=== PATIENT | female | born 1945 | race American Indian/Alaskan Native ===

== ENCOUNTER 2017-01-14 16:28 | Emergency (ER) | payer MEDICARE ==
[2017-01-14 16:29] VITALS: BMI 24.1
[2017-01-14 17:04] VITALS: O2SAT 100
[2017-01-14] MEDS ORDERED: HYDROmorphone 1 mg/ml ISec IVP STA (17:17)
--- NOTE | 2017-01-14 17:18 | ED PDOC ---
Arrival/HPI - General Chief Complaint: Abdominal Pain Time Seen by Provider: 01/14/17 16:50 Historian: Patient - History of Present Illness Narrative History of Present Illness (Text): 01/14/17 17:15 71 year old female with a past medical history that includes pancreatic cancer on chemo ([place], last chemo yesterday) presents to the emergency department with generalized body aches after chemotherapy. Patient states she has had a similar exacerbation of this pain in the past due to the cancer/chemo. Patient denies fever, cough, chest pain, shortness of breath, urinary symptoms, or vomiting. Time/Duration: 24 hours Symptom Onset: Gradual Symptom Course: Unchanged Modifying Factors (Text): None Associated Symptoms (Text): None Past Medical History - Provider Review Nursing Documentation Reviewed: Yes - Infectious Disease Hx of Infectious Diseases: None - Cardiac Hx Hypertension: Yes Hx Pacemaker: No - Pulmonary Hx Respiratory Disorders: No - Neurological Hx Paralysis: No Hx Parkinson's Disease: Yes - HEENT Hx HEENT Disorder: Yes Hx Macular Degeneration: Yes - Renal Hx Renal Disorder: No - Endocrine/Metabolic Hx Endocrine Disorders: Yes Hx Diabetes Mellitus Type 2: No (PREDIABETIC) Hx Hyperthyroidism: Yes Other/Comment: pancreatic cancer- dx aug 2016 chemo on tuesdays - Hematological/Oncological Hx Blood Transfusions: Yes (2008) Hx Blood Transfusion Reaction: No Hx Cancer: Yes (pancreatic) - Integumentary Hx Dermatological Disorder: No - Musculoskeletal/Rheumatological Hx Falls: No - Gastrointestinal Hx Gastrointestinal Disorders: Yes Hx Diverticulitis: Yes Hx Gall Bladder Disease: Yes (Lap choley) - Genitourinary/Gynecological Hx Genitourinary Disorders: Yes Other/Comment: Bladder surgery - Psychiatric Hx Emotional Abuse: No Hx Physical Abuse: No Hx Substance Use: No - Surgical History Hx Cholecystectomy: Yes - Anesthesia Hx Anesthesia: Yes Hx Anesthesia Reactions: No Hx Malignant Hyperthermia: No - Suicidal Assessment Feels Threatened In Home Enviroment: No Family/Social History - Physician Review Nursing Documentation Reviewed: Yes Family/Social History: Unknown Family HX Smoking Status: Never Smoked Hx Alcohol Use: No Hx Substance Use: No Allergies/Home Meds Allergies/Adverse Reactions: Allergies No Known Allergies Allergy (Verified 01/14/17 16:59) Home Medications: Home Meds Medication Instructions Recorded Confirmed Carbidopa/Levodopa 01/14/17 [Carbidopa-Levodopa 25-100 Tab] Metoprolol Tartrate [Lopressor] 01/14/17 Review of Systems - Review of Systems Constitutional: absent: Fevers Respiratory: absent: SOB, Cough Cardiovascular: absent: Chest Pain Gastrointestinal: absent: Vomiting Genitourinary Female: absent: Dysuria, Frequency, Hematuria Physical Exam - Physical Exam Narrative Physical Exam (Text): Constitutional: No acute distress. Head: Normocephalic. Atraumatic. Eyes: PERRL. ENT: Moist mucous membranes. Neck: Supple. Cardiovascular: Regular rate. Chest: No tenderness. Respiratory: Clear to auscultation bilaterally. GI: Soft. Nontender. Nondistended. Back: No CVA tenderness. Musculoskeletal: No tenderness or swelling of extremities. Skin: No rash. Neurologic: Alert, no focal deficit. Vital Signs Reviewed: Yes Vital Signs Temp Pulse Resp BP Pulse Ox 01/14/17 18:45 72 16 156/86 H 100 01/14/17 17:46 99.2 F 81 24 170/110 H 100 01/14/17 17:01 98.6 F 77 17 158/106 H 100 Temperature: Afebrile Blood Pressure: Normal Pulse: Regular Respiratory Rate: Normal Appearance: Positive for: Non-Toxic, Comfortable, Other (Thin elderly female) Pain Distress: None Mental Status: Positive for: Alert and Oriented X 3 Medical Decision Making ED Course and Treatment: Impression: 71 year old female with history of pancreatic cancer, on chemo, last chemo yesterday, presents with generalized body aches after chemo yesterday. Differential Diagnosis included but are not limited to: Plan: -- Dilaudid -- Reassess and disposition Prior Visits: Notes and results from previous visits were reviewed. CT on 10/12/16 showed pancreatic head mass. Progress Notes: Patient refusing workup or further evaluation and wishes to be discharged after receiving pain medication. The patient states much better after treatment and would like to go home. I instructed her to follow up with her oncologist for chronic pain management. I instructed her and her family to return to the ER for any worsening fever, dyspnea, vomiting, or other new symptoms. - Medication Orders Current Medication Orders: Discontinued Medications Hydromorphone HCl (Dilaudid) 1 mg IVP STAT STA Stop: 01/14/17 17:18 Last Admin: 01/14/17 17:52 Dose: 1 MG IVP Administration Document 01/14/17 17:52 MMA (Rec: 01/14/17 17:52 [id number]) Charges for Administration # of IVP Administrations 1 - Scribe Statement The provider has reviewed the documentation as recorded by the Marimar Chairez Provider Scribe Attestation: All medical record entries made by the Scribe were at my direction and personally dictated by me. I have reviewed the chart and agree that the record accurately reflects my personal performance of the history, physical exam, medical decision making, and the department course for this patient. I have also personally directed, reviewed, and agree with the discharge instructions and disposition. Disposition/Present on Arrival - Present on Arrival Any Indicators Present on Arrival: No History of DVT/PE: No History of Uncontrolled Diabetes: No Urinary Catheter: No History of Decub. Ulcer: No History Surgical Site Infection Following: None - Disposition Have Diagnosis and Disposition been Completed?: Yes Diagnosis: Chronic pain Disposition: HOME/ ROUTINE Disposition Time: 18:49 Patient Plan: Discharge Condition: STABLE Discharge Instructions (ExitCare): Pharmacological Management of Cancer Pain ( ED) Prescriptions: oxyCODONE/Acetaminophen [Percocet 5/325 mg Tab] 1 tab PO Q6 #10 tab
[2017-01-14 17:49] VITALS: TEMP 99.2
[2017-01-14 19:41] VITALS: BP 150/96; PULSE 66; RESP 14
== END 2017-01-14 19:38 | disposition home or self-care (01) ==
LOC: ED 16:28
DX: G89.29 Other chronic pain (principal); C25.9 Malignant neoplasm of pancreas, unspecified
CPT/HCPCS: 96374; 99283; J1170

== ENCOUNTER 2017-01-23 02:56 | Emergency (ER) | payer MEDICARE, OTHER ==
[2017-01-23 03:06] VITALS: TEMP 99
[2017-01-23 03:08] VITALS: BMI 23.6
[2017-01-23] MEDS ORDERED: HYDROmorphone 1 mg/ml ISec IVP STA (03:22)
--- NOTE | 2017-01-23 03:31 | ED PDOC ---
Arrival/HPI - General Chief Complaint: Medical Clearance Time Seen by Provider: 01/23/17 03:07 Historian: Patient - History of Present Illness Narrative History of Present Illness (Text): 01/23/17 03:22 Wanda Obrien is a 71 year old female, with a history of stage III pancreatic cancer on chemo, presents to the emergency department complaining of generalized weakness and body aches since yesterday. States that she experiences similar symptoms following chemotherapy and mentions that she usually gets a shot of Dilaudid which improved her symptoms markedly. Patient did not have chemotherapy this week because this is her off week. Patient is requesting a shot of dilaudid to help with pain. Denies fever, chills, headache , dizziness, nausea, vomiting, diarrhea, urinary symptoms, or any other complaints at this time. Time/Duration: < week (since yesterday ) Symptom Onset: Gradual Symptom Course: Worsening Severity Level: Mild Activities at Onset: Light Context: Home Past Medical History - Provider Review Nursing Documentation Reviewed: Yes - Infectious Disease Hx of Infectious Diseases: None - Cardiac Hx Hypertension: Yes Hx Pacemaker: No - Pulmonary Hx Respiratory Disorders: No - Neurological Hx Paralysis: No Hx Parkinson's Disease: Yes - HEENT Hx HEENT Disorder: Yes Hx Macular Degeneration: Yes - Renal Hx Renal Disorder: No - Endocrine/Metabolic Hx Endocrine Disorders: Yes Hx Diabetes Mellitus Type 2: No (PREDIABETIC) Hx Hyperthyroidism: Yes Other/Comment: pancreatic cancer- dx aug 2016 chemo on tuesdays - Hematological/Oncological Hx Blood Transfusions: Yes (2008) Hx Blood Transfusion Reaction: No Hx Cancer: Yes (pancreatic/stomach) - Integumentary Hx Dermatological Disorder: No - Musculoskeletal/Rheumatological Hx Falls: No - Gastrointestinal Hx Gastrointestinal Disorders: Yes Hx Colitis: Yes Hx Diverticulitis: Yes Hx Gall Bladder Disease: Yes (Lap choley) Hx Gastroesophageal Reflux: Yes Other/Comment: ca pancreas - Genitourinary/Gynecological Hx Genitourinary Disorders: Yes Other/Comment: Bladder surgery - Psychiatric Hx Anxiety: Yes Hx Emotional Abuse: No Hx Physical Abuse: No Hx Substance Use: No - Surgical History Hx Cholecystectomy: Yes Hx Hysterectomy: Yes - Anesthesia Hx Anesthesia: Yes Hx Anesthesia Reactions: No Hx Malignant Hyperthermia: No - Suicidal Assessment Feels Threatened In Home Enviroment: No Family/Social History - Physician Review Nursing Documentation Reviewed: Yes Family/Social History: No Known Family HX Smoking Status: Never Smoked Hx Alcohol Use: No Hx Substance Use: No Allergies/Home Meds Allergies/Adverse Reactions: Allergies No Known Allergies Allergy (Verified 01/23/17 03:06) Home Medications: Home Meds Medication Instructions Recorded Confirmed Carbidopa/Levodopa 01/14/17 [Carbidopa-Levodopa 25-100 Tab] Metoprolol Tartrate [Lopressor] 01/14/17 Review of Systems - Physician Review All systems were reviewed & negative as marked: Yes - Review of Systems Constitutional: Fatigue (generalized weakness ). absent: Fevers Respiratory: Normal. absent: SOB, Cough Cardiovascular: Normal. absent: Chest Pain Gastrointestinal: Normal. absent: Abdominal Pain, Diarrhea, Nausea, Vomiting Musculoskeletal: Myalgias (diffuse body aches ) Neurological: Normal. absent: Headache, Dizziness Psychiatric: Normal Physical Exam Vital Signs Reviewed: Yes Vital Signs Temp Pulse Resp BP Pulse Ox 01/23/17 05:10 78 18 138/86 100 01/23/17 03:32 83 18 145/91 H 100 01/23/17 03:05 99.0 F Temperature: Afebrile Blood Pressure: Normal Pulse: Regular Respiratory Rate: Normal Appearance: Positive for: Well-Appearing, Non-Toxic, Comfortable Pain Distress: None Mental Status: Positive for: Alert and Oriented X 3 - Systems Exam Head: Present: Atraumatic, Normocephalic Pupils: Present: PERRL Conjunctiva: Present: Normal Respiratory/Chest: Present: Clear to Auscultation, Good Air Exchange. No: Respiratory Distress, Accessory Muscle Use Cardiovascular: Present: Regular Rate and Rhythm, Normal S1, S2. No: Murmurs Abdomen: Present: Normal Bowel Sounds. No: Tenderness, Distention, Peritoneal Signs Upper Extremity: Present: Normal Inspection. No: Cyanosis, Edema Lower Extremity: Present: Normal Inspection. No: Edema Neurological: Present: GCS=15, CN II-XII Intact, Speech Normal Skin: Present: Warm, Dry, Normal Color. No: Rashes Psychiatric: Present: Alert, Oriented x 3, Normal Insight, Normal Concentration Medical Decision Making ED Course and Treatment: 01/23/17 03:33 Impression: A 71 year old female who presents to the emergency department complaining of generalized weakness and body aches since yesterday. Plan: -- Dilaudid -- Reassess and disposition Progress Notes: 01/23/17 05:03 pt feels better, requesting discharge. - Medication Orders Current Medication Orders: Discontinued Medications Hydromorphone HCl (Dilaudid) 1 mg IM STAT STA Stop: 01/23/17 04:35 Last Admin: 01/23/17 04:46 Dose: 1 MG IM Administration Charges Document 01/23/17 04:46 MR (Rec: 01/23/17 04:46 MR [id number]) Injection Site MAR Injection Site Left Deltoid Charges for Administration # of IM Administrations 1 - Scribe Statement The provider has reviewed the documentation as recorded by the Ildefonsoibe Armani Crocker Provider Attestation: All medical record entries made by the Ildefonsoibe were at my direction and personally dictated by me. I have reviewed the chart and agree that the record accurately reflects my personal performance of the history, physical exam, medical decision making, and the department course for this patient. I have also personally directed, reviewed, and agree with the discharge instructions and disposition. Disposition/Present on Arrival - Present on Arrival Any Indicators Present on Arrival: No History of DVT/PE: No History of Uncontrolled Diabetes: No Urinary Catheter: No History of Decub. Ulcer: No History Surgical Site Infection Following: None - Disposition Have Diagnosis and Disposition been Completed?: Yes Diagnosis: Whole body pain Disposition: HOME/ ROUTINE Disposition Time: 05:04 Patient Problems: Current Active Problems Problem Status Diagnosed Whole body pain Acute Condition: IMPROVED Additional Instructions: Please follow up with your doctor. Return to the ER for any worsening symptoms or for any other concerns.
[2017-01-23 03:39] VITALS: RESP 18; O2SAT 100
[2017-01-23] MEDS ORDERED: HYDROmorphone 1 mg/ml ISec IM STA (04:34)
[2017-01-23 05:12] VITALS: BP 138/86; PULSE 78
== END 2017-01-23 05:20 | disposition home or self-care (01) ==
LOC: ED 02:56
DX: M79.1 Myalgia (principal); C25.9 Malignant neoplasm of pancreas, unspecified; I10 Essential (primary) hypertension; G20 Parkinson's disease
CPT/HCPCS: 96372; 99282; J1170

== ENCOUNTER 2017-02-08 20:26 | Emergency (ER) | payer MEDICARE, OTHER ==
--- NOTE | 2017-02-08 21:41 | ED PDOC ---
Arrival/HPI - General Time Seen by Provider: 02/08/17 20:52 Historian: Patient - History of Present Illness Narrative History of Present Illness (Text): 02/08/17 21:39 Wanda Obrien is a 71 year old female, whose past medical history includes hypertension, macular degeneration, pancreatic adenocarcinoma currently undergoing chemotherapy, cecal adenocarcinoma anemia, diverticulitis, cholecystectomy, and bladder surgery, who presents to the Emergency department complaining of generalized body aches for the past couple of days Patient notes she recently had chemotherapy on 02/03/2017 and states she experiences similar symptoms after receiving chemotherapy. Patient denies any fever, chills, chest pain, shortness of breath, nausea, vomiting, diarrhea, urinary symptoms, back pain, neck pain, headache, dizziness, or any other complaints. PMD: Dr. Don Prabhakar Time/Duration: Other (2 days) Symptom Onset: Gradual Symptom Course: Unchanged Activities at Onset: Rest, Light Context: Home Past Medical History - Provider Review Nursing Documentation Reviewed: Yes - Infectious Disease Hx of Infectious Diseases: None - Cardiac Hx Hypertension: Yes Hx Pacemaker: No - Pulmonary Hx Respiratory Disorders: No - Neurological Hx Paralysis: No Hx Parkinson's Disease: Yes - HEENT Hx HEENT Disorder: Yes Hx Macular Degeneration: Yes - Renal Hx Renal Disorder: No - Endocrine/Metabolic Hx Endocrine Disorders: Yes Hx Diabetes Mellitus Type 2: No (PREDIABETIC) Hx Hyperthyroidism: Yes Other/Comment: pancreatic cancer- dx aug 2016 chemo on tuesdays - Hematological/Oncological Hx Blood Transfusions: Yes (2008) Hx Blood Transfusion Reaction: No Hx Cancer: Yes (pancreatic/stomach) - Integumentary Hx Dermatological Disorder: No - Musculoskeletal/Rheumatological Hx Falls: No - Gastrointestinal Hx Gastrointestinal Disorders: Yes Hx Colitis: Yes Hx Diverticulitis: Yes Hx Gall Bladder Disease: Yes (Lap choley) Hx Gastroesophageal Reflux: Yes Other/Comment: ca pancreas - Genitourinary/Gynecological Hx Genitourinary Disorders: Yes Other/Comment: Bladder surgery - Psychiatric Hx Anxiety: Yes Hx Emotional Abuse: No Hx Physical Abuse: No Hx Substance Use: No - Surgical History Hx Cholecystectomy: Yes Hx Hysterectomy: Yes - Anesthesia Hx Anesthesia: Yes Hx Anesthesia Reactions: No Hx Malignant Hyperthermia: No - Suicidal Assessment Feels Threatened In Home Enviroment: No Family/Social History - Physician Review Nursing Documentation Reviewed: Yes Family/Social History: No Known Family HX Smoking Status: Never Smoked Hx Alcohol Use: No Hx Substance Use: No Allergies/Home Meds Allergies/Adverse Reactions: Allergies No Known Allergies Allergy (Verified 01/23/17 03:06) Home Medications: Home Meds Medication Instructions Recorded Confirmed Carbidopa/Levodopa 01/14/17 [Carbidopa-Levodopa 25-100 Tab] Metoprolol Tartrate [Lopressor] 01/14/17 Review of Systems - Physician Review All systems were reviewed & negative as marked: Yes - Review of Systems Constitutional: Other (+generalized body aches). absent: Fevers Eyes: Normal ENT: Normal Respiratory: Normal. absent: SOB, Cough Cardiovascular: Normal. absent: Chest Pain Gastrointestinal: Normal. absent: Abdominal Pain, Diarrhea, Nausea, Vomiting Genitourinary Female: Normal. absent: Dysuria, Frequency, Hematuria, Urine Output Changes Musculoskeletal: Normal. absent: Back Pain, Neck Pain Skin: Normal. absent: Rash Neurological: Normal. absent: Headache, Dizziness Endocrine: Normal Hemo/Lymphatic: Normal Psychiatric: Normal Physical Exam Vital Signs Reviewed: Yes Vital Signs Temp Pulse Resp BP Pulse Ox 02/08/17 23:36 85 16 100 02/08/17 21:53 99.2 F 92 H 16 158/92 H 100 Temperature: Afebrile Blood Pressure: Normal Pulse: Regular Respiratory Rate: Normal Appearance: Positive for: Well-Appearing, Non-Toxic, Comfortable Pain Distress: None Mental Status: Positive for: Alert and Oriented X 3 - Systems Exam Head: Present: Atraumatic, Normocephalic Pupils: Present: PERRL Extroacular Muscles: Present: EOMI Conjunctiva: Present: Normal Mouth: Present: Moist Mucous Membranes Neck: Present: Normal Range of Motion Respiratory/Chest: Present: Clear to Auscultation, Good Air Exchange. No: Respiratory Distress, Accessory Muscle Use Cardiovascular: Present: Regular Rate and Rhythm, Normal S1, S2. No: Murmurs Abdomen: Present: Normal Bowel Sounds. No: Tenderness, Distention, Peritoneal Signs Back: Present: Normal Inspection Upper Extremity: Present: Normal Inspection. No: Cyanosis, Edema Lower Extremity: Present: Normal Inspection. No: Edema Neurological: Present: GCS=15, CN II-XII Intact, Speech Normal Skin: Present: Warm, Dry, Normal Color. No: Rashes Psychiatric: Present: Alert, Oriented x 3, Normal Insight, Normal Concentration Medical Decision Making ED Course and Treatment: 02/08/17 21:39 Impression: 72 year old female complaining of generalized body aches x2 days. Plan: -- Labs -- Zofran -- Dilaudid -- Reassess and disposition Prior Visits: Notes and results from previous visits were reviewed. On 01/23/2017, pt was seen in the Emergency department for generalized weakness and body aches. Pt was d/c home. Progress Notes: 02/09/17 00:[address] Prabhakar, who is aware and agrees with plan. Accepts pt in to her service. 02/09/17 00:29 Discussed results and hospital admission plan with pt and family. Pt refusing further evaluation. Pt states she does not wish to stay and states she will f/u with her PMD. Pt was advised on possibility of underlying infection. Patient continues to wish to leave. Pt will sign out AMA. Explained to the patient that choosing to do so may result in permanent bodily harm or . Discussed at great length that without further evaluation and monitoring there may be unforeseen circumstances and/or deterioration causing permanent bodily harm or as a result of their choice. The patient is alert , oriented, and shows the mental capacity to make clear decisions regarding the patients health care at this time. The patient continues to wish to leave against medical advice. The patient has been advised that they should return to the emergency room immediately if they change their mind at any time, or if their condition begins to change or worsen in any way. - Lab Interpretations Lab Results: 02/08/17 22:04 02/08/17 22:04 Lab Results 02/08/17 22:04: WBC 26.3 H*, RBC 2.83 L, Hgb 9.1 L, Hct 27.6 L, MCV 97.5, MCH 32.2, MCHC 33.0, RDW 15.4 H, Plt Count 151, MPV 9.3, Neutrophils % (Manual) 82 H , Band Neutrophils % 8 H, Lymphocytes % (Manual) 6 L, Monocytes % (Manual) 4, Dohle Bodies 1+, Platelet Evaluation Normal, Anisocytosis (manual) Slight, Sodium 141, Potassium 4.0, Chloride 107, Carbon Dioxide 25, Anion Gap 13, BUN 13 , Creatinine 1.0, Est GFR ( Amer) > 60, Est GFR (Non-Af Amer) 55, Random Glucose 93, Calcium 9.5, Total Bilirubin 0.4, AST 27, ALT 25, Alkaline Phosphatase 147 H, Total Protein 6.9, Albumin 3.9, Globulin 3.1, Albumin/ Globulin Ratio 1.3 I have reviewed the lab results: Yes - Medication Orders Current Medication Orders: Discontinued Medications Hydromorphone HCl (Dilaudid) 1 mg IVP STAT STA Stop: 02/08/17 21:48 Last Admin: 02/08/17 22:21 Dose: 1 MG IVP Administration Document 02/08/17 22:21 EKEOO (Rec: 02/08/17 22:21 EKEOO [id number]) Charges for Administration # of IVP Administrations 1 Sodium Chloride (Sodium Chloride 0.9%) 1,000 mls @ 999 mls/hr IV .Q1H1M STA Stop: 02/08/17 22:52 Last Admin: 02/08/17 22:20 Dose: 999 MLS/HR eMAR Start Stop Document 02/08/17 22:20 EKEOO (Rec: 02/08/17 22:21 EKEOO [id number]) Intravenous Solution Start Date 02/08/17 Start Time 22:20 Ondansetron HCl (Zofran Inj) 4 mg IVP ONCE ONE Stop: 02/08/17 21:48 Last Admin: 02/08/17 22:21 Dose: 4 MG IVP Administration Document 02/08/17 22:21 EKEOO (Rec: 02/08/17 22:21 EKEOO [id number]) Charges for Administration # of IVP Administrations 1 - Scribe Statement The provider has reviewed the documentation as recorded by the Marimar Mitchell Provider Attestation: All medical record entries made by the Ildefonsoibpk were at my direction and personally dictated by me. I have reviewed the chart and agree that the record accurately reflects my personal performance of the history, physical exam, medical decision making, and the department course for this patient. I have also personally directed, reviewed, and agree with the discharge instructions and disposition. Disposition/Present on Arrival - Present on Arrival Any Indicators Present on Arrival: No History of DVT/PE: No History of Uncontrolled Diabetes: No Urinary Catheter: No History Surgical Site Infection Following: None - Disposition Have Diagnosis and Disposition been Completed?: Yes Diagnosis: Pancreatic cancer, Chronic pain due to neoplasm, Leukocytosis Disposition: AGAINST MEDICAL ADVICE Disposition Time: 00:45 Patient Problems: Current Active Problems Problem Status Diagnosed Chronic pain due to neoplasm Acute Leukocytosis Acute Pancreatic cancer Acute Condition: STABLE Referrals: Kristen Prabhakar MD [Primary Care Provider] - Follow up with primary
[2017-02-08 21:44] VITALS: BMI 23.3
[2017-02-08] MEDS ORDERED: HYDROmorphone 1 mg/ml ISec IVP STA (21:47)
[2017-02-08] MEDS ORDERED: Sodium Chloride 0.9% 1,000 ML IV STA (21:52)
[2017-02-08 21:54] VITALS: BP 158/92; RESP 16; TEMP 99.2; O2SAT 100
[2017-02-08 22:24] LABS: HEMATOCRIT 27.6 % (36.0-48.0); MEAN CELL VOLUME 97.5 fL (80.0-105.0); MEAN CORPUSCULAR HEMOGLOBIN 32.2 pg (25.0-35.0); MEAN PLATELET VOLUME 9.3 fl (7.0-11.0); PLATELET COUNT 151 10^3/uL (120.0-450.0); RED CELL DISTRIBUTION WIDTH 15.4 % (11.5-14.5)
[2017-02-08 22:32] LABS: ALB/GLOB RATIO 1.3 (1.1-1.8); ALKALINE PHOSPHATASE 147 U/L (38-133); ALT/SGPT 25 U/L (7-56); AST/SGOT 27 U/L (15-39); BILIRUBIN,TOTAL 0.4 mg/dL (0.2-1.3); BLOOD UREA NITROGEN 13 mg/dL (7-21); CALCIUM 9.5 mg/dL (8.4-10.5); CARBON DIOXIDE 25 mmol/L (21-33); CHLORIDE 107 mmol/L (98-107); GFR AFRICAN-AMERICAN > 60; GLUCOSE,RANDOM 93 mg/dL (70-110); SODIUM 141 mmol/L (132-148); TOTAL PROTEIN 6.9 g/dL (5.8-8.3); WHITE BLOOD COUNT 26.3 10^3/ul (4.5-11.0)
[2017-02-08 22:58] LABS: BAND 8 % (0-2); NEUTROPHIL 82 % (50.0-70.0)
[2017-02-08 22:59] LABS: ANISOCYTOSIS SLIGHT; DOHLE BODIES 1+; PLATELET ESTIMATE NORMAL (NORMAL)
[2017-02-08] MEDS ORDERED: Cefepime IV 2 gm in NS 100 ML IVPB STA (23:23)
[2017-02-08] MEDS ORDERED: Vancomycin 1gm in NS 250ml 250 ML IVPB STA (23:24)
[2017-02-08 23:36] VITALS: PULSE 85
== END 2017-02-09 02:35 | disposition left against medical advice (07) ==
LOC: ED 20:26
DX: C25.9 Malignant neoplasm of pancreas, unspecified (principal); G89.3 Neoplasm related pain (acute) (chronic); D72.829 Elevated white blood cell count, unspecified
CPT/HCPCS: 80053; 85007; 85027; 96374; 96375; 99284; J1170; J2405; J7040

== ENCOUNTER 2017-03-31 11:51 | Inpatient (IN) | payer MEDICARE, OTHER ==
--- NOTE | 2017-03-31 12:28 | ED PDOC ---
Arrival/HPI - General Chief Complaint: Flu-like Symptoms Time Seen by Provider: 03/31/17 11:56 Historian: Patient, Family (Son) - History of Present Illness Narrative History of Present Illness (Text): 03/31/17 12:25 72 year old female whose past medical history includes hypertension, macular degeneration, anemia, diverticulitis, and stage III pancreatic cancer diagnosed in 2015 (on chemo weekly) presents to the emergency department s/p chemo today, complaining of chronic body aches and general fatigue for the past week. Patient states she takes Percocet at home for the pain. Denies fever, vomiting, diarrhea, or other complaints. PMD: Dr. Prabhakar Time/Duration: 1 week Symptom Onset: Gradual Symptom Course: Unchanged Associated Symptoms (Text): None Past Medical History - Provider Review Nursing Documentation Reviewed: Yes - Infectious Disease Hx of Infectious Diseases: None - Cardiac Hx Hypertension: Yes Hx Pacemaker: No - Pulmonary Hx Respiratory Disorders: No - Neurological Hx Paralysis: No Hx Parkinson's Disease: Yes - HEENT Hx HEENT Disorder: Yes Hx Macular Degeneration: Yes - Renal Hx Renal Disorder: No - Endocrine/Metabolic Hx Endocrine Disorders: Yes Hx Diabetes Mellitus Type 2: No (PREDIABETIC) Hx Hyperthyroidism: Yes Other/Comment: pancreatic cancer- dx aug 2016 chemo on tuesdays - Hematological/Oncological Hx Blood Transfusions: Yes (2008) Hx Blood Transfusion Reaction: No Hx Cancer: Yes (pancreatic/stomach) - Integumentary Hx Dermatological Disorder: No - Musculoskeletal/Rheumatological Hx Falls: No - Gastrointestinal Hx Gastrointestinal Disorders: Yes Hx Colitis: Yes Hx Diverticulitis: Yes Hx Gall Bladder Disease: Yes (Lap choley) Hx Gastroesophageal Reflux: Yes Other/Comment: ca pancreas - Genitourinary/Gynecological Hx Genitourinary Disorders: Yes Other/Comment: Bladder surgery - Psychiatric Hx Anxiety: Yes Hx Emotional Abuse: No Hx Physical Abuse: No Hx Substance Use: No - Surgical History Hx Cholecystectomy: Yes Hx Hysterectomy: Yes - Anesthesia Hx Anesthesia: Yes Hx Anesthesia Reactions: No Hx Malignant Hyperthermia: No - Suicidal Assessment Feels Threatened In Home Enviroment: No Family/Social History - Physician Review Nursing Documentation Reviewed: Yes Family/Social History: Unknown Family HX Smoking Status: Never Smoked Hx Alcohol Use: No Hx Substance Use: No Allergies/Home Meds Allergies/Adverse Reactions: Allergies No Known Allergies Allergy (Verified 03/31/17 11:53) Home Medications: Home Meds Medication Instructions Recorded Confirmed Carbidopa/Levodopa 1 each PO DAILY 01/14/17 03/31/17 [Carbidopa-Levodopa 25-100 Tab] Metoprolol Tartrate [Lopressor] 25 mg PO DAILY 01/14/17 03/31/17 Review of Systems - Physician Review All systems were reviewed & negative as marked: Yes - Review of Systems Constitutional: Fatigue. absent: Fevers Gastrointestinal: absent: Diarrhea, Vomiting Musculoskeletal: Arthralgias Physical Exam Vital Signs Reviewed: Yes Vital Signs Temp Pulse Resp BP Pulse Ox 03/31/17 15:59 72 16 138/100 H 100 03/31/17 11:56 98.9 F 87 19 121/73 99 Temperature: Afebrile Blood Pressure: Normal Pulse: Regular Respiratory Rate: Normal Appearance: Positive for: Non-Toxic, Comfortable, Other (Generally fatigued) Pain Distress: None Mental Status: Positive for: Alert and Oriented X 3 - Systems Exam Head: Present: Atraumatic, Normocephalic Pupils: Present: PERRL Conjunctiva: Present: Normal Neck: Present: Normal Range of Motion Respiratory/Chest: Present: Clear to Auscultation, Good Air Exchange, Other ( Right chest wall port-a-cath). No: Respiratory Distress, Accessory Muscle Use Cardiovascular: Present: Regular Rate and Rhythm Abdomen: Present: Normal Bowel Sounds. No: Tenderness, Distention, Peritoneal Signs Upper Extremity: Present: Normal Inspection. No: Cyanosis, Edema Lower Extremity: Present: Normal Inspection. No: Edema Neurological: Present: GCS=15, CN II-XII Intact, Speech Normal Skin: Present: Warm, Dry, Normal Color. No: Rashes Psychiatric: Present: Alert, Oriented x 3, Normal Insight, Normal Concentration Medical Decision Making ED Course and Treatment: Impression: 72 year old female whose past medical history includes hypertension , macular degeneration, anemia, diverticulitis, and stage III pancreatic cancer diagnosed in 2016 (on chemo weekly) presents to the emergency department s/p chemo today, complaining of chronic body aches and general fatigue for the past week. Plan: -- EKG, Chest X-ray -- Labs -- Blood and urine cultures -- IV fluids -- Reassess and disposition Prior Visits: Notes and results from previous visits were reviewed. Patient last seen in ED on 02/08/17 for body aches and signed out AMA. Progress Notes: Chest X-ray Gearcase Assembler: Martinez Gusman MD IMPRESSION: No active disease 03/31/17 14:24 On reevaluation, patient states she feels better. Patient's WBC elevated. Chest x-ray is negative. pt noted to have elevated wbc. Paged PMD Dr. Prabhakar who is patients primary doc. 03/31/17 15:[address] Prabhakar, agrees with [facility] for observation. 03/31/17 19:01 - Lab Interpretations Lab Results: 03/31/17 12:30 03/31/17 12:30 Lab Results 03/31/17 12:30: Sodium 141, Potassium 4.0, Chloride 109 H, Carbon Dioxide 21, Anion Gap 15, BUN 15, Creatinine 1.0, Est GFR ( Amer) > 60, Est GFR (Non- Af Amer) 55, Random Glucose 148 H, Calcium 9.2, Total Bilirubin 0.3, AST 22, ALT 17, Alkaline Phosphatase 129, Total Protein 6.4, Albumin 3.8, Globulin 2.6, Albumin/Globulin Ratio 1.5 03/31/17 12:30: WBC 20.4 H D, RBC 2.96 L, Hgb 9.5 L, Hct 29.6 L, MCV 100.0, MCH 32.1, MCHC 32.1, RDW 14.0, Plt Count 143, MPV 9.5, Gran % 87.8 H, Lymph % (Auto ) 5.3 L, [place] % (Auto) 6.8 H, Eos % (Auto) 0.1 L, Baso % (Auto) 0.0, Gran # 17.87 H, Lymph # 1.1 L, [place] # 1.4 H, Eos # 0.0, Baso # 0.01 - RAD Interpretation Radiology Orders: 03/31/17 12:24 CHEST PORTABLE [RAD] Stat - EKG Interpretation EKG Interpretation (Text): EKG shows sinus rhythm at 77 BPM with occasional PVC, no ST elevations. Interpreted by me. Interpreted by ED Physician: Yes Type: 12 lead EKG - Medication Orders Current Medication Orders: Carbidopa/Levodopa (Sinemet) 1 tab PO DAILY IRVIN Hydromorphone HCl (Dilaudid) 0.5 mg IVP Q4H PRN PRN Reason: Pain, Mild (1-3) Sodium Chloride (Sodium Chloride 0.9%) 1,000 mls @ 100 mls/hr IV .Q10H IRVIN Last Admin: 03/31/17 12:50 Dose: 100 mls/hr Metoprolol Tartrate (Lopressor) 25 mg PO DAILY IRVIN Zolpidem Tartrate (Ambien) 5 mg PO HS IRVIN PRN Reason: Protocol Discontinued Medications Hydromorphone HCl (Dilaudid) 1 mg IVP STAT STA Stop: 03/31/17 12:59 Last Admin: 03/31/17 13:06 Dose: 1 mg Hydromorphone HCl (Dilaudid) 1 mg IVP STAT STA Stop: 03/31/17 16:22 Last Admin: 03/31/17 16:28 Dose: 1 mg - Scribe Statement The provider has reviewed the documentation as recorded by the Marimar Chairez Provider Scribe Attestation: All medical record entries made by the Marimar were at my direction and personally dictated by me. I have reviewed the chart and agree that the record accurately reflects my personal performance of the history, physical exam, medical decision making, and the department course for this patient. I have also personally directed, reviewed, and agree with the discharge instructions and disposition. Disposition/Present on Arrival - Present on Arrival Any Indicators Present on Arrival: No History of DVT/PE: No History of Uncontrolled Diabetes: No Urinary Catheter: No History of Decub. Ulcer: No History Surgical Site Infection Following: None - Disposition Have Diagnosis and Disposition been Completed?: Yes Diagnosis: Leukocytosis Disposition: HOSPITALIZED Disposition Time: 15:54 Patient Plan: Observation Condition: FAIR
[2017-03-31 12:46] LABS: ADD MANUAL DIFF? NO
[2017-03-31 12:50] LABS: BASO # 0.01 K/mm3 (0.0-2.0); EOS % 0.1 % (1.5-5.0); GRAN # 17.87 (1.4-6.5); GRAN % 87.8 % (50.0-68.0); HEMATOCRIT 29.6 % (36.0-48.0); LYMPH # 1.1 (1.2-3.4); LYMPH % 5.3 % (22.0-35.0); MEAN CORPUSCULAR HEMOGLOBIN 32.1 pg (25.0-35.0); MEAN CORPUSCULAR HGB CONC 32.1 g/dl (31.0-37.0); MEAN PLATELET VOLUME 9.5 fl (7.0-11.0); MONO # 1.4 (0.1-0.6); MONO % 6.8 % (1.0-6.0); PLATELET COUNT 143 10^3/uL (120.0-450.0); WHITE BLOOD COUNT 20.4 10^3/ul (4.5-11.0)
[2017-03-31] MEDS: Sodium Chloride 0.9% 1,000 ML IV SCH ×2 (12:50→23:02)
[2017-03-31] MEDS ORDERED: HYDROmorphone 1 mg/ml ISec IVP STA ×2 (12:58→16:21)
[2017-03-31 13:01] LABS: ALB/GLOB RATIO 1.5 (1.1-1.8); ALKALINE PHOSPHATASE 129 U/L (38-133); ALT/SGPT 17 U/L (7-56); AST/SGOT 22 U/L (15-39); BILIRUBIN,TOTAL 0.3 mg/dL (0.2-1.3); BLOOD UREA NITROGEN 15 mg/dL (7-21); CALCIUM 9.2 mg/dL (8.4-10.5); CARBON DIOXIDE 21 mmol/L (21-33); CHLORIDE 109 mmol/L (98-107); GFR AFRICAN-AMERICAN > 60; GLUCOSE,RANDOM 148 mg/dL (70-110); SODIUM 141 mmol/L (132-148); TOTAL PROTEIN 6.4 g/dL (5.8-8.3)
--- NOTE | 2017-03-31 13:35 | RAD ---
HISTORY: Sepsis Patient COMPARISON: 10/12/2016 FINDINGS: LUNGS: No active pulmonary disease. PLEURA: No significant pleural effusion identified, no pneumothorax apparent. CARDIOVASCULAR: Mild cardiomegaly. OSSEOUS STRUCTURES: No significant abnormalities. VISUALIZED UPPER ABDOMEN: Normal. OTHER FINDINGS: There is a right-sided Port-A-Cath IMPRESSION: No active disease.
[2017-03-31 16:11] LABS: URINE APPEARANCE CLEAR (CLEAR); URINE BILIRUBIN NEGATIVE (NEGATIVE); URINE BLOOD NEGATIVE (NEGATIVE); URINE COLOR YELLOW (YELLOW); URINE GLUCOSE (UA) NEGATIVE (NEGATIVE); URINE KETONE NEGATIVE (NEGATIVE); URINE LEUKOCYTE ESTERASE NEGATIVE Leu/uL (NEGATIVE); URINE PROTEIN TRACE mg/dL (<30 mg/dL); URINE UROBILINOGEN 0.2 E.U./dL (<1 E.U./dL)
[2017-03-31 16:17] LABS: URINE AMORPHOUS SEDIMENT TRACE; URINE BACTERIA MOD (NEG); URINE RBC 0 - 2 /hpf (0-2); URINE WBC 0 - 2 /hpf (0-6)
[2017-03-31] MEDS ORDERED: HYDROmorphone 0.5 mg/0.5 ml ISec IVP PRN (18:10)
[2017-03-31 19:21] LABS: CHOLESTEROL 99 mg/dL (130-200)
[2017-03-31 19:32] LABS: IRON 15 ug/dL (45-180)
--- NOTE | 2017-03-31 21:49 | HP ---
CHIEF COMPLAINT: Fatigue, tired, flu-like symptoms. HISTORY OF PRESENT ILLNESS: The patient is a 72-year-old, my private patient, history of hypertension, macular degeneration ,diverticulitis, stage III pancreatic cancer diagnosed in 2016, on chemotherapy, getting from [place], came to the Emergency Room, status post chemotherapy, complaining of chronic body aches, general fatigue for the past week. The patient stated that she takes Percocet at home for the pain. Denies fever, chills, nausea, vomiting, diarrhea. According to her, she cannot sleep at night and feeling very tired. PAST MEDICAL HISTORY: Hypertension, Parkinson disease, macular degeneration, endocrine disorder, history of pancreatic cancer diagnosed in 2015, gets chemotherapy on Tuesdays, diabetes mellitus type 2, anemia, status post blood transfusion, history of colitis, diverticulitis, history of laparoscopic cholecystectomy, history of bladder surgery, cholecystectomy, hysterectomy. FAMILY HISTORY: Father and mother noncontributory. HABITS: Never smoked. No h/o ethanol abuse . ALLERGIES: The patient is not allergic to any medications. HOME MEDICATIONS: Carbidopa/levodopa, metoprolol. REVIEW OF SYSTEMS: The patient seen and examined on the bedside in the Emergency Room. Daughter is sitting on the bedside also. Still feeling fatigued and tired, getting morphine 2 doses stat, getting IV fluid, feeling a little bit better. No fever, no chills, no nausea, vomiting, diarrhea. PHYSICAL EXAMINATION: VITAL SIGNS: Temperature 98.8, pulse 72, blood pressure 138/100, respiratory rate 16. HEENT: Head normocephalic, atraumatic. Eyes: PERRLA. Extraocular movements intact. Conjunctivae are clear. Nose patent. Mucous membranes moist. NECK: Supple. No carotid bruit, JVD or thyromegaly. CHEST: Symmetrical. HEART: S1, S2 positive. LUNGS: Clear to auscultation. ABDOMEN: Soft. Bowel sounds positive. No organomegaly. EXTREMITIES: No edema, no cyanosis. NEUROLOGIC: The patient is awake, alert, moving all 4 extremities. No focal deficits. LABORATORY DATA: White blood cells 20.4, hemoglobin 9.5, hematocrit 29.6, platelets 143. Sodium 141, potassium 4.0, BUN 50, creatinine 1.2, and glucose 148. ASSESSMENT AND PLAN: The patient is a 72-year-old lady with leukocytosis, anemia, hyperchloremia, hyperglycemia, proteinuria. Chest x-ray, no active disease. History of pancreatic cancer, getting chemotherapy on Tuesdays, came with flu-like symptoms, fatigue, tired, history of hypertension, macular degeneration, diverticulitis, stage III pancreatic cancer. Got normal saline and hydromorphone in the Emergency Room. In the ER, on evaluation, patient states that she feels better. The patient's white blood cell is heigh . Chest x-ray is negative. Discussion done with ER physician. Will keep patient overnight. Body aches are improving. I put her on Dilaudid. History of Parkinson's disease, history of colitis, laparoscopic cholecystectomy, diverticulitis, gastroesophageal reflux disease, bladder surgery, anxiety. Gastrointestinal and deep venous thrombosis prophylaxis. Repeat labs. We will follow up. Kristen Prabhakar MD cc: [id number] TT: 03/31/2017 21:48:11 debbie PARKER
--- NOTE | 2017-03-31 22:18 | CARD ---
APPROVED REPORT EKG Measurement Heart [id number] <Conclusion> Sinus rhythm with occasional premature ventricular complexes Minimal voltage criteria for LVH, may be normal variant Possible Anterior infarct, age undetermined Abnormal ECG
[2017-03-31 22:22] VITALS: BMI 22.4
[2017-03-31] MEDS ORDERED: Pneumococcal 23-Valent Vaccine IM ONE (22:22)
[2017-04-01] MEDS ORDERED: HYDROmorphone 0.5 mg/0.5 ml ISec IVP STA (03:33)
--- NOTE | 2017-04-01 03:35 | CP.PCM.PN ---
Subjective - Date & Time of Evaluation Date of Evaluation: 04/01/17 Time of Evaluation: 03:34 - Subjective Subjective: S:Patient was seen at bedside. She complained of back pain. Also has thoracolumbar back pain. It is chronic pain. Feels like spasm. She seems to be in severe pain, crying. She did receive dilaudid 0.5 mg IV @ 01:03. Next dose is not due until 05:03. Has no other complaints now. No nausea, no paraesthesia. ROS:Neg except a above. Medical record was reviewed. O: Last Vital Signs 3 Temp 98.1 F 03/31/17 22:12 Pulse 72 03/31/17 22:12 Resp 16 03/31/17 22:12 BP 138/100 H 03/31/17 22:12 Pulse Ox 100 03/31/17 20:09 Awake , alert , in pain. LUNGS:Normal breathing pattern. NECK: NAD on inspection. BACK:NAD on inspection. A:Neck pain. Ishmael pain. Pancreatic cancer. P:Dilaudid 1 mg IV stat.03:35 Objective - Vital Signs/Intake and Output Vital Signs (last 24 hours): Temp Pulse Resp BP Pulse Ox 98.1 F 72 16 138/100 H 100 03/31/17 22:12 03/31/17 22:12 03/31/17 22:12 03/31/17 22:12 03/31/17 20:09 - Medications Medications: Current Medications Carbidopa/Levodopa (Sinemet) 1 tab PO DAILY IRVIN Hydromorphone HCl (Dilaudid) 0.5 mg IVP Q4H PRN PRN Reason: Pain, Mild (1-3) Last Admin: 04/01/17 01:03 Dose: 0.5 mg Hydromorphone HCl (Dilaudid) 0.5 mg IVP STAT STA Stop: 04/01/17 03:34 Sodium Chloride (Sodium Chloride 0.9%) 1,000 mls @ 100 mls/hr IV .Q10H IRVIN Last Admin: 03/31/17 23:02 Dose: 100 mls/hr Metoprolol Tartrate (Lopressor) 25 mg PO DAILY IRVIN Zolpidem Tartrate (Ambien) 5 mg PO HS IRVIN PRN Reason: Protocol Last Admin: 03/31/17 23:02 Dose: 5 mg
[2017-04-01] MEDS ORDERED: HYDROmorphone 1 mg/ml ISec IVP STA (03:41)
[2017-04-01 07:03] LABS: HEMATOCRIT 27.9 % (36.0-48.0); MEAN CELL VOLUME 99.3 fL (80.0-105.0); MEAN CORPUSCULAR HGB CONC 32.3 g/dl (31.0-37.0); MEAN PLATELET VOLUME 9.7 fl (7.0-11.0); RED CELL DISTRIBUTION WIDTH 13.9 % (11.5-14.5); WHITE BLOOD COUNT 20.3 10^3/ul (4.5-11.0)
[2017-04-01 07:09] LABS: BLOOD UREA NITROGEN 12 mg/dL (7-21); CALCIUM 8.5 mg/dL (8.4-10.5); CARBON DIOXIDE 23 mmol/L (21-33); CHLORIDE 110 mmol/L (95-110); GFR AFRICAN-AMERICAN > 60; GLUCOSE,RANDOM 88 mg/dL (70-110); POTASSIUM 4.2 mmol/L (3.6-5.0); SODIUM 141 mmol/L (132-148)
[2017-04-01] MEDS: HYDROmorphone 1 mg/ml ISec IVP PRN ×2 (11:13→18:35)
[2017-04-01] MEDS ORDERED: cefTRIAXone 1 gm 1 GM/100 ML BAG IVPB SCH (11:15)
[2017-04-01] MEDS: Vancomycin 1gm in NS 250ml 1 GM/250 ML BAG IVPB SCH ×2 (11:44→22:41)
[2017-04-01] MEDS: Piperacillin/Tazobact 3.375 gm 100 ML IVPB SCH ×2 (12:52→17:56)
--- NOTE | 2017-04-01 20:22 | CP.PCM.CON ---
History of Present Illness - History of Present Illness History of Present Illness: 72 year old female with PMH of HTN, pancreatic cancer diagnosed in 2016 on has been on chemotherapy weekly, history of diverticulitis, S/P laparoscopic cholecystectomy, S/P hysterectomy, S/P bladder surgery came in to [facility] complaining of generalized weakness, body aches and subjective chills since yesterday when the patietn had a chemotherapy session. She has not measured her temperature at home. She denies headache or dizziness, no rhinorrhea, no sore throat, no dysphagia or odynophagia, no abdominal pain, no chest pain, no SOB, no diarrhea, no dysuria. In the ED, the patient is noted to have leukocytosis and Infectious Diseases consult is requested to further evaluate and manage. Review of Systems - Review of Systems All systems: reviewed and no additional remarkable complaints except (as per HPI ) Past Patient History - Infectious Disease Hx of Infectious Diseases: None - Past Medical History & Family History Past Medical History?: Yes - Past Social History Smoking Status: Never Smoked - CARDIAC Hx Hypertension: Yes Hx Pacemaker: No - PULMONARY Hx Respiratory Disorders: No - NEUROLOGICAL Hx Parkinson's Disease: Yes - HEENT Hx HEENT Problems: Yes (eyeglasses) Hx Macular Degeneration: Yes - RENAL Hx Chronic Kidney Disease: No - ENDOCRINE/METABOLIC Hx Endocrine Disorders: Yes Hx Diabetes Mellitus Type 2: No (PREDIABETIC) Hx Hyperthyroidism: Yes - HEMATOLOGICAL/ONCOLOGICAL Hx Anemia: Yes Hx Cancer: Yes (pancreatic/stomach/stage III/dx 08/2016) Hx Chemotherapy: Yes (last chemo 03/24/17) Other/Comment: chemo every other week on a thursday, cycle in progress - INTEGUMENTARY Hx Dermatological Problems: No - MUSCULOSKELETAL/RHEUMATOLOGICAL Hx Falls: No - GASTROINTESTINAL Hx Gastrointestinal Disorders: Yes (colitis) Hx Diverticulitis: Yes Hx Gall Bladder Disease: Yes (Lap cherelle) Hx Gastroesophageal Reflux: Yes Other/Comment: ca pancreas - GENITOURINARY/GYNECOLOGICAL Hx Genitourinary Disorders: Yes Other/Comment: pt denies bladder sx - PSYCHIATRIC Hx Substance Use: No - SURGICAL HISTORY Hx Surgeries: Yes (r cw pac) Hx Cholecystectomy: Yes Hx Hysterectomy: Yes - ANESTHESIA Hx Anesthesia: Yes Hx Anesthesia Reactions: No Hx Malignant Hyperthermia: No Meds Allergies/Adverse Reactions: Allergies Allergy/AdvReac Type Severity Reaction Status Date / Time No Known Allergies Allergy Verified 03/31/17 11:53 - Medications Medications: Current Medications Carbidopa/Levodopa (Sinemet) 1 tab PO DAILY [facility] Last Admin: 04/01/17 10:25 Dose: 1 tab Hydromorphone HCl (Dilaudid) 1 mg IVP Q4H PRN PRN Reason: Pain, severe (8-10) Last Admin: 04/01/17 11:13 Dose: 1 mg Sodium Chloride (Sodium Chloride 0.9%) 1,000 mls @ 100 mls/hr IV .Q10H IRVIN Last Admin: 03/31/17 23:02 Dose: 100 mls/hr Ceftriaxone Sodium (Rocephin 1 Gram Ivpb) 1 gm in 100 mls @ 100 mls/hr IVPB DAILY IRVIN PRN Reason: Protocol Metoprolol Tartrate (Lopressor) 25 mg PO DAILY [facility] Last Admin: 04/01/17 10:25 Dose: 25 mg Zolpidem Tartrate (Ambien) 5 mg PO HS IRVIN PRN Reason: Protocol Last Admin: 03/31/17 23:02 Dose: 5 mg Physical Exam - Constitutional Appears: Non-toxic, No Acute Distress - Head Exam Head Exam: NORMAL INSPECTION - ENT Exam ENT Exam: Mucous Membranes Moist - Neck Exam Neck exam: Negative for: Lymphadenopathy, Meningismus - Respiratory Exam Respiratory Exam: Decreased Breath Sounds Additional comments: right anterior chest wall port site clean and non-tender - Cardiovascular Exam Cardiovascular Exam: +S1, +S2 - GI/Abdominal Exam GI & Abdominal Exam: Soft. absent: Tenderness Results - Vital Signs Recent Vital Signs: Last Vital Signs Temp 99 F 04/01/17 08:10 Pulse 92 H 04/01/17 10:25 Resp 20 04/01/17 08:10 BP 154/93 H 04/01/17 10:25 Pulse Ox 98 04/01/17 08:10 - Labs Result Diagrams: 04/01/17 06:40 04/01/17 06:40 Labs: Laboratory Results - last 24 hr 03/31/17 03/31/17 03/31/17 16:00 19:00 19:00 WBC RBC Hgb Hct MCV MCH MCHC RDW Plt Count MPV Sodium Potassium Chloride Carbon Dioxide Anion Gap BUN Creatinine Est GFR ( Amer) Est GFR (Non-Af Amer) Random Glucose Calcium Iron 15 L TIBC 258 L % Saturation 6 L Triglycerides 49 Cholesterol 99 L LDL Cholesterol Direct 42 HDL Cholesterol 46 TSH 3rd Generation Urine Color Yellow Urine Appearance Clear Urine pH 6.0 Ur Specific [place] 1.020 Urine Protein Trace H Urine Glucose (UA) Negative Urine Ketones Negative Urine Blood Negative Urine Nitrate Negative Urine Bilirubin Negative Urine Urobilinogen 0.2 Ur Leukocyte Esterase Negative Urine RBC 0 - 2 Urine WBC 0 - 2 Ur Epithelial Cells 3 - 4 Amorphous Sediment Trace Urine Bacteria Mod 04/01/17 04/01/17 04/01/17 06:40 06:40 06:40 WBC 20.3 H RBC 2.81 L Hgb 9.0 L Hct 27.9 L MCV 99.3 MCH 32.0 MCHC 32.3 RDW 13.9 Plt Count 129 MPV 9.7 Sodium 141 Potassium 4.2 Chloride 110 Carbon Dioxide 23 Anion Gap 12 BUN 12 Creatinine 0.9 Est GFR ( Amer) > 60 Est GFR (Non-Af Amer) > 60 Random Glucose 88 Calcium 8.5 Iron TIBC % Saturation Triglycerides Cholesterol LDL Cholesterol Direct HDL Cholesterol TSH 3rd Generation 1.65 Urine Color Urine Appearance Urine pH Ur Specific [place] Urine Protein Urine Glucose (UA) Urine Ketones Urine Blood Urine Nitrate Urine Bilirubin Urine Urobilinogen Ur Leukocyte Esterase Urine RBC Urine WBC Ur Epithelial Cells Amorphous Sediment Urine Bacteria Assessment & Plan - Assessment and Plan (Free Text) Plan: Assessment Systemic Inflammatory Response Syndrome in a patient who just underwent chemotherapy, R/O sepsis HTN pancreatic cancer diagnosed in 2015 on has been on chemotherapy weekly history of diverticulitis S/P laparoscopic cholecystectomy S/P hysterectomy S/P bladder surgery Plan Started patient on Vancomycin and Zosyn pending blood cx, urine cx, PCT; CXR does not show infiltrates; if leukocytosis, patient may need to undergo CT scan of the abdomen and pelvis even if patient does not have abdominal symptoms will monitor clinically
[2017-04-02] MEDS: Piperacillin/Tazobact 3.375 gm 100 ML IVPB SCH ×4 (00:51→17:08)
[2017-04-02] MEDS: HYDROmorphone 1 mg/ml ISec IVP PRN ×3 (01:03→15:18)
[2017-04-02] MEDS: Sodium Chloride 0.9% 1,000 ML IV SCH (05:15)
[2017-04-02 07:08] LABS: ADD MANUAL DIFF? NO
[2017-04-02 07:15] LABS: BASO # 0.01 K/mm3 (0.0-2.0); BASO % 0.1 % (0.0-3.0); EOS # 0.1 (0.0-0.7); EOS % 0.6 % (1.5-5.0); GRAN # 14.92 (1.4-6.5); GRAN % 84.1 % (50.0-68.0); HEMATOCRIT 27.8 % (36.0-48.0); LYMPH # 1.8 (1.2-3.4); LYMPH % 10.1 % (22.0-35.0); MEAN CELL VOLUME 98.6 fL (80.0-105.0); MEAN CORPUSCULAR HEMOGLOBIN 32.3 pg (25.0-35.0); MEAN CORPUSCULAR HGB CONC 32.7 g/dl (31.0-37.0); MEAN PLATELET VOLUME 9.1 fl (7.0-11.0); MONO # 0.9 (0.1-0.6); MONO % 5.1 % (1.0-6.0); PLATELET COUNT 116 10^3/uL (120.0-450.0); RED CELL DISTRIBUTION WIDTH 13.9 % (11.5-14.5); WHITE BLOOD COUNT 17.8 10^3/ul (4.5-11.0)
[2017-04-02 07:23] LABS: CALCIUM 8.7 mg/dL (8.4-10.5); POTASSIUM 3.8 mmol/L (3.6-5.0)
--- NOTE | 2017-04-02 07:49 | PN ---
DATE: 04/01/2017 SUBJECTIVE: The patient is seen and examined on the bedside. Looks comfortable. Still complaining about abdominal pain, even it is getting a little bit better but, according to her, Dilaudid 0.5 mg is not working. I increased to 1 mg. No headache, no dizziness, no fever, no chills, but having body pains and fatigue everywhere. No nausea, vomiting or fever. No hematuria or hematochezia. PHYSICAL EXAMINATION: VITAL SIGNS: Temperature 99, pulse 86, blood pressure 157/97, respiratory rate 20. HEENT: Head is normocephalic, atraumatic. Eyes: PERRLA. Extraocular muscles intact. Conjunctivae are clear. Nose patent. Mucous membranes moist. NECK: Supple. No carotid bruit. No JVD or thyromegaly. CHEST: Bilaterally symmetrical. HEART: S1, S2 positive. LUNGS: Clear to auscultation. ABDOMEN: Soft. Bowel sounds positive. No organomegaly. EXTREMITIES: No edema, no cyanosis. NEUROLOGIC: Awake, alert, moving all 4 extremities. No focal deficits. MEDICATIONS: Ambien, Dilaudid, Lopressor, Sinemet, NS, vancomycin and Zosyn. LABORATORY DATA: White blood cells 20.3, hemoglobin 9.2, hematocrit 27.9, platelets 129. Sodium 141, potassium 4.2, BUN 12, creatinine 0.9, calcium 8.5. ASSESSMENT AND PLAN: The patient is a 72-year-old lady with leukocytosis, anemia, iron deficiency anemia, proteinuria; has history of pancreatic cancer, getting chemotherapy; history of hypertension; history of diverticulitis, status post laparoscopic cholecystectomy, status post hysterectomy, history of bladder for surgery, who came to [facility] complaining of generalized weakness, body aches and subjective chills since yesterday. Symmetric inflammatory response syndrome and the patient just underwent chemotherapy, rule out sepsis, hypertension, history of diverticulitis, laparoscopic cholecystectomy, hysterectomy, bladder surgery. I just started the patient on vancomycin and Zosyn, and waiting for the cultures of the urine and blood with culture and sensitivity. Will do x-rays. Will repeat . GI and DVT prophylaxis. Repeat labs. Will follow up. Kristen Aki MD cc: [id number] TT: 04/02/2017 07:48:37 Confirmation # [id number] Dictation # [id number] petty PARKER
[2017-04-02] MEDS: Vancomycin 1gm in NS 250ml 1 GM/250 ML BAG IVPB SCH ×2 (13:02→22:32)
--- NOTE | 2017-04-02 17:15 | PN ---
DATE: 04/02/2017 SUBJECTIVE: The patient is in bed in no acute distress, nontoxic. PHYSICAL EXAMINATION: VITAL SIGNS: Temperature is 98, blood pressure is 140/80, respiratory rate of 20. HEENT: Unremarkable. NECK: Supple. LUNGS: Have decreased breath sounds. HEART: Normal S1, S2. ABDOMEN: Soft, nontender. LABORATORY DATA: Reveals a white count of 17,800. BUN of 12 and creatinine of 1.1. Procalcitonin 0 .21. Microbiology reveals the multiple organisms in the urine. The blood cultures are no growth. ASSESSMENT AND PLAN: This is a 72-year-old with systemic inflammatory response syndrome, who underwe nt chemotherapy, with hypertension and rule out sepsis, pancreatic cancer diagnosed in 2016, history of diverticulitis, started on vancomycin and Zosyn. Thus far, blood culture is negative. Urine cult ure is mixed organisms. Procalcitonin is normal. Chest x-ray is noted. Currently, continues to hav e leukocytosis. We will follow the WBCs and the final cheema culture results and make further recommend ations. Allan Villafana MD cc: [id number] TT: 04/02/2017 17:15:21 Confirmation # [id number] Dictation # [id number]
[2017-04-03] MEDS: HYDROmorphone 1 mg/ml ISec IVP PRN ×2 (00:13→12:00)
[2017-04-03] MEDS: Piperacillin/Tazobact 3.375 gm 100 ML IVPB SCH ×4 (00:13→17:44)
[2017-04-03] MEDS: Sodium Chloride 0.9% 1,000 ML IV SCH ×2 (08:16→09:17)
--- NOTE | 2017-04-03 09:09 | PN ---
DATE: 04/02/2017 SUBJECTIVE: The patient was seen and examined on 04/02/17. Pain is getting a little bit better, does not look like in acute distress. Does not look like toxic, but still getting pain medications and IV antibiotics. PHYSICAL EXAMINATION: VITAL SIGNS: Temperature 98, blood pressure 140/80, respiratory rate 20. HEENT: Head normocephalic, atraumatic. Eyes: PERRLA. Extraocular muscles intact. Conjunctivae clear. Nose patent. Mucous membranes moist. NECK: Supple. No carotid bruit, JVD or thyromegaly. CHEST: Bilaterally symmetrical. HEART: S1, S2 positive. LUNGS: Clear to auscultation. ABDOMEN: Soft. Bowel sounds present. No organomegaly. EXTREMITIES: No edema, no cyanosis. NEUROLOGIC: The patient is awake, alert and moving all 4 extremities. No focal deficit. MEDICATIONS: Ambien, Dilaudid, Lopressor, Sinemet, NS, vancomycin and Zosyn. LABORATORY DATA: White blood cells 17.8, on admission it was 20.7, hemoglobin 9.1, hematocrit 27.8, platelets 116. Sodium 141, potassium 3.8, BUN 12, creatinine 1.1. ASSESSMENT AND PLAN: The patient is a 72-year-old lady with leukocytosis, improving, anemia, hyperchloremia, iron deficiency, proteinuria, seen by Dr. Villafana, infectious disease. The patient has systemic inflammatory response syndrome, status post chemotherapy, hypertension, rule out sepsis, pancreatic cancer, history of diverticulitis, started on vancomycin and Zosyn. So far, blood cultures are negative. Urine culture has mixed organism. Prolactin level is normal. Chest x-ray is improving. We will follow with white blood cells and cheema cultures and we will decide about antibiotics. Appreciated Dr. Villafana's input, seen by Dr. Stiles. We will follow up. Kristen Prabhakar MD cc: [id number] TT: 04/03/2017 09:08:58 Confirmation # [id number] Dictation # [id number] [facility]
[2017-04-03 09:20] VITALS: TEMP 98.5; O2SAT 100
[2017-04-03] MEDS: Vancomycin 1gm in NS 250ml 1 GM/250 ML BAG IVPB SCH (13:59)
[2017-04-03 16:43] VITALS: RESP 16
--- NOTE | 2017-04-03 18:46 | CP.PCM.PN ---
Subjective - Date & Time of Evaluation Date of Evaluation: 04/03/17 Time of Evaluation: 10:35 - Subjective Subjective: Comfortable, afebrile, not in distress. Objective - Vital Signs/Intake and Output Vital Signs (last 24 hours): Temp Pulse Resp BP Pulse Ox 98.5 F 72 16 136/74 100 04/03/17 16:00 04/03/17 16:00 04/03/17 16:00 04/03/17 16:00 04/03/17 16:00 Intake and Output: 04/03/17 04/03/17 06:59 18:59 Intake Total 540 760 Balance 540 760 - Medications Medications: Current Medications Carbidopa/Levodopa (Sinemet) 1 tab PO DAILY [facility] Last Admin: 04/03/17 10:36 Dose: 1 tab Hydromorphone HCl (Dilaudid) 1 mg IVP Q4H PRN PRN Reason: Pain, severe (8-10) Last Admin: 04/03/17 12:00 Dose: 1 mg Sodium Chloride (Sodium Chloride 0.9%) 1,000 mls @ 100 mls/hr IV .Q10H [facility] Last Admin: 04/03/17 09:17 Dose: 100 mls/hr Piperacillin Sod/Tazobactam Sod (Zosyn 3.375 In Ns 100ml) 100 mls @ 200 mls/hr IVPB Q6 IRVIN PRN Reason: Protocol Stop: 04/08/17 12:01 Last Admin: 04/03/17 17:44 Dose: 200 mls/hr Metoprolol Tartrate (Lopressor) 25 mg PO DAILY [facility] Last Admin: 04/03/17 10:36 Dose: 25 mg Zolpidem Tartrate (Ambien) 5 mg PO [facility] PRN Reason: Protocol Last Admin: 04/02/17 22:32 Dose: 5 mg - Constitutional Appears: Non-toxic, No Acute Distress - Head Exam Head Exam: NORMAL INSPECTION - ENT Exam ENT Exam: Mucous Membranes Moist - Neck Exam Neck Exam: absent: Lymphadenopathy, Meningismus - Respiratory Exam Respiratory Exam: Decreased Breath Sounds - Cardiovascular Exam Cardiovascular Exam: +S1, +S2 - GI/Abdominal Exam GI & Abdominal Exam: Soft. absent: Tenderness Assessment and Plan - Assessment and Plan (Free Text) Plan: Assessment Systemic Inflammatory Response Syndrome in a patient who just underwent chemotherapy, with no source of sepsis identified HTN pancreatic cancer diagnosed in 2016 on has been on chemotherapy weekly history of diverticulitis S/P laparoscopic cholecystectomy S/P hysterectomy S/P bladder surgery Plan will discontinue Vancomycin and Zosyn blood cx, urine cx are negative, PCT is only 0.21; CXR does not show infiltrates will continue to monitor clinically
[2017-04-03] MEDS ORDERED: Sodium Chloride 0.9% 1,000 ML IV SCH (20:03)
[2017-04-03] MEDS ORDERED: HYDROmorphone 0.5 mg/0.5 ml ISec IVP PRN (20:04)
--- NOTE | 2017-04-03 20:29 | PN ---
DATE: 04/03/2017 SUBJECTIVE: The patient was seen and examined on the bedside, sitting on the chair. Comfortable, afebrile, not in distress. No shortness of breath. No nausea, vomiting, or diarrhea. No hematuria or hematochezia. Bodyaches are getting better. PHYSICAL EXAMINATION: VITAL SIGNS: Temperature 98.5, pulse 72, respiratory rate 16, blood pressure 133/74, pulse oximetry 100. HEAD: Normocephalic, atraumatic. EYES: PERRLA. Extraocular muscles intact. Conjunctivae clear. Nose patent. Mucous membranes moist. NECK: Supple. No carotid bruit. No JVD or thyromegaly. CHEST: Bilaterally symmetrical. HEART: S1, S2 positive. LUNGS: Clear to auscultation. ABDOMEN: Soft. Bowel sounds present. No organomegaly. EXTREMITIES: No edema, no cyanosis. NEUROLOGIC: The patient is awake, alert, moving all 4 extremities. No focal deficits. MEDICATIONS: Carbidopa/levodopa, Dilaudid, Zosyn, Lopressor, Ambien. LABORATORY DATA: White blood cells 17.8, hemoglobin 9.1, hematocrit 27.8, platelets 116. Sodium 141, potassium 3.8, BUN 12, creatinine 1.1. ASSESSMENT AND PLAN: The patient is a 72-year-old lady with leukocytosis, improving very slowly; anemia, looks like iron deficiency; hyperchloremia, history of pancreatic cancer, getting chemotherapy, history of diverticulitis, systemic inflammatory response syndrome with no source of sepsis identified, hypertension, laparoscopic cholecystectomy, hysterectomy, bladder surgery. ID discontinued the vancomycin and Zosyn. Urine cultures are negative. Chest x- ray does not show any infiltrates. Continue monitoring the patient. Will decrease pain medications. Out of bed, physical therapy. Will followup. Kristen Prabhakar MD cc: [id number] TT: 04/03/2017 20:28:52 Confirmation # [id number] Dictation # [id number] dn MTDD
[2017-04-04 09:38] VITALS: PULSE 81
[2017-04-04 12:48] VITALS: BP 150/88
== END 2017-04-04 15:19 | disposition home or self-care (01) | DRG 815 ==
LOC: ED 11:51 → ERH 15:54 → 5RSO 20:33 → OBSVTOIN 04-02 13:53
PROVIDERS: ADMIT Internal Medicine; ATTEND Internal Medicine
DX: D72.829 Elevated white blood cell count, unspecified (principal); C25.9 Malignant neoplasm of pancreas, unspecified; R65.10 Systemic inflammatory response syndrome (SIRS) of non-infectious origin without acute organ dysfunction; E11.65 Type 2 diabetes mellitus with hyperglycemia; E87.8 Other disorders of electrolyte and fluid balance, not elsewhere classified; G20 Parkinson's disease; D50.9 Iron deficiency anemia, unspecified; G89.29 Other chronic pain; M54.9 Dorsalgia, unspecified; H35.30 Unspecified macular degeneration; I10 Essential (primary) hypertension; K21.9 Gastro-esophageal reflux disease without esophagitis; Z79.899 Other long term (current) drug therapy; Z90.49 Acquired absence of other specified parts of digestive tract; Z90.710 Acquired absence of both cervix and uterus; R40.2412 Glasgow coma scale score 13-15, at arrival to emergency department; K52.9 Noninfective gastroenteritis and colitis, unspecified; M54.2 Cervicalgia; R80.9 Proteinuria, unspecified; Z87.19 Personal history of other diseases of the digestive system

== ENCOUNTER 2017-05-26 12:13 | Emergency (ER) | payer MEDICARE, OTHER ==
[2017-05-26 12:13] VITALS: BMI 22.4
[2017-05-26 12:37] VITALS: TEMP 98.7
[2017-05-26] MEDS ORDERED: HYDROmorphone 1 mg/ml ISec IVP STA ×2 (13:02→15:47)
--- NOTE | 2017-05-26 13:06 | ED PDOC ---
Arrival/HPI - General Chief Complaint: Back Pain Time Seen by Provider: 05/26/17 13:01 - History of Present Illness Narrative History of Present Illness (Text): 05/26/17 13:03 Patient is a 72 y/o F with stage 3 pancreatic cancer, completed chemotherapy, now scheduled for radiation in May, presenting with pain. Patient reports that she is on home oxycodone and dilaudid, but that she needs additional pain medication. She reports that she often has breakthrough pain and comes to the ED for IV dose. Patient reports that she has generalized body aches consistent with known cancer. Follows up at [facility]. She reports that she does not have any new symptoms and does not want imaging or lab work. PMD: Dr. Prabhakar 05/26/17 17:19 Past Medical History - Provider Review Nursing Documentation Reviewed: Yes - Infectious Disease Hx of Infectious Diseases: None - Reproductive Menopause: Yes - Cardiac Hx Cardiac Disorders: Yes Hx Hypertension: Yes Hx Pacemaker: No - Pulmonary Hx Respiratory Disorders: No - Neurological Hx Neurological Disorder: Yes Hx Parkinson's Disease: Yes - HEENT Hx HEENT Disorder: Yes (eyeglasses) Hx Macular Degeneration: Yes - Renal Hx Renal Disorder: No - Endocrine/Metabolic Hx Endocrine Disorders: Yes Hx Diabetes Mellitus Type 2: No (PREDIABETIC) Hx Hyperthyroidism: Yes - Hematological/Oncological Hx Anemia: Yes Hx Cancer: Yes (pancreatic/stomach/stage III/dx 08/2016) Hx Chemotherapy: Yes (last chemo 05/05/2017) Other/Comment: LAST CHEMO ON may 05 2017 - Integumentary Hx Dermatological Disorder: No - Musculoskeletal/Rheumatological Hx Musculoskeletal Disorders: Yes Hx Back Pain: Yes - Gastrointestinal Hx Gastrointestinal Disorders: Yes (colitis) Hx Diverticulitis: Yes Hx Gall Bladder Disease: Yes (Lap cheerlle) Hx Gastroesophageal Reflux: Yes Other/Comment: ca pancreas - Genitourinary/Gynecological Hx Genitourinary Disorders: Yes Other/Comment: pt denies bladder sx - Psychiatric Hx Psychophysiologic Disorder: Yes Hx Anxiety: Yes Hx Emotional Abuse: No Hx Physical Abuse: No Hx Substance Use: No - Surgical History Hx Cholecystectomy: Yes Hx Hysterectomy: Yes - Anesthesia Hx Anesthesia: Yes Hx Anesthesia Reactions: No Hx Malignant Hyperthermia: No - Suicidal Assessment Feels Threatened In Home Enviroment: No Family/Social History - Physician Review Nursing Documentation Reviewed: Yes Family/Social History: No Known Family HX Smoking Status: Never Smoked Hx Alcohol Use: No Hx Substance Use: No Allergies/Home Meds Allergies/Adverse Reactions: Allergies No Known Allergies Allergy (Verified 05/26/17 12:31) Home Medications: Home Meds Medication Instructions Recorded Confirmed Carbidopa/Levodopa 1 each PO DAILY 01/14/17 05/26/17 [Carbidopa-Levodopa 25-100 Tab] Metoprolol Tartrate [Lopressor] 25 mg PO DAILY 01/14/17 05/26/17 Review of Systems - Physician Review All systems were reviewed & negative as marked: Yes - Review of Systems Constitutional: absent: Weight Change, Fevers Respiratory: absent: SOB, Cough, Sputum, Wheezing Cardiovascular: absent: Chest Pain, Palpitations, Edema, Calf Pain, FERNANDEZ, Orthopnea, Syncope Gastrointestinal: absent: Abdominal Pain, Constipation, Diarrhea, Nausea, Vomiting Genitourinary Female: absent: Dysuria Musculoskeletal: Arthralgias Neurological: absent: Headache, Dizziness, Focal Weakness, Gait Changes, Speech Changes, Facial Droop, Disequilibrium Physical Exam Vital Signs Reviewed: Yes Vital Signs Temp Pulse Resp BP Pulse Ox 05/26/17 16:34 72 18 167/87 H 97 05/26/17 15:05 71 16 152/102 H 97 05/26/17 12:35 98.7 F 86 19 165/100 H 96 Temperature: Afebrile Blood Pressure: Normal Pulse: Regular Respiratory Rate: Normal Appearance: Positive for: Well-Appearing, Non-Toxic, Comfortable Pain Distress: None Mental Status: Positive for: Alert and Oriented X 3 - Systems Exam Head: Present: Atraumatic, Normocephalic Pupils: Present: PERRL Extroacular Muscles: Present: EOMI Conjunctiva: Present: Normal Mouth: Present: Moist Mucous Membranes Neck: Present: Normal Range of Motion Respiratory/Chest: Present: Clear to Auscultation, Good Air Exchange. No: Respiratory Distress, Accessory Muscle Use Cardiovascular: Present: Regular Rate and Rhythm, Normal S1, S2. No: Murmurs Abdomen: No: Tenderness, Distention, Rebound, Guarding Back: Present: Normal Inspection Upper Extremity: Present: Normal Inspection Lower Extremity: Present: Normal Inspection Neurological: Present: GCS=15, CN II-XII Intact, Speech Normal, Gait Normal Psychiatric: Present: Alert, Oriented x 3 Medical Decision Making ED Course and Treatment: 05/26/17 13:[address] Prabhakar, agrees with current plan 05/26/17 16:21 After pain medication was given patient reports that pain is improved. She does not want to stay in the hospital and does not want further evaluation. She reports that she will follow-up with her PMD and oncologist. She has no neuro deficits and ambulated out of ED without issue. - Medication Orders Current Medication Orders: Discontinued Medications Hydromorphone HCl (Dilaudid) 1 mg IVP STAT STA Stop: 05/26/17 13:03 Last Admin: 05/26/17 13:51 Dose: 1 mg Re-Assess: [facility] Pain Assessment Document 05/26/17 14:51 HI (Rec: 05/26/17 16:01 HI [id number]) Pain Reassessment Is this a pain reassessment? Yes Sleep Is patient sleeping during reassessment? No Presence of Pain Presence of Pain Yes Pain Scale Used Pain Scale Used Numeric Description Intensity of Pain at present 5 Hydromorphone HCl (Dilaudid) 1 mg IVP STAT STA Stop: 05/26/17 15:48 Last Admin: 05/26/17 15:58 Dose: 1 mg Disposition/Present on Arrival - Present on Arrival Any Indicators Present on Arrival: No History of DVT/PE: No History of Uncontrolled Diabetes: No Urinary Catheter: No History of Decub. Ulcer: No History Surgical Site Infection Following: None - Disposition Have Diagnosis and Disposition been Completed?: Yes Diagnosis: Pancreatic cancer Disposition: HOME/ ROUTINE Disposition Time: 13:38 Patient Plan: Discharge Condition: GOOD Additional Instructions: Follow up with your oncologist. Follow-up with your PMD within 2 days. Return to ED if condition worsens. Referrals: Kristen Prabhakar MD [Primary Care Provider] - Follow up with primary Forms: [employer] (Citizen [place])
[2017-05-26 15:12] VITALS: O2SAT 97
[2017-05-26 16:44] VITALS: BP 167/87; PULSE 72; RESP 18
== END 2017-05-26 16:34 | disposition home or self-care (01) ==
LOC: ED 12:13
DX: C25.9 Malignant neoplasm of pancreas, unspecified (principal)
CPT/HCPCS: 96374; 96376; 99283; J1170

== ENCOUNTER 2017-10-23 11:20 | Emergency (ER) | payer MEDICARE ==
[2017-10-23] MEDS ORDERED: Lactated Ringer's 500 ML in Lactated Ringer's 1,000 ML IV STA (11:42)
[2017-10-23 11:47] VITALS: BMI 23.9
[2017-10-23 11:54] VITALS: TEMP 98.2
[2017-10-23] MEDS ORDERED: HYDROmorphone 1 mg/ml ISec IVP STA (12:29)
--- NOTE | 2017-10-23 12:29 | ED PDOC ---
Arrival/HPI - General Chief Complaint: Abdominal Pain Time Seen by Provider: 10/23/17 11:41 Historian: Patient - History of Present Illness Narrative History of Present Illness (Text): 10/23/17 12:20 A 72 year old female, whose past medical history includes diverticulitis, Parkinson's disease, colon CA s/p colon dissection 2008, pancreatic CA diagnosed 2 years ago with chemo- and radiation therapy (last treatment 2 months ago, s/p subcervical CA, presents to the emergency department complaining of LLQ pain for 2 days. Patient reports pain is relieved with passing flatulence. patient also notes experiencing constipation, although she states this is normal for her; and appetite changes. Patient denies of any fever , chills, or any other complaints. Also, patient has seen Dr. Reese at [facility]. PMD: Dr. Prabhakar Past Medical History - Provider Review Nursing Documentation Reviewed: Yes - Infectious Disease Hx of Infectious Diseases: None - Cardiac Hx Cardiac Disorders: Yes Hx Hypertension: Yes Hx Pacemaker: No - Pulmonary Hx Respiratory Disorders: No - Neurological Hx Neurological Disorder: Yes Hx Parkinson's Disease: Yes - HEENT Hx HEENT Disorder: Yes (eyeglasses) Hx Macular Degeneration: Yes - Renal Hx Renal Disorder: No - Endocrine/Metabolic Hx Endocrine Disorders: Yes Hx Diabetes Mellitus Type 2: No (PREDIABETIC) Hx Hyperthyroidism: Yes - Hematological/Oncological Hx Anemia: Yes Hx Cancer: Yes (pancreatic/stomach/stage III/dx 08/2016) Hx Chemotherapy: Yes (last chemo 05/05/2017) Other/Comment: LAST CHEMO ON may 05 2017 - Integumentary Hx Dermatological Disorder: No - Musculoskeletal/Rheumatological Hx Musculoskeletal Disorders: Yes Hx Back Pain: Yes - Gastrointestinal Hx Gastrointestinal Disorders: Yes (colitis) Hx Diverticulitis: Yes Hx Gall Bladder Disease: Yes (Lap cherelle) Hx Gastroesophageal Reflux: Yes Other/Comment: ca pancreas - Genitourinary/Gynecological Hx Genitourinary Disorders: Yes Other/Comment: pt denies bladder sx - Psychiatric Hx Psychophysiologic Disorder: Yes Hx Anxiety: Yes Hx Emotional Abuse: No Hx Physical Abuse: No Hx Substance Use: No - Surgical History Hx Cholecystectomy: Yes Hx Hysterectomy: Yes - Anesthesia Hx Anesthesia: Yes Hx Anesthesia Reactions: No Hx Malignant Hyperthermia: No - Suicidal Assessment Feels Threatened In Home Enviroment: No Family/Social History - Physician Review Nursing Documentation Reviewed: Yes Family/Social History: No Known Family HX Smoking Status: Never Smoked Hx Alcohol Use: No Hx Substance Use: No Allergies/Home Meds Allergies/Adverse Reactions: Allergies No Known Allergies Allergy (Verified 05/26/17 12:31) Home Medications: Home Meds Medication Instructions Recorded Confirmed Carbidopa/Levodopa 1 each PO TID 10/23/17 10/23/17 [Carbidopa-Levodopa 10-100 Tab] Metoprolol Tartrate [Lopressor] 25 mg PO BID 10/23/17 10/23/17 Ondansetron [Zofran] 8 mg PO DAILY 10/23/17 10/23/17 Rivaroxaban [Xarelto] 20 mg PO DAILY 10/23/17 10/23/17 traMADol [Ultram] 50 mg PO DAILY PRN 10/23/17 10/23/17 Review of Systems - Physician Review All systems were reviewed & negative as marked: Yes - Review of Systems Constitutional: absent: Fevers, Night Sweats Gastrointestinal: Abdominal Pain (LLQ relieved with fluctuance), Appetite Changes Physical Exam Vital Signs Reviewed: Yes Vital Signs Temp Pulse Resp BP Pulse Ox 10/23/17 16:00 89 18 148/74 98 10/23/17 14:24 154/79 H 10/23/17 14:09 152/102 H 10/23/17 13:37 96 H 17 168/98 H 98 10/23/17 11:47 98.2 F 95 H 19 186/91 H 100 Temperature: Afebrile Blood Pressure: Hypertensive Pulse: Regular Respiratory Rate: Normal Appearance: Positive for: Well-Appearing Pain Distress: None - Systems Exam Head: Present: Atraumatic, Normocephalic Pupils: Present: PERRL Extroacular Muscles: Present: EOMI Neck: Present: Normal Range of Motion Respiratory/Chest: Present: Clear to Auscultation, Other (chemo chest port placement, no surrounding changes) Cardiovascular: No: Murmurs, Gallop Abdomen: Present: Tenderness (LLQ tenderness) Skin: Present: Warm, Dry, Normal Color. No: Rashes Psychiatric: Present: Alert Medical Decision Making ED Course and Treatment: 10/23/17 12:25 Impression: 72 year old female LLQ pain. Physical exam shows LLQ tenderness. Differential Diagnosis included but are not limited to: Diverticulitis vs. Constipation and Gas Pain. Plan: -- EKG -- Abd/Pelvis CT -- Abdominal X-Ray -- Labs -- Pepcid -- Dilaudid -- Lactated Ringer's 500 ml -- Urinalysis -- Blood Culture -- Reassess and disposition Prior Visits: Notes and results from previous visits were reviewed. Patient was last seen in the emergency department on 05/26/2017 for pain. Patient was d/c home. Progress Notes: EKG: Ordered, reviewed, and independently interpreted the EKG. Rate : 86 BPM Rhythm : NSR Interpretation : baseline artifactual several leads, no arythemic genic intervals, no ischemic ST- and T- segments. Comparison : No previous EKG for comparison. 10/23/2017 15:56 Abd/Pelvis CT IMPRESSION: No acute intra-abdominal findings. Dictator: Martinez Bowers MD 10/23/17 17:50 serial abdominal exams benign , pt counseld as to the improtance of increased h2o consumption/ increased fibre in her diet, as well as return directions for worsiening pain/hematochezia or fever. - Lab Interpretations Lab Results: 10/23/17 12:25 10/23/17 13:20 Lab Results 10/23/17 14:06: Lactic Acid 0.7 10/23/17 13:20: Sodium 142, Potassium 4.1, Chloride 109 H, Carbon Dioxide 22, Anion Gap 15, BUN 19, Creatinine 1.2, Est GFR ( Amer) 53, Est GFR (Non- Af Amer) 44, Random Glucose 113 H, Calcium 9.9, Total Bilirubin 0.5, AST 28, ALT 15, Alkaline Phosphatase 92, Lactate Dehydrogenase 551, Total Creatine Kinase 53, Troponin I < 0.01, Total Protein 7.3, Albumin 4.0, Globulin 3.3, Albumin/Globulin Ratio 1.2, Amylase 51, Lipase < 10 L 10/23/17 13:20: Urine Color Yellow, Urine Appearance Clear, Urine pH 6.0, Ur Specific [place] >= 1.030, Urine Protein Trace H, Urine Glucose (UA) Negative, Urine Ketones Negative, Urine Blood Small H, Urine Nitrate Negative, Urine Bilirubin Negative, Urine Urobilinogen 0.2, Ur Leukocyte Esterase Negative, Urine RBC 5 - 10, Urine WBC Negative, Urine Bacteria Trace, Urine Other Mucus 10/23/17 12:25: PT 26.5 H, INR 2.27 H, APTT 46.4 H 10/23/17 12:25: WBC 4.2 L, RBC 2.91 L, Hgb 9.2 L, Hct 28.2 L, MCV 96.9 D, MCH 31.6, MCHC 32.6, RDW 12.6, Plt Count 183, MPV 9.1, Gran % 79.3 H, Lymph % (Auto ) 9.5 L, [place] % (Auto) 10.7 H, Eos % (Auto) 0.5 L, Baso % (Auto) 0.0, Gran # 3.33, Lymph # 0.4 L, [place] # 0.5, Eos # 0.0, Baso # 0.00 I have reviewed the lab results: Yes - RAD Interpretation Radiology Orders: 10/23/17 11:42 ABD 2 VIEWS (FLAT/UP OR DECUB) [RAD] Stat 10/23/17 12:30 ABD & PELVIS IV CONTRAST ONLY [CT] Stat - Medication Orders Current Medication Orders: Discontinued Medications Famotidine (Pepcid) 20 mg IVP STAT STA Stop: 10/23/17 11:43 Last Admin: 10/23/17 12:29 Dose: 20 mg IVP Administration Document 10/23/17 12:29 SF (Rec: 10/23/17 12:29 SF [email or web address] Charges for Administration # of IVP Administrations 1 Hydromorphone HCl (Dilaudid) 1 mg IVP STAT STA Stop: 10/23/17 12:33 Last Admin: 10/23/17 13:39 Dose: 1 mg MAR Pain Assessment Document 10/23/17 13:39 SF (Rec: 10/23/17 13:39 SF [email or web address] Pain Reassessment Is this a pain reassessment? Yes Sleep Is patient sleeping during reassessment? No Presence of Pain Presence of Pain Yes IVP Administration Document 10/23/17 13:39 SF (Rec: 10/23/17 13:39 SF [email or web address] Charges for Administration # of IVP Administrations 2 Lactated Ringer's 500 ml/ (Lactated Ringer's) 1,500 mls @ 1,000 mls/hr IV BOLUS STA Stop: 10/23/17 13:11 Last Admin: 10/23/17 12:28 Dose: 1,000 mls/hr eMAR Start Stop Document 10/23/17 12:28 SF (Rec: 10/23/17 12:29 SF [email or web address] Intravenous Solution Start Date 10/23/17 Start Time 12:29 End Date 10/23/17 End time 14:00 Total Infusion Time 91 - Scribe Statement The provider has reviewed the documentation as recorded by the Marimar Zaman Provider Scribe Attestation: All medical record entries made by the Scribe were at my direction and personally dictated by me. I have reviewed the chart and agree that the record accurately reflects my personal performance of the history, physical exam, medical decision making, and the department course for this patient. I have also personally directed, reviewed, and agree with the discharge instructions and disposition. Disposition/Present on Arrival - Present on Arrival Any Indicators Present on Arrival: No History of DVT/PE: No History of Uncontrolled Diabetes: No Urinary Catheter: No History of Decub. Ulcer: No History Surgical Site Infection Following: None - Disposition Have Diagnosis and Disposition been Completed?: Yes Diagnosis: Constipation, Gas bloat syndrome, Dehydration Disposition: HOME/ ROUTINE Disposition Time: 17:36 Patient Plan: Discharge Patient Problems: Current Active Problems Problem Status Onset Constipation Acute Dehydration Acute Gas bloat syndrome Acute Condition: IMPROVED Discharge Instructions (ExitCare): Constipation (DC), Diverticulosis (ED), High Fiber Diet (ED) Print Language: ITALIAN Additional Instructions: Please increase your water intake, especially in between meals to soften stool and combat constipation and dehydration . Please increase your fibre intake especially with brown rice and daily dark green salads. Return for worsening pain/ bright red blood per rectum / fever. Prescriptions: Dicyclomine [Dicyclomine HCl] 10 mg PO Q8 PRN #12 cap PRN Reason: Pain, Mild (1-3) Psyllium Husk [Konsyl] 300 gm PO BID PRN 14 Days powder PRN Reason: Constipation Sennosides [Senna Laxative] 8.6 mg PO HS PRN #15 tablet PRN Reason: Constipation Referrals: Kristen Prabhakar MD [Primary Care Provider] - Follow up with primary Forms: [employer] ([place])
[2017-10-23] MEDS ORDERED: HYDROmorphone 0.5 mg/0.5 ml ISec IVP STA (12:32)
[2017-10-23 12:38] LABS: EOS % 0.5 % (1.5-5.0); GRAN # 3.33 (1.4-6.5); GRAN % 79.3 % (50.0-68.0); HEMOGLOBIN 9.2 g/dL (12.0-16.0); LYMPH # 0.4 (1.2-3.4); LYMPH % 9.5 % (22.0-35.0); MEAN CORPUSCULAR HEMOGLOBIN 31.6 pg (25.0-35.0); MEAN CORPUSCULAR HGB CONC 32.6 g/dl (31.0-37.0); MEAN PLATELET VOLUME 9.1 fl (7.0-11.0); MONO # 0.5 (0.1-0.6); MONO % 10.7 % (1.0-6.0); RBC 2.91 10^6/uL (3.5-6.1); RED CELL DISTRIBUTION WIDTH 12.6 % (11.5-14.5); WHITE BLOOD COUNT 4.2 10^3/ul (4.5-11.0)
[2017-10-23 12:42] LABS: MEAN CELL VOLUME 96.9 fl (80.0-105.0)
[2017-10-23 13:03] LABS: INR 2.27 (0.93-1.08); PARTIAL THROMBOPLASTIN TIME 46.4 Seconds (25.1-36.5); PROTHROMBIN TIME 26.5 SECONDS (9.4-12.5)
[2017-10-23 13:38] VITALS: O2SAT 98
[2017-10-23] MEDS ORDERED: Iohexol 350 MG/100 ML VIAL ONE (13:38)
[2017-10-23 13:39] LABS: URINE BILIRUBIN NEGATIVE (NEGATIVE); URINE BLOOD SMALL (NEGATIVE); URINE GLUCOSE (UA) NEGATIVE (NEGATIVE); URINE LEUKOCYTE ESTERASE NEGATIVE Leu/uL (NEGATIVE); URINE NITRATE NEGATIVE (NEGATIVE); URINE PROTEIN TRACE mg/dL (<30 mg/dL); URINE UROBILINOGEN 0.2 E.U./dL (<1 E.U./dL)
[2017-10-23 13:40] LABS: URINE APPEARANCE CLEAR (CLEAR); URINE COLOR YELLOW (YELLOW)
[2017-10-23 13:42] LABS: ALB/GLOB RATIO 1.2 (1.1-1.8); ALT/SGPT 15 U/L (7-56); AMYLASE 51 U/L (35-125); AST/SGOT 28 U/L (14-36); BLOOD UREA NITROGEN 19 mg/dL (7-21); CALCIUM 9.9 mg/dL (8.4-10.5); GFR AFRICAN-AMERICAN 53; GFR NON-AFRICAN AMERICAN 44
[2017-10-23 13:47] LABS: LIPASE < 10 U/L (23-300)
[2017-10-23 13:48] LABS: URINE BACTERIA TRACE (NEG); URINE WBC NEGATIVE /hpf (0-6)
[2017-10-23 13:52] LABS: TROPONIN I < 0.01 ng/mL
--- NOTE | 2017-10-23 15:34 | CARD ---
APPROVED REPORT EKG Measurement Heart [id number] <Conclusion> Normal sinus rhythm Left ventricular hypertrophy with repolarization abnormality Abnormal ECG
--- NOTE | 2017-10-23 15:58 | CT ---
PROCEDURE: CT Abdomen and Pelvis with contrast HISTORY: r/o diverticulitis COMPARISON: 11/29/2016 TECHNIQUE: Contrast dose: 100 cc of Omni 350 Radiation dose: Total exam DLP = 273 mGy-cm. This CT exam was performed using one or more of the following dose reduction techniques: Automated exposure control, adjustment of the mA and/or kV according to patient size, and/or use of iterative reconstruction technique. FINDINGS: LOWER THORAX: Unremarkable. LIVER: Unremarkable. No gross lesion or ductal dilatation. GALLBLADDER AND BILE DUCTS: Removed PANCREAS: There is a severely dilated pancreatic duct with nearly complete atrophy of the parenchyma. SPLEEN: Unremarkable. ADRENALS: Unremarkable. No mass. KIDNEYS AND URETERS: There is an 8 x 10 cm simple cyst in the right kidney. There is a 4 cm simple cyst in the left kidney. VASCULATURE: Unremarkable. No aortic aneurysm. BOWEL: Unremarkable. No obstruction. No gross mural thickening. There is diverticulosis of the sigmoid and descending colon APPENDIX: Normal appendix. PERITONEUM: Unremarkable. No free fluid. No free air. LYMPH NODES: Unremarkable. No enlarged lymph nodes. BLADDER: Unremarkable. REPRODUCTIVE: Unremarkable. BONES: No acute fracture. OTHER FINDINGS: None. IMPRESSION: No acute intra-abdominal findings.
[2017-10-23 16:05] VITALS: RESP 18
--- NOTE | 2017-10-23 17:35 | RAD ---
HISTORY: 10/23/2014 CT abdomen COMPARISON: No prior. FINDINGS: BOWEL: Constipation without fecal impaction or obstruction. And pelvis BONES: Normal. OTHER FINDINGS: Contrast in urinary bladder related to recent CT scan performed with intravenous contrast. IMPRESSION: No evidence of mechanical obstruction or free air.
[2017-10-23 18:28] VITALS: BP 122/78; PULSE 70
== END 2017-10-23 18:20 | disposition home or self-care (01) ==
LOC: ED 11:20
DX: E86.0 Dehydration (principal); K59.00 Constipation, unspecified; R14.0 Abdominal distension (gaseous); Z85.038 Personal history of other malignant neoplasm of large intestine; Z85.07 Personal history of malignant neoplasm of pancreas
CPT/HCPCS: 74019; 74177; 80053; 81001; 82150; 82550; 83605; 83615; 83690; 84484; 85025; 85610; 85730; 87040; 87149; 87205; 93005; 96361; 96374; 96375; 99284; J1170; J7120; Q9967

== ENCOUNTER 2017-10-25 16:37 | Inpatient (IN) | payer MEDICARE ==
[2017-10-25] MEDS ORDERED: Morphine 2 mg/ml ISec IVP STA (17:52)
[2017-10-25 18:47] LABS: PH,URINE 6.5 (4.7-8.0); URINE BILIRUBIN NEGATIVE (NEGATIVE); URINE BLOOD TRACE-INTACT (NEGATIVE); URINE GLUCOSE (UA) NEGATIVE (NEGATIVE); URINE LEUKOCYTE ESTERASE NEGATIVE Leu/uL (NEGATIVE); URINE NITRATE NEGATIVE (NEGATIVE); URINE PROTEIN NEGATIVE mg/dL (<30 mg/dL); URINE UROBILINOGEN 0.2 E.U./dL (<1 E.U./dL)
[2017-10-25 18:51] LABS: URINE APPEARANCE CLEAR (CLEAR); URINE COLOR LIGHT YELLOW (YELLOW)
[2017-10-25 18:58] LABS: VENOUS BLOOD GAS BASE EXCESS -1.9 mmol/L (0.0-2.0); VENOUS BLOOD GAS PO2 119 mm/Hg (30-55); VENOUS BLOOD PH 7.41 (7.32-7.43)
[2017-10-25 19:11] LABS: ALB/GLOB RATIO 1.2 (1.1-1.8); CALCIUM 9.6 mg/dL (8.4-10.5)
[2017-10-25 19:32] LABS: BASO # 0.01 K/mm3 (0.0-2.0); BASO % 0.2 % (0.0-3.0); EOS % 0.9 % (1.5-5.0); GRAN # 3.24 (1.4-6.5); GRAN % 69.8 % (50.0-68.0); HEMOGLOBIN 9.9 g/dL (12.0-16.0); LYMPH # 0.7 (1.2-3.4); LYMPH % 15.3 % (22.0-35.0); MEAN CELL VOLUME 94.3 fl (80.0-105.0); MEAN CORPUSCULAR HEMOGLOBIN 31.5 pg (25.0-35.0); MEAN CORPUSCULAR HGB CONC 33.4 g/dl (31.0-37.0); MEAN PLATELET VOLUME 9.2 fl (7.0-11.0); MONO # 0.6 (0.1-0.6); MONO % 13.8 % (1.0-6.0); RBC 3.14 10^6/uL (3.5-6.1); RED CELL DISTRIBUTION WIDTH 12.6 % (11.5-14.5); WHITE BLOOD COUNT 4.6 10^3/ul (4.5-11.0)
[2017-10-25 19:44] LABS: URINE BACTERIA MANY (NEG); URINE EPITHELIAL CELLS 0 - 2 /hpf (0-5); URINE RBC 0 - 2 /hpf (0-2); URINE WBC 0 - 2 /hpf (0-6)
[2017-10-25] MEDS ORDERED: metroNIDAZOLE IV 500 mg/100 ml 500 MG/100 ML BAG IVPB STA (20:20)
[2017-10-25] MEDS ORDERED: Ciprofloxacin 400mg/200ml D5W 400 MG/200 ML BAG IVPB STA (20:20)
[2017-10-25] MEDS ORDERED: Morphine 4 mg/ml ISec IVP STA (20:26)
--- NOTE | 2017-10-25 21:21 | ED PDOC ---
Arrival/HPI - General Chief Complaint: Abnormal Labs Time Seen by Provider: 10/25/17 17:23 Historian: Patient - History of Present Illness Narrative History of Present Illness (Text): 10/25/17 21:04 72-year-old female with a history of pancreatic cancer presents today for additional blood work. Patient states that she received a phone call today to return to the hospital after positive blood cultures. Patient states she was seen in the emergency room 2 days ago with abdominal pain. Patient states she is still having some abdominal pain greatest on the left side of the abdomen. Patient denies nausea or vomiting but states she has had decreased appetite. She denies dizziness or weakness. Patient complaining of subjective fevers at home. Patient denies urinary symptoms. Denies cough. No other complaints Past Medical History - Provider Review Nursing Documentation Reviewed: Yes - Travel History Have you recently traveled outside [place] w/in the past 3 mons?: No - Infectious Disease Hx of Infectious Diseases: None - Reproductive Menopause: Yes - Cardiac Hx Cardiac Disorders: Yes Hx Hypertension: Yes Hx Pacemaker: No - Pulmonary Hx Respiratory Disorders: No - Neurological Hx Neurological Disorder: Yes Hx Parkinson's Disease: Yes - HEENT Hx HEENT Disorder: Yes (eyeglasses) Hx Macular Degeneration: Yes - Renal Hx Renal Disorder: No - Endocrine/Metabolic Hx Endocrine Disorders: Yes Hx Diabetes Mellitus Type 2: No (PREDIABETIC) Hx Hyperthyroidism: Yes - Hematological/Oncological Hx Anemia: Yes Hx Cancer: Yes (pancreatic/stomach/stage III/dx 08/2016) Hx Chemotherapy: Yes (last chemo 05/05/2017) Other/Comment: LAST CHEMO ON may 05 2017 - Integumentary Hx Dermatological Disorder: No - Musculoskeletal/Rheumatological Hx Musculoskeletal Disorders: Yes Hx Back Pain: Yes - Gastrointestinal Hx Gastrointestinal Disorders: Yes (colitis) Hx Diverticulitis: Yes Hx Gall Bladder Disease: Yes (Lap cherelle) Hx Gastroesophageal Reflux: Yes Other/Comment: ca pancreas - Genitourinary/Gynecological Hx Genitourinary Disorders: Yes Other/Comment: pt denies bladder sx - Psychiatric Hx Psychophysiologic Disorder: Yes Hx Anxiety: Yes Hx Emotional Abuse: No Hx Physical Abuse: No Hx Substance Use: No - Surgical History Hx Cholecystectomy: Yes Hx Hysterectomy: Yes - Anesthesia Hx Anesthesia: Yes Hx Anesthesia Reactions: No Hx Malignant Hyperthermia: No - Suicidal Assessment Feels Threatened In Home Enviroment: No Family/Social History - Physician Review Nursing Documentation Reviewed: Yes Family/Social History: Unknown Family HX Smoking Status: Never Smoked Hx Alcohol Use: No Hx Substance Use: No Allergies/Home Meds Allergies/Adverse Reactions: Allergies No Known Allergies Allergy (Verified 10/25/17 17:13) Home Medications: Home Meds Medication Instructions Recorded Confirmed Carbidopa/Levodopa 1 each PO TID 10/23/17 10/25/17 [Carbidopa-Levodopa 10-100 Tab] Metoprolol Tartrate [Lopressor] 25 mg PO BID 10/23/17 10/25/17 Ondansetron [Zofran] 8 mg PO DAILY 10/23/17 10/25/17 Rivaroxaban [Xarelto] 20 mg PO DAILY 10/23/17 10/25/17 traMADol [Ultram] 50 mg PO DAILY PRN 10/23/17 10/25/17 Review of Systems - Review of Systems Constitutional: Fatigue, Fevers Respiratory: absent: SOB, Cough Cardiovascular: absent: Chest Pain, Palpitations Gastrointestinal: Abdominal Pain, Constipation. absent: Diarrhea, Nausea, Vomiting Genitourinary Female: absent: Dysuria, Frequency, Hematuria Musculoskeletal: absent: Arthralgias, Back Pain, Neck Pain Skin: absent: Rash, Pruritis Neurological: absent: Headache, Dizziness Psychiatric: absent: Anxiety, Depression, Suicidal Ideation Physical Exam Vital Signs Reviewed: Yes Vital Signs Temp Pulse Resp BP Pulse Ox 10/26/17 01:43 79 17 140/86 95 10/26/17 00:18 99.1 F 10/25/17 23:06 87 17 135/89 98 10/25/17 20:52 75 18 178/119 H 98 10/25/17 20:00 18 178/105 H 98 10/25/17 18:46 77 18 180/108 H 98 10/25/17 18:28 100.3 F H 10/25/17 17:08 99.2 F 81 20 175/112 H 100 Temperature: Afebrile Blood Pressure: Hypertensive Pulse: Regular Respiratory Rate: Normal Appearance: Positive for: Well-Appearing, Non-Toxic, Comfortable Pain Distress: None Mental Status: Positive for: Alert and Oriented X 3 - Systems Exam Head: Present: Atraumatic Mouth: Present: Moist Mucous Membranes Neck: Present: Normal Range of Motion Respiratory/Chest: Present: Clear to Auscultation, Good Air Exchange. No: Respiratory Distress, Accessory Muscle Use Cardiovascular: Present: Regular Rate and Rhythm, Normal S1, S2. No: Murmurs Abdomen: Present: Tenderness (+ left sided upper and lower abdominal tenderness) , Normal Bowel Sounds. No: Distention, Peritoneal Signs, Rebound, Guarding Back: Present: Normal Inspection. No: CVA Tenderness, Midline Tenderness, Paraspinal Tenderness Upper Extremity: Present: Normal ROM Lower Extremity: Present: Normal ROM Neurological: Present: GCS=15, Speech Normal Skin: Present: Warm, Dry, Normal Color. No: Rashes Psychiatric: Present: Alert, Oriented x 3 Medical Decision Making ED Course and Treatment: 10/25/17 21:32 Patient is nontoxic well appearing with stable vital signs presenting with continued abdominal pain. advised to return for + blood cultures. CBC wbc; 4.6 CMP wnl Urinalysis wnl CAT scan:FINDINGS: Limitations: Lack of intravenous contrast. Motion artifact - mild. Lower thorax: Mild cardiomegaly. Trace pericardial effusion. Mild patchy groundglass/air space opacities within lung bases. ABDOMEN: Liver: Unremarkable. Gallbladder and bile ducts: Cholecystectomy. No significant ductal dilation. Pancreas: Atrophy body and tail of pancreas. Dilatation of mid to distal pancreatic duct, grossly stable. Spleen: No splenomegaly. Adrenals: No mass. Kidneys and ureters: Few probable renal cysts, up to 11 cm on right. No renal calculi. No hydronephrosis. Stomach and bowel: Postsurgical changes of cecum. Cecum located within mid lower abdomen. Multiple scattered diverticula within colon. No associated inflammatory stranding. No definite mural thickening. No obstruction. Appendix: Appendectomy. PELVIS: Bladder: Apparent minimal stranding along anterior wall of bladder. No stones. Reproductive: Hysterectomy. ABDOMEN and PELVIS: Intraperitoneal space: No significant fluid collection. No free air. Bones/joints: Facet osteoarthrosis within lower lumbar spine. No acute fracture. Soft tissues: Laparotomy scar. Vasculature: Mild atherosclerotic disease. No aneurysm. Lymph nodes: No pathologically enlarged lymph nodes. IMPRESSION: 1. Diverticulosis without definite CT evidence of diverticulitis. 2. Bibasilar opacities. Pneumonia not excluded. Clinical correlation is needed. 3. Apparent minimal stranding anterior to bladder. Correlate with urinalysis to exclude infection. 4. Incidental/non-acute findings are described above. Patient reassessment: pt with continued pain; additional morphine added. blood and urine cultures pending. case discussed with dr. steel; will start patient on cipro and flagyl as pt with hx of diverticulitis. Discussed all results with patient in depth case discussed with dr. hutchinson; accepts admission for abdominal pain with + blood cultures. pt reassessment; pt feeling slightly better; patient states she was finally able to eat some medication. Impression: Abdominal pain, + blood cultures admit to med/surg - Lab Interpretations Lab Results: 10/25/17 18:36 10/25/17 18:36 Lab Results 10/25/17 20:05: PT 24.8 H, INR 2.14 H, APTT 32.1 10/25/17 18:36: pO2 119 H, VBG pH 7.41, VBG pCO2 35.0 L, VBG HCO3 22.2, VBG Total CO2 23.3, VBG O2 Sat (Calc) 99.0 H, VBG Base Excess -1.9 L, VBG Potassium 4.0, Sodium 140.0, Chloride 108.0 H, Glucose 95, Lactate 0.9, FiO2 21.0, Venous Blood Potassium 4.0 10/25/17 18:36: WBC 4.6, RBC 3.14 L, Hgb 9.9 L, Hct 29.6 L, MCV 94.3, MCH 31.5, MCHC 33.4, RDW 12.6, Plt Count 223, MPV 9.2, Gran % 69.8 H, Lymph % (Auto) 15.3 L, [place] % (Auto) 13.8 H, Eos % (Auto) 0.9 L, Baso % (Auto) 0.2, Gran # 3.24, Lymph # 0.7 L, [place] # 0.6, Eos # 0.0, Baso # 0.01 10/25/17 18:36: Sodium 138, Chloride 107, Potassium 3.9, Carbon Dioxide 22, Anion Gap 13, BUN 16, Creatinine 1.3 H, Est GFR ( Amer) 49, Est GFR (Non- Af Amer) 40, Random Glucose 99, Calcium 9.6, Phosphorus 3.8, Magnesium 2.0, Total Bilirubin 0.7, AST 32, ALT 27, Alkaline Phosphatase 114, Total Protein 7.3 , Albumin 4.0, Globulin 3.3, Albumin/Globulin Ratio 1.2 10/25/17 18:30: Urine Color Light yellow, Urine Appearance Clear, Urine pH 6.5, Ur Specific [place] <= 1.005, Urine Protein Negative, Urine Glucose (UA) Negative, Urine Ketones Negative, Urine Blood Trace-intact H, Urine Nitrate Negative, Urine Bilirubin Negative, Urine Urobilinogen 0.2, Ur Leukocyte Esterase Negative, Urine RBC 0 - 2, Urine WBC 0 - 2, Ur Epithelial Cells 0 - 2, Urine Bacteria Many - RAD Interpretation Radiology Orders: 10/25/17 17:50 CHEST PORTABLE [RAD] Stat 10/25/17 20:24 ABD & PELVIS W/O PO OR IV CONT [CT] Stat - Medication Orders Current Medication Orders: Discontinued Medications Acetaminophen (Tylenol 325mg Tab) 975 mg PO STAT STA Stop: 10/25/17 21:05 Last Admin: 10/25/17 22:25 Dose: 975 mg MAR Pain/Vitals Document 10/25/17 22:25 SF (Rec: 10/25/17 22:25 SF [id number]) Pain Reassessment Is This A Pain ReAssessment? Yes Sleep Is patient sleeping during reassessment? No Presence of Pain Presence of Pain Yes Ciprofloxacin (Cipro 400mg/200ml Dsw) 400 mg in 200 mls @ 133.3 mls/hr IVPB STAT STA PRN Reason: Protocol Stop: 10/25/17 21:50 Last Admin: 10/25/17 22:21 Dose: 133.3 mls/hr eMAR Start Stop Document 10/25/17 22:21 SF (Rec: 10/25/17 22:22 SF [id number]) Intravenous Solution Start Date 10/25/17 Start Time 22:21 End Date 10/25/17 Metronidazole (Flagyl) 500 mg in 100 mls @ 100 mls/hr IVPB STAT STA PRN Reason: Protocol Stop: 10/25/17 21:19 Last Admin: 10/25/17 20:54 Dose: 100 mls/hr eMAR Start Stop Document 10/25/17 20:54 SF (Rec: 10/25/17 20:55 SF [id number]) Intravenous Solution Start Date 10/25/17 Start Time 20:54 End Date 10/25/17 End time 21:54 Total Infusion Time 60 Morphine Sulfate (Morphine) 2 mg IVP STAT STA Stop: 10/25/17 17:53 Last Admin: 10/25/17 18:52 Dose: 2 mg MAR Pain Assessment Document 10/25/17 18:52 SF (Rec: 10/25/17 18:52 SF [id number]) Pain Reassessment Is this a pain reassessment? Yes Sleep Is patient sleeping during reassessment? No Presence of Pain Presence of Pain Yes Pain Scale Used Pain Scale Used Numeric IVP Administration Document 10/25/17 18:52 SF (Rec: 10/25/17 18:52 SF [id number]) Charges for Administration # of IVP Administrations 1 Morphine Sulfate (Morphine) 4 mg IVP STAT STA Stop: 10/25/17 20:27 Last Admin: 10/25/17 20:54 Dose: 4 mg MAR Pain Assessment Document 10/25/17 20:54 SF (Rec: 10/25/17 20:54 SF [id number]) Pain Reassessment Is this a pain reassessment? Yes Sleep Is patient sleeping during reassessment? No Presence of Pain Presence of Pain Yes Pain Scale Used Pain Scale Used Numeric Description Description Constant IVP Administration Document 10/25/17 20:54 SF (Rec: 10/25/17 20:54 SF [id number]) Charges for Administration # of IVP Administrations 1 Disposition/Present on Arrival - Present on Arrival Any Indicators Present on Arrival: No History of DVT/PE: No History of Uncontrolled Diabetes: No Urinary Catheter: No History of Decub. Ulcer: No History Surgical Site Infection Following: None - Disposition Have Diagnosis and Disposition been Completed?: Yes Diagnosis: Abdominal pain, Fever, Positive blood cultures Disposition: HOSPITALIZED Disposition Time: 21:06 Patient Plan: Admission Patient Problems: Current Active Problems Problem Status Onset Abdominal pain Acute Fever Acute Positive blood cultures Acute Condition: FAIR
[2017-10-25 21:48] LABS: INR 2.14 (0.93-1.08); PARTIAL THROMBOPLASTIN TIME 32.1 Seconds (25.1-36.5); PROTHROMBIN TIME 24.8 SECONDS (9.4-12.5)
--- NOTE | 2017-10-25 23:50 | CT ---
EXAM: CT Abdomen and Pelvis Without Intravenous Contrast CLINICAL HISTORY: 72 years old, female; Pain; Abdominal pain TECHNIQUE: Axial computed tomography images of the abdomen and pelvis without intravenous contrast. All CT scans at this facility use one or more dose reduction techniques, viz.: automated exposure control; ma/kV adjustment per patient size (including targeted exams where dose is matched to indication; i.e. head); or iterative reconstruction technique. Coronal and sagittal reformatted images were created and reviewed. COMPARISON: CT - ABD PELVIS IV CONTRAST ONLY 2017-10-23 15:00 FINDINGS: Limitations: Lack of intravenous contrast. Motion artifact - mild. Lower thorax: Mild cardiomegaly. Trace pericardial effusion. Mild patchy groundglass/air space opacities within lung bases. ABDOMEN: Liver: Unremarkable. Gallbladder and bile ducts: Cholecystectomy. No significant ductal dilation. Pancreas: Atrophy body and tail of pancreas. Dilatation of mid to distal pancreatic duct, grossly stable. Spleen: No splenomegaly. Adrenals: No mass. Kidneys and ureters: Few probable renal cysts, up to 11 cm on right. No renal calculi. No hydronephrosis. Stomach and bowel: Postsurgical changes of cecum. Cecum located within mid lower abdomen. Multiple scattered diverticula within colon. No associated inflammatory stranding. No definite mural thickening. No obstruction. Appendix: Appendectomy. PELVIS: Bladder: Apparent minimal stranding along anterior wall of bladder. No stones. Reproductive: Hysterectomy. ABDOMEN and PELVIS: Intraperitoneal space: No significant fluid collection. No free air. Bones/joints: Facet osteoarthrosis within lower lumbar spine. No acute fracture. Soft tissues: Laparotomy scar. Vasculature: Mild atherosclerotic disease. No aneurysm. Lymph nodes: No pathologically enlarged lymph nodes. IMPRESSION: 1. Diverticulosis without definite CT evidence of diverticulitis. 2. Bibasilar opacities. Pneumonia not excluded. Clinical correlation is needed. 3. Apparent minimal stranding anterior to bladder. Correlate with urinalysis to exclude infection. 4. Incidental/non-acute findings are described above.
[2017-10-26] MEDS: HYDROmorphone 0.5 mg/0.5 ml ISec IVP PRN ×2 (05:20→12:24)
[2017-10-26] MEDS ORDERED: PSYLLIUM HUSK PO PRN (05:54)
[2017-10-26 06:09] VITALS: BMI 25.1
[2017-10-26] MEDS ORDERED: Pneumococcal 23-Valent Vaccine IM ONE (06:09)
[2017-10-26] MEDS ORDERED: Influenza Vaccine 60 mcg/0.5 mL SYR (4YR UP) IM ONE (06:09)
[2017-10-26 07:43] LABS: IRON 46 ug/dL (45-180)
[2017-10-26 07:58] LABS: % IRON SATURATION 20 % (20-55); TOTAL IRON BINDING CAPACITY 225 ug/dL (265-497)
--- NOTE | 2017-10-26 09:10 | RAD ---
HISTORY: Sepsis Patient COMPARISON: 10/05/2017 FINDINGS: LUNGS: No active pulmonary disease. PLEURA: No significant pleural effusion identified, no pneumothorax apparent. CARDIOVASCULAR: No radiographic findings to suggest acute or significant cardiovascular disease. Venous access catheter in stable, satisfactory position. OSSEOUS STRUCTURES: No significant abnormalities. VISUALIZED UPPER ABDOMEN: Normal. OTHER FINDINGS: None. IMPRESSION: No active disease. No significant interval change compared to the prior examination(s).
--- NOTE | 2017-10-26 12:41 | CP.PCM.HP ---
<Joya Posey - Last Filed: 10/27/17 01:01> History of Present Illness - History of Present Illness History of Present Illness: 72 yr female w/ history pancreatic cancer (pancreatic/stomach/ stage III/dx 08/2016), s/p chemotherapy 05/05/2017, HTN, prediabetes, and cholecystecomy. She received a phone call today to return to the hospital after positive blood cultures. She was seen in the ED for abdominal pain relieved by IVF. Today she reports 8 out of 10 pain in the head, back, and LLQ of abdomen. She reports feeling constipated. She denies any shortness of breath, chest pain , nausea, vomiting, diarrhea, or urinary changes. Patient's daughters are at the bedside. Present on Admission - Present on Admission Any Indicators Present on Admission: No History of DVT/PE: No History of Uncontrolled Diabetes: No Urinary Catheter: No Decubitus Ulcer Present: No Review of Systems - Constitutional Constitutional: Fever, Headache - EENT Eyes: As Per HPI Ears: As Per HPI Nose/Mouth/Throat: As Per HPI - Cardiovascular Cardiovascular: As Per HPI - Respiratory Respiratory: As Per HPI - Gastrointestinal Gastrointestinal: As Per HPI - Genitourinary Genitourinary: As Per HPI - Menstruation Menstruation: Post Menopausal - Musculoskeletal Musculoskeletal: As Per HPI - Integumentary Integumentary: As Per HPI - Neurological Neurological: As Per HPI - Psychiatric Psychiatric: As Per HPI - Endocrine Endocrine: As Per HPI - Hematologic/Lymphatic Hematologic: As Per HPI Past Patient History - Infectious Disease Hx of Infectious Diseases: None - Past Medical History & Family History Past Medical History?: Yes - Past Social History Smoking Status: Never Smoked - CARDIAC Hx Cardiac Disorders: Yes Hx Hypertension: Yes - PULMONARY Hx Respiratory Disorders: No - NEUROLOGICAL Hx Neurological Disorder: Yes Hx Parkinson's Disease: Yes - HEENT Hx HEENT Problems: No - RENAL Hx Chronic Kidney Disease: No - ENDOCRINE/METABOLIC Hx Endocrine Disorders: Yes - HEMATOLOGICAL/ONCOLOGICAL Hx Blood Disorders: Yes Hx Cancer: Yes (pancreas treated vwith chemo & xrt 2015) Other/Comment: treated at [facility] - INTEGUMENTARY Hx Dermatological Problems: No - MUSCULOSKELETAL/RHEUMATOLOGICAL Hx Musculoskeletal Disorders: Yes Hx Arthritis: Yes Hx Falls: No - GASTROINTESTINAL Hx Gastrointestinal Disorders: Yes Hx Diverticulitis: Yes - GENITOURINARY/GYNECOLOGICAL Hx Genitourinary Disorders: No - PSYCHIATRIC Hx Psychophysiologic Disorder: No Hx Substance Use: No - SURGICAL HISTORY Hx Surgeries: Yes Hx Hysterectomy: Yes - ANESTHESIA Hx Anesthesia: Yes Hx Anesthesia Reactions: No Hx Malignant Hyperthermia: No Meds Allergies/Adverse Reactions: Allergies Allergy/AdvReac Type Severity Reaction Status Date / Time No Known Allergies Allergy Verified 10/25/17 17:13 Physical Exam - Constitutional Appears: No Acute Distress - Head Exam Head Exam: ATRAUMATIC, NORMAL INSPECTION, NORMOCEPHALIC - Eye Exam Eye Exam: EOMI, Normal appearance, PERRL - ENT Exam ENT Exam: Mucous Membranes Moist, Normal Exam - Neck Exam Neck exam: Positive for: Normal Inspection - Respiratory Exam Respiratory Exam: Clear to Auscultation Bilateral, NORMAL BREATHING PATTERN - Cardiovascular Exam Cardiovascular Exam: REGULAR RHYTHM, +S1, +S2 - GI/Abdominal Exam GI & Abdominal Exam: Normal Bowel Sounds, Soft. absent: Tenderness - Extremities Exam Extremities exam: Positive for: normal inspection - Back Exam Back exam: NORMAL INSPECTION - Neurological Exam Neurological exam: Alert, CN II-XII Intact, Normal Gait, Oriented x3, Reflexes Normal - Psychiatric Exam Psychiatric exam: Normal Affect, Normal Mood - Skin Skin Exam: Dry, Intact, Normal Color, Warm Results - Vital Signs Recent Vital Signs: Last Vital Signs Temp 98.7 F 10/26/17 09:25 Pulse 70 10/26/17 09:41 Resp 18 10/26/17 09:25 BP 150/97 H 10/26/17 09:41 Pulse Ox 100 10/26/17 09:25 - Labs Result Diagrams: 10/25/17 18:36 10/25/17 18:36 Labs: Laboratory Results - last 24 hr 10/26/17 10/26/17 10/26/17 07:00 07:00 07:38 POC Glucose (mg/dL) 105 Iron 46 TIBC 225 L % Saturation 20 Triglycerides 57 Cholesterol 115 L LDL Cholesterol Direct 58 HDL Cholesterol 37 10/26/17 11:57 POC Glucose (mg/dL) 143 H Iron TIBC % Saturation Triglycerides Cholesterol LDL Cholesterol Direct HDL Cholesterol Assessment & Plan (1) Abdominal pain Status: Acute (2) Back pain Status: Acute (3) Headache Status: Acute (4) Fever Status: Acute (5) Positive blood cultures Status: Acute (6) Anemia Status: Acute - Assessment and Plan (Free Text) Plan: Dilaudid IV and Tramadol for pain relief. Labs BMP, TSH, CBC Blood cultures: pending IV flagyl, cefepime GI/VTE prophylaxis Consults ID = Dr. Jaramillo / Dr. Villafana Pulmonary = Dr. Molina Reviewed: CT abd/pelvis = diverticulosis w/o diverticulitis, bibasilar opacities, apparent minimal stranding anterior to bladder CXR = WNL ECG = ABNORMAL - SR w/ PAC, moderate voltage criteria for LVH, may be variant, ST & wave abn, consider inferior ischemia - Date & Time Date: 10/26/17 Time: 11:00 Decision To Admit - Pt Status Changed To: Hospital Disposition Of: Inpatient Admission - Admit Certification Admit to Inpatient:: After my assessment, the patient will require hospitalization for at least two midnights. This is because of the severity of symptoms shown, intensity of services needed, and/or the medical risk in this patient being treated as an outpatient. - . Bed Request Type: Med/Surg <Kristen Prabhakar - Last Filed: 10/27/17 15:34> Results - Vital Signs Recent Vital Signs: Last Vital Signs Temp 99.2 F 10/27/17 08:08 Pulse 80 10/27/17 10:06 Resp 20 10/27/17 08:08 BP 145/86 10/27/17 10:06 Pulse Ox 100 10/27/17 08:08 - Labs Result Diagrams: 10/27/17 06:00 10/27/17 06:00 Labs: Laboratory Results - last 24 hr 10/26/17 10/26/17 10/26/17 10:36 17:21 21:36 WBC RBC Hgb Hct MCV MCH MCHC RDW Plt Count MPV Sodium Potassium Chloride Carbon Dioxide Anion Gap BUN Creatinine Est GFR ( Amer) Est GFR (Non-Af Amer) POC Glucose (mg/dL) 103 91 Random Glucose Calcium Procalcitonin < 0.05 L TSH 3rd Generation 10/27/17 10/27/17 10/27/17 06:00 06:00 06:00 WBC 3.6 L D RBC 2.51 L Hgb 8.0 L Hct 23.7 L MCV 94.4 MCH 31.9 MCHC 33.8 RDW 12.6 Plt Count 178 MPV 8.7 Sodium 140 Potassium 3.8 Chloride 110 H Carbon Dioxide 21 Anion Gap 12 BUN 19 Creatinine 1.4 H Est GFR ( Amer) 45 Est GFR (Non-Af Amer) 37 POC Glucose (mg/dL) Random Glucose 88 Calcium 9.0 Procalcitonin TSH 3rd Generation 0.26 L Assessment & Plan - Assessment and Plan (Free Text) Plan: 72 yr female w/ history pancreatic cancer (pancreatic/stomach/ stage III/dx 08/2016), s/p chemotherapy 05/05/2017, HTN, prediabetes, and cholecystecomy. She received a phone call today to return to the hospital after positive blood cultures. She was seen in the ED for abdominal pain relieved by IVF. Today she reports 8 out of 10 pain in the head, back, and LLQ of abdomen. She reports feeling constipated. She denies any shortness of breath, chest pain , nausea, vomiting, diarrhea, or urinary changes. Patient's daughters are at the bedside.. she is our private pt , had h/o pancreatic ca . getting treatment from [facility] , agreed all above , no big change of status . will f/u
--- NOTE | 2017-10-26 14:28 | CP.PCM.CON ---
History of Present Illness - History of Present Illness History of Present Illness: 72 year old female with PMH of HTN, pancreatic cancer diagnosed in 2016 on has been on chemotherapy weekly, history of diverticulitis, S/P laparoscopic cholecystectomy, S/P hysterectomy, S/P bladder surgery was initially seen in the ED 10/23/2017 for left lower quadrant pain. Work up then did not specifically reveal the etiology but was found to have gram positive cocci in the blood and was asked to come back. This time, she is still complaining of left lower quadrant pain and left flank pain. She has some nausea as well but no vomiting. She denies fever or chills, no diarrhea, no headache or dizziness, no rhinorrhea , no sore throat, no dysphagia or odynophagia, no abdominal pain, no chest pain , no SOB, no dysuria. CT A/P showed some urinary bladder stranding. Infectious Diseases consult is requested to further evaluate and manage. Review of Systems - Review of Systems All systems: reviewed and no additional remarkable complaints except (as per HPI ) Past Patient History - Infectious Disease Hx of Infectious Diseases: None - Past Medical History & Family History Past Medical History?: Yes - Past Social History Smoking Status: Never Smoked - CARDIAC Hx Cardiac Disorders: Yes Hx Hypertension: Yes - PULMONARY Hx Respiratory Disorders: No - NEUROLOGICAL Hx Neurological Disorder: Yes Hx Parkinson's Disease: Yes - HEENT Hx HEENT Problems: No - RENAL Hx Chronic Kidney Disease: No - ENDOCRINE/METABOLIC Hx Endocrine Disorders: Yes - HEMATOLOGICAL/ONCOLOGICAL Hx Blood Disorders: Yes Hx Cancer: Yes (pancreas treated vwith chemo & xrt 2016) Other/Comment: treated at [facility], [place] - INTEGUMENTARY Hx Dermatological Problems: No - MUSCULOSKELETAL/RHEUMATOLOGICAL Hx Musculoskeletal Disorders: Yes Hx Arthritis: Yes Hx Falls: No - GASTROINTESTINAL Hx Gastrointestinal Disorders: Yes Hx Diverticulitis: Yes - GENITOURINARY/GYNECOLOGICAL Hx Genitourinary Disorders: No - PSYCHIATRIC Hx Psychophysiologic Disorder: No Hx Substance Use: No - SURGICAL HISTORY Hx Surgeries: Yes Hx Hysterectomy: Yes - ANESTHESIA Hx Anesthesia: Yes Hx Anesthesia Reactions: No Hx Malignant Hyperthermia: No Meds Allergies/Adverse Reactions: Allergies Allergy/AdvReac Type Severity Reaction Status Date / Time No Known Allergies Allergy Verified 10/25/17 17:13 - Medications Medications: Current Medications Acetaminophen (Tylenol 325mg Tab) 650 mg PO Q8 PRN PRN Reason: Pain, Mild (1-3) Carbidopa/Levodopa (Sinemet 10/100) 1 tab PO TID [facility] Last Admin: 10/26/17 09:41 Dose: 1 tab Dicyclomine HCl (Bentyl) 10 mg PO Q8 PRN PRN Reason: Abdominal Discomfort/Spasms Hydromorphone HCl (Dilaudid) 0.5 mg IVP Q6H PRN PRN Reason: Pain, severe (8-10) Last Admin: 10/26/17 05:20 Dose: 0.5 mg Metoprolol Tartrate (Lopressor) 25 mg PO BID [facility] Last Admin: 10/26/17 09:41 Dose: 25 mg Ondansetron HCl (Zofran Inj) 4 mg IVP Q6 PRN PRN Reason: Nausea/Vomiting Rivaroxaban (Xarelto) 20 mg PO DAILY [facility] PRN Reason: Protocol Last Admin: 10/26/17 09:41 Dose: 20 mg Sennosides (Senokot Tab) 8.6 mg PO HS PRN PRN Reason: Constipation Tramadol HCl (Ultram) 50 mg PO DAILY PRN PRN Reason: Pain, moderate (4-7) Physical Exam - Constitutional Appears: Chronically Ill - Head Exam Head Exam: NORMAL INSPECTION - ENT Exam ENT Exam: Mucous Membranes Moist - Neck Exam Neck exam: Negative for: Lymphadenopathy, Meningismus - Respiratory Exam Respiratory Exam: Decreased Breath Sounds Additional comments: right sided chest catheter in place - Cardiovascular Exam Cardiovascular Exam: +S1, +S2 - GI/Abdominal Exam GI & Abdominal Exam: Soft. absent: Tenderness Results - Vital Signs Recent Vital Signs: Last Vital Signs Temp 98.7 F 10/26/17 09:25 Pulse 70 10/26/17 09:41 Resp 18 10/26/17 09:25 BP 150/97 H 10/26/17 09:41 Pulse Ox 100 10/26/17 09:25 - Labs Result Diagrams: 10/25/17 18:36 10/25/17 18:36 Labs: Laboratory Results - last 24 hr 10/26/17 10/26/17 10/26/17 07:00 07:00 07:38 POC Glucose (mg/dL) 105 Iron 46 TIBC 225 L % Saturation 20 Triglycerides 57 Cholesterol 115 L LDL Cholesterol Direct 58 HDL Cholesterol 37 Assessment & Plan - Assessment and Plan (Free Text) Plan: Assessment R/O sepsis due to UTI R/O left sided colitis HTN pancreatic cancer diagnosed in 2016 on has been on chemotherapy weekly history of diverticulitis S/P laparoscopic cholecystectomy S/P hysterectomy S/P bladder surgery Plan started patient on Cefepime and Flagyl pending urine cx, blood cx; reviewed CT A /P will monitor clinically follow up rapid flu test
[2017-10-26] MEDS: Cefepime 1gm in NS 100ml 1 GM/100 ML BAG IVPB SCH ×2 (15:17→21:10)
--- NOTE | 2017-10-26 16:54 | CARD ---
APPROVED REPORT EKG Measurement Heart [id number] CA [id number] <Conclusion> Sinus rhythm with premature atrial complexes Moderate voltage criteria for LVH, may be normal variant ST & T wave abnormality, consider inferior ischemia Abnormal ECG
[2017-10-26] MEDS: metroNIDAZOLE IV 500 mg/100 ml 500 MG/100 ML BAG IVPB SCH (21:11)
[2017-10-27] MEDS: Cefepime 1gm in NS 100ml 1 GM/100 ML BAG IVPB SCH ×3 (05:40→21:28)
[2017-10-27] MEDS: metroNIDAZOLE IV 500 mg/100 ml 500 MG/100 ML BAG IVPB SCH ×3 (05:41→21:27)
[2017-10-27 06:24] LABS: MEAN CELL VOLUME 94.4 fl (80.0-105.0); MEAN CORPUSCULAR HEMOGLOBIN 31.9 pg (25.0-35.0); MEAN CORPUSCULAR HGB CONC 33.8 g/dl (31.0-37.0); MEAN PLATELET VOLUME 8.7 fl (7.0-11.0); RBC 2.51 10^6/uL (3.5-6.1); RED CELL DISTRIBUTION WIDTH 12.6 % (11.5-14.5); WHITE BLOOD COUNT 3.6 10^3/ul (4.5-11.0)
[2017-10-27] MEDS: HYDROmorphone 0.5 mg/0.5 ml ISec IVP PRN ×2 (12:20→18:42)
--- NOTE | 2017-10-27 13:16 | CP.PCM.PN ---
Subjective - Date & Time of Evaluation Date of Evaluation: 10/27/17 Time of Evaluation: 09:35 - Subjective Subjective: A little less pain in the left lower quadrant area, no fevers overnight. Objective - Vital Signs/Intake and Output Vital Signs (last 24 hours): Temp Pulse Resp BP Pulse Ox 99.2 F 80 20 145/86 100 10/27/17 08:08 10/27/17 08:08 10/27/17 08:08 10/27/17 08:08 10/27/17 08:08 Intake and Output: 10/27/17 10/27/17 06:59 18:59 Intake Total 1370 Balance 1370 - Medications Medications: Current Medications Acetaminophen (Tylenol 325mg Tab) 650 mg PO Q8 PRN PRN Reason: Pain, Mild (1-3) Carbidopa/Levodopa (Sinemet 10/100) 1 tab PO TID [facility] Last Admin: 10/26/17 18:12 Dose: 1 tab Clonazepam (Klonopin) 0.25 mg PO BID PRN; Protocol PRN Reason: Anxiety Dicyclomine HCl (Bentyl) 10 mg PO Q8 PRN PRN Reason: Abdominal Discomfort/Spasms Hydromorphone HCl (Dilaudid) 0.5 mg IVP Q6H PRN PRN Reason: Pain, severe (8-10) Last Admin: 10/26/17 12:24 Dose: 0.5 mg Cefepime HCl (Maxipime 1gm) 1 gm in 100 mls @ 100 mls/hr IVPB Q8 [facility] PRN Reason: Protocol Last Admin: 10/27/17 05:40 Dose: 100 mls/hr Metronidazole (Flagyl) 500 mg in 100 mls @ 100 mls/hr IVPB Q8 [facility] PRN Reason: Protocol Last Admin: 10/27/17 05:41 Dose: 100 mls/hr Iron Sucrose 100 mg/ Sodium (Chloride) 105 mls @ 210 mls/hr IVPB DAILY [facility] Stop: 10/29/17 12:00 Metoprolol Tartrate (Lopressor) 25 mg PO BID [facility] Last Admin: 10/26/17 18:12 Dose: 25 mg Ondansetron HCl (Zofran Inj) 4 mg IVP Q6 PRN PRN Reason: Nausea/Vomiting Rivaroxaban (Xarelto) 20 mg PO DAILY [facility] PRN Reason: Protocol Last Admin: 10/26/17 09:41 Dose: 20 mg Sennosides (Senokot Tab) 8.6 mg PO HS PRN PRN Reason: Constipation Tramadol HCl (Ultram) 50 mg PO DAILY PRN PRN Reason: Pain, moderate (4-7) Zolpidem Tartrate (Ambien) 5 mg PO HS PRN; Protocol PRN Reason: Insomnia Last Admin: 10/26/17 21:10 Dose: 5 mg - Labs Labs: 10/27/17 06:00 10/27/17 06:00 PT 24.8 SECONDS (9.4-12.5) H 10/25/17 20:05 INR 2.14 (0.93-1.08) H 10/25/17 20:05 APTT 32.1 Seconds (25.1-36.5) 10/25/17 20:05 - Constitutional Appears: Non-toxic, Chronically Ill - Head Exam Head Exam: NORMAL INSPECTION - Neck Exam Neck Exam: absent: Meningismus - Respiratory Exam Respiratory Exam: Decreased Breath Sounds Additional comments: right anterior chest wall port in place - Cardiovascular Exam Cardiovascular Exam: +S1, +S2 - GI/Abdominal Exam GI & Abdominal Exam: Soft. absent: Tenderness Assessment and Plan - Assessment and Plan (Free Text) Plan: Assessment R/O sepsis due to UTI R/O left sided colitis HTN pancreatic cancer diagnosed in 2016 on has been on chemotherapy weekly history of diverticulitis S/P laparoscopic cholecystectomy S/P hysterectomy S/P bladder surgery Plan continue Cefepime and Flagyl day 2 pending urine cx; blood cx are negative; reviewed CT A/P will continue to monitor clinically rapid flu test is negative
--- NOTE | 2017-10-28 00:05 | CON ---
DATE: 10/27/2017 PULMONARY CONSULT REFERRING PHYSICIAN: Dr. Prabhakar REASON FOR CONSULT: Pleural effusion, insomnia. HISTORY OF PRESENT ILLNESS: This is a 72-year-old female with known history of hypertension, Parkinson disease, macular degeneration, diabetes, hyperthyroidism, pancreatic cancer which is stage III, been on chemotherapy. Last chemo was April 2017, also had colitis, diverticulitis, history of GERD, UTIs, anxiety disorder, brought into Emergency Room. He was seen earlier and the blood culture was positive and she was seen in ER with abdominal pain, presently sitting side of the bed. Family is at bedside. She has a history of insomnia requiring Ambien. There is no cough, no sputum production. No dysuria. No leg pain or leg swelling. PAST MEDICAL HISTORY: As per history present illness. SOCIAL HISTORY: Nonsmoker, nondrinker. FAMILY HISTORY: Significant cardiopulmonary disease reported. ALLERGIES: NONE KNOWN. MEDICATIONS: She is on Ambien 5 mg bedtime p.r.n., Bentyl 10 mg q.8 hours p.r.n., Dilaudid 0.5 mg q. 6 hours p.r.n., Flagyl 500 mg q.8 hours., iron sucrose IV daily, Klonopin 0.25 mg twice a day p.r.n., metoprolol tartrate 25 mg twice a day, cefepime 1 g IV q.8 hours, Senokot p.r.n., Sinemet 10/100 one tablet three times a day, Tylenol p.r.n., Ultram 50 mg daily p.r.n., Xarelto 20 mg daily, Zofran p.r.n. basis. REVIEW OF SYSTEM: No headache, no rhinitis, get short of breath with exertion. Abdominal discomfort. No nausea at present time. No dysuria. No leg pain or leg swelling. PHYSICAL EXAMINATION: GENERAL: Sitting side of the bed, no acute distress. VITAL SIGNS; Temperature is 98, heart rate is 73, respiratory rate is 18, blood pressure is 129/75, pulse ox is 99% on room air. HEENT: Moist mucous membrane. . NECK: Supple. No JVD. LUNGS: Has fair airflow with rhonchi. HEART: S1, S2. ABDOMEN: Soft, mild epigastric tenderness. EXTREMITIES: There is no edema. NEUROLOGIC: Awake, alert, and follows simple commands. LABORATORY DATA: Shows hemoglobin 8.0, hematocrit 23.7, WBC 3.6, platelet 178. INR 2.14, PTT 32. VBG showed pH 7.41, pCO2 of 35, PO2 of 119. Sodium 140, potassium 3.8, chloride 110, bicarbonate 21, BUN 19, creatinine 1.4, glucose 91, calcium is 9.0. Influenza A and B been negative. Microbiology, blood culture, urine culture, there is no growth. CT scan of the abdomen shows diverticulosis without definite CT evidence of diverticulitis, bibasilar opacities, pneumonia cannot be excluded, also have few probable renal cyst up to 11 cm on the right. ASSESSMENT: Pancreatic cancer, been on chemotherapy, hypertension, urinary tract infection, history of Parkinson's disease, anxiety disorder, insomnia. PLAN: Continue antibiotics for blood cultures and also probably for pneumonia. Continue anxiolytic medications for now. Follow up with blood cultures. Spoke to family at bedside. Also spoke to Dr. Prabhakar. Follow up labs in the morning. Thank you and we will follow with you Hubert Molina MD
[2017-10-28] MEDS: HYDROmorphone 0.5 mg/0.5 ml ISec IVP PRN ×3 (01:11→21:44)
--- NOTE | 2017-10-28 02:50 | PN ---
SUBJECTIVE: The patient is a 72-year-old female. The patient is seen and examined at the bedside. The patient is still having left-sided abdominal pain but getting better. As per the patient, cannot sleep at night if she did not take Ambien. Daughter, grandchildren, nephew, and nieces were on the bedside. Length of time discussion done with patient's daughter. All questions answered, education done. PHYSICAL EXAMINATION VITAL SIGNS: Temperature 99.2, pulse 80, respiratory rate 20, blood pressure 145/86, and pulse oximetry 100. HEENT: Head, normocephalic and atraumatic. Eyes, PERRLA. Extraocular muscles intact. Conjunctivae clear. Nose, patent. Mucous membrane moist. NECK: Supple. No carotid bruit. No JVD or thyromegaly. CHEST: Bilaterally symmetrical. HEART: S1 and S2 positive. LUNGS: Clear to auscultation. ABDOMEN: Soft. Bowel sounds positive. No organomegaly. EXTREMITIES: No edema, no cyanosis. NEUROLOGIC: The patient is awake and alert, moving all 4 extremities. No focal deficits. MEDICATIONS: Tylenol, Sinemet, Klonopin, Bentyl, Dilaudid, Maxipime, Flagyl, antacid, Lopressor, Zofran, Xarelto, Senokot, tramadol, LABORATORY DATA: White blood cells 3.6, hemoglobin 8.0, hematocrit 23.7, and platelets 117. Sodium 140, potassium 3.8, BUN 19, creatinine 1.4, and glucose 88. ASSESSMENT AND PLAN: Ms. Micah Muñoz is a 72-year-old female with leukopenia, anemia, hyperchloremia, rule out sepsis due to urinary tract infection, colitis, hypertension, pancreatic cancer diagnosed in 2016, has chemotherapy weekly; for history of diverticulitis, status post laparoscopic cholecystectomy, hysterectomy, bladder surgery; insomnia, rule out obstructive sleep apnea syndrome, getting Ambien for sleep. Continue cefepime and Flagyl, day 2, pending on urine culture, blood culture as per Infectious Disease. CT scan is reviewed. Rapid flu test is negative. Discussion done with Dr. Molina for patient's sleeping problem. Gastrointestinal and deep venous thrombosis prophylaxis. Repeat labs. We will follow up. Kristen Prabhakar MD [facility] # [id number] KEITH
[2017-10-28] MEDS: metroNIDAZOLE IV 500 mg/100 ml 500 MG/100 ML BAG IVPB SCH ×3 (05:39→21:35)
[2017-10-28] MEDS: Cefepime 1gm in NS 100ml 1 GM/100 ML BAG IVPB SCH ×3 (05:39→22:58)
[2017-10-28 06:24] LABS: MEAN CELL VOLUME 94.4 fl (80.0-105.0); MEAN CORPUSCULAR HEMOGLOBIN 31.6 pg (25.0-35.0); MEAN CORPUSCULAR HGB CONC 33.5 g/dl (31.0-37.0); MEAN PLATELET VOLUME 8.9 fl (7.0-11.0); RBC 2.31 10^6/uL (3.5-6.1); RED CELL DISTRIBUTION WIDTH 12.8 % (11.5-14.5); WHITE BLOOD COUNT 3.7 10^3/ul (4.5-11.0)
[2017-10-28 06:38] LABS: HEMOGLOBIN 7.3 g/dL (12.0-16.0)
[2017-10-28 07:02] LABS: ALB/GLOB RATIO 1.1 (1.1-1.8); ALBUMIN 2.9 g/dL (3.0-4.8); CALCIUM 8.9 mg/dL (8.4-10.5)
[2017-10-28] MEDS ORDERED: HYDROmorphone 0.5 mg/0.5 ml ISec IVP STA (12:06)
--- NOTE | 2017-10-28 16:48 | CP.PCM.PN ---
Subjective - Date & Time of Evaluation Date of Evaluation: 10/28/17 Time of Evaluation: 10:20 - Subjective Subjective: Comfortable in bed, less pain in the abdomen. No fevers overnight. Objective - Vital Signs/Intake and Output Vital Signs (last 24 hours): Temp Pulse Resp BP Pulse Ox 98.3 F 73 19 129/75 99 10/27/17 16:00 10/27/17 18:42 10/27/17 16:00 10/27/17 18:42 10/27/17 16:00 Intake and Output: 10/28/17 10/28/17 06:59 18:59 Intake Total 2160 Balance 2160 - Medications Medications: Current Medications Acetaminophen (Tylenol 325mg Tab) 650 mg PO Q8 PRN PRN Reason: Pain, Mild (1-3) Carbidopa/Levodopa (Sinemet 10/100) 1 tab PO TID [facility] Last Admin: 10/27/17 18:42 Dose: 1 tab Clonazepam (Klonopin) 0.25 mg PO BID PRN; Protocol PRN Reason: Anxiety Last Admin: 10/28/17 02:03 Dose: 0.25 mg Dicyclomine HCl (Bentyl) 10 mg PO Q8 PRN PRN Reason: Abdominal Discomfort/Spasms Hydromorphone HCl (Dilaudid) 0.5 mg IVP Q6H PRN PRN Reason: Pain, severe (8-10) Last Admin: 10/28/17 01:11 Dose: 0.5 mg Cefepime HCl (Maxipime 1gm) 1 gm in 100 mls @ 100 mls/hr IVPB Q8 [facility] PRN Reason: Protocol Last Admin: 10/28/17 05:39 Dose: 100 mls/hr Metronidazole (Flagyl) 500 mg in 100 mls @ 100 mls/hr IVPB Q8 [facility] PRN Reason: Protocol Last Admin: 10/28/17 05:39 Dose: 100 mls/hr Iron Sucrose 100 mg/ Sodium (Chloride) 105 mls @ 210 mls/hr IVPB DAILY [facility] Stop: 10/29/17 12:00 Last Admin: 10/27/17 10:08 Dose: 210 mls/hr Metoprolol Tartrate (Lopressor) 25 mg PO BID [facility] Last Admin: 10/27/17 18:42 Dose: 25 mg Ondansetron HCl (Zofran Inj) 4 mg IVP Q6 PRN PRN Reason: Nausea/Vomiting Rivaroxaban (Xarelto) 20 mg PO DAILY [facility] PRN Reason: Protocol Last Admin: 10/27/17 10:08 Dose: 20 mg Sennosides (Senokot Tab) 8.6 mg PO HS PRN PRN Reason: Constipation Tramadol HCl (Ultram) 50 mg PO DAILY PRN PRN Reason: Pain, moderate (4-7) Last Admin: 10/27/17 16:38 Dose: 50 mg Zolpidem Tartrate (Ambien) 5 mg PO HS PRN; Protocol PRN Reason: Insomnia Last Admin: 10/27/17 23:33 Dose: 5 mg - Labs Labs: 10/28/17 06:00 10/28/17 06:00 PT 24.8 SECONDS (9.4-12.5) H 10/25/17 20:05 INR 2.14 (0.93-1.08) H 10/25/17 20:05 APTT 32.1 Seconds (25.1-36.5) 10/25/17 20:05 - Constitutional Appears: Non-toxic - Head Exam Head Exam: NORMAL INSPECTION - ENT Exam ENT Exam: Mucous Membranes Moist - Neck Exam Neck Exam: absent: Meningismus - Respiratory Exam Respiratory Exam: Decreased Breath Sounds - Cardiovascular Exam Cardiovascular Exam: +S1, +S2 - GI/Abdominal Exam GI & Abdominal Exam: Soft. absent: Tenderness Assessment and Plan - Assessment and Plan (Free Text) Plan: Assessment R/O sepsis due to UTI R/O left sided colitis HTN pancreatic cancer diagnosed in 2016 on has been on chemotherapy weekly history of diverticulitis S/P laparoscopic cholecystectomy S/P hysterectomy S/P bladder surgery Plan continue Cefepime and Flagyl day 3; urine cx is showing contamination; blood cx are negative; reviewed CT A/P will continue to monitor clinically rapid flu test is negative
--- NOTE | 2017-10-28 17:39 | CP.PCM.PN ---
<Joya Posey - Last Filed: 10/28/17 23:15> Subjective - Date & Time of Evaluation Date of Evaluation: 10/28/17 Time of Evaluation: 11:40 - Subjective Subjective: 72 yr female w/ history pancreatic cancer (pancreatic/stomach/ stage III/dx 08/2016), s/p chemotherapy 05/05/2017, HTN, prediabetes, and cholecystecomy. Today, seen seated at bedside getting up OOB with no distress. Pt reports relief of abdominal pain. She denies any shortness of breath, chest pain, nausea, vomiting, diarrhea, or urinary changes. Objective - Vital Signs/Intake and Output Vital Signs (last 24 hours): Temp Pulse Resp BP Pulse Ox 98 F 79 18 135/85 99 10/28/17 15:52 10/28/17 17:36 10/28/17 15:52 10/28/17 17:36 10/28/17 10:02 Intake and Output: 10/28/17 10/28/17 06:59 18:59 Intake Total 2160 1050 Balance 2160 1050 - Medications Medications: Current Medications Acetaminophen (Tylenol 325mg Tab) 650 mg PO Q8 PRN PRN Reason: Pain, Mild (1-3) Carbidopa/Levodopa (Sinemet 10/100) 1 tab PO TID [facility] Last Admin: 10/28/17 17:36 Dose: 1 tab Clonazepam (Klonopin) 0.25 mg PO BID PRN; Protocol PRN Reason: Anxiety Last Admin: 10/28/17 17:36 Dose: 0.25 mg Dicyclomine HCl (Bentyl) 10 mg PO Q8 PRN PRN Reason: Abdominal Discomfort/Spasms Hydromorphone HCl (Dilaudid) 1 mg IVP Q6H PRN PRN Reason: Pain, severe (8-10) Cefepime HCl (Maxipime 1gm) 1 gm in 100 mls @ 100 mls/hr IVPB Q8 [facility] PRN Reason: Protocol Last Admin: 10/28/17 13:00 Dose: 100 mls/hr Metronidazole (Flagyl) 500 mg in 100 mls @ 100 mls/hr IVPB Q8 [facility] PRN Reason: Protocol Last Admin: 10/28/17 14:20 Dose: 100 mls/hr Iron Sucrose 100 mg/ Sodium (Chloride) 105 mls @ 210 mls/hr IVPB DAILY [facility] Stop: 10/29/17 12:00 Last Admin: 10/28/17 10:01 Dose: 210 mls/hr Metoprolol Tartrate (Lopressor) 25 mg PO BID [facility] Last Admin: 10/28/17 17:36 Dose: 25 mg Ondansetron HCl (Zofran Inj) 4 mg IVP Q6 PRN PRN Reason: Nausea/Vomiting Last Admin: 10/28/17 15:21 Dose: 4 mg Ondansetron HCl (Zofran Inj) 4 mg IVP Q6H PRN PRN Reason: Nausea/Vomiting Rivaroxaban (Xarelto) 20 mg PO DAILY [facility] PRN Reason: Protocol Last Admin: 10/28/17 09:48 Dose: 20 mg Sennosides (Senokot Tab) 8.6 mg PO HS PRN PRN Reason: Constipation Tramadol HCl (Ultram) 50 mg PO DAILY PRN PRN Reason: Pain, moderate (4-7) Last Admin: 10/27/17 16:38 Dose: 50 mg Zolpidem Tartrate (Ambien) 10 mg PO HS PRN; Protocol PRN Reason: Insomnia - Labs Labs: 10/28/17 06:00 10/28/17 06:00 PT 24.8 SECONDS (9.4-12.5) H 10/25/17 20:05 INR 2.14 (0.93-1.08) H 10/25/17 20:05 APTT 32.1 Seconds (25.1-36.5) 10/25/17 20:05 - Constitutional Appears: Well - Head Exam Head Exam: ATRAUMATIC, NORMAL INSPECTION, NORMOCEPHALIC - Eye Exam Eye Exam: EOMI, Normal appearance, PERRL Pupil Exam: NORMAL ACCOMODATION, PERRL - ENT Exam ENT Exam: Mucous Membranes Moist, Normal Exam - Neck Exam Neck Exam: Full ROM, Normal Inspection. absent: Lymphadenopathy - Respiratory Exam Respiratory Exam: Clear to Ausculation Bilateral, NORMAL BREATHING PATTERN - Cardiovascular Exam Cardiovascular Exam: REGULAR RHYTHM, +S1, +S2. absent: Murmur - GI/Abdominal Exam GI & Abdominal Exam: Soft, Normal Bowel Sounds. absent: Tenderness - Extremities Exam Extremities Exam: Full ROM, Normal Capillary Refill, Normal Inspection. absent : Joint Swelling, Pedal Edema - Back Exam Back Exam: NORMAL INSPECTION - Neurological Exam Neurological Exam: Alert, Awake, CN II-XII Intact, Normal Gait, Oriented x3 - Psychiatric Exam Psychiatric exam: Normal Affect, Normal Mood - Skin Skin Exam: Dry, Intact, Normal Color, Warm Assessment and Plan (1) Pancreatic cancer Status: Chronic (2) Abdominal pain Status: Resolved (3) Back pain Status: Resolved (4) Headache Status: Acute (5) Fever Status: Acute (6) Positive blood cultures Status: Acute (7) Anemia Status: Acute (8) Hypoalbuminemia Status: Acute (9) Hyperthyroidism determined by thyroid function test Status: Acute (10) Hematuria Status: Acute (11) Renal insufficiency Status: Acute (12) Diverticulosis Status: Acute - Assessment and Plan (Free Text) Plan: Dilaudid IV and Tramadol for pain relief. blood cultures negative. IV flagyl, cefepime. IV venofer. GI/VTE prophylaxis Consults ID = Dr. Jaramillo / Dr. Villafana Pulmonary = Dr. Molina Reviewed: CT abd/pelvis = diverticulosis w/o diverticulitis, bibasilar opacities, apparent minimal stranding anterior to bladder CXR = WNL ECG = ABNORMAL - SR w/ PAC, moderate voltage criteria for LVH, may be variant, ST & wave abn, consider inferior ischemia <Kristen Prabhakar - Last Filed: 10/29/17 08:32> Objective - Vital Signs/Intake and Output Vital Signs (last 24 hours): Temp Pulse Resp BP Pulse Ox 99 F 78 20 168/97 H 98 10/29/17 00:00 10/29/17 00:00 10/29/17 00:00 10/29/17 00:00 10/29/17 00:00 Intake and Output: 10/29/17 10/29/17 06:59 18:59 Intake Total 725 0 Balance 725 0 - Medications Medications: Current Medications Acetaminophen (Tylenol 325mg Tab) 650 mg PO Q8 PRN PRN Reason: Pain, Mild (1-3) Carbidopa/Levodopa (Sinemet 10/100) 1 tab PO TID [facility] Last Admin: 10/28/17 17:36 Dose: 1 tab Clonazepam (Klonopin) 0.25 mg PO BID PRN; Protocol PRN Reason: Anxiety Last Admin: 10/28/17 17:36 Dose: 0.25 mg Dicyclomine HCl (Bentyl) 10 mg PO Q8 PRN PRN Reason: Abdominal Discomfort/Spasms Hydromorphone HCl (Dilaudid) 1 mg IVP Q6H PRN PRN Reason: Pain, severe (8-10) Last Admin: 10/28/17 21:44 Dose: 1 mg Cefepime HCl (Maxipime 1gm) 1 gm in 100 mls @ 100 mls/hr IVPB Q8 [facility] PRN Reason: Protocol Last Admin: 10/29/17 07:50 Dose: 100 mls/hr Metronidazole (Flagyl) 500 mg in 100 mls @ 100 mls/hr IVPB Q8 [facility] PRN Reason: Protocol Last Admin: 10/29/17 06:33 Dose: 100 mls/hr Iron Sucrose 100 mg/ Sodium (Chloride) 105 mls @ 210 mls/hr IVPB DAILY [facility] Stop: 10/29/17 12:00 Last Admin: 10/28/17 10:01 Dose: 210 mls/hr Metoprolol Tartrate (Lopressor) 25 mg PO BID [facility] Last Admin: 10/28/17 17:36 Dose: 25 mg Ondansetron HCl (Zofran Inj) 4 mg IVP Q6H PRN PRN Reason: Nausea/Vomiting Rivaroxaban (Xarelto) 20 mg PO DAILY [facility] PRN Reason: Protocol Last Admin: 10/28/17 09:48 Dose: 20 mg Sennosides (Senokot Tab) 8.6 mg PO HS PRN PRN Reason: Constipation Tramadol HCl (Ultram) 50 mg PO DAILY PRN PRN Reason: Pain, moderate (4-7) Last Admin: 10/27/17 16:38 Dose: 50 mg Zolpidem Tartrate (Ambien) 10 mg PO HS PRN; Protocol PRN Reason: Insomnia Last Admin: 10/28/17 23:07 Dose: 10 mg - Labs Labs: 10/28/17 06:00 10/28/17 06:00 PT 24.8 SECONDS (9.4-12.5) H 10/25/17 20:05 INR 2.14 (0.93-1.08) H 10/25/17 20:05 APTT 32.1 Seconds (25.1-36.5) 10/25/17 20:05 Assessment and Plan - Assessment and Plan (Free Text) Plan: 72 yr female w/ history pancreatic cancer (pancreatic/stomach/ stage III/dx 08/2016), s/p chemotherapy 05/05/2017, HTN, prediabetes, and cholecystecomy. Today, seen seated at bedside getting up OOB with no distress. Pt reports relief of abdominal pain. She denies any shortness of breath, chest pain, nausea, vomiting, diarrhea, or urinary changes. pt is seen and examined at bed side looking comfortable , as per pt and nurse , pt cannot sleep last night , because Ambien was decrease from 10 to 5 , sleep specialist is on the case . pt had anemia , got blood transfusion . will keep on checking h/h . will f/u . agreed all above . cont. same treatment
[2017-10-28 20:57] VITALS: RESP 20
--- NOTE | 2017-10-29 00:24 | PN ---
DATE: 10/28/2017 PULMONARY PROGRESS NOTE REFERRING PHYSICIAN: Dr. Parbhakar. SUBJECTIVE: She is lying in the bed. Family is at bedside. Night was unremarkable. Mild abdominal pain. No cough. No shortness of breath. No leg pain or leg swelling. PHYSICAL EXAMINATION GENERAL: In no acute distress. VITAL SIGNS: Temperature is 99, heart rate is 73, respiratory rate is 20, blood pressure is 171/99, pulse ox is 99% on nasal cannula. HEENT: Moist mucous membranes. No ulcer or thrush. NECK: Supple. No JVD. LUNGS: Has fair airflow with rhonchi. HEART: S1, S2. ABDOMEN: Positive bowel sounds, soft, mild tenderness. EXTREMITIES: There is no edema. NEUROLOGIC: Awake, alert, follows simple commands. MEDICATIONS: She is on Ambien 10 mg at bedtime p.r.n., Bentyl 10 mg q. 8 hours, p.r.n., Dilaudid 1 mg q. 6 hour p.r.n., Flagyl 500 mg q. 8 hours, iron sucrose 100 mg daily, Klonopin 0.25 mg twice a day p.r.n., metoprolol tartrate 25 mg twice a day, cefepime 1 g IV q. 8 hours, Senokot 8.6 mg bedtime p.r.n., carbidopa and levodopa 10/100 one tablet 3 times a day, Tylenol p.r.n. basis, Ultram 50 mg q. 8 hours p.r.n., Xarelto 20 mg daily, Zofran p.r.n. LABORATORY DATA: Shows hemoglobin 7.3, hematocrit 21.8, WBC 3.7, platelet is 175. Sodium 141, potassium 3.7, chloride 110, bicarbonate 22, BUN 20, creatinine 1.3, glucose 83, calcium is 8.9, AST 33, ALT 31, alk phos is 71, albumin is 2.9, TSH is 0.26. Microbiology: blood culture is no growth. IMPRESSION AND PLAN: Pancreatic cancer, on chemotherapy, hypertension, urinary tract infection, Parkinson's disease, anxiety disorder, insomnia, admitted originally with one of blood culture positive, seen by Infectious Disease. I spoke to the patient's daughter on the telephone. All the questions answered. Be careful with sedation. Keep head at 45 degrees. Pain management. Follow up patient closely. We will order labs from the morning. Thank you and we will follow with you. Hubert Molina MD
[2017-10-29] MEDS: metroNIDAZOLE IV 500 mg/100 ml 500 MG/100 ML BAG IVPB SCH ×2 (06:33→13:36)
[2017-10-29] MEDS: Cefepime 1gm in NS 100ml 1 GM/100 ML BAG IVPB SCH ×2 (07:50→13:36)
[2017-10-29 09:05] VITALS: O2SAT 99
[2017-10-29] MEDS: HYDROmorphone 0.5 mg/0.5 ml ISec IVP PRN ×2 (09:45→16:21)
[2017-10-29 10:06] LABS: HEMOGLOBIN 10.3 g/dL (12.0-16.0); MEAN CELL VOLUME 92.4 fl (80.0-105.0); MEAN CORPUSCULAR HEMOGLOBIN 31.3 pg (25.0-35.0); MEAN CORPUSCULAR HGB CONC 33.9 g/dl (31.0-37.0); MEAN PLATELET VOLUME 8.9 fl (7.0-11.0); RBC 3.29 10^6/uL (3.5-6.1); RED CELL DISTRIBUTION WIDTH 13.8 % (11.5-14.5)
[2017-10-29] MEDS ORDERED: POLYETHYLENE GLYCOL 3350 17 GM/Dose PACKET PO ONE (11:46)
[2017-10-29 13:50] VITALS: TEMP 99.1
--- NOTE | 2017-10-29 15:12 | CP.PCM.PN ---
Subjective - Date & Time of Evaluation Date of Evaluation: 10/29/17 Time of Evaluation: 11:05 - Subjective Subjective: Patient is feeling better, no fevers overnight, not in distress, no more abdominal pain. Objective - Vital Signs/Intake and Output Vital Signs (last 24 hours): Temp Pulse Resp BP Pulse Ox 99.1 F 88 20 169/97 H 99 10/29/17 10:00 10/29/17 10:00 10/29/17 10:00 10/29/17 10:00 10/29/17 09:04 Intake and Output: 10/29/17 10/29/17 06:59 18:59 Intake Total 725 480 Balance 725 480 - Medications Medications: Current Medications Acetaminophen (Tylenol 325mg Tab) 650 mg PO Q8 PRN PRN Reason: Pain, Mild (1-3) Carbidopa/Levodopa (Sinemet 10/100) 1 tab PO TID [facility] Last Admin: 10/29/17 13:36 Dose: 1 tab Clonazepam (Klonopin) 0.25 mg PO BID PRN; Protocol PRN Reason: Anxiety Last Admin: 10/28/17 17:36 Dose: 0.25 mg Dicyclomine HCl (Bentyl) 10 mg PO Q8 PRN PRN Reason: Abdominal Discomfort/Spasms Hydromorphone HCl (Dilaudid) 1 mg IVP Q6H PRN PRN Reason: Pain, severe (8-10) Last Admin: 10/29/17 09:45 Dose: 1 mg Cefepime HCl (Maxipime 1gm) 1 gm in 100 mls @ 100 mls/hr IVPB Q8 [facility] PRN Reason: Protocol Last Admin: 10/29/17 13:36 Dose: 100 mls/hr Metronidazole (Flagyl) 500 mg in 100 mls @ 100 mls/hr IVPB Q8 [facility] PRN Reason: Protocol Last Admin: 10/29/17 13:36 Dose: 100 mls/hr Metoprolol Tartrate (Lopressor) 25 mg PO BID [facility] Last Admin: 10/29/17 09:38 Dose: 25 mg Ondansetron HCl (Zofran Inj) 4 mg IVP Q6H PRN PRN Reason: Nausea/Vomiting Last Admin: 10/29/17 13:46 Dose: 4 mg Rivaroxaban (Xarelto) 20 mg PO DAILY [facility] PRN Reason: Protocol Last Admin: 10/29/17 09:39 Dose: 20 mg Sennosides (Senokot Tab) 8.6 mg PO HS PRN PRN Reason: Constipation Tramadol HCl (Ultram) 50 mg PO DAILY PRN PRN Reason: Pain, moderate (4-7) Last Admin: 10/27/17 16:38 Dose: 50 mg Zolpidem Tartrate (Ambien) 10 mg PO HS PRN; Protocol PRN Reason: Insomnia Last Admin: 10/28/17 23:07 Dose: 10 mg - Labs Labs: 10/29/17 09:55 10/28/17 06:00 PT 24.8 SECONDS (9.4-12.5) H 10/25/17 20:05 INR 2.14 (0.93-1.08) H 10/25/17 20:05 APTT 32.1 Seconds (25.1-36.5) 10/25/17 20:05 - Constitutional Appears: Non-toxic - Head Exam Head Exam: NORMAL INSPECTION - ENT Exam ENT Exam: Mucous Membranes Moist - Neck Exam Neck Exam: absent: Meningismus Additional comments: Assessment R/O sepsis due to UTI unlikely left sided colitis HTN pancreatic cancer diagnosed in 2016 on has been on chemotherapy weekly history of diverticulitis S/P laparoscopic cholecystectomy S/P hysterectomy S/P bladder surgery Plan on Cefepime and Flagyl day 4; urine cx is showing contamination; blood cx are negative; reviewed CT A/P which did not show intra-abdominal infection - can be switched to PO Vantin to complete 5-7 days of therapy rapid flu test is negative - Respiratory Exam Respiratory Exam: Decreased Breath Sounds
[2017-10-29] MEDS ORDERED: Magnesium Hydroxide Susp 30 ml UD PO ONE (16:39)
[2017-10-29 17:27] VITALS: BP 144/96; PULSE 75
--- NOTE | 2017-10-30 01:56 | PN ---
DATE: 10/29/2017 REFERRING PHYSICIAN: Dr. Prabhakar. SUBJECTIVE: She is lying on the bed comfortable. Being discharged to home. Family is at bedside. No headaches. No rhinitis. No nausea. No abdominal discomfort. No leg pain or leg swelling. PHYSICAL EXAMINATION GENERAL: In no acute distress. VITAL SIGNS: Temperature is 99, heart rate is 88, respiratory rate is 20, blood pressure 144/96, pulse ox is 98% on room air. HEENT: Moist mucous membranes. No ulcer or thrush. NECK: Supple. No JVD. LUNGS: Has fair airflow with rhonchi. HEART: S1, S2. ABDOMEN: Positive bowel sounds, mild epigastric tenderness. EXTREMITIES: There is no edema. NEUROLOGIC: Awake, alert, follows simple commands. MEDICATIONS: Reviewed. No new change in medication reported since yesterday. LABORATORY DATA: Shows hemoglobin 10.3, hematocrit 30.4, WBC 6.0, platelet is 181. Blood sugar this morning is 100. Microbiology: Blood culture and urine culture, there is no growth. IMPRESSION AND PLAN: Pancreatic cancer, being on chemotherapy; hypertension, urinary tract infection, Parkinson's disease, anxiety disorder, insomnia, originally admitted with one of blood culture was positive, repeat blood culture negative. Cleared by Infectious Disease to be discharged. I spoke to the patient's daughter in detail regarding anxiety and insomnia. I guided her not to take Ambien and benzodiazepine together. Risk of sedative discussed. Daughter expressed understanding. Thank you and we will follow with you. Hubert Molina MD
== END 2017-10-29 18:52 | disposition home or self-care (01) | DRG 690 ==
LOC: ED 16:37 → ERH 10-26 01:07 → 3RNO 10-26 04:38
PROVIDERS: ADMIT Internal Medicine; ATTEND Internal Medicine
DX: N39.0 Urinary tract infection, site not specified (principal); G20 Parkinson's disease; C25.9 Malignant neoplasm of pancreas, unspecified; D64.9 Anemia, unspecified; E05.90 Thyrotoxicosis, unspecified without thyrotoxic crisis or storm; E11.9 Type 2 diabetes mellitus without complications; I10 Essential (primary) hypertension; F41.9 Anxiety disorder, unspecified; H35.30 Unspecified macular degeneration; K21.9 Gastro-esophageal reflux disease without esophagitis; N28.9 Disorder of kidney and ureter, unspecified; Z90.710 Acquired absence of both cervix and uterus; Z90.49 Acquired absence of other specified parts of digestive tract

== ENCOUNTER 2018-05-22 03:04 | Emergency (ER) | payer MEDICARE ==
[2018-05-22 03:30] VITALS: BMI 20.7
[2018-05-22 03:32] VITALS: RESP 18; TEMP 98.5; O2SAT 100
[2018-05-22] MEDS ORDERED: Morphine 4 mg/ml ISec IVP STA (03:50)
--- NOTE | 2018-05-22 04:22 | ED PDOC ---
Arrival/HPI - General Chief Complaint: Back Pain Time Seen by Provider: 05/22/18 03:05 Historian: Patient, Family - History of Present Illness Narrative History of Present Illness (Text): 05/22/18 03:50 A 73 year old female, whose past medical history includes pancreatic cancer and PE, presents to the emergency department accompanied by family complaining of a headache and back pain since earlier today. Patient's family reports patient is receiving no active treatment for pacreatic cancer and takes oxycodon for chronic pain. Patient reports she also takes xerelto as a result of her PE. Patient denies any fever, chills, chest pain, shortness of breath, nausea, vomiting, neck pain, dizziness, or any other complaints. in er pt requesting dilaudid for pain. PMD: Dr. Prabhakar 05/22/18 06:16 Time/Duration: Other (earlier today) Symptom Onset: Gradual Symptom Course: Unchanged Activities at Onset: Light Context: Home Past Medical History - Provider Review Nursing Documentation Reviewed: Yes - Infectious Disease Hx of Infectious Diseases: None - Cardiac Hx Cardiac Disorders: Yes Hx Hypertension: Yes - Pulmonary Hx Respiratory Disorders: No - Neurological Hx Neurological Disorder: Yes Hx Parkinson's Disease: Yes - HEENT Hx HEENT Disorder: No - Renal Hx Renal Disorder: No - Endocrine/Metabolic Hx Endocrine Disorders: Yes - Hematological/Oncological Hx Blood Disorders: Yes Hx Cancer: Yes (pancreas treated vwith chemo & xrt 2016) Other/Comment: treated at [facility] - Integumentary Hx Dermatological Disorder: No - Musculoskeletal/Rheumatological Hx Musculoskeletal Disorders: Yes Hx Arthritis: Yes Hx Back Pain: Yes Hx Falls: No - Gastrointestinal Hx Gastrointestinal Disorders: Yes Hx Diverticulitis: Yes - Genitourinary/Gynecological Hx Genitourinary Disorders: No - Psychiatric Hx Psychophysiologic Disorder: No Hx Substance Use: No - Surgical History Hx Hysterectomy: Yes - Anesthesia Hx Anesthesia: Yes Hx Anesthesia Reactions: No Hx Malignant Hyperthermia: No - Suicidal Assessment Feels Threatened In Home Enviroment: No Family/Social History - Physician Review Nursing Documentation Reviewed: Yes Family/Social History: Unknown Family HX Smoking Status: Never Smoked Hx Alcohol Use: No Hx Substance Use: No Allergies/Home Meds Allergies/Adverse Reactions: Allergies No Known Allergies Allergy (Verified 10/25/17 17:13) Home Medications: Home Meds Medication Instructions Recorded Confirmed Carbidopa/Levodopa 1 each PO TID 10/23/17 05/22/18 [Carbidopa-Levodopa 10-100 Tab] Metoprolol Tartrate [Lopressor] 25 mg PO BID 10/23/17 05/22/18 Rivaroxaban [Xarelto] 20 mg PO DAILY 10/23/17 05/22/18 Review of Systems - Physician Review All systems were reviewed & negative as marked: Yes - Review of Systems Constitutional: Normal. absent: Fevers, Night Sweats Eyes: Normal ENT: Normal Respiratory: Normal. absent: SOB Cardiovascular: absent: Chest Pain Gastrointestinal: absent: Nausea, Vomiting Musculoskeletal: Back Pain. absent: Neck Pain Skin: Normal Neurological: Headache. absent: Dizziness Physical Exam - Physical Exam Physical Exam Limitations: Other (Cachetic) Vital Signs Reviewed: Yes Vital Signs Temp Pulse Resp BP Pulse Ox 05/22/18 05:35 85 18 159/99 H 100 05/22/18 03:31 98.5 F 84 18 173/100 H 100 Temperature: Afebrile Blood Pressure: Hypertensive Pulse: Regular Respiratory Rate: Normal Appearance: Positive for: Well-Appearing, Non-Toxic, Comfortable Pain Distress: None Mental Status: Positive for: Alert and Oriented X 3 - Systems Exam Head: Present: Atraumatic, Normocephalic Pupils: Present: PERRL Extroacular Muscles: Present: EOMI Conjunctiva: Present: Normal Mouth: Present: Moist Mucous Membranes Neck: Present: Normal Range of Motion Respiratory/Chest: Present: Clear to Auscultation, Good Air Exchange. No: Respiratory Distress, Accessory Muscle Use Cardiovascular: Present: Regular Rate and Rhythm, Normal S1, S2. No: Murmurs Abdomen: No: Tenderness, Distention, Peritoneal Signs Back: Present: Normal Inspection Upper Extremity: Present: Normal Inspection. No: Cyanosis, Edema Lower Extremity: Present: Normal Inspection. No: Edema Neurological: Present: GCS=15, CN II-XII Intact, Speech Normal Skin: Present: Warm, Dry, Normal Color. No: Rashes Psychiatric: Present: Alert, Oriented x 3, Normal Insight, Normal Concentration Medical Decision Making ED Course and Treatment: 05/22/18 03:55 Impression: 73 year old female presents to the emergency department accompanied by family complaining of a headache and chronic back pain. Plan: -- Head CT w/o contrast -- Labs -- Morphine -- Urinalysis -- Reassess and disposition Prior Visits: Notes and results from previous visits were reviewed. Patient was last seen in the emergency department on 10/23/17 complaining of LLQ pain and was discharged when symptoms improved. Progress Notes: 05/22/18 05:22 EXAM: CT Head Without Intravenous Contrast FINDINGS: Brain: Bilateral basal ganglia calcifications. Cerebral and cerebellar volume loss. Patchy hypodensity is seen in the periventricular and subcortical white matter. No hemorrhage. Ventricles: Unremarkable. No ventriculomegaly. Bones/joints: Unremarkable. No acute fracture. Soft tissues: Unremarkable. Sinuses: Unremarkable. No acute sinusitis. Mastoid air cells: Unremarkable. No mastoid effusion. Orbits: The visualized portions of globe and lens are intact. Dental: Edentulous maxilla and mandible. IMPRESSION: No evidence of an acute intracranial hemorrhage, midline shift or mass effect is identified Dictated and Authenticated by: Komal Myers MD 05/22/18 06:[address] neg[address] pt offered additioanl obs, she declines, asking for dc. advise outtp fu. return precautions. 05/22/18 06:17 - Lab Interpretations Lab Results: 05/22/18 04:20 05/22/18 04:20 Lab Results 05/22/18 04:50: Urine Color Yellow, Urine Appearance Sl cloudy, Urine pH 6.5, Ur Specific [place] 1.010, Urine Protein Trace H, Urine Glucose (UA) 100 H, Urine Ketones Negative, Urine Blood Moderate H, Urine Nitrate Negative, Urine Bilirubin Negative, Urine Urobilinogen 0.2, Ur Leukocyte Esterase Negative, Urine RBC 1 - 3, Urine WBC 0 - 2, Ur Epithelial Cells 0 - 2, Urine Bacteria Occ 05/22/18 04:20: Sodium 139, Potassium 4.3, Chloride 105, Carbon Dioxide 22, Anion Gap 17, BUN 22 H, Creatinine 1.3 H, Est GFR ( Amer) 49, Est GFR ( Non-Af Amer) 40, Random Glucose 215 H, Calcium 9.6, Total Bilirubin 0.5, AST 25 , ALT 8, Alkaline Phosphatase 89, Total Protein 7.4, Albumin 4.3, Globulin 3.1, Albumin/Globulin Ratio 1.4 05/22/18 04:20: PT 14.4 H, INR 1.26, APTT 36.8 H 05/22/18 04:20: WBC 4.1 L D, RBC 3.03 L, Hgb 9.4 L, Hct 27.8 L, MCV 91.7, MCH 31.0, MCHC 33.8, RDW 13.5, Plt Count 200, MPV 9.1, Gran % 78.9 H, Lymph % (Auto ) 13.0 L, Dundy % (Auto) 8.1 H, Eos % (Auto) 0.0 L, Baso % (Auto) 0.0, Gran # 3.23, Lymph # (Auto) 0.5 L, Dundy # (Auto) 0.3, Eos # (Auto) 0.0, Baso # (Auto) 0.00 - RAD Interpretation Radiology Orders: 05/22/18 03:48 HEAD W/O CONTRAST [CT] Stat - Medication Orders Current Medication Orders: Discontinued Medications Morphine Sulfate (Morphine) 4 mg IVP STAT STA Stop: 05/22/18 03:51 Last Admin: 05/22/18 04:25 Dose: 4 mg MAR Pain Assessment Document 05/22/18 04:25 AD (Rec: 05/22/18 04:37 AD [id number]) Pain Reassessment Is this a pain reassessment? No IVP Administration Document 05/22/18 04:25 AD (Rec: 05/22/18 04:37 AD [id number]) Charges for Administration # of IVP Administrations 1 - Scribe Statement The provider has reviewed the documentation as recorded by the Marimar Brown All medical record entries made by the Ildefonsoibpk were at my direction and personally dictated by me. I have reviewed the chart and agree that the record accurately reflects my personal performance of the history, physical exam, medical decision making, and the department course for this patient. I have also personally directed, reviewed, and agree with the discharge instructions and disposition. Disposition/Present on Arrival - Present on Arrival Any Indicators Present on Arrival: No History of DVT/PE: No History of Uncontrolled Diabetes: No Urinary Catheter: No History of Decub. Ulcer: No History Surgical Site Infection Following: None - Disposition Have Diagnosis and Disposition been Completed?: Yes Diagnosis: Headache Disposition: HOME/ ROUTINE Disposition Time: 05:00 Condition: STABLE Discharge Instructions (ExitCare): Upper Back Pain, Headache, Adult (DC) Additional Instructions: please follow up with your doctor. return to er with worsening symptoms or concerns. Referrals: [facility] [Outside] - [place] up [place] [facility] [place] [facility] [place] - Follow up with primary Rodri Tubbs MD [Staff Provider] - Follow up with primary Forms: [employer] ([place])
[2018-05-22 04:48] LABS: GRAN # 3.23 (1.4-6.5); GRAN % 78.9 % (50.0-68.0); HEMOGLOBIN 9.4 g/dL (12.0-16.0); LYMPH # 0.5 (1.2-3.4); MEAN CELL VOLUME 91.7 fl (80.0-105.0); MEAN CORPUSCULAR HGB CONC 33.8 g/dl (31.0-37.0); MEAN PLATELET VOLUME 9.1 fl (7.0-11.0); MONO # 0.3 (0.1-0.6); MONO % 8.1 % (1.0-6.0); RBC 3.03 10^6/uL (3.5-6.1); RED CELL DISTRIBUTION WIDTH 13.5 % (11.5-14.5); WHITE BLOOD COUNT 4.1 10^3/ul (4.5-11.0)
[2018-05-22 04:50] LABS: INR 1.26; PROTHROMBIN TIME 14.4 SECONDS (9.4-12.5)
[2018-05-22 04:51] LABS: ALB/GLOB RATIO 1.4 (1.1-1.8); ALBUMIN 4.3 g/dL (3.0-4.8); CALCIUM 9.6 mg/dL (8.4-10.5)
[2018-05-22 04:52] LABS: PARTIAL THROMBOPLASTIN TIME 36.8 Seconds (25.1-36.5)
[2018-05-22 05:16] LABS: PH,URINE 6.5 (4.7-8.0); URINE BILIRUBIN NEGATIVE (NEGATIVE); URINE BLOOD MODERATE (NEGATIVE); URINE GLUCOSE (UA) 100 mg/dL (NEGATIVE); URINE LEUKOCYTE ESTERASE NEGATIVE Leu/uL (NEGATIVE); URINE PROTEIN TRACE mg/dL (<30 mg/dL); URINE UROBILINOGEN 0.2 E.U./dL (<1 E.U./dL)
[2018-05-22 05:51] VITALS: BP 159/99; PULSE 85
[2018-05-22 06:00] LABS: URINE APPEARANCE SL CLOUDY (CLEAR); URINE COLOR YELLOW (YELLOW)
[2018-05-22 06:03] LABS: URINE BACTERIA OCC (NEG); URINE EPITHELIAL CELLS 0 - 2 /hpf (0-5); URINE WBC 0 - 2 /hpf (0-6)
--- NOTE | 2018-05-22 08:42 | CT ---
Date of service: 05/22/2018 PROCEDURE: CT HEAD WITHOUT CONTRAST. HISTORY: perry COMPARISON: CT 11/06/2016 TECHNIQUE: Axial computed tomography images were obtained through the head/brain without intravenous contrast. Radiation dose: Total exam DLP = 881 mGy-cm. This CT exam was performed using one or more of the following dose reduction techniques: Automated exposure control, adjustment of the mA and/or kV according to patient size, and/or use of iterative reconstruction technique. FINDINGS: HEMORRHAGE: No intracranial hemorrhage. BRAIN: No mass effect or edema. No atrophy or chronic microvascular ischemic changes. VENTRICLES: Unremarkable. No hydrocephalus. CALVARIUM: Unremarkable. PARANASAL SINUSES: Unremarkable as visualized. No significant inflammatory changes. MASTOID AIR CELLS: Unremarkable as visualized. No inflammatory changes. OTHER FINDINGS: The report concurs with the preliminary [facility] report IMPRESSION: No acute findings
== END 2018-05-22 05:35 | disposition home or self-care (01) ==
LOC: ED 03:04
DX: R51 Headache (principal); I10 Essential (primary) hypertension; G20 Parkinson's disease
CPT/HCPCS: 70450; 80053; 81001; 85025; 85610; 85730; 96374; 99283; J2270

== ENCOUNTER 2018-06-03 20:16 | Inpatient (IN) | payer MEDICARE ==
[2018-06-03] MEDS ORDERED: Sodium Chloride 0.9% 1,000 ML IV STA (21:35)
[2018-06-03 21:37] VITALS: BMI 21.1
[2018-06-03] MEDS ORDERED: Iohexol 240 (50 ml) ONE (21:42)
[2018-06-03] MEDS ORDERED: Morphine 4 mg/ml ISec IVP STA (22:14)
[2018-06-03] MEDS ORDERED: Morphine 2 mg/ml ISec ONE (22:18)
[2018-06-03 22:26] LABS: BASO # 0.01 K/mm3 (0.0-2.0); BASO % 0.2 % (0.0-3.0); EOS % 0.4 % (1.5-5.0); GRAN # 4.07 (1.4-6.5); GRAN % 75.4 % (50.0-68.0); HEMOGLOBIN 7.3 g/dL (12.0-16.0); LYMPH # 0.9 (1.2-3.4); LYMPH % 17.3 % (22.0-35.0); MEAN CELL VOLUME 92.2 fl (80.0-105.0); MEAN CORPUSCULAR HEMOGLOBIN 31.5 pg (25.0-35.0); MEAN CORPUSCULAR HGB CONC 34.1 g/dl (31.0-37.0); MEAN PLATELET VOLUME 8.9 fl (7.0-11.0); MONO # 0.4 (0.1-0.6); MONO % 6.7 % (1.0-6.0); RBC 2.32 10^6/uL (3.5-6.1); RED CELL DISTRIBUTION WIDTH 14.6 % (11.5-14.5); URINE APPEARANCE TURBID (CLEAR); URINE BILIRUBIN NEGATIVE (NEGATIVE); URINE BLOOD SMALL (NEGATIVE); URINE COLOR YELLOW (YELLOW); URINE GLUCOSE (UA) NEGATIVE (NEGATIVE); URINE LEUKOCYTE ESTERASE MODERATE Leu/uL (NEGATIVE); URINE PROTEIN 100 mg/dL (<30 mg/dL); URINE UROBILINOGEN 0.2 E.U./dL (<1 E.U./dL); WHITE BLOOD COUNT 5.4 10^3/ul (4.5-11.0)
[2018-06-03 22:28] LABS: URINE BACTERIA TRACE (NEG); URINE RBC 0 - 2 /hpf (0-2); URINE WBC 15 - 20 /hpf (0-6)
--- NOTE | 2018-06-03 22:28 | ED PDOC ---
Arrival/HPI - General Chief Complaint: Abdominal Pain Time Seen by Provider: 06/03/18 21:33 Historian: Patient - History of Present Illness Narrative History of Present Illness (Text): 06/03/18 22:17 73 year old female, whose past medical history includes, hypertension, prediabetes, and cholecystectomy, and pancreatic cancer not currently on chemotherapy, presents to the emergency department complaining of right sided abdominal pain and back pain that worsened in the past 24 hours. Patient describes the pain as a deep burning pain on her right mid to lower abdomen but non-radiating. Patient rates the pain 10/10 in severity. She describes the symptoms similar to her chronic pain in the past. Patient had a CT done 4 days ago which revealed no metastasis or obstruction. Patient reports nausea and intermittent constipation, but has not taken any pain medication and is requesting pain medication. Patient denies any fever, chills, chest pain, shortness of breath, urinary symptoms, vomiting, diarrhea, neck pain, headache, dizziness, or any other complaints. PMD: Dr. Prabhakar Time/Duration: 24 hours Symptom Course: Worsening Severity Level: 10 Activities at Onset: Rest Context: Home Past Medical History - Provider Review Nursing Documentation Reviewed: Yes - Travel History Have you recently traveled outside [place] w/in the past 3 mons?: No - Infectious Disease Hx of Infectious Diseases: None - Cardiac Hx Cardiac Disorders: Yes Hx Hypertension: Yes - Pulmonary Hx Respiratory Disorders: No - Neurological Hx Neurological Disorder: Yes Hx Parkinson's Disease: Yes - HEENT Hx HEENT Disorder: No - Renal Hx Renal Disorder: No - Endocrine/Metabolic Hx Endocrine Disorders: Yes - Hematological/Oncological Hx Blood Disorders: Yes Hx Cancer: Yes (PANCREATIC) - Integumentary Hx Dermatological Disorder: No - Musculoskeletal/Rheumatological Hx Musculoskeletal Disorders: Yes Hx Arthritis: Yes Hx Back Pain: Yes - Gastrointestinal Hx Gastrointestinal Disorders: Yes Hx Diverticulitis: Yes - Genitourinary/Gynecological Hx Genitourinary Disorders: No - Psychiatric Hx Psychophysiologic Disorder: No Hx Substance Use: No - Surgical History Hx Hysterectomy: Yes - Anesthesia Hx Anesthesia: Yes Hx Anesthesia Reactions: No Hx Malignant Hyperthermia: No - Suicidal Assessment Feels Threatened In Home Enviroment: No Family/Social History - Physician Review Nursing Documentation Reviewed: Yes Family/Social History: No Known Family HX Smoking Status: Never Smoked Hx Alcohol Use: No Hx Substance Use: No Allergies/Home Meds Allergies/Adverse Reactions: Allergies No Known Allergies Allergy (Verified 06/03/18 21:12) Home Medications: Home Meds Medication Instructions Recorded Confirmed Carbidopa/Levodopa 1 each PO TID 10/23/17 06/03/18 [Carbidopa-Levodopa 10-100 Tab] Metoprolol Tartrate [Lopressor] 25 mg PO BID 10/23/17 06/03/18 Rivaroxaban [Xarelto] 20 mg PO DAILY 10/23/17 06/03/18 Zolpidem [Ambien] 10 mg PO HS PRN 06/04/18 06/04/18 clonazePAM [clonAZEPAM] 0.25 mg PO BID PRN 06/04/18 06/04/18 Review of Systems - Physician Review All systems were reviewed & negative as marked: Yes - Review of Systems Constitutional: absent: Fevers, Other (Chills) Respiratory: absent: SOB Cardiovascular: absent: Chest Pain Gastrointestinal: Abdominal Pain, Constipation, Nausea. absent: Diarrhea Genitourinary Female: absent: Dysuria, Frequency, Hematuria Musculoskeletal: Back Pain. absent: Neck Pain Neurological: absent: Headache, Dizziness Physical Exam Vital Signs Reviewed: Yes Vital Signs Temp Pulse Resp BP Pulse Ox 06/04/18 01:50 104 H 18 130/79 99 06/04/18 00:55 136 H 18 144/94 H 97 06/04/18 00:05 104 H 18 123/80 97 06/03/18 23:40 75 170/106 H 06/03/18 21:30 100.5 F H 90 18 185/111 H 100 Temperature: Febrile Blood Pressure: Hypertensive Pulse: Regular Respiratory Rate: Normal Appearance: Positive for: Well-Appearing, Non-Toxic, Comfortable Pain Distress: None Mental Status: Positive for: Alert and Oriented X 3 - Systems Exam Head: Present: Atraumatic, Normocephalic Pupils: Present: PERRL Extroacular Muscles: Present: EOMI Conjunctiva: Present: Normal Mouth: Present: Moist Mucous Membranes Neck: Present: Normal Range of Motion Respiratory/Chest: Present: Clear to Auscultation, Good Air Exchange. No: Respiratory Distress, Accessory Muscle Use Cardiovascular: Present: Regular Rate and Rhythm, Normal S1, S2. No: Murmurs Abdomen: Present: Tenderness (Slight tenderness to the right lower quadrant), Normal Bowel Sounds. No: Distention, Peritoneal Signs, Guarding Back: Present: Paraspinal Tenderness (Right paraspinal tenderness to the lumbar region) Upper Extremity: Present: Normal Inspection. No: Cyanosis, Edema Lower Extremity: Present: Normal Inspection. No: Edema Neurological: Present: GCS=15, CN II-XII Intact, Speech Normal Skin: Present: Warm, Dry, Normal Color. No: Rashes Psychiatric: Present: Alert, Oriented x 3, Normal Insight, Normal Concentration Medical Decision Making ED Course and Treatment: 06/03/18 22:31 Impression: 73 year old female presents complaining of right side abdominal pain and back pain that worsened in the past 24 hours associated with nausea and intermittent constipation. Plan: -- Labs -- EKG -- Morphine --Hydralazine --IV Fluids --Zofran --Urine Culture --UA w/ Micro --Reassess and disposition Prior Visits: Notes and results from pervious visits were reviewed. Patient was last seen in the emergency department on 05/22/18 presents complaining of headache and back pain that began earlier today. Patient was discharged. Progress Notes: 06/03/18 22:22 EKG 1 Ordered, read & interpreted by ED provider Interpretation: NSR at [address] elevation. Blood pressures noted to be elevated. Hydralazine ordered. Tylenol given for fever. Patient reports relief from abdominal pain. 06/04/18 00:05 On reevaluation, patient is complaining of chest pain. Second EKG ordered. EKG 2 Ordered, read and interpreted by ED provider shows Sinus Tachycardia at 125 BPM with PVCs diffusely. 06/04/18 00:54 Labs reviewed with Hgb noted 6.9. Patient denies any acute bleeding. Case discussed with Dr. Prabhakar who is aware and agrees with the plan & will start transfusion protocol on the floor. Accepts patient into her service. - Lab Interpretations Microbiology Results: Microbiology Results 06/03/18 22:10 Urine,Clean Catch Urine Culture - Final No Growth (<1,000 CFU/ML) Lab Results: 06/04/18 07:00 06/04/18 07:00 Lab Results 06/04/18 10:41: Blood Type B POSITIVE, Antibody Screen Negative, Crossmatch See Detail, BBK History Checked Patient has bt 06/04/18 07:00: Sodium 143, Potassium 3.9, Chloride 112 H, Carbon Dioxide 23, Anion Gap 12, BUN 15, Creatinine 1.2, Est GFR ( Amer) 53, Est GFR (Non- Af Amer) 44, Random Glucose 93, Calcium 8.5, Total Bilirubin 0.3, AST 23, ALT 21 , Alkaline Phosphatase 66, Total Protein 5.4 L, Albumin 2.9 L, Globulin 2.5, Albumin/Globulin Ratio 1.2 06/04/18 07:00: WBC 4.1 L D, RBC 2.22 L, Hgb 6.9 L*, Hct 20.8 L*, MCV 93.7, MCH 31.1, MCHC 33.2, RDW 14.7 H, Plt Count 172, MPV 8.8 06/03/18 22:10: Urine Color Yellow, Urine Appearance Turbid, Urine pH 6.0, Ur Specific [place] >= 1.030, Urine Protein 100 H, Urine Glucose (UA) Negative, Urine Ketones Negative, Urine Blood Small H, Urine Nitrate Negative, Urine Bilirubin Negative, Urine Urobilinogen 0.2, Ur Leukocyte Esterase Moderate H, Urine RBC 0 - 2, Urine WBC 15 - 20, Ur Epithelial Cells 6 - 8, Urine Bacteria Trace 06/03/18 22:10: Sodium 143, Potassium 3.9, Chloride 111 H, Carbon Dioxide 21, Anion Gap 15, BUN 16, Creatinine 1.2, Est GFR ( Amer) 53, Est GFR (Non- Af Amer) 44, Random Glucose 107, Calcium 9.3, Total Bilirubin 0.6, AST 25, ALT 19, Alkaline Phosphatase 88, Troponin I < 0.01, Total Protein 6.8, Albumin 3.9, Globulin 2.9, Albumin/Globulin Ratio 1.4 06/03/18 22:10: PT 12.2, INR 1.07, APTT 32.6 06/03/18 22:10: WBC 5.4 D, RBC 2.32 L, Hgb 7.3 L D, Hct 21.4 L, MCV 92.2, MCH 31.5, MCHC 34.1, RDW 14.6 H, Plt Count 211, MPV 8.9, Gran % 75.4 H, Lymph % ( Auto) 17.3 L, Schley % (Auto) 6.7 H, Eos % (Auto) 0.4 L, Baso % (Auto) 0.2, Gran # 4.07, Lymph # (Auto) 0.9 L, Schley # (Auto) 0.4, Eos # (Auto) 0.0, Baso # (Auto ) 0.01 I have reviewed the lab results: Yes - RAD Interpretation Radiology Orders: 06/04/18 12:54 ABDOMEN & PELVIS [ABD & PELVIS PO CONTRAST ONLY] [CT] Routine - EKG Interpretation Interpreted by ED Physician: Yes Type: 12 lead EKG - Medication Orders Current Medication Orders: Carbidopa/Levodopa (Sinemet 10/100) 1 tab PO TID IRVIN Last Admin: 06/06/18 17:22 Dose: 1 tab Clonazepam (Klonopin) 0.25 mg PO BID PRN; Protocol PRN Reason: Anxiety Last Admin: 06/06/18 14:26 Dose: 0.25 mg Re-Assess: Reassess Psych Meds Document 06/06/18 15:26 BIR (Rec: 06/06/18 17:20 [place] [id number]) Reassess Psych Med Effective Hydralazine HCl (Apresoline) 10 mg IVP Q6 PRN PRN Reason: Systolic Blood Pressure Last Admin: 06/04/18 12:36 Dose: 10 mg IVP Administration Document 06/04/18 12:36 LO (Rec: 06/04/18 12:37 LO [id number]) Charges for Administration # of IVP Administrations 1 MAR Pulse and Blood Pressure Document 06/04/18 12:36 LO (Rec: 06/04/18 12:37 LO [id number]) Pulse Pulse Rate (60-90) 86 Blood Pressure Blood Pressure (100/60-150/90) 158/105 Hydromorphone HCl (Dilaudid) 0.5 mg IVP Q6H PRN PRN Reason: Pain, severe (8-10) Last Admin: 06/05/18 22:41 Dose: 0.5 mg MAR Pain Assessment Document 06/05/18 22:41 KHUSHI (Rec: 06/05/18 22:41 KHUSHI [id number]) Pain Reassessment Is this a pain reassessment? Yes Sleep Is patient sleeping during reassessment? No Presence of Pain Presence of Pain Yes Pain Scale Used Pain Scale Used Numeric Location Pain Location Body Site Abdomen Description Description Intermittent Intensity of Pain at present 9 Pain Behavior Facial Grimacing Aggravating Factors None Alleviating Factors/Management Medication Techniques Alleviating Factors Medication IVP Administration Document 06/05/18 22:41 [facility] (Rec: 06/05/18 22:41 [id number]) Charges for Administration # of IVP Administrations 1 Re-Assess: MAR Pain Assessment Document 06/05/18 23:41 KHUSHI (Rec: 06/06/18 00:13 KUHSHI [email or web address]-PC) Pain Reassessment Is this a pain reassessment? Yes Sleep Is patient sleeping during reassessment? Yes Pain Scale Used Pain Scale Used Numeric Metoprolol Tartrate (Lopressor) 25 mg PO BID [facility] Last Admin: 06/06/18 17:20 Dose: 25 mg [facility] Pulse and Blood Pressure Document 06/06/18 17:20 [facility] (Rec: 06/06/18 17:22 [email or web address]) Pulse Pulse Rate (60-90) 60 Blood Pressure Blood Pressure (100/60-150/90) 124/91 Ondansetron HCl (Zofran Inj) 4 mg IVP Q6H PRN PRN Reason: Nausea/Vomiting Last Admin: 06/05/18 20:07 Dose: 4 mg IVP Administration Document 06/05/18 20:07 [facility] (Rec: 06/05/18 20:07 [id number]) Charges for Administration # of IVP Administrations 1 Pantoprazole Sodium (Protonix Inj) 40 mg IVP Q12 [facility] Last Admin: 06/06/18 09:20 Dose: 40 mg IVP Administration Document 06/06/18 09:20 [facility] (Rec: 06/06/18 09:20 [place] [id number]) Charges for Administration # of IVP Administrations 1 Polyethylene Glycol (Miralax) 17 gm PO BID [facility] Last Admin: 06/06/18 17:22 Dose: 17 gm Rivaroxaban (Xarelto) 20 mg PO DAILY [facility] PRN Reason: Protocol Last Admin: 06/06/18 09:20 Dose: 20 mg Zolpidem Tartrate (Ambien) 10 mg PO HS PRN; Protocol PRN Reason: Insomnia Last Admin: 06/05/18 22:41 Dose: 10 mg Behavioural Document 06/05/18 22:41 [facility] (Rec: 06/05/18 22:41 [id number]) Behavior Behavior for Medication: Insomnia Re-Assess: Reassess Psych Meds Document 06/05/18 23:41 KHUSHI (Rec: 06/06/18 00:12 KHUSHI [id number]) Reassess Psych Med Effective Discontinued Medications Acetaminophen (Tylenol 325mg Tab) 650 mg PO STAT STA Stop: 06/03/18 22:41 Last Admin: 06/04/18 00:29 Dose: 650 mg MAR Pain/Vitals Document 06/04/18 00:29 JOL (Rec: 06/04/18 00:29 JOL [id number]) Pain Reassessment Is This A Pain ReAssessment? No Sleep Is patient sleeping during reassessment? No Presence of Pain Presence of Pain Yes Acetaminophen/Butalbital/Caffeine (Fioricet) 1 tab PO STAT STA Stop: 06/04/18 16:26 Last Admin: 06/04/18 16:32 Dose: 1 tab MAR Pain Assessment Document 06/04/18 16:32 LO (Rec: 06/04/18 16:32 LO [id number]) Pain Reassessment Is this a pain reassessment? Yes Sleep Is patient sleeping during reassessment? No Presence of Pain Presence of Pain Yes Diphenhydramine HCl (Benadryl) 25 mg PO STAT STA Stop: 06/04/18 04:09 Last Admin: 06/04/18 04:42 Dose: 25 mg Furosemide (Lasix) 40 mg IV ONCE ONE Stop: 06/04/18 12:01 Last Admin: 06/04/18 11:28 Dose: 40 mg eMAR Start Stop Document 06/04/18 11:28 LO (Rec: 06/04/18 11:29 LO [id number]) Intravenous Solution Start Date 06/04/18 Start Time 11:29 MAR Blood Pressure Document 06/04/18 11:28 LO (Rec: 06/04/18 11:29 LO [id number]) Blood Pressure Blood Pressure (100/60-150/90) 147/93 Hydralazine HCl (Apresoline) 10 mg IVP STAT STA Stop: 06/03/18 23:23 Last Admin: 06/03/18 23:40 Dose: 10 mg IVP Administration Document 06/03/18 23:40 JOL (Rec: 06/03/18 23:40 JOL [id number]) Charges for Administration # of IVP Administrations 1 MAR Pulse and Blood Pressure Document 06/03/18 23:40 JOL (Rec: 06/03/18 23:40 JOL [id number]) Pulse Pulse Rate (60-90) 75 Blood Pressure Blood Pressure (100/60-150/90) 170/106 Sodium Chloride (Sodium Chloride 0.9%) 1,000 mls @ 999 mls/hr IV .Q1H1M STA Stop: 06/03/18 22:35 Last Admin: 06/03/18 22:40 Dose: 999 mls/hr eMAR Start Stop Document 06/03/18 22:40 JOL (Rec: 06/03/18 22:41 JOL [id number]) Intravenous Solution Start Date 06/03/18 Start Time 22:20 End Date 06/03/18 End time 23:21 Total Infusion Time 61 Ceftriaxone Sodium (Rocephin 1 Gram Ivpb) 1 gm in 100 mls @ 100 mls/hr IVPB STAT STA PRN Reason: Protocol Stop: 06/03/18 23:40 Last Admin: 06/03/18 23:41 Dose: 100 mls/hr eMAR Start Stop Document 06/03/18 23:41 JOL (Rec: 06/03/18 23:41 JO [id number]) Intravenous Solution Start Date 06/03/18 Start Time 23:41 End Date 06/04/18 End time 00:42 Total Infusion Time 61 Cefepime HCl (Maxipime 1gm) 1 gm in 100 mls @ 100 mls/hr IVPB Q12 IRVIN PRN Reason: Protocol Last Admin: 06/06/18 09:19 Dose: 100 mls/hr eMAR Start Stop Document 06/06/18 09:19 BIR (Rec: 06/06/18 09:20 BIR [id number]) Intravenous Solution Start Date 06/06/18 Start Time 09:19 End Date 06/06/18 End time 10:30 Total Infusion Time 71 Morphine Sulfate (Morphine) 4 mg IVP STAT STA Stop: 06/03/18 22:15 Last Admin: 06/03/18 22:20 Dose: 4 mg MAR Pain Assessment Document 06/03/18 22:20 JOL (Rec: 06/03/18 22:42 JOL [id number]) Pain Reassessment Is this a pain reassessment? No Sleep Is patient sleeping during reassessment? No Presence of Pain Presence of Pain Yes Pain Scale Used Pain Scale Used Numeric Location Pain Location Body Site Abdomen Description Intensity of Pain at present 8 Acceptable Level of Pain 2 IVP Administration Document 06/03/18 22:20 JOL (Rec: 06/03/18 22:42 JOL [id number]) Charges for Administration # of IVP Administrations 1 Morphine Sulfate (Morphine) 4 mg IVP STAT STA Stop: 06/04/18 00:20 Last Admin: 06/04/18 00:30 Dose: 4 mg MAR Pain Assessment Document 06/04/18 00:30 JOL (Rec: 06/04/18 00:30 [id number]) Pain Reassessment Is this a pain reassessment? No Sleep Is patient sleeping during reassessment? No Presence of Pain Presence of Pain Yes Pain Scale Used Pain Scale Used Numeric IVP Administration Document 06/04/18 00:30 JOL (Rec: 06/04/18 00:30 JOL [id number]) Charges for Administration # of IVP Administrations 1 Nitroglycerin (Nitrostat Sl Tab) 0.4 mg SL STAT STA Stop: 06/04/18 01:03 Last Admin: 06/04/18 01:29 Dose: Ondansetron HCl (Zofran Inj) 2 mg IVP STAT STA Stop: 06/03/18 22:18 Last Admin: 06/03/18 22:20 Dose: IVP Administration Document 06/03/18 22:20 JOL (Rec: 06/03/18 22:[id number]) Charges for Administration # of IVP Administrations 1 Oxycodone/Acetaminophen (Percocet 5/325 Mg Tab) 1 tab PO Q6H PRN PRN Reason: Pain, moderate (4-7) Stop: 06/07/18 12:29 Last Admin: 06/04/18 12:37 Dose: 1 tab MAR Pain Assessment Document 06/04/18 12:37 LO (Rec: 06/04/18 12:37 LO [id number]) Pain Reassessment Is this a pain reassessment? No Polyethylene Glycol (Miralax) 17 gm PO DAILY IRVIN Last Admin: 06/04/18 14:13 Dose: 17 gm Potassium Chloride (K-Dur 20 Meq Er Tab) 40 meq PO ONCE ONE Stop: 06/04/18 12:01 Last Admin: 06/04/18 11:28 Dose: 40 meq - Scribe Statement The provider has reviewed the documentation as recorded by the Marimar Packer Provider Scribe Attestation: All medical record entries made by the Marimar were at my direction and personally dictated by me. I have reviewed the chart and agree that the record accurately reflects my personal performance of the history, physical exam, medical decision making, and the department course for this patient. I have also personally directed, reviewed, and agree with the discharge instructions and disposition. Disposition/Present on Arrival - Present on Arrival Any Indicators Present on Arrival: No History of DVT/PE: No History of Uncontrolled Diabetes: No Urinary Catheter: No History of Decub. Ulcer: No History Surgical Site Infection Following: None - Disposition Have Diagnosis and Disposition been Completed?: Yes Diagnosis: Hypertensive urgency, Chest pain Disposition: HOSPITALIZED Disposition Time: 00:55 Patient Plan: Admission Condition: FAIR
[2018-06-03 22:35] LABS: INR 1.07; PARTIAL THROMBOPLASTIN TIME 32.6 Seconds (25.1-36.5); PROTHROMBIN TIME 12.2 SECONDS (9.4-12.5)
[2018-06-03 22:38] LABS: ALB/GLOB RATIO 1.4 (1.1-1.8); ALBUMIN 3.9 g/dL (3.0-4.8); ALT/SGPT 19 U/L (7-56); AST/SGOT 25 U/L (14-36); BLOOD UREA NITROGEN 16 mg/dL (7-21); CALCIUM 9.3 mg/dL (8.4-10.5); GFR AFRICAN-AMERICAN 53; GFR NON-AFRICAN AMERICAN 44
[2018-06-03] MEDS ORDERED: cefTRIAXone 1 gm 1 GM/100 ML BAG IVPB STA (22:41)
[2018-06-03 22:47] LABS: TROPONIN I < 0.01 ng/mL
[2018-06-04] MEDS ORDERED: Morphine 4 mg/ml ISec IVP STA (00:19)
[2018-06-04] MEDS ORDERED: Nitroglycerin 2% Ointment Foilpak UD TOP ONE (00:39)
[2018-06-04 07:20] LABS: MEAN CELL VOLUME 93.7 fl (80.0-105.0); MEAN CORPUSCULAR HEMOGLOBIN 31.1 pg (25.0-35.0); MEAN CORPUSCULAR HGB CONC 33.2 g/dl (31.0-37.0); MEAN PLATELET VOLUME 8.8 fl (7.0-11.0); RBC 2.22 10^6/uL (3.5-6.1); RED CELL DISTRIBUTION WIDTH 14.7 % (11.5-14.5); WHITE BLOOD COUNT 4.1 10^3/ul (4.5-11.0)
[2018-06-04 07:21] LABS: ALB/GLOB RATIO 1.2 (1.1-1.8); ALBUMIN 2.9 g/dL (3.0-4.8); CALCIUM 8.5 mg/dL (8.4-10.5)
[2018-06-04 07:28] LABS: HEMOGLOBIN 6.9 g/dL (12.0-16.0)
--- NOTE | 2018-06-04 09:34 | CARD ---
APPROVED REPORT Date of service: 06/03/2018 EKG Measurement Heart [id number] <Conclusion> Normal sinus rhythm Nonspecific ST and T wave abnormality
[2018-06-04] MEDS: Cefepime 1gm in NS 100ml 1 GM/100 ML BAG IVPB SCH ×2 (11:27→21:03)
[2018-06-04] MEDS ORDERED: Potassium Chloride 20 mEq ER Tab PO ONE (12:00)
[2018-06-04] MEDS ORDERED: Oxycodone/Acetaminophen 5/325 mg Tab PO PRN (12:28)
[2018-06-04] MEDS ORDERED: POLYETHYLENE GLYCOL 3350 17 GM/Dose PACKET PO SCH (13:00)
[2018-06-04] MEDS ORDERED: Barium Sulfate Susp 2.1% w/v, 2.0% w/w 450 mL Bottle PO ONE (13:01)
--- NOTE | 2018-06-04 15:20 | CP.PCM.CON ---
History of Present Illness - History of Present Illness History of Present Illness: 73 year old female with PMH of HTN, pancreatic cancer diagnosed in 2016, history of diverticulitis, S/P laparoscopic cholecystectomy, S/P hysterectomy, S /P bladder surgery came in to [place] complaining of abdominal pain and back pain which has been worsening in the past 2 days. She denies vomiting but has some nausea, has urinary frequency, denies fever or chills, no headache or dizziness , no diarrhea, no sore throat, no cough or colds, no blurring of vision. Urinalysis in the ED is showing pyuria. Infectious diseases consult is requested for further evaluate and manage. Review of Systems - Review of Systems All systems: reviewed and no additional remarkable complaints except (as per HPI ) Past Patient History - Infectious Disease Hx of Infectious Diseases: None - Past Medical History & Family History Past Medical History?: Yes - Past Social History Smoking Status: Never Smoked - CARDIAC Hx Cardiac Disorders: Yes Hx Hypertension: Yes - PULMONARY Hx Respiratory Disorders: No - NEUROLOGICAL Hx Neurological Disorder: Yes Hx Parkinson's Disease: Yes - HEENT Hx HEENT Problems: No - RENAL Hx Chronic Kidney Disease: No - ENDOCRINE/METABOLIC Hx Endocrine Disorders: Yes (pre DMT2) - HEMATOLOGICAL/ONCOLOGICAL Hx Blood Disorders: Yes Hx Anemia: Yes (blood transfusion in past) Hx Cancer: Yes (PANCREATIC) - INTEGUMENTARY Hx Dermatological Problems: No - MUSCULOSKELETAL/RHEUMATOLOGICAL Hx Musculoskeletal Disorders: Yes Hx Arthritis: Yes Hx Back Pain: Yes Hx Falls: No - GASTROINTESTINAL Hx Gastrointestinal Disorders: Yes Hx Diverticulitis: Yes - GENITOURINARY/GYNECOLOGICAL Hx Genitourinary Disorders: No - PSYCHIATRIC Hx Psychophysiologic Disorder: Yes Hx Anxiety: Yes Hx Substance Use: No - SURGICAL HISTORY Hx Cholecystectomy: Yes Hx Hysterectomy: Yes - ANESTHESIA Hx Anesthesia: Yes Hx Anesthesia Reactions: No Hx Malignant Hyperthermia: No Meds Allergies/Adverse Reactions: Allergies Allergy/AdvReac Type Severity Reaction Status Date / Time No Known Allergies Allergy Verified 06/03/18 21:12 - Medications Medications: Current Medications Carbidopa/Levodopa (Sinemet 10/100) 1 tab PO TID IRVIN Last Admin: 06/04/18 09:33 Dose: 1 tab Clonazepam (Klonopin) 0.25 mg PO BID PRN; Protocol PRN Reason: Anxiety Furosemide (Lasix) 40 mg IV ONCE ONE Stop: 06/04/18 12:01 Metoprolol Tartrate (Lopressor) 25 mg PO BID IRVIN Last Admin: 06/04/18 09:33 Dose: 25 mg Potassium Chloride (K-Dur 20 Meq Er Tab) 40 meq PO ONCE ONE Stop: 06/04/18 12:01 Rivaroxaban (Xarelto) 20 mg PO DAILY IRVIN PRN Reason: Protocol Last Admin: 06/04/18 09:34 Dose: 20 mg Zolpidem Tartrate (Ambien) 10 mg PO HS PRN; Protocol PRN Reason: Insomnia Physical Exam - Constitutional Appears: Chronically Ill - Head Exam Head Exam: NORMAL INSPECTION - ENT Exam ENT Exam: Mucous Membranes Moist - Neck Exam Neck exam: Negative for: Meningismus - Respiratory Exam Respiratory Exam: Decreased Breath Sounds - Cardiovascular Exam Cardiovascular Exam: +S1, +S2 - GI/Abdominal Exam GI & Abdominal Exam: Soft. absent: Tenderness Results - Vital Signs Recent Vital Signs: Last Vital Signs Temp 98.5 F 06/04/18 08:33 Pulse 96 H 06/04/18 09:33 Resp 20 06/04/18 08:33 BP 147/93 H 06/04/18 09:33 Pulse Ox 100 06/04/18 08:33 - Labs Result Diagrams: 06/04/18 07:00 06/04/18 07:00 Labs: Laboratory Results - last 24 hr 06/04/18 06/04/18 07:00 07:00 WBC 4.1 L D RBC 2.22 L Hgb 6.9 L* Hct 20.8 L* MCV 93.7 MCH 31.1 MCHC 33.2 RDW 14.7 H Plt Count 172 MPV 8.8 Sodium 143 Potassium 3.9 Chloride 112 H Carbon Dioxide 23 Anion Gap 12 BUN 15 Creatinine 1.2 Est GFR ( Amer) 53 Est GFR (Non-Af Amer) 44 Random Glucose 93 Calcium 8.5 Total Bilirubin 0.3 AST 23 ALT 21 Alkaline Phosphatase 66 Total Protein 5.4 L Albumin 2.9 L Globulin 2.5 Albumin/Globulin Ratio 1.2 Assessment & Plan - Assessment and Plan (Free Text) Plan: Assessment consider UTI, in this patient with chronic abdominal pain HTN pancreatic cancer diagnosed in 2015 on has been on chemotherapy weekly history of diverticulitis S/P laparoscopic cholecystectomy S/P hysterectomy S/P bladder surgery Plan started Cefepime pending urine and blood cx; follow up CT scan of the abdomen and pelvis will monitor clinically overall prognosis is poor
--- NOTE | 2018-06-04 15:45 | CON ---
Copied To: Hubert Chan MD Attending MD: Hubert Chan MD DATE: 06/04/2018 REASON FOR THE CONSULTATION: Abdominal pain, severe anemia, chest pain. BRIEF CLINICAL HISTORY: A 73-year-old female with past medical history significant for hypertension, prediabetic, pancreatic cancer, came in with complaints of abdominal pain, chronic back pain and now complaining of pain in the neck. Cardiology consult was called. The patient denies any prior episode of chest pain. The patient is a very poor historian. I spoke to the daughter on the telephone, Nasrin and get information from her. PAST MEDICAL HISTORY: Significant for pancreatic cancer stage III, status post chemotherapy on 05/05/2018; hypertension; prediabetic; and cholecystectomy. SOCIAL HISTORY: Denies smoking. Denies any history of alcohol abuse. CURRENT MEDICATIONS: The patient is taking clonazepam, Ambien, Xarelto, metoprolol, carbidopa. REVIEW OF SYSTEMS: As per HPI. PHYSICAL EXAMINATION: VITAL SIGNS: Height of the patient is 5 feet 5 inches, weight of the patient 127 pounds, body mass index 21.1 kg/m2. Heart rate 96, blood pressure 147/93. HEENT: PERRLA. Extraocular muscles intact. NECK: Supple. No carotid bruit. No thyromegaly. CHEST: Clear to auscultation. HEART: S1 and S2 regular. ABDOMEN: Soft. EXTREMITIES: Clubbing and cyanosis negative. LABORATORY DATA: Blood workup as follows: WBC 4.9, hemoglobin 6.9, hematocrit 20.8, platelet count 172. Chemistry shows sodium 140, potassium 3.9, chloride 102, carbon dioxide 23, anion gap of 12, BUN 15, creatinine 1.2. Total protein 5.4, albumin 2.9, albumin globulin ratio of 1.2. EKG #1 shows normal sinus, no acute ST-T wave changes noted. EKG #2 shows sinus tachycardia with some T inversion. IMPRESSION: A 73-year-old female with past medical history significant for pancreatic cancer, admitted with severe anemia, abdominal pain, no complaint of any chest pain, probably these symptoms are attributed secondary to severe anemia, history of pancreatic carcinoma. Recently, a CAT scan was done, it was told negative, no details are available. So far, troponin is negative. RECOMMENDATIONS: We will transfuse two units of packed RBC. Continue pain medication. The patient has history of Parkinson disease. Continue carbidopa beta-ortiz 25 mg p.o. b.i.d., put nitroglycerin paste and we will follow with you. We will review if no recent echo was done. She will get an echo to assess LV function. We will follow with you. Old chart reviewed. The patient had echo on 08/09/2016 done at [facility] that shows borderline concentric LVH with ejection fraction of 70%. There is mild pulmonary hypertension, trace tricuspid regurgitation. Thank you, Dr. Prabhakar, for providing us the opportunity in taking care of the patient, Wanda Obrien. Hubert Chan MD
[2018-06-04] MEDS ORDERED: Apap-Butalbital-Caffeine 325-50-40mg Tab PO STA (16:25)
[2018-06-04] MEDS: HYDROmorphone 0.5 mg/0.5 ml ISec IVP PRN ×2 (17:47→23:09)
--- NOTE | 2018-06-04 17:51 | CARD ---
APPROVED REPORT Date of service: 06/04/2018 EKG Measurement Heart [id number] <Conclusion> Sinus tachycardia with 1st degree AV block with fusion complexes ST & T wave abnormality, consider lateral ischemia Abnormal ECG
[2018-06-04 23:31] LABS: HEMOGLOBIN 10.2 g/dL (12.0-16.0); MEAN CELL VOLUME 90.1 fl (80.0-105.0); MEAN CORPUSCULAR HEMOGLOBIN 30.4 pg (25.0-35.0); MEAN CORPUSCULAR HGB CONC 33.8 g/dl (31.0-37.0); MEAN PLATELET VOLUME 9.1 fl (7.0-11.0); RBC 3.35 10^6/uL (3.5-6.1); RED CELL DISTRIBUTION WIDTH 16.2 % (11.5-14.5); WHITE BLOOD COUNT 7.3 10^3/ul (4.5-11.0)
--- NOTE | 2018-06-05 00:55 | HP ---
06/04/18 Copied To: Kristen Prabhakar MD Attending MD: Kristen Prabhakar MD CHIEF COMPLAINTS: Abdominal pain, headache. HISTORY OF PRESENT ILLNESS: Ms. Wanda Obrien, a 73-year-old female with past medical history including hypertension, prediabetic, cholecystectomy and pancreatic cancer, not currently on chemotherapy, done with her chemotherapy. Status post PET scan showed stable cancer. Presented to the Emergency Department complaining of right-sided abdominal pain, back pain that worsened in the past 24 hours and having intractable headache. The patient does have pain as deep sensation, but not radiating. The patient states that pain is 10/10. The patient described pain as similar to her chronic pain in the past. The patient had CAT scan done 4 days ago, which revealed no metastasis or obstruction. The patient reports post nausea and intermittent constipation and has not taken any pain medication and is requesting pain medication in the emergency room. Got emergency room pain medication, now in the floor. She has intractable headache that was not responding to Tylenol and Fioricet, then I started her on Dilaudid IV because even Percocet is not working. The patient denies fever, chills. No chest pain. No urinary symptoms. No neck pain. No dizziness. PAST MEDICAL HISTORY: Hypertension, Parkinson's disease, pancreatic cancer, arthritis, back pain, diverticulitis, hysterectomy. FAMILY HISTORY: Father and mother noncontributory. HABITS: Never smoked. No drugs. No ethanol. ALLERGIES: THE PATIENT IS NOT ALLERGIC WITH ANY MEDICATIONS. HOME MEDICATIONS: Carbidopa and levodopa, metoprolol, Xarelto. REVIEW OF SYSTEMS: The patient was seen and examined on the bedside in her room. Daughter and granddaughter are on the bedside. Complaining about intractable headache. Tylenol, Fioricet and Percocet are not helping. No dysuria, frequency or hematuria. Has abdominal pain, constipation, nausea. No vomiting. No fever. No chills. PHYSICAL EXAMINATION: VITAL SIGNS: Temperature 98.5, pulse 90, respiratory rate 18, blood pressure 185/111, pulse oximetry 100. Recent vitals: Temperature 98.4, blood pressure 120/80 , respiratory rate 18. HEENT: Head normocephalic, atraumatic. Eyes PERRLA. Extraocular muscles intact. Conjunctivae clear. Nose patent. Mucous membrane moist. NECK: Supple. No carotid bruit. No JVD or thyromegaly. CHEST: Bilaterally symmetrical. HEART: S1 and S2 positive. LUNGS: Clear to auscultation. ABDOMEN: Tender especially in the upper quadrants. No organomegaly. EXTREMITIES: No edema. No cyanosis. NEUROLOGICAL: The patient is awake and alert. Moving all 4 extremities. No focal deficits. LABORATORY DATA: White blood cells 4.1; hemoglobin on admission was 7.3, repeat is 6.9; hematocrit 20.8; platelets 172. Sodium 143, potassium 3.9, BUN 50, creatinine 1.2. ASSESSMENT AND PLAN: Ms. Wanda Obrien, 73-year-old female with leukopenia, anemia, hyperchloremia, proteinuria, hematuria, urinary tract infection. Coagulation is within normal limits. History of pancreatic cancer. CAT scan of abdomen and pelvis done, noted by me. History of diverticulitis, status post laparoscopic cholecystectomy, hysterectomy, bladder surgery, status post chemotherapy. Now has urinary tract infection in this patient with chronic abdominal pain, hypertension. Started cefepime. Pending urine and blood culture. Follow up CT scan of the abdomen and pelvis with monitoring clinically. Overall prognosis is poor. Migraine. Only Fioricet, Tylenol and Percocet are not helping. Started on Dilaudid. Seen by Dr. Haas, Dr. Shaw Paiz. Getting Ambien for insomnia. Hydromorphone started due to intractable headache. GI, DVT prophylaxis. Zofran given for nauseousness. Restarted on Xarelto. Parkinsonism, getting Sinemet. Repeat labs. We will follow up. Kristen Prabhakar MD KEITH
[2018-06-05 06:26] LABS: BASO # 0.01 K/mm3 (0.0-2.0); BASO % 0.1 % (0.0-3.0); EOS # 0.1 (0.0-0.7); EOS % 0.9 % (1.5-5.0); GRAN # 5.21 (1.4-6.5); GRAN % 77.7 % (50.0-68.0); HEMOGLOBIN 9.9 g/dL (12.0-16.0); LYMPH % 14.3 % (22.0-35.0); MEAN CORPUSCULAR HEMOGLOBIN 30.6 pg (25.0-35.0); MEAN CORPUSCULAR HGB CONC 33.6 g/dl (31.0-37.0); MEAN PLATELET VOLUME 9.1 fl (7.0-11.0); MONO # 0.5 (0.1-0.6); RBC 3.24 10^6/uL (3.5-6.1); RED CELL DISTRIBUTION WIDTH 16.2 % (11.5-14.5); WHITE BLOOD COUNT 6.7 10^3/ul (4.5-11.0)
[2018-06-05 06:46] LABS: ALB/GLOB RATIO 1.3 (1.1-1.8); ALBUMIN 3.4 g/dL (3.0-4.8); ALT/SGPT 17 U/L (7-56); AST/SGOT 33 U/L (14-36); BLOOD UREA NITROGEN 17 mg/dL (7-21); CALCIUM 9.1 mg/dL (8.4-10.5); GFR AFRICAN-AMERICAN 45; GFR NON-AFRICAN AMERICAN 37; HDL CHOLESTEROL 44 mg/dL (29-60); IRON 71 ug/dL (45-180)
[2018-06-05 06:54] LABS: LDL CHOLESTEROL 52 mg/dL (0-129)
[2018-06-05 06:55] LABS: % IRON SATURATION 27 % (20-55); TOTAL IRON BINDING CAPACITY 266 ug/dL (265-497)
--- NOTE | 2018-06-05 07:26 | CP.PCM.PN ---
Subjective - Date & Time of Evaluation Date of Evaluation: 06/05/18 Time of Evaluation: 06:25 - Subjective Subjective: Easily awaken, no distress Reason for consultation and follow up: Cardiac evaluation of chest pain, complaints of abdominal pain, anemia Seen and examined by me and Dr. Chan Objective - Vital Signs/Intake and Output Vital Signs (last 24 hours): Temp Pulse Resp BP Pulse Ox 98.4 F 73 18 132/85 99 06/04/18 20:04 06/05/18 05:08 06/04/18 20:04 06/04/18 20:04 06/04/18 17:42 Intake and Output: 06/05/18 06/05/18 06:59 18:59 Intake Total 2415 Output Total 450 Balance 1965 - Medications Medications: Current Medications Carbidopa/Levodopa (Sinemet 10/100) 1 tab PO TID [facility] Last Admin: 06/04/18 17:46 Dose: 1 tab Clonazepam (Klonopin) 0.25 mg PO BID PRN; Protocol PRN Reason: Anxiety Hydralazine HCl (Apresoline) 10 mg IVP Q6 PRN PRN Reason: Systolic Blood Pressure Last Admin: 06/04/18 12:36 Dose: 10 mg Hydromorphone HCl (Dilaudid) 0.5 mg IVP Q6H PRN PRN Reason: Pain, severe (8-10) Last Admin: 06/04/18 23:09 Dose: 0.5 mg Cefepime HCl (Maxipime 1gm) 1 gm in 100 mls @ 100 mls/hr IVPB Q12 [facility] PRN Reason: Protocol Last Admin: 06/04/18 21:03 Dose: 100 mls/hr Metoprolol Tartrate (Lopressor) 25 mg PO BID [facility] Last Admin: 06/04/18 17:46 Dose: 25 mg Pantoprazole Sodium (Protonix Inj) 40 mg IVP Q12 [facility] Last Admin: 06/04/18 21:03 Dose: 40 mg Polyethylene Glycol (Miralax) 17 gm PO DAILY [facility] Last Admin: 06/04/18 14:13 Dose: 17 gm Rivaroxaban (Xarelto) 20 mg PO DAILY [facility] PRN Reason: Protocol Last Admin: 06/04/18 09:34 Dose: 20 mg Zolpidem Tartrate (Ambien) 10 mg PO HS PRN; Protocol PRN Reason: Insomnia Last Admin: 06/04/18 21:03 Dose: 10 mg - Labs Labs: 06/05/18 06:00 06/05/18 06:00 PT 12.2 SECONDS (9.4-12.5) 06/03/18 22:10 INR 1.07 06/03/18 22:10 APTT 32.6 Seconds (25.1-36.5) 06/03/18 22:10 - Constitutional Appears: No Acute Distress - Eye Exam Eye Exam: Normal appearance - ENT Exam ENT Exam: Mucous Membranes Moist - Respiratory Exam Respiratory Exam: Clear to Ausculation Bilateral, NORMAL BREATHING PATTERN - Cardiovascular Exam Cardiovascular Exam: REGULAR RHYTHM, +S1, +S2 - GI/Abdominal Exam GI & Abdominal Exam: Soft, Normal Bowel Sounds - Extremities Exam Extremities Exam: Normal Capillary Refill - Neurological Exam Neurological Exam: Alert, Awake, Oriented x3 - Psychiatric Exam Psychiatric exam: Normal Affect - Skin Skin Exam: Intact, Warm Assessment and Plan - Assessment and Plan (Free Text) Assessment: A 73 year old female who came in to the ER due to right sided abdominal pain, chronic back pain and chest pain. History of hypertension,pancreatic cancer stage III, post chemotherapy 05/05/18. Parkinson's disease,arthritis, diverticulitis,intractable headache.Prediabetic,cholecystectomy.Atypical chest pain.Chest pain attributing from anemia.Transfused 2 units of PRBC. Plan: ECHO to evaluate LV function Episode of headache last night- given dilaudid with relief (not relieved with Percocet or Fiorecet) Heart rate and blood pressure stable On Lopressor 25 mg BID, Xarelto 20 mg daily Consider Neuro consult GI and ID on consult, work up in progress Denies any chest pain now Troponin normal Continue current treatment Continue current medications Will follow up Plan and treatment discussed with Dr. Chan
[2018-06-05] MEDS: POLYETHYLENE GLYCOL 3350 17 GM/Dose PACKET PO SCH ×2 (10:08→17:21)
[2018-06-05] MEDS: Cefepime 1gm in NS 100ml 1 GM/100 ML BAG IVPB SCH ×2 (10:08→21:28)
[2018-06-05] MEDS: HYDROmorphone 0.5 mg/0.5 ml ISec IVP PRN ×2 (11:28→22:41)
--- NOTE | 2018-06-05 13:35 | PN ---
Copied To: Allan Villafana MD Attending MD: Allan Villafana MD DATE: 06/05/2018 SUBJECTIVE: The patient is in bed, in no acute distress, was seen earlier today in room 376, bed 1. No fevers and chills. She had an uneventful night. Her temperature is down. Initially she had a temperature of 100.5 on 06/03/2018. PHYSICAL EXAMINATION: VITAL SIGNS: Temperature is 99, blood pressure is 150/90, respiratory 20, heart rate of 77. HEENT: Unremarkable. NECK: Supple. LUNGS: Have decreased breath sounds. HEART: Normal S1, S2. ABDOMEN: Soft, nontender. LABORATORY DATA: Laboratory examination reveals a white count of 6.7, hemoglobin of 9. Chemistries reveals a BUN of 17, creatinine of 1.4. Urinalysis is noted and microbiology reveals the urine cultures negative. ASSESSMENT AND PLAN: This is a 73-year-old with hypertension, pancreatic cancer diagnosed in 2016, diverticulitis, laparoscopic cholecystectomy, hysterectomy and bladder surgery, admitted with urinary tract infection with a chronic abdominal pain, hypertension and pancreatic cancer, laparoscopic cholecystectomy, hysterectomy, bladder surgery and day #2 of cefepime with negative urine cultures and we will check on the blood cultures. The patient did have a CAT scan of the abdomen, the results are pending. We will check on the CAT scan of the abdomen results. Overall prognosis is poor. Allan Villafana MD
[2018-06-05 13:45] LABS: FOLATE > 20.0 ng/mL
--- NOTE | 2018-06-05 14:31 | CP.PCM.CON ---
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 Patient notes intermittent epigastric and supraumbilical abdominal pain for a few days. At home, she notes having a formed, soft bowel movement every three days without melena or hematochezia. I spoke to the patient's daughter by phone conversation, she denies any rectal bleeding. Also pt never received surgery for pancreatic adenocarcinoma, she finished her chemotherpay December 2017 and 6 weeks of of raidation therpay. She has an appointment with a GI doctor in [place] referred by her oncologist next week. Pt's daughter reports she had a CTA/P and [facility] 05/18/18 which was normal with no mets or obstruction noted. She is also on xarelto started a few months ago by her Oncologist for a PE. Colonoscopy 09/2014 showing diverticular bleeding s/p epinephrine injection. 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 GI was consulted for anemia. ROS: A 12pt ROS was negative except as above PmHx: As stated above PsHx: Pt unable to recall SHx: Denies tobacco, etoh or drugs FHx: Neg for colon cancer Past Patient History - Infectious Disease Hx of Infectious Diseases: None - Past Medical History & Family History Past Medical History?: Yes - Past Social History Smoking Status: Never Smoked - CARDIAC Hx Cardiac Disorders: Yes Hx Hypertension: Yes - PULMONARY Hx Respiratory Disorders: No - NEUROLOGICAL Hx Neurological Disorder: Yes Hx Parkinson's Disease: Yes - HEENT Hx HEENT Problems: No - RENAL Hx Chronic Kidney Disease: No - ENDOCRINE/METABOLIC Hx Endocrine Disorders: Yes (pre DMT2) - HEMATOLOGICAL/ONCOLOGICAL Hx Blood Disorders: Yes Hx Anemia: Yes (blood transfusion in past) Hx Cancer: Yes (PANCREATIC) - INTEGUMENTARY Hx Dermatological Problems: No - MUSCULOSKELETAL/RHEUMATOLOGICAL Hx Musculoskeletal Disorders: Yes Hx Arthritis: Yes Hx Back Pain: Yes Hx Falls: No - GASTROINTESTINAL Hx Gastrointestinal Disorders: Yes Hx Diverticulitis: Yes - GENITOURINARY/GYNECOLOGICAL Hx Genitourinary Disorders: No - PSYCHIATRIC Hx Psychophysiologic Disorder: Yes Hx Anxiety: Yes Hx Substance Use: No - SURGICAL HISTORY Hx Cholecystectomy: Yes Hx Hysterectomy: Yes - ANESTHESIA Hx Anesthesia: Yes Hx Anesthesia Reactions: No Hx Malignant Hyperthermia: No Meds Allergies/Adverse Reactions: Allergies Allergy/AdvReac Type Severity Reaction Status Date / Time No Known Allergies Allergy Verified 06/03/18 21:12 - Medications Medications: Current Medications Carbidopa/Levodopa (Sinemet 10/100) 1 tab PO TID [facility] Last Admin: 06/05/18 10:09 Dose: 1 tab Clonazepam (Klonopin) 0.25 mg PO BID PRN; Protocol PRN Reason: Anxiety Hydralazine HCl (Apresoline) 10 mg IVP Q6 PRN PRN Reason: Systolic Blood Pressure Last Admin: 06/04/18 12:36 Dose: 10 mg Hydromorphone HCl (Dilaudid) 0.5 mg IVP Q6H PRN PRN Reason: Pain, severe (8-10) Last Admin: 06/05/18 11:28 Dose: 0.5 mg Cefepime HCl (Maxipime 1gm) 1 gm in 100 mls @ 100 mls/hr IVPB Q12 [facility] PRN Reason: Protocol Last Admin: 06/05/18 10:08 Dose: 100 mls/hr Metoprolol Tartrate (Lopressor) 25 mg PO BID [facility] Last Admin: 06/05/18 10:07 Dose: 25 mg Pantoprazole Sodium (Protonix Inj) 40 mg IVP Q12 [facility] Last Admin: 06/05/18 10:08 Dose: 40 mg Polyethylene Glycol (Miralax) 17 gm PO BID [facility] Last Admin: 06/05/18 10:08 Dose: 17 gm Rivaroxaban (Xarelto) 20 mg PO DAILY [facility] PRN Reason: Protocol Last Admin: 06/05/18 10:09 Dose: 20 mg Zolpidem Tartrate (Ambien) 10 mg PO HS PRN; Protocol PRN Reason: Insomnia Last Admin: 06/04/18 21:03 Dose: 10 mg Physical Exam - Constitutional Appears: Non-toxic, No Acute Distress - Head Exam Head Exam: ATRAUMATIC, NORMAL INSPECTION, NORMOCEPHALIC - Eye Exam Eye Exam: EOMI, Normal appearance, PERRL Pupil Exam: PERRL - ENT Exam ENT Exam: Mucous Membranes Moist - Neck Exam Neck exam: Positive for: Normal Inspection - Respiratory Exam Respiratory Exam: Clear to Auscultation Bilateral, NORMAL BREATHING PATTERN - Cardiovascular Exam Cardiovascular Exam: REGULAR RHYTHM, +S1, +S2 - GI/Abdominal Exam GI & Abdominal Exam: Normal Bowel Sounds, Soft, Tenderness. absent: Distended, Guarding, Organomegaly - Rectal Exam Rectal Exam: NORMAL INSPECTION. absent: Black Stool, Bloody Stool - Extremities Exam Extremities exam: Positive for: full ROM, normal inspection - Back Exam Back exam: NORMAL INSPECTION - Neurological Exam Neurological exam: Alert, Oriented x3 - Psychiatric Exam Psychiatric exam: Normal Affect, Normal Mood - Skin Skin Exam: Dry, Intact, Normal Color, Warm Results - Vital Signs Recent Vital Signs: Last Vital Signs Temp 99.2 F 06/05/18 06:00 Pulse 77 06/05/18 10:07 Resp 20 06/05/18 06:00 BP 150/99 H 06/05/18 10:07 Pulse Ox 99 06/05/18 06:00 - Labs Result Diagrams: 06/05/18 06:00 06/05/18 06:00 Labs: Laboratory Results - last 24 hr 06/04/18 06/05/18 06/05/18 23:27 06:00 06:00 WBC 7.3 D RBC 3.35 L Hgb 10.2 L D Hct 30.2 L MCV 90.1 D MCH 30.4 MCHC 33.8 RDW 16.2 H Plt Count 180 MPV 9.1 Gran % Lymph % (Auto) Hall % (Auto) Eos % (Auto) Baso % (Auto) Gran # Lymph # (Auto) Hall # (Auto) Eos # (Auto) Baso # (Auto) Sodium 140 Potassium 4.2 Chloride 108 H Carbon Dioxide 24 Anion Gap 13 BUN 17 Creatinine 1.4 H Est GFR ( Amer) 45 Est GFR (Non-Af Amer) 37 Random Glucose 94 Calcium 9.1 Phosphorus 3.7 Magnesium 2.0 Iron 71 TIBC 266 % Saturation 27 Total Bilirubin 1.1 AST 33 ALT 17 Alkaline Phosphatase 77 Total Protein 6.1 Albumin 3.4 Globulin 2.7 Albumin/Globulin Ratio 1.3 Triglycerides 56 Cholesterol 125 L LDL Cholesterol Direct 52 HDL Cholesterol 44 Folate > 20.0 TSH 3rd Generation 06/05/18 06/05/18 06:00 06:00 WBC 6.7 RBC 3.24 L Hgb 9.9 L Hct 29.5 L MCV 91.0 MCH 30.6 MCHC 33.6 RDW 16.2 H Plt Count 177 MPV 9.1 Gran % 77.7 H Lymph % (Auto) 14.3 L Hall % (Auto) 7.0 H Eos % (Auto) 0.9 L Baso % (Auto) 0.1 Gran # 5.21 Lymph # (Auto) 1.0 L Hall # (Auto) 0.5 Eos # (Auto) 0.1 Baso # (Auto) 0.01 Sodium Potassium Chloride Carbon Dioxide Anion Gap BUN Creatinine Est GFR ( Amer) Est GFR (Non-Af Amer) Random Glucose Calcium Phosphorus Magnesium Iron TIBC % Saturation Total Bilirubin AST ALT Alkaline Phosphatase Total Protein Albumin Globulin Albumin/Globulin Ratio Triglycerides Cholesterol LDL Cholesterol Direct HDL Cholesterol Folate TSH 3rd Generation 1.82 Assessment & Plan - Assessment and Plan (Free Text) Assessment: This is a 73yF presenting with abdominal pain and found to be anemic. 1. Pancreatic adenocarcinoma s/p chemoradiation 2. Anemia 3. PE on Xarelto 4. Constipation 5. UTI Plan: -Continue supportive care with pain control and anti-emetics -No active GI bleeding, hemodynamically stable, rectal exam neg for melena or hematochezia -Hgb 6.9 s/p 2U PRBCs now Hgb 9.9 -Continue monitor H/H and transfuse as needed -Diet as tolerated -Bowel regimen with miralax BID -Continue xarelto for hx of PE -No plan for endoscopic evaluation at this time -Abx per ID -LFTs wnl no signs of obstruction, recent CT imaging at [facility] -Repeat CT pending -Will continue to follow pt closely <Jonnathan Stauffer - Last Filed: 06/05/18 19:54> Meds - Medications Medications: Current Medications Carbidopa/Levodopa (Sinemet 10/100) 1 tab PO TID [facility] Last Admin: 06/05/18 17:21 Dose: 1 tab Clonazepam (Klonopin) 0.25 mg PO BID PRN; Protocol PRN Reason: Anxiety Last Admin: 06/05/18 15:35 Dose: 0.25 mg Hydralazine HCl (Apresoline) 10 mg IVP Q6 PRN PRN Reason: Systolic Blood Pressure Last Admin: 06/04/18 12:36 Dose: 10 mg Hydromorphone HCl (Dilaudid) 0.5 mg IVP Q6H PRN PRN Reason: Pain, severe (8-10) Last Admin: 06/05/18 11:28 Dose: 0.5 mg Cefepime HCl (Maxipime 1gm) 1 gm in 100 mls @ 100 mls/hr IVPB Q12 [facility] PRN Reason: Protocol Last Admin: 06/05/18 10:08 Dose: 100 mls/hr Metoprolol Tartrate (Lopressor) 25 mg PO BID [facility] Last Admin: 06/05/18 17:20 Dose: 25 mg Pantoprazole Sodium (Protonix Inj) 40 mg IVP Q12 [facility] Last Admin: 06/05/18 10:08 Dose: 40 mg Polyethylene Glycol (Miralax) 17 gm PO BID [facility] Last Admin: 06/05/18 17:21 Dose: 17 gm Rivaroxaban (Xarelto) 20 mg PO DAILY [facility] PRN Reason: Protocol Last Admin: 06/05/18 10:09 Dose: 20 mg Zolpidem Tartrate (Ambien) 10 mg PO HS PRN; Protocol PRN Reason: Insomnia Last Admin: 06/04/18 21:03 Dose: 10 mg Results - Vital Signs Recent Vital Signs: Last Vital Signs Temp 99.6 F 06/05/18 16:22 Pulse 81 06/05/18 18:00 Resp 20 06/05/18 16:22 BP 135/85 06/05/18 17:20 Pulse Ox 99 06/05/18 16:22 - Labs Result Diagrams: 06/05/18 06:00 06/05/18 06:00 Labs: Laboratory Results - last 24 hr 06/04/18 06/05/18 06/05/18 23:27 06:00 06:00 WBC 7.3 D RBC 3.35 L Hgb 10.2 L D Hct 30.2 L MCV 90.1 D MCH 30.4 MCHC 33.8 RDW 16.2 H Plt Count 180 MPV 9.1 Gran % Lymph % (Auto) Hall % (Auto) Eos % (Auto) Baso % (Auto) Gran # Lymph # (Auto) Hall # (Auto) Eos # (Auto) Baso # (Auto) Sodium 140 Potassium 4.2 Chloride 108 H Carbon Dioxide 24 Anion Gap 13 BUN 17 Creatinine 1.4 H Est GFR ( Amer) 45 Est GFR (Non-Af Amer) 37 Random Glucose 94 Calcium 9.1 Phosphorus 3.7 Magnesium 2.0 Iron 71 TIBC 266 % Saturation 27 Total Bilirubin 1.1 AST 33 ALT 17 Alkaline Phosphatase 77 Total Protein 6.1 Albumin 3.4 Globulin 2.7 Albumin/Globulin Ratio 1.3 Triglycerides 56 Cholesterol 125 L LDL Cholesterol Direct 52 HDL Cholesterol 44 Vitamin B12 667 Folate > 20.0 TSH 3rd Generation 06/05/18 06/05/18 06:00 06:00 WBC 6.7 RBC 3.24 L Hgb 9.9 L Hct 29.5 L MCV 91.0 MCH 30.6 MCHC 33.6 RDW 16.2 H Plt Count 177 MPV 9.1 Gran % 77.7 H Lymph % (Auto) 14.3 L Hall % (Auto) 7.0 H Eos % (Auto) 0.9 L Baso % (Auto) 0.1 Gran # 5.21 Lymph # (Auto) 1.0 L Hall # (Auto) 0.5 Eos # (Auto) 0.1 Baso # (Auto) 0.01 Sodium Potassium Chloride Carbon Dioxide Anion Gap BUN Creatinine Est GFR ( Amer) Est GFR (Non-Af Amer) Random Glucose Calcium Phosphorus Magnesium Iron TIBC % Saturation Total Bilirubin AST ALT Alkaline Phosphatase Total Protein Albumin Globulin Albumin/Globulin Ratio Triglycerides Cholesterol LDL Cholesterol Direct HDL Cholesterol Vitamin B12 Folate TSH 3rd Generation 1.82 Attending/Attestation - Attestation I have personally seen and examined this patient.: Yes I have fully participated in the care of the patient.: Yes I have reviewed all pertinent clinical information: Yes Notes (Text): 06/05/18 19:51 Chart reviewed. Discussed with Dr. Barrett. The patient was seen and examined. Had a formed, brown stool earlier today. Remains w/o stigmata of recent, or active GI blood loss. Agree with the above assessment and plan.
--- NOTE | 2018-06-05 18:12 | CT ---
Date of service: 06/04/2018 PROCEDURE: CT abdomen pelvis dated 06/04/2018 HISTORY: Abdominal pain. COMPARISON: Comparison made with CT scan abdomen pelvis 10/25/2017. TECHNIQUE: Contiguous axial images of the abdomen and pelvis. Oral contrast was administered. No IV contrast given. Coronal and Sagittal reformats generated. Radiation dose: Total exam DLP = 218.48 mGy-cm. This CT exam was performed using one or more of the following dose reduction techniques: Automated exposure control, adjustment of the mA and/or kV according to patient size, and/or use of iterative reconstruction technique. . This study is limited due to the lack of circulating intravenous contrast material FINDINGS: LOWER THORAX: Minor linear scarring at both lung bases including the middle lobe and lingular regions. There also mild passive/dependent type atelectatic changes both posterior lower lung miller. No evidence of effusion or basilar pneumothorax. Heart is enlarged. LIVER: The right lobe of the liver is elevated and anteriorly displaced by a very large exophytic right renal cyst. No obvious hepatic mass or collection. GALLBLADDER AND BILE DUCTS: Cholecystectomy PANCREAS: The pancreas is poorly delineated on this exam however there does appear to be a pancreatic ductal dilatation. Mass in the region the pancreatic head not excluded. Follow-up CT scan with contrast could be performed for further evaluation if indicated clinically. . SPLEEN: Unremarkable. No splenomegaly. ADRENALS: No adrenal lesions. KIDNEYS AND URETERS: As mentioned above, there is a very large exophytic cyst right kidney which compresses and displaces the right lobe of the liver. This cyst measures approximately 10.8 x 10.5 x 8.3 cm. . At least 3 smaller left renal cysts are present 1 of which located midpole level appears to be associated with a peripheral calcification. BLADDER: Urinary bladder incompletely distended which may account for slight thick-walled appearance. Correlation with urinalysis. . No evidence of intraluminal urinary bladder calculi. REPRODUCTIVE: Apparent hysterectomy APPENDIX: The appendix is not seen BOWEL: Evaluation of the bowel is somewhat limited due to incomplete opacification. The stomach is distended with food debris liquid air and contrast material. There are several on mildly distended loops of small bowel nonspecific material however no evidence of acute mechanical small bowel obstruction with oral contrast material extending into the colon. . Apparent postoperative changes of the growth right colon in clinic correlation with surgical history. Large amount of stool is present within the transverse and descending colon consistent with mild fecal retention/constipation. Diverticulosis without radiographic evidence of acute diverticulitis. PERITONEUM: Unremarkable. No fluid collection. No free air. LYMPH NODES: Unremarkable. No enlarged lymph nodes. VASCULATURE: Unremarkable. No aortic aneurysm. BONES: Mild diffuse demineralization. Minor degenerative spondylosis of the lower thoracic and lumbar spine. OTHER FINDINGS: None. IMPRESSION: Limited study. There appears to be dilatation of the pancreatic duct throughout. Pancreatic head mass cannot be excluded. Postoperative changes of the right colon. Findings also suggest mild constipation. Diverticulosis without radiographic evidence of acute diverticulitis. Large right renal cysts with at least 3 small left renal cysts 1 of which is associate with a tiny peripheral calcification. No evidence of hydronephrosis. Cardiomegaly.
--- NOTE | 2018-06-05 20:18 | CARD ---
APPROVED REPORT Date of service: 06/05/2018 EXAM: Two-dimensional and M-mode echocardiogram with Doppler and color Doppler. INDICATION CP 2D DIMENSIONS IVSd1.3 (0.7-1.1cm)LVDd5.1 (3.9-5.9cm) PWd1.4 (0.7-1.1cm)LVDs4.0 (2.5-4.0cm) FS (%) 20.0 %LVEF (%)41.4 (>50%) M-Mode DIMENSIONS Left Atrium (MM)2.60 (2.5-4.0cm)Aortic Root3.40 (2.2-3.7cm) Aortic Cusp Exc.2.20 (1.5-2.0cm) Aortic Valve AoV Peak Vjrzidyl567.0cm/s Mitral Valve MV E Bsbuepbo94.6cm/sMV A Kqpmfopy08.2cm/sE/A ratio1.1 TDI Lateral E' Peak V8.97cm/sMedial E' Peak V3.41cm/sE/Lateral E'7.6 E/Medial E'20.1 Tricuspid Valve TR Peak Cqsbzbcz994xk/sRAP [id number] Peak Gr.28mmHg [id number] LEFT VENTRICLE The left ventricle is normal size. There is mild concentric left ventricular hypertrophy. The systolic function is mildly impaired.EF-45% There is mild hypokinesis in the basal inferolateral wall. The left ventricular diastolic function is normal. No left ventricle thrombus noted on this study. There is no ventricular septal defect visualized. There is no left ventricular aneurysm. There is no mass noted in the left ventricle. RIGHT VENTRICLE The right ventricle is mildly to moderately dilated. There is normal right ventricular wall thickness. Systolic function is mildly reduced. ATRIA The left atrium is mildly dilated. The right atrium is mildly dilated. The interatrial septum is intact with no evidence for an atrial septal defect. AORTIC VALVE The aortic valve is thickened but opens well. There is trace aortic regurgitation. There is no aortic valvular stenosis. There is no aortic valvular vegetation. MITRAL VALVE The mitral valve is thickened but opens well. Mitral regurgitation is mild to moderate. There is no mitral valve stenosis. There is no evidence of mitral valve prolapse. TRICUSPID VALVE The tricuspid valve leaflets are thickened , but open well. There is mild to moderate tricuspid regurgitation.RVSP-38 mmof hg. There is no tricuspid valve stenosis. There is no tricuspid valve prolapse or vegetation. PULMONIC VALVE The pulmonic valve is mildly thickened. There is mild pulmonic valvular regurgitation. There is no pulmonic valvular stenosis. GREAT VESSELS The aortic root is normal in size. The ascending aorta is normal in size. The pulmonary artery is normal. The IVC is normal in size and collapses >50% with inspiration. PERICARDIAL EFFUSION There is no pleural effusion. There is a trace pericardial effusion. <Conclusion> The left ventricle is normal size. There is mild concentric left ventricular hypertrophy. The systolic function is mildly impaired.EF-45% There is trace aortic regurgitation. Mitral regurgitation is mild to moderate. There is mild to moderate tricuspid regurgitation.RVSP-38 mmof hg. The IVC is normal in size and collapses >50% with inspiration. There is a trace pericardial effusion.
--- NOTE | 2018-06-06 07:16 | CP.PCM.PN ---
Subjective - Date & Time of Evaluation Date of Evaluation: 06/06/18 Time of Evaluation: 06:50 - Subjective Subjective: Awake, no distress,denies chest pain Reason for consultation and follow up: Cardiac evaluation of chest pain, complaints of abdominal pain, anemia Seen and examined by me and Dr. Chan Objective - Vital Signs/Intake and Output Vital Signs (last 24 hours): Temp Pulse Resp BP Pulse Ox 98.6 F 77 18 136/93 H 99 06/06/18 00:01 06/06/18 05:41 06/06/18 00:01 06/06/18 00:01 06/06/18 00:01 Intake and Output: 06/06/18 06/06/18 06:59 18:59 Intake Total 320 Balance 320 - Medications Medications: Current Medications Carbidopa/Levodopa (Sinemet 10/100) 1 tab PO TID [facility] Last Admin: 06/05/18 17:21 Dose: 1 tab Clonazepam (Klonopin) 0.25 mg PO BID PRN; Protocol PRN Reason: Anxiety Last Admin: 06/05/18 15:35 Dose: 0.25 mg Hydralazine HCl (Apresoline) 10 mg IVP Q6 PRN PRN Reason: Systolic Blood Pressure Last Admin: 06/04/18 12:36 Dose: 10 mg Hydromorphone HCl (Dilaudid) 0.5 mg IVP Q6H PRN PRN Reason: Pain, severe (8-10) Last Admin: 06/05/18 22:41 Dose: 0.5 mg Cefepime HCl (Maxipime 1gm) 1 gm in 100 mls @ 100 mls/hr IVPB Q12 [facility] PRN Reason: Protocol Last Admin: 06/05/18 21:28 Dose: 100 mls/hr Metoprolol Tartrate (Lopressor) 25 mg PO BID [facility] Last Admin: 06/05/18 17:20 Dose: 25 mg Ondansetron HCl (Zofran Inj) 4 mg IVP Q6H PRN PRN Reason: Nausea/Vomiting Last Admin: 06/05/18 20:07 Dose: 4 mg Pantoprazole Sodium (Protonix Inj) 40 mg IVP Q12 [facility] Last Admin: 06/05/18 21:29 Dose: 40 mg Polyethylene Glycol (Miralax) 17 gm PO BID [facility] Last Admin: 06/05/18 17:21 Dose: 17 gm Rivaroxaban (Xarelto) 20 mg PO DAILY [facility] PRN Reason: Protocol Last Admin: 06/05/18 10:09 Dose: 20 mg Zolpidem Tartrate (Ambien) 10 mg PO HS PRN; Protocol PRN Reason: Insomnia Last Admin: 06/05/18 22:41 Dose: 10 mg - Labs Labs: 06/05/18 06:00 06/05/18 06:00 PT 12.2 SECONDS (9.4-12.5) 06/03/18 22:10 INR 1.07 06/03/18 22:10 APTT 32.6 Seconds (25.1-36.5) 06/03/18 22:10 - Constitutional Appears: No Acute Distress - Eye Exam Eye Exam: Normal appearance - ENT Exam ENT Exam: Mucous Membranes Moist - Respiratory Exam Respiratory Exam: Decreased Breath Sounds, NORMAL BREATHING PATTERN - Cardiovascular Exam Cardiovascular Exam: REGULAR RHYTHM, +S1, +S2 - GI/Abdominal Exam GI & Abdominal Exam: Soft, Normal Bowel Sounds - Extremities Exam Extremities Exam: Normal Capillary Refill - Neurological Exam Neurological Exam: Alert, Awake, Oriented x3 - Psychiatric Exam Psychiatric exam: Normal Affect - Skin Skin Exam: Dry, Warm Assessment and Plan - Assessment and Plan (Free Text) Assessment: A 73 year old female who came in to the ER due to right sided abdominal pain, chronic back pain and chest pain. History of hypertension,pancreatic cancer stage III, post chemotherapy 05/05/18. Parkinson's disease,arthritis, diverticulitis,intractable headache.Prediabetic,cholecystectomy.Atypical chest pain.Chest pain attributing from anemia.Transfused 2 units of PRBC. H/H stable. Urinary tract infection on IV antibiotics. Plan: episode of nausea yesterday late evening, Zofran given with relief Restful night ECHO showed-mildly impaired systolic function LVEF 45% Trace AR, Mild to moderate MR/TR, trace pericardial effusion Denies headache,denies chest pain Heart rate and blood pressure stable On Lopressor 25 mg BID, Xarelto 20 mg daily GI consult, work up in progress Continue IV antibiotics per ID for UTI. Continue current treatment Continue current medications Will follow up Plan and treatment discussed with Dr. Chan
[2018-06-06] MEDS: Cefepime 1gm in NS 100ml 1 GM/100 ML BAG IVPB SCH (09:19)
[2018-06-06] MEDS: POLYETHYLENE GLYCOL 3350 17 GM/Dose PACKET PO SCH ×2 (09:20→17:22)
--- NOTE | 2018-06-06 09:43 | CP.PCM.PN ---
<HanselAni - Last Filed: 06/06/18 09:39> Subjective - Date & Time of Evaluation Date of Evaluation: 06/06/18 Time of Evaluation: 09:40 - Subjective Subjective: GI Fellow PGY5 Progress Note Pt seen and evaluated at bedside, doing well with no issues overnight. Pt having small brown BMs. Pt still reports back pain. No melena or hematochezia noted. ROS: A 12pt ROS was negative except as above. Objective - Vital Signs/Intake and Output Vital Signs (last 24 hours): Temp Pulse Resp BP Pulse Ox 98.9 F 75 18 135/82 98 06/06/18 06:00 06/06/18 09:19 06/06/18 06:00 06/06/18 09:19 06/06/18 06:00 Intake and Output: 06/06/18 06/06/18 06:59 18:59 Intake Total 320 Balance 320 - Medications Medications: Current Medications Carbidopa/Levodopa (Sinemet 10/100) 1 tab PO TID [facility] Last Admin: 06/06/18 09:20 Dose: 1 tab Clonazepam (Klonopin) 0.25 mg PO BID PRN; Protocol PRN Reason: Anxiety Last Admin: 06/05/18 15:35 Dose: 0.25 mg Hydralazine HCl (Apresoline) 10 mg IVP Q6 PRN PRN Reason: Systolic Blood Pressure Last Admin: 06/04/18 12:36 Dose: 10 mg Hydromorphone HCl (Dilaudid) 0.5 mg IVP Q6H PRN PRN Reason: Pain, severe (8-10) Last Admin: 06/05/18 22:41 Dose: 0.5 mg Cefepime HCl (Maxipime 1gm) 1 gm in 100 mls @ 100 mls/hr IVPB Q12 [facility] PRN Reason: Protocol Last Admin: 06/06/18 09:19 Dose: 100 mls/hr Metoprolol Tartrate (Lopressor) 25 mg PO BID [facility] Last Admin: 06/06/18 09:19 Dose: 25 mg Ondansetron HCl (Zofran Inj) 4 mg IVP Q6H PRN PRN Reason: Nausea/Vomiting Last Admin: 06/05/18 20:07 Dose: 4 mg Pantoprazole Sodium (Protonix Inj) 40 mg IVP Q12 [facility] Last Admin: 06/06/18 09:20 Dose: 40 mg Polyethylene Glycol (Miralax) 17 gm PO BID [facility] Last Admin: 06/06/18 09:20 Dose: 17 gm Rivaroxaban (Xarelto) 20 mg PO DAILY [facility] PRN Reason: Protocol Last Admin: 06/06/18 09:20 Dose: 20 mg Zolpidem Tartrate (Ambien) 10 mg PO HS PRN; Protocol PRN Reason: Insomnia Last Admin: 06/05/18 22:41 Dose: 10 mg - Labs Labs: 06/05/18 06:00 06/05/18 06:00 PT 12.2 SECONDS (9.4-12.5) 06/03/18 22:10 INR 1.07 06/03/18 22:10 APTT 32.6 Seconds (25.1-36.5) 06/03/18 22:10 - Constitutional Appears: Non-toxic, No Acute Distress - Head Exam Head Exam: ATRAUMATIC, NORMAL INSPECTION, NORMOCEPHALIC - Eye Exam Eye Exam: EOMI, Normal appearance, PERRL Pupil Exam: PERRL - ENT Exam ENT Exam: Mucous Membranes Moist, Normal Exam - Neck Exam Neck Exam: Full ROM, Normal Inspection - Respiratory Exam Respiratory Exam: Clear to Ausculation Bilateral, NORMAL BREATHING PATTERN - Cardiovascular Exam Cardiovascular Exam: REGULAR RHYTHM, RRR, +S1, +S2 - GI/Abdominal Exam GI & Abdominal Exam: Soft, Normal Bowel Sounds - Extremities Exam Extremities Exam: Full ROM, Normal Inspection - Neurological Exam Neurological Exam: Alert, Awake, Oriented x3 - Psychiatric Exam Psychiatric exam: Normal Affect, Normal Mood - Skin Skin Exam: Dry, Intact, Normal Color, Warm Assessment and Plan - Assessment and Plan (Free Text) Assessment: This is a 73yF presenting with abdominal pain and found to be anemic. 1. Pancreatic adenocarcinoma s/p chemoradiation 2. Anemia 3. PE on Xarelto 4. Constipation 5. UTI Plan: -Continue supportive care with pain control and anti-emetics -Pt clinically improving -No active GI bleeding, hemodynamically stable -H/H stable s/p 2U -Continue monitor H/H, CBC ordered this a, -Diet as tolerated -Bowel regimen with miralax BID -Continue xarelto for hx of PE -Abx per ID for UTI -LFTs wnl no signs of obstruction, [place] [facility] [place] with fecal retention and pancreatic mass -From GI perspective pt okay for discharge home on bowel regimen and followup with GI doctor as an outpt <Jonnathan Stauffer - Last Filed: 06/06/18 18:56> Objective - Vital Signs/Intake and Output Vital Signs (last 24 hours): Temp Pulse Resp BP Pulse Ox 98.4 F 82 19 124/91 H 100 06/06/18 16:29 06/06/18 18:00 06/06/18 16:29 06/06/18 17:20 06/06/18 16:29 Intake and Output: 06/06/18 06/06/18 06:59 18:59 Intake Total 320 720 Balance 320 720 - Medications Medications: Current Medications Carbidopa/Levodopa (Sinemet 10/100) 1 tab PO TID [facility] Last Admin: 06/06/18 17:22 Dose: 1 tab Clonazepam (Klonopin) 0.25 mg PO BID PRN; Protocol PRN Reason: Anxiety Last Admin: 06/06/18 14:26 Dose: 0.25 mg Hydralazine HCl (Apresoline) 10 mg IVP Q6 PRN PRN Reason: Systolic Blood Pressure Last Admin: 06/04/18 12:36 Dose: 10 mg Hydromorphone HCl (Dilaudid) 0.5 mg IVP Q6H PRN PRN Reason: Pain, severe (8-10) Last Admin: 06/05/18 22:41 Dose: 0.5 mg Metoprolol Tartrate (Lopressor) 25 mg PO BID [facility] Last Admin: 06/06/18 17:20 Dose: 25 mg Ondansetron HCl (Zofran Inj) 4 mg IVP Q6H PRN PRN Reason: Nausea/Vomiting Last Admin: 06/05/18 20:07 Dose: 4 mg Pantoprazole Sodium (Protonix Inj) 40 mg IVP Q12 [facility] Last Admin: 06/06/18 09:20 Dose: 40 mg Polyethylene Glycol (Miralax) 17 gm PO BID [facility] Last Admin: 06/06/18 17:22 Dose: 17 gm Rivaroxaban (Xarelto) 20 mg PO DAILY [facility] PRN Reason: Protocol Last Admin: 06/06/18 09:20 Dose: 20 mg Zolpidem Tartrate (Ambien) 10 mg PO HS PRN; Protocol PRN Reason: Insomnia Last Admin: 06/05/18 22:41 Dose: 10 mg - Labs Labs: 06/05/18 06:00 06/05/18 06:00 PT 12.2 SECONDS (9.4-12.5) 06/03/18 22:10 INR 1.07 06/03/18 22:10 APTT 32.6 Seconds (25.1-36.5) 06/03/18 22:10 Attending/Attestation - Attestation I have personally seen and examined this patient.: Yes I have fully participated in the care of the patient.: Yes I have reviewed all pertinent clinical information, including history, physical exam and plan: Yes Notes (Text): 06/06/18 18:54 Chart reviewed. Events noted. Discussed with Dr. Wang and pt's nurse. Agree with the assessment and plan as outlined above.
--- NOTE | 2018-06-06 12:26 | PN ---
Copied To: Allan Villafana MD Attending MD: Allan Villafana MD DATE: 06/06/2018 SUBJECTIVE: The patient is seen earlier today in room 376, bed 1. The patient had no fevers. No chills. Uneventful night last night. PHYSICAL EXAMINATION: VITAL SIGNS: On exam, temperature is 98, blood pressure is 130/80, respiratory rate of 18. HEENT: Examination of HEENT is unremarkable. NECK: Supple. LUNGS: Have decreased breath sounds. HEART: Normal S1, S2. ABDOMINAL: Soft, nontender. LABORATORY DATA: Laboratory examination reveals a white count of 6.7, hemoglobin of 9. Chemistries reveals a BUN of 17, creatinine of 1.4. Urinalysis is noted. Microbiology reveals the blood cultures are no growth. Urine cultures are no growth. The patient's review of medications reveals the patient to be on cefepime. ASSESSMENT AND PLAN: A 73-year-old female seen earlier today in 376, bed 1 with hypertension and pancreatic cancer diagnosed in 2016, diverticulitis, laparoscopic cholecystectomy, hysterectomy and bladder surgery, admitted with urinary tract infection with a chronic abdominal pain, hypertension, pancreatic cancer, laparoscopic cholecystectomy. Day #3 of cefepime with negative blood cultures, negative urine cultures. The patient had a CAT scan of the abdomen and pelvis, which results revealed the patient to have dilatation of pancreatic duct, postoperative changes of right colon, mild constipation, renal cyst and no evidence of hydronephrosis. We will discontinue the cefepime since the cultures are negative and the patient is afebrile. She has had one temperature of 100.5 on 06/03/2018. The patient's white count is normal. Negative blood cultures, negative urine cultures with the urinalysis significant for 15-20 wbc's. We will discontinue the cefepime and follow the patient. The patient is at risk for developing nosocomial infections. The patient with pancreatic adenocarcinoma with chemoradiation. Probable abdominal pain is from underlying pancreatic cancer. We will follow closely with you. Allan Villafana MD
--- NOTE | 2018-06-06 16:37 | CT ---
Date of service: 06/06/2018 PROCEDURE: CT HEAD WITHOUT CONTRAST. HISTORY: perry COMPARISON: Comparison made with CT scan brain 05/22/2018. . TECHNIQUE: Axial computed tomography images were obtained through the head/brain without intravenous contrast. Radiation dose: Total exam DLP = 836.56 mGy-cm. This CT exam was performed using one or more of the following dose reduction techniques: Automated exposure control, adjustment of the mA and/or kV according to patient size, and/or use of iterative reconstruction technique. FINDINGS: HEMORRHAGE: No acute parenchymal, subarachnoid or extra-axial hemorrhage. BRAIN: Mild diffuse/ confluent chronic periventricular white matter ischemic changes the seen extending peripherally into the deep white matter both cerebral hemispheres. In addition, there are few scattered chronic appearing bilateral basal nuclei lacunar type infarcts. Mild generalized volume loss. VENTRICLES: No obstructive hydrocephalus. CALVARIUM: Calvarium intact however there does appear to be mild hyperostosis frontalis interna. The the the the the the the the PARANASAL SINUSES: Unremarkable as visualized. No significant inflammatory changes. MASTOID AIR CELLS: Unremarkable as visualized. No inflammatory changes. OTHER FINDINGS: None. IMPRESSION: No acute intracranial hemorrhage. Mild chronic periventricular white matter ischemic change with a few scattered chronic bilateral basal nuclei lacunar type infarcts. Mild generalized volume loss.
[2018-06-06] MEDS: HYDROmorphone 0.5 mg/0.5 ml ISec IVP PRN (19:44)
--- NOTE | 2018-06-06 23:57 | PN ---
Copied To: Kristen Prabhakar MD Attending MD: Kristen Prabhakar MD DATE: 06/06/2018 SUBJECTIVE: The patient is 73 years old female. The patient seen and examined at the bedside. Looking comfortable. Headache is better. No cough, no shortness of breath. No fever, no chills. No nausea, vomiting or diarrhea. No headache, no dizziness. Sometimes getting abdominal pain. PHYSICAL EXAMINATION: VITAL SIGNS: Temperature 98, blood pressure 130/80, respiratory rate 18. HEENT: Head normocephalic, atraumatic. Eyes, PERRLA. Extraocular muscles intact. Conjunctivae clear. Nose patent. Mucous membrane moist. NECK: Supple. No carotid bruit, JVD or thyromegaly. CHEST: Bilaterally symmetrical. HEART: S1, S2 positive. LUNGS: Clear to auscultation. ABDOMEN: Soft, bowel sounds present. No organomegaly. EXTREMITIES: No edema, no cyanosis. NEUROLOGICAL: The patient is awake, alert, moving all 4 extremities. No focal deficits. LABORATORY DATA: White blood cell is 6.7, hemoglobin 9.9, hematocrit 29.5, platelets 177. Sodium 140, potassium 4.2, BUN 17, creatinine 1.4, blood sugar 125. MEDICATIONS: Ambien, hydralazine, Dilaudid, Klonopin, Lopressor, MiraLax, Protonix, Sinemet, Xarelto, Zofran. ASSESSMENT AND PLAN: Ms. Wanda Obrien is 73 years old female with anemia iron deficiency, hyperchloremia, history of hypertension, pancreatic cancer, diverticulitis, laparoscopic cholecystectomy, hysterectomy, urinary tract infection, chronic abdominal pain, day 3 of cefepime, negative blood culture, negative urine culture. The patient had CAT scan of abdomen and pelvis, which revealed the patient to have dilated pancreatic duct, postoperative changes in the right colon, mild constipation, no renal cyst, no evidence of hydronephrosis. Dr. Villafana discontinued the cefepime. She had one temperature of 100.5. In 24 hours, no fever. Due to headache, I ordered CAT scan of the head, it is done, no acute intracranial hemorrhage, mild chronic periventricular white matter ischemic changes with few scattered rhonchi, bilateral basilar, nuclei lacunar type infarction, mild generalized volume loss. Gastric and deep venous thrombosis prophylaxis. Repeat labs. We will follow up. Kristen Prabhakar MD
--- NOTE | 2018-06-07 07:15 | CP.PCM.PN ---
Subjective - Date & Time of Evaluation Date of Evaluation: 06/07/18 Time of Evaluation: 06:30 - Subjective Subjective: Easily awaken, no distress,denies chest pain Reason for consultation and follow up: Cardiac evaluation of chest pain, complaints of abdominal pain, anemia Seen and examined by me and Dr. Chan Objective - Vital Signs/Intake and Output Vital Signs (last 24 hours): Temp Pulse Resp BP Pulse Ox 98.7 F 68 20 115/74 99 06/07/18 00:01 06/07/18 06:00 06/07/18 00:01 06/07/18 00:01 06/07/18 00:01 Intake and Output: 06/07/18 06/07/18 06:59 18:59 Intake Total 120 Balance 120 - Medications Medications: Current Medications Carbidopa/Levodopa (Sinemet 10/100) 1 tab PO TID [facility] Last Admin: 06/06/18 17:22 Dose: 1 tab Clonazepam (Klonopin) 0.25 mg PO BID PRN; Protocol PRN Reason: Anxiety Last Admin: 06/06/18 14:26 Dose: 0.25 mg Hydralazine HCl (Apresoline) 10 mg IVP Q6 PRN PRN Reason: Systolic Blood Pressure Last Admin: 06/04/18 12:36 Dose: 10 mg Hydromorphone HCl (Dilaudid) 0.5 mg IVP Q6H PRN PRN Reason: Pain, severe (8-10) Last Admin: 06/06/18 19:44 Dose: 0.5 mg Metoprolol Tartrate (Lopressor) 25 mg PO BID [facility] Last Admin: 06/06/18 17:20 Dose: 25 mg Ondansetron HCl (Zofran Inj) 4 mg IVP Q6H PRN PRN Reason: Nausea/Vomiting Last Admin: 06/05/18 20:07 Dose: 4 mg Pantoprazole Sodium (Protonix Inj) 40 mg IVP Q12 [facility] Last Admin: 06/06/18 21:50 Dose: 40 mg Polyethylene Glycol (Miralax) 17 gm PO BID [facility] Last Admin: 06/06/18 17:22 Dose: 17 gm Rivaroxaban (Xarelto) 20 mg PO DAILY [facility] PRN Reason: Protocol Last Admin: 06/06/18 09:20 Dose: 20 mg Zolpidem Tartrate (Ambien) 10 mg PO HS PRN; Protocol PRN Reason: Insomnia Last Admin: 06/06/18 22:37 Dose: 10 mg - Labs Labs: 06/05/18 06:00 06/05/18 06:00 PT 12.2 SECONDS (9.4-12.5) 06/03/18 22:10 INR 1.07 06/03/18 22:10 APTT 32.6 Seconds (25.1-36.5) 06/03/18 22:10 - Constitutional Appears: No Acute Distress - Eye Exam Eye Exam: Normal appearance - ENT Exam ENT Exam: Mucous Membranes Moist - Respiratory Exam Respiratory Exam: Decreased Breath Sounds, NORMAL BREATHING PATTERN - Cardiovascular Exam Cardiovascular Exam: +S1, +S2 - GI/Abdominal Exam GI & Abdominal Exam: Soft, Normal Bowel Sounds - Extremities Exam Extremities Exam: Normal Capillary Refill - Neurological Exam Neurological Exam: Alert, Awake, Oriented x3 - Psychiatric Exam Psychiatric exam: Normal Affect - Skin Skin Exam: Dry, Warm Assessment and Plan - Assessment and Plan (Free Text) Assessment: A 73 year old female who came in to the ER due to right sided abdominal pain, chronic back pain and chest pain. History of hypertension,pancreatic cancer stage III, post chemotherapy 05/05/18. Parkinson's disease,arthritis, diverticulitis,intractable headache.Prediabetic,cholecystectomy.Atypical chest pain.Chest pain attributing from anemia.Transfused 2 units of PRBC. H/H stable. Urinary tract infection on IV antibiotics. ECHO showed-mildly impaired systolic function LVEF 45%, Trace AR, Mild to moderate MR/TR, trace pericardial effusion Plan: clinically improved, denies nausea,denies headache,denies chest pain Heart rate and blood pressure stable Cardiac status stable On Lopressor 25 mg BID, Xarelto 20 mg daily GI on consult Off IV antibiotics per ID Continue current treatment Continue current medications Discharge planning Will follow up Plan and treatment discussed with Dr. Chan
[2018-06-07 08:03] LABS: HEMOGLOBIN 9.6 g/dL (12.0-16.0); MEAN CELL VOLUME 91.6 fl (80.0-105.0); MEAN CORPUSCULAR HEMOGLOBIN 30.9 pg (25.0-35.0); MEAN CORPUSCULAR HGB CONC 33.7 g/dl (31.0-37.0); MEAN PLATELET VOLUME 9.3 fl (7.0-11.0); RBC 3.11 10^6/uL (3.5-6.1); RED CELL DISTRIBUTION WIDTH 15.2 % (11.5-14.5); WHITE BLOOD COUNT 4.9 10^3/ul (4.5-11.0)
--- NOTE | 2018-06-07 08:34 | CP.PCM.PN ---
<HanselAni - Last Filed: 06/07/18 08:35> Subjective - Date & Time of Evaluation Date of Evaluation: 06/07/18 Time of Evaluation: 07:00 - Subjective Subjective: GI Fellow PGY5 Progress Note Pt seen and evaluated at bedside, doing well with no issues overnight. Pt having small brown BMs. Pt still reports back pain. No melena or hematochezia noted. ROS: A 12pt ROS was negative except as above. Objective - Vital Signs/Intake and Output Vital Signs (last 24 hours): Temp Pulse Resp BP Pulse Ox 98.7 F 68 20 115/74 99 06/07/18 00:01 06/07/18 06:00 06/07/18 00:01 06/07/18 00:01 06/07/18 00:01 Intake and Output: 06/07/18 06/07/18 06:59 18:59 Intake Total 120 Balance 120 - Medications Medications: Current Medications Carbidopa/Levodopa (Sinemet 10/100) 1 tab PO TID [facility] Last Admin: 06/06/18 17:22 Dose: 1 tab Clonazepam (Klonopin) 0.25 mg PO BID PRN; Protocol PRN Reason: Anxiety Last Admin: 06/06/18 14:26 Dose: 0.25 mg Hydralazine HCl (Apresoline) 10 mg IVP Q6 PRN PRN Reason: Systolic Blood Pressure Last Admin: 06/04/18 12:36 Dose: 10 mg Hydromorphone HCl (Dilaudid) 0.5 mg IVP Q6H PRN PRN Reason: Pain, severe (8-10) Last Admin: 06/06/18 19:44 Dose: 0.5 mg Metoprolol Tartrate (Lopressor) 25 mg PO BID [facility] Last Admin: 06/06/18 17:20 Dose: 25 mg Ondansetron HCl (Zofran Inj) 4 mg IVP Q6H PRN PRN Reason: Nausea/Vomiting Last Admin: 06/05/18 20:07 Dose: 4 mg Pantoprazole Sodium (Protonix Inj) 40 mg IVP Q12 [facility] Last Admin: 06/06/18 21:50 Dose: 40 mg Polyethylene Glycol (Miralax) 17 gm PO BID [facility] Last Admin: 06/06/18 17:22 Dose: 17 gm Rivaroxaban (Xarelto) 20 mg PO DAILY [facility] PRN Reason: Protocol Last Admin: 06/06/18 09:20 Dose: 20 mg Zolpidem Tartrate (Ambien) 10 mg PO HS PRN; Protocol PRN Reason: Insomnia Last Admin: 06/06/18 22:37 Dose: 10 mg - Labs Labs: 06/07/18 07:45 06/05/18 06:00 PT 12.2 SECONDS (9.4-12.5) 06/03/18 22:10 INR 1.07 06/03/18 22:10 APTT 32.6 Seconds (25.1-36.5) 06/03/18 22:10 - Constitutional Appears: Non-toxic, No Acute Distress - Head Exam Head Exam: ATRAUMATIC, NORMAL INSPECTION, NORMOCEPHALIC - Eye Exam Eye Exam: EOMI, Normal appearance, PERRL Pupil Exam: PERRL - ENT Exam ENT Exam: Mucous Membranes Moist - Neck Exam Neck Exam: Full ROM, Normal Inspection - Respiratory Exam Respiratory Exam: Clear to Ausculation Bilateral, NORMAL BREATHING PATTERN - Cardiovascular Exam Cardiovascular Exam: REGULAR RHYTHM, RRR, +S1, +S2 - GI/Abdominal Exam GI & Abdominal Exam: Distended, Soft, Normal Bowel Sounds. absent: Firm, Guarding, Rigid, Tenderness - Rectal Exam Rectal Exam: Deferred - Extremities Exam Extremities Exam: Full ROM, Normal Inspection - Back Exam Back Exam: Full ROM, NORMAL INSPECTION - Neurological Exam Neurological Exam: Alert, Awake, Oriented x3 - Psychiatric Exam Psychiatric exam: Normal Affect, Normal Mood - Skin Skin Exam: Dry, Intact, Normal Color, Warm Assessment and Plan - Assessment and Plan (Free Text) Assessment: This is a 73yF presenting with abdominal pain and found to be anemic. 1. Pancreatic adenocarcinoma s/p chemoradiation 2. Anemia 3. PE on Xarelto 4. Constipation 5. UTI Plan: -Continue supportive care with pain control and anti-emetics -Pt clinically improving -No active GI bleeding, hemodynamically stable -H/H stable s/p 2U -Continue monitor H/H, CBC ordered this a, -Diet as tolerated -Bowel regimen with miralax BID -Continue xarelto for hx of PE -Abx per ID for UTI -LFTs wnl no signs of obstruction, recent CT imaging at [place] -Repeat CT with fecal retention and pancreatic mass -From GI perspective pt okay for discharge home on bowel regimen and followup with GI doctor as an outpt <Shaw Paiz - Last Filed: 06/07/18 08:40> Objective - Vital Signs/Intake and Output Vital Signs (last 24 hours): Temp Pulse Resp BP Pulse Ox 98.7 F 68 20 115/74 99 06/07/18 00:01 06/07/18 06:00 06/07/18 00:01 06/07/18 00:01 06/07/18 00:01 Intake and Output: 06/07/18 06/07/18 06:59 18:59 Intake Total 120 Balance 120 - Medications Medications: Current Medications Carbidopa/Levodopa (Sinemet 10/100) 1 tab PO TID [facility] Last Admin: 06/06/18 17:22 Dose: 1 tab Clonazepam (Klonopin) 0.25 mg PO BID PRN; Protocol PRN Reason: Anxiety Last Admin: 06/06/18 14:26 Dose: 0.25 mg Hydralazine HCl (Apresoline) 10 mg IVP Q6 PRN PRN Reason: Systolic Blood Pressure Last Admin: 06/04/18 12:36 Dose: 10 mg Hydromorphone HCl (Dilaudid) 0.5 mg IVP Q6H PRN PRN Reason: Pain, severe (8-10) Last Admin: 06/06/18 19:44 Dose: 0.5 mg Metoprolol Tartrate (Lopressor) 25 mg PO BID [facility] Last Admin: 06/06/18 17:20 Dose: 25 mg Ondansetron HCl (Zofran Inj) 4 mg IVP Q6H PRN PRN Reason: Nausea/Vomiting Last Admin: 06/05/18 20:07 Dose: 4 mg Pantoprazole Sodium (Protonix Inj) 40 mg IVP Q12 [facility] Last Admin: 06/06/18 21:50 Dose: 40 mg Polyethylene Glycol (Miralax) 17 gm PO BID [facility] Last Admin: 06/06/18 17:22 Dose: 17 gm Rivaroxaban (Xarelto) 20 mg PO DAILY [facility] PRN Reason: Protocol Last Admin: 06/06/18 09:20 Dose: 20 mg Zolpidem Tartrate (Ambien) 10 mg PO HS PRN; Protocol PRN Reason: Insomnia Last Admin: 06/06/18 22:37 Dose: 10 mg - Labs Labs: 06/07/18 07:45 06/05/18 06:00 PT 12.2 SECONDS (9.4-12.5) 06/03/18 22:10 INR 1.07 06/03/18 22:10 APTT 32.6 Seconds (25.1-36.5) 06/03/18 22:10 Attending/Attestation - Attestation I have personally seen and examined this patient.: Yes I have fully participated in the care of the patient.: Yes I have reviewed all pertinent clinical information, including history, physical exam and plan: Yes Notes (Text): 06/07/18 08:38 I have seen and examined patient with GI fellow. No acute events overnight, she is seen resting in bed comfortably. She denies abdominal pain, nausea, vomiting, fever/chills. Tolerating PO diet without difficulty. She had a normal formed non-bloody bowel movement yesterday. Review of vitals from today are normal. PE on xarelto Pancreatic cancer s/p chemotherapy Constipation UTI Chronic back pain - Diet as tolerated - H/H stable, no clinical features of overt bleeding, continue to monitor - Maintain bowel regimen to prevent constipation - Continue with antibiotic therapy as per ID - No further planned GI intervention, patient requires additional outpatient oncology follow up, patient claims she has an appointment coming up in June. Will sign off case, please reconsult as necessary, thank you.
[2018-06-07 08:40] VITALS: BP 141/95; RESP 18; TEMP 99.1; O2SAT 100
--- NOTE | 2018-06-07 09:06 | PN ---
Copied To: Kristen Prabhakar MD Attending MD: Kristen Prabhakar MD DATE: 06/05/2018 SUBJECTIVE: The patient is seen and examined on the bedside, feeling better. No fever. No chills. Headache is better. Shortness of breath is better. Abdominal pain is better, but has episode of nauseousness, got Zofran. No hematuria. No hematochezia. PHYSICAL EXAMINATION: VITAL SIGNS: Temperature 98.4, pulse 73, respiratory rate 18, blood pressure 132/85, pulse oximetry 99. HEENT: Head normocephalic, atraumatic. Eyes PERRLA. Extraocular muscles intact. Conjunctivae clear. Nose patent. Mucous membrane moist. NECK: Supple. No carotid bruit. No JVD or thyromegaly. CHEST: Bilaterally symmetrical. HEART: S1 and S2 positive. LUNGS: Clear to auscultation. ABDOMEN: Soft. Bowel sounds positive. No organomegaly. EXTREMITIES: No edema. No cyanosis. NEUROLOGICAL: The patient is awake and alert. Moving all 4 extremities. No focal deficits. MEDICATIONS: Sinemet, Klonopin, hydralazine, Dilaudid, Maxipime, Lopressor, Protonix, MiraLax, Ambien. LABORATORY DATA: White blood cells 6.7, hemoglobin 9.9, hematocrit 29.5, platelets 177. Sodium 140, potassium 4.2, BUN 70, creatinine 1.4, glucose 94. ASSESSMENT AND PLAN: Ms. Wanda Obrien, 73-year-old female with anemia, hyperchloremia. Came with right-sided abdominal pain, chronic back pain, chest pain. History of hypertension; pancreatic cancer stage III, post chemotherapy; Parkinson's disease; arthritis; diverticulitis; intractable headache; prediabetic; cholecystectomy; atypical chest pain; anemia, got blood transfusion of 2 units of packed RBC. Seen by customs appraiser, they are planning to do echocardiogram to evaluate left ventricular function. Last night, the patient had episodes of headache. Tylenol was not working. Percocet was not working. Even, Fioricet was not working. Then, we have to give doses of Dilaudid. Now, feeling better. On Lopressor. GI/DVT prophylaxis. Troponin is normal. Seen by Infectious Disease, Dr. Villafana. The patient has history of hysterectomy, bladder surgery, has urinary tract infection. Today is day 2 of cefepime with negative urine culture and we will check the blood culture. Has CAT scan of the abdomen, result pending. We will check the CAT scan. We will talk to the family. Seen by GI. History of pulmonary embolism, on Xarelto; constipation. Continue supportive care with pain control and antiemetic. No active GI bleeding. Hemodynamically stable. Rectal exam negative for melena or hematochezia. Continue to monitor H and H. Diet as tolerated. No plan for endoscopic evaluation at this time as per GI. No signs of obstruction on recent CAT scan imaging at [facility] [place]. Pain management, repeat labs. We will follow up. Kristen Prabhakar MD
[2018-06-07] MEDS: POLYETHYLENE GLYCOL 3350 17 GM/Dose PACKET PO SCH (09:16)
[2018-06-07] MEDS: HYDROmorphone 0.5 mg/0.5 ml ISec IVP PRN (10:05)
[2018-06-07] MEDS ORDERED: Pantoprazole 40 mg EC Tab PO SCH (10:13)
[2018-06-07 10:32] VITALS: PULSE 76
--- NOTE | 2018-06-07 18:04 | CP.PCM.PN ---
Subjective - Date & Time of Evaluation Date of Evaluation: 06/07/18 Time of Evaluation: 11:10 - Subjective Subjective: Comfortable, afebrile. Objective - Vital Signs/Intake and Output Vital Signs (last 24 hours): Temp Pulse Resp BP Pulse Ox 99.1 F 76 18 141/95 H 100 06/07/18 08:40 06/07/18 10:00 06/07/18 08:40 06/07/18 09:16 06/07/18 08:40 Intake and Output: 06/07/18 06/07/18 06:59 18:59 Intake Total 120 Balance 120 - Medications Medications: Current Medications Carbidopa/Levodopa (Sinemet 10/100) 1 tab PO TID [facility] Last Admin: 06/07/18 09:17 Dose: 1 tab Clonazepam (Klonopin) 0.25 mg PO BID PRN; Protocol PRN Reason: Anxiety Last Admin: 06/06/18 14:26 Dose: 0.25 mg Hydralazine HCl (Apresoline) 10 mg IVP Q6 PRN PRN Reason: Systolic Blood Pressure Last Admin: 06/04/18 12:36 Dose: 10 mg Hydromorphone HCl (Dilaudid) 0.5 mg IVP Q6H PRN PRN Reason: Pain, severe (8-10) Last Admin: 06/07/18 10:05 Dose: 0.5 mg Metoprolol Tartrate (Lopressor) 25 mg PO BID [facility] Last Admin: 06/07/18 09:16 Dose: 25 mg Ondansetron HCl (Zofran Inj) 4 mg IVP Q6H PRN PRN Reason: Nausea/Vomiting Last Admin: 06/05/18 20:07 Dose: 4 mg Pantoprazole Sodium (Protonix Ec Tab) 40 mg PO Q12 [facility] Polyethylene Glycol (Miralax) 17 gm PO BID [facility] Last Admin: 06/07/18 09:16 Dose: 17 gm Rivaroxaban (Xarelto) 20 mg PO DAILY [facility] PRN Reason: Protocol Last Admin: 06/07/18 09:17 Dose: 20 mg Zolpidem Tartrate (Ambien) 10 mg PO HS PRN; Protocol PRN Reason: Insomnia Last Admin: 06/06/18 22:37 Dose: 10 mg - Labs Labs: 06/07/18 07:45 06/05/18 06:00 PT 12.2 SECONDS (9.4-12.5) 06/03/18 22:10 INR 1.07 06/03/18 22:10 APTT 32.6 Seconds (25.1-36.5) 06/03/18 22:10 - Constitutional Appears: Chronically Ill - Head Exam Head Exam: NORMAL INSPECTION - Respiratory Exam Respiratory Exam: Decreased Breath Sounds - Cardiovascular Exam Cardiovascular Exam: +S1, +S2 - GI/Abdominal Exam GI & Abdominal Exam: Soft. absent: Tenderness Assessment and Plan - Assessment and Plan (Free Text) Plan: Assessment chronic abdominal pain without evidence of UTI on cultures and no evidence of intra-abdominal infection on CT scan of the abdomen and pelvis HTN pancreatic cancer diagnosed in 2016 on has been on chemotherapy weekly history of diverticulitis S/P laparoscopic cholecystectomy S/P hysterectomy S/P bladder surgery Plan will continue to monitor clinically off antibiotics since she is at risk for hospital-acquired infections overall prognosis is poor
== END 2018-06-07 15:32 | disposition home or self-care (01) | DRG 812 ==
LOC: ED 20:16 → ERH 06-04 00:54 → 3RSO 06-04 03:11 → OBSVTOIN 06-04 15:07
PROVIDERS: ADMIT Internal Medicine; ATTEND Internal Medicine
PROC: 30233N1 Transfusion of Nonautologous Red Blood Cells into Peripheral Vein, Percutaneous Approach (ICD-10-PCS; principal; 2018-06-04)
DX: D50.9 Iron deficiency anemia, unspecified (principal); C25.9 Malignant neoplasm of pancreas, unspecified; N39.0 Urinary tract infection, site not specified; R07.89 Other chest pain; I10 Essential (primary) hypertension; G20 Parkinson's disease; R73.03 Prediabetes; K59.00 Constipation, unspecified; M54.9 Dorsalgia, unspecified; G89.29 Other chronic pain; N28.1 Cyst of kidney, acquired; M19.90 Unspecified osteoarthritis, unspecified site; G43.909 Migraine, unspecified, not intractable, without status migrainosus; G47.00 Insomnia, unspecified; I36.1 Nonrheumatic tricuspid (valve) insufficiency; I27.20 Pulmonary hypertension, unspecified; E87.8 Other disorders of electrolyte and fluid balance, not elsewhere classified; Z86.711 Personal history of pulmonary embolism; Z79.01 Long term (current) use of anticoagulants; Z92.21 Personal history of antineoplastic chemotherapy; Z92.3 Personal history of irradiation; Z85.038 Personal history of other malignant neoplasm of large intestine

== ENCOUNTER 2018-10-27 20:05 | Observation (INO) | payer MEDICARE ==
[2018-10-27 20:05] VITALS: BMI 21.1
--- NOTE | 2018-10-27 20:36 | ED PDOC ---
Arrival/HPI - General Chief Complaint: Abdominal Pain Time Seen by Provider: 10/27/18 20:31 Historian: Patient, Family - History of Present Illness Narrative History of Present Illness (Text): 10/27/18 20:35 Wanda Obrien is a 73 year old female, whose past medical history includes pancreatitic cancer (not currently on chemotherapy), hypertension, cholecystectomy, diverticulitis, and Parkinson's disease, who presents to the Em ergency department complaining of abdominal pain. Patient states she has been experiencing generalized abdominal pain for 1 week and has not had a bowel movement over the past few days. Relative notes patient has not been eating and appears dehydrated. Patient reports 1 episode of vomiting 2 days prior. Patient denies any fever, chills, chest pain, shortness of breath, diarrhea, urinary symptoms, back pain, neck pain, headache, dizziness, or any other complaints. Symptom Onset: Gradual Symptom Course: Unchanged Activities at Onset: Light Context: Home Past Medical History - Provider Review Nursing Documentation Reviewed: Yes - Infectious Disease Hx of Infectious Diseases: None - Cardiac Hx Cardiac Disorders: Yes Hx Hypertension: Yes - Pulmonary Hx Respiratory Disorders: No - Neurological Hx Neurological Disorder: Yes Hx Parkinson's Disease: Yes - HEENT Hx HEENT Disorder: No - Renal Hx Renal Disorder: No - Endocrine/Metabolic Hx Endocrine Disorders: Yes - Hematological/Oncological Hx Blood Disorders: Yes Hx Cancer: Yes (PANCREATIC) - Integumentary Hx Dermatological Disorder: No - Musculoskeletal/Rheumatological Hx Musculoskeletal Disorders: Yes Hx Arthritis: Yes Hx Back Pain: Yes - Gastrointestinal Hx Gastrointestinal Disorders: Yes Hx Diverticulitis: Yes - Genitourinary/Gynecological Hx Genitourinary Disorders: No - Psychiatric Hx Psychophysiologic Disorder: No Hx Substance Use: No - Surgical History Hx Hysterectomy: Yes - Anesthesia Hx Anesthesia: Yes Hx Anesthesia Reactions: No Hx Malignant Hyperthermia: No - Suicidal Assessment Feels Threatened In Home Enviroment: No Family/Social History - Physician Review Nursing Documentation Reviewed: Yes Family/Social History: Unknown Family HX Smoking Status: Never Smoked Hx Alcohol Use: No Hx Substance Use: No Allergies/Home Meds Allergies/Adverse Reactions: Allergies No Known Allergies Allergy (Verified 10/27/18 20:32) Home Medications: Home Meds Medication Instructions Recorded Confirmed Rivaroxaban [Xarelto] 20 mg PO DAILY 10/23/17 06/03/18 Zolpidem [Ambien] 10 mg PO HS PRN 06/04/18 06/04/18 Review of Systems - Physician Review All systems were reviewed & negative as marked: Yes - Review of Systems Constitutional: Normal. absent: Fevers Eyes: Normal ENT: Normal Respiratory: Normal. absent: SOB, Cough Cardiovascular: Normal. absent: Chest Pain Gastrointestinal: Abdominal Pain, Constipation, Vomiting, Appetite Changes (+no appetite) Genitourinary Female: Normal. absent: Dysuria, Hematuria, Urine Output Changes Musculoskeletal: Normal. absent: Back Pain, Neck Pain Skin: Normal. absent: Rash Neurological: Normal. absent: Headache, Dizziness Endocrine: Normal Hemo/Lymphatic: Normal Psychiatric: Normal Physical Exam Vital Signs Reviewed: Yes Vital Signs Temp Pulse Resp BP Pulse Ox 10/27/18 20:31 99.4 F 90 18 150/76 97 Temperature: Afebrile Blood Pressure: Normal Pulse: Regular Respiratory Rate: Normal Appearance: Positive for: Well-Appearing, Non-Toxic, Comfortable Pain Distress: None Mental Status: Positive for: Alert and Oriented X 3 - Systems Exam Head: Present: Atraumatic, Normocephalic Pupils: Present: PERRL Extroacular Muscles: Present: EOMI Conjunctiva: Present: Normal Mouth: Present: Dry Neck: Present: Normal Range of Motion Respiratory/Chest: Present: Clear to Auscultation, Good Air Exchange. No: Respiratory Distress, Accessory Muscle Use Cardiovascular: Present: Regular Rate and Rhythm, Normal S1, S2. No: Murmurs Abdomen: No: Tenderness, Distention, Peritoneal Signs Back: Present: Normal Inspection Upper Extremity: Present: Normal Inspection. No: Cyanosis, Edema Lower Extremity: Present: Normal Inspection. No: Edema Neurological: Present: GCS=15, CN II-XII Intact, Speech Normal Skin: Present: Warm, Dry, Normal Color. No: Rashes Psychiatric: Present: Alert, Oriented x 3, Normal Insight, Normal Concentration Medical Decision Making ED Course and Treatment: 10/27/18 20:35 Impression: 73 year old female complaining of abdominal pain, loss of appetite, constipation, and 1 episode of vomiting. Plan: -- CT Abdomen and Pelvis w/o contrast -- EKG -- Chest X-ray -- Labs, lipase -- IV fluids -- Zofran -- Morphine -- Reassess and disposition Prior Visits: Notes and results from previous visits were reviewed. Progress Notes: Reviewed EKG, NSR at 76 bpm. Wavy baseline. Non-specific ST/T wave changes. 10/27/18 21:11 Chest X-ray reviewed, shows no acute processes. 10/27/18 23:12 CT Abdomen and Pelvis Lower thorax Bibasilar scarring is seen. Heart is moderately enlarged. Small pericardial effusion is seen. Liver Unremarkable. No gross lesion or ductal dilatation. Gallbladder and bile ducts Status post cholecystectomy. Pancreas Unremarkable. No gross lesion or ductal dilatation. Spleen Unremarkable. Adrenals Unremarkable. No mass. Kidneys and ureters No hydronephrosis. No solid mass. There are several bilateral renal cysts present; the largest in the right kidney is mostly exophytic and measures 10.5 x 8 cm, the largest in the left kidney is located in the mid pole, partially ex ophytic and measures 3.5 cm in diameter. Vasculature Unremarkable. No aortic aneurysm. Bowel There are postsurgical changes present in the lower abdomen. There is a distended loop of bowel containing feces noted in the right lower quadrant proximal to anastamosis measuring up to 5 cm in caliber. Terminal ileum appears to be collapsed. This is consistent with bowel obstruction, consider fo llow up with CT performed with oral contrast for confirmation. There is diffuse diverticulosis noted involving descending and sigmoid colon without evidence of acute diverticulitis. Appendix Normal appendix. Peritoneum Unremarkable. No free fluid. No free air. Lymph nodes Unremarkable. No enlarged lymph nodes. Bladder Unremarkable. Reproductive Unremarkable. Bones No acute fracture. Other Findings None. Impression Findings consistent with bowel obstruction, possibly partial. Consider follow up with CT performed with oral contrast for confirmation. Diffuse diverticulosis involving descending and sigmoid colon without evidence of acute diverticulitis. Several bilateral renal cysts. Bibasilar scarring. Moderately-enlarged heart with small pericardial effusion seen. Electronically signed on Oct 27, 2018 11:10:18 PM EST by: Juvencio Lazo M.D., TO Certified By [facility] Fellowship Trained MRI and CT Specialist 10/27/18 23:[address] Prabhakar, who is aware and agrees with plan. Accepts pt in to her service. Pt [facility] go to [facility] observation for partial bowel obstruction. Requests Dr. Lomeli on consult. - [employer] Development Analyst: ED Physician - EKG Interpretation Interpreted by ED Physician: Yes Type: 12 lead EKG - Scribe Statement The provider has reviewed the documentation as recorded by the Scribe Sandee Mitchell Provider Scribe Attestation: All medical record entries made by the Scribe were at my direction and personally dictated by me. I have reviewed the chart and agree that the record accurately reflects my personal performance of the history, physical exam, medical decision making, and the department course for this patient. I have also personally directed, reviewed, and agree with the discharge instructions and disposition. Disposition/Present on Arrival - Present on Arrival Any Indicators Present on Arrival: No History of DVT/PE: No History of Uncontrolled Diabetes: No Urinary Catheter: No History of Decub. Ulcer: No History Surgical Site Infection Following: None - Disposition Have Diagnosis and Disposition been Completed?: Yes Diagnosis: Partial bowel obstruction Disposition: HOSPITALIZED Disposition Time: 23:28 Patient Plan: Observation Patient Problems: Current Active Problems Problem Status Onset Partial bowel obstruction Acute Condition: STABLE Referrals: Kristen Prabhakar MD [Primary Care Provider] - Follow up with primary Forms: [employer] ([place])
[2018-10-27] MEDS ORDERED: Morphine 2 mg/ml ISec IVP STA (20:39)
[2018-10-27] MEDS ORDERED: Sodium Chloride 0.9% 1,000 ML IV STA ×2 (20:39→23:34)
[2018-10-27 21:46] LABS: MEAN CELL VOLUME 92.3 fl (80.0-105.0); MEAN CORPUSCULAR HEMOGLOBIN 30.9 pg (25.0-35.0); MEAN CORPUSCULAR HGB CONC 33.4 g/dl (31.0-37.0); MEAN PLATELET VOLUME 8.5 fl (7.0-11.0); RBC 3.24 10^6/uL (3.5-6.1); RED CELL DISTRIBUTION WIDTH 13.6 % (11.5-14.5); WHITE BLOOD COUNT 4.4 10^3/uL (4.5-11.0)
[2018-10-27 21:56] LABS: ALB/GLOB RATIO 1.5 (1.1-1.8); ALBUMIN 4.4 g/dL (3.0-4.8); ALT/SGPT 23 U/L (7-56); AST/SGOT 30 U/L (14-36); BLOOD UREA NITROGEN 14 mg/dL (7-21); CALCIUM 9.6 mg/dL (8.4-10.5); GFR NON-AFRICAN AMERICAN 54
[2018-10-27 21:57] LABS: LIPASE < 10 U/L (23-300)
[2018-10-28 00:02] VITALS: RESP 18
[2018-10-28] MEDS ORDERED: Pneumococcal 23-Valent Vaccine IM ONE (02:12)
[2018-10-28] MEDS ORDERED: Influenza Vaccine 60 mcg/0.5 mL SYR (4YR UP) IM ONE (02:12)
--- NOTE | 2018-10-28 07:49 | RAD ---
Date of service: 10/27/2018 HISTORY: abdominal pain COMPARISON: Portable chest 10/25/2017. FINDINGS: Right MediPort unchanged in position. LUNGS: No active pulmonary disease. PLEURA: No significant pleural effusion identified, no pneumothorax apparent. CARDIOVASCULAR: No aortic atherosclerotic calcification present. Normal cardiac size. No pulmonary vascular congestion. OSSEOUS STRUCTURES: No significant abnormalities. VISUALIZED UPPER ABDOMEN: Normal. OTHER FINDINGS: None. IMPRESSION: No interval acute cardiopulmonary disease appreciated.
--- NOTE | 2018-10-28 08:32 | CT ---
Date of service: 10/27/2018 PROCEDURE: CT Abdomen and Pelvis without intravenous contrast HISTORY: pain COMPARISON: Noncontrast abdomen pelvis CT 06/04/2018. TECHNIQUE: Helical CT of the abdomen and pelvis was performed without oral or intravenous contrast as per referring physician request. Coronal and sagittal reformats were generated. Contrast dose: None Radiation dose: Total exam DLP = 233.52 mGy-cm. This CT exam was performed using one or more of the following dose reduction techniques: Automated exposure control, adjustment of the mA and/or kV according to patient size, and/or use of iterative reconstruction technique. FINDINGS: LOWER THORAX: Cardiomegaly with tip of right MediPort noted in right atrium. Trace pericardial effusion identified in the interval. No pleural effusion identified or discrete mass once again. LIVER: Unremarkable. No gross lesion or ductal dilatation. GALLBLADDER AND BILE DUCTS: Prior cholecystectomy. PANCREAS: Unremarkable. No gross lesion or ductal dilatation. SPLEEN: Unremarkable. ADRENALS: Unremarkable. No mass. KIDNEYS AND URETERS: Right renal parenchyma is displaced inferomedially by large exophytic cyst related to the upper and midpole right kidney measuring 7.9 x 10.2 by 10.8 cm. A 4.2 cm midpole left renal cyst is exophytic laterally and there is a small lower pole left renal cyst measuring 2.0 cm. No obstructive uropathy bilaterally or radiodense urolithiasis appreciable. VASCULATURE: Nonaneurysmal abdominal aortic calcific atherosclerotic changes are identified. BOWEL: Moderate retained fecal material seen in the large bowel without obstruction evident. Prominent retained fecal material seen within the large bowel segment of the apparent transverse colon with chain sutures noted once again. Sigmoid diverticulosis is appreciate without definite diverticulitis. APPENDIX: Not identified. No CT evidence of appendicitis. PERITONEUM: Unremarkable. No free fluid. No free air. LYMPH NODES: Unremarkable. No enlarged lymph nodes. BLADDER: Unremarkable. REPRODUCTIVE: Prior hysterectomy reiterated. BONES: No acute fracture. OTHER FINDINGS: None. IMPRESSION: 1. Prominent retained fecal material seen within the transverse colon including a segment that contains chain sutures once again. Clinically correlate as the type of prior colonic surgery experience by this patient. No definite bowel obstruction or free intra peritoneal gas collection. No ascites. 2. Colonic diverticulosis without diverticulitis. 3. Bilateral renal cysts including all 10.8 cm right renal cyst displacing the right kidney inferomedially somewhat. No obstructive uropathy bilaterally. 4. Prior cholecystectomy. 5. Prior hysterectomy. Concordant preliminary report from Jose Daniel, 10/27/2017 11:10 p.m..
[2018-10-28] MEDS ORDERED: HYDROmorphone 0.5 mg/0.5 ml ISec IVP PRN (10:40)
[2018-10-28] MEDS: POLYETHYLENE GLYCOL 3350 17 GM/Dose PACKET PO SCH ×4 (11:08→21:29)
--- NOTE | 2018-10-28 13:12 | CP.PCM.CON ---
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 She states over the last several days she has had generalized abd pain associated with decreased appetite. She states that she has not moved her bowels in the last several days. She reports chronic opioid use, perhaps oxycodone. She denied being on any kind of bowel regimen. She denied any weight loss nor signs of GI bleed. Colonoscopy 09/2014 showing diverticular bleeding s/p epinephrine injection. 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 12 point ROS negative other than stated above MHx: See above SurgHx: CCx, R hemicolectomy Meds: Reviewed in [facility] SocHx: Denies tobacco, etoh or drugs FamHx: Neg for colon cancer All: NKDA Past Patient History - Infectious Disease Hx of Infectious Diseases: None - Past Medical History & Family History Past Medical History?: Yes - Past Social History Smoking Status: Never Smoked - CARDIAC Hx Cardiac Disorders: Yes Hx Hypertension: Yes - PULMONARY Hx Respiratory Disorders: No Other/Comment: pulmonary embolism - NEUROLOGICAL Hx Neurological Disorder: Yes Hx Parkinson's Disease: Yes - HEENT Hx HEENT Problems: No - RENAL Hx Chronic Kidney Disease: No - ENDOCRINE/METABOLIC Hx Endocrine Disorders: Yes - HEMATOLOGICAL/ONCOLOGICAL Hx Blood Disorders: Yes Hx Cancer: Yes (PANCREATIC) - INTEGUMENTARY Hx Dermatological Problems: No - MUSCULOSKELETAL/RHEUMATOLOGICAL Hx Musculoskeletal Disorders: Yes Hx Arthritis: Yes Hx Back Pain: Yes Hx Falls: No - GASTROINTESTINAL Hx Diverticulitis: Yes - GENITOURINARY/GYNECOLOGICAL Hx Genitourinary Disorders: No - PSYCHIATRIC Hx Anxiety: Yes - SURGICAL HISTORY Hx Cholecystectomy: Yes Hx Hysterectomy: Yes - ANESTHESIA Hx Anesthesia: Yes Hx Anesthesia Reactions: No Hx Malignant Hyperthermia: No Meds Allergies/Adverse Reactions: Allergies Allergy/AdvReac Type Severity Reaction Status Date / Time No Known Allergies Allergy Verified 10/27/18 20:32 - Medications Medications: Current Medications Hydromorphone HCl (Dilaudid) 0.5 mg IVP Q6H PRN PRN Reason: Pain, moderate (4-7) Last Admin: 10/28/18 11:08 Dose: 0.5 mg Polyethylene Glycol (Miralax) 17 gm PO QID IRVIN Last Admin: 10/28/18 11:08 Dose: 17 gm Physical Exam - Constitutional Appears: Well, No Acute Distress - Head Exam Head Exam: ATRAUMATIC, NORMAL INSPECTION - Eye Exam Eye Exam: EOMI. absent: Scleral icterus - ENT Exam ENT Exam: Mucous Membranes Moist. absent: Mucous Membranes Dry - Respiratory Exam Respiratory Exam: NORMAL BREATHING PATTERN. absent: Accessory Muscle Use, Respiratory Distress - Cardiovascular Exam Cardiovascular Exam: REGULAR RHYTHM, RRR - GI/Abdominal Exam GI & Abdominal Exam: Hypoactive Bowel Sounds, Soft. absent: Bruit, Diminished Bowel Sounds, Distended, Firm, Guarding, Hernia, Organomegaly, Pulsatile Mass, Rebound, Rigid, Tenderness - Rectal Exam Rectal Exam: Deferred - Extremities Exam Extremities exam: Positive for: normal inspection. Negative for: pedal edema - Neurological Exam Neurological exam: Alert, CN II-XII Intact - Psychiatric Exam Psychiatric exam: Normal Affect, Normal Mood - Skin Skin Exam: Normal Color, Warm Results - Vital Signs Recent Vital Signs: Last Vital Signs Temp 98.6 F 10/28/18 06:00 Pulse 74 10/28/18 06:00 Resp 18 10/28/18 06:00 BP 118/78 10/28/18 06:00 Pulse Ox 99 10/28/18 06:00 - Labs Result Diagrams: 10/27/18 21:30 10/27/18 21:30 Labs: Laboratory Results - last 24 hr 10/27/18 10/27/18 21:30 21:30 WBC 4.4 L RBC 3.24 L Hgb 10.0 L Hct 29.9 L MCV 92.3 MCH 30.9 MCHC 33.4 RDW 13.6 Plt Count 151 MPV 8.5 Sodium 140 Potassium 3.5 L Chloride 108 H Carbon Dioxide 24 Anion Gap 12 BUN 14 Creatinine 1.0 Est GFR ( Amer) > 60 Est GFR (Non-Af Amer) 54 Random Glucose 110 Calcium 9.6 Total Bilirubin 0.6 AST 30 ALT 23 Alkaline Phosphatase 102 Total Protein 7.3 Albumin 4.4 Globulin 2.9 Albumin/Globulin Ratio 1.5 Lipase < 10 L Assessment & Plan - Assessment and Plan (Free Text) Assessment: 73 yo BF presenting with abdominal pain and found to have large stool burden. # Abd pain: Due to large stool burden/constipation. No signs of obstruction on CT. Pt with chronic opioid use putting at risk and was not on bowel regimen. # Pancreatic adenocarcinoma s/p chemoradiation # PE on rivaroxaban # Cecal CA s/p R hemicolectomy with reanastamosis Plan: - Clear Liq Diet - Miralax QID - Limit narcotics as able - Monitor response Pt seen and examined with Dr. Lomeli; please see attestation for further recs/changes. <Milly Lomeli V - Last Filed: 10/28/18 21:07> Meds - Medications Medications: Current Medications Carbidopa/Levodopa (Sinemet /) 1 tab PO TID [facility] Last Admin: 10/28/18 17:24 Dose: 1 tab Clonazepam (Klonopin) 0.25 mg PO BID PRN; Protocol PRN Reason: Anxiety Last Admin: 10/28/18 17:23 Dose: 0.25 mg Hydromorphone HCl (Dilaudid) 0.5 mg IVP Q6H PRN PRN Reason: Pain, moderate (4-7) Last Admin: 10/28/18 11:08 Dose: 0.5 mg Metoprolol Tartrate (Lopressor) 25 mg PO BID [facility] Last Admin: 10/28/18 17:24 Dose: 25 mg Polyethylene Glycol (Miralax) 17 gm PO QID [facility] Last Admin: 10/28/18 18:55 Dose: 17 gm Rivaroxaban (Xarelto) 20 mg PO DAILY [facility]; Protocol Zolpidem Tartrate (Ambien) 5 mg PO HS PRN; Protocol PRN Reason: Insomnia Results - Vital Signs Recent Vital Signs: Last Vital Signs Temp 98.6 F 10/28/18 14:00 Pulse 77 10/28/18 17:24 Resp 18 10/28/18 14:00 BP 129/79 10/28/18 17:24 Pulse Ox 98 10/28/18 14:00 - Labs Result Diagrams: 10/27/18 21:30 10/27/18 21:30 Labs: Laboratory Results - last 24 hr 10/27/18 10/27/18 21:30 21:30 WBC 4.4 L RBC 3.24 L Hgb 10.0 L Hct 29.9 L MCV 92.3 MCH 30.9 MCHC 33.4 RDW 13.6 Plt Count 151 MPV 8.5 Sodium 140 Potassium 3.5 L Chloride 108 H Carbon Dioxide 24 Anion Gap 12 BUN 14 Creatinine 1.0 Est GFR ( Amer) > 60 Est GFR (Non-Af Amer) 54 Random Glucose 110 Calcium 9.6 Total Bilirubin 0.6 AST 30 ALT 23 Alkaline Phosphatase 102 Total Protein 7.3 Albumin 4.4 Globulin 2.9 Albumin/Globulin Ratio 1.5 Lipase < 10 L Attending/Attestation - Attestation I have personally seen and examined this patient.: Yes I have fully participated in the care of the patient.: Yes I have reviewed all pertinent clinical information: Yes Notes (Text): This is an addendum to GI consult report dictated by the GI Fellow. The patient was seen and examined earlier. Medical records, lab studies, imagings were reviewed. Last 24 hours events reviewed. Agreed with the above treatment plan as outlined in GI Fellow 's notes with the addition of the following this 70-year-old patient with a pancreatic CA status post chemoradiation being followed at [facility] was admitted with abdominal pain CT scan was reviewed slowed a large amount of stool Would start the patient on bowel clearence regimen initially with MiraLAX 4 times a day and consider Relistor if no improvement Patient is on Xarelto for history of PE 10/28/18 21:04
--- NOTE | 2018-10-28 14:46 | CP.PCM.PCO ---
Physician Communication Note - Physician Communication Note Physician Communication Note: continue with bowel regiment will reeval in am
--- NOTE | 2018-10-28 20:29 | CARD ---
APPROVED REPORT Date of service: 10/27/2018 EKG Measurement Heart [id number] <Conclusion> Normla sinus rhythm Nonspecific ST and T wave abnormality Abnormal ECG
[2018-10-29 06:44] LABS: HEMOGLOBIN 8.6 g/dL (12.0-16.0); MEAN CELL VOLUME 92.7 fl (80.0-105.0); MEAN CORPUSCULAR HEMOGLOBIN 31.3 pg (25.0-35.0); MEAN CORPUSCULAR HGB CONC 33.7 g/dl (31.0-37.0); MEAN PLATELET VOLUME 8.7 fl (7.0-11.0); RBC 2.75 10^6/uL (3.5-6.1); RED CELL DISTRIBUTION WIDTH 13.8 % (11.5-14.5); WHITE BLOOD COUNT 3.1 10^3/uL (4.5-11.0)
[2018-10-29 06:52] LABS: IRON 44 ug/dL (45-180)
[2018-10-29 07:04] LABS: % IRON SATURATION 17 % (20-55); TOTAL IRON BINDING CAPACITY 254 ug/dL (265-497)
--- NOTE | 2018-10-29 08:18 | HP ---
DATE OF EXAM: 10/28/2018 CHIEF COMPLAINT: Abdominal pain. HISTORY OF PRESENT ILLNESS: Ms. Obrien is a 73-year-old female with past medical history of pancreatic cancer, got chemotherapy from [facility], has history of hypertension, cholecystectomy, diverticulitis, Parkinson's disease, came to the emergency department complaining of about abdominal pain. The patient stated that she was being experiencing generalized abdominal pain for one week and has not had bowel movements over the past few days. The patient is not eating very well and appears dehydrated. The patient reported one episode of vomiting two days ago. No fever. No chills. No hematuria. No hematochezia. No headaches. No dizziness. Readmitted the patient. Called GI consult. PAST MEDICAL HISTORY: As above; hypertension, Parkinson's disease, arthritis, back pain, diverticulitis, and hysterectomy. FAMILY HISTORY: Father and mother, noncontributory. HABITS: Never smoker. No drugs. No ethanol. ALLERGIES: THE PATIENT IS NOT ALLERGIC WITH ANY MEDICATIONS. HOME MEDICATIONS: Xarelto and Ambien. REVIEW OF SYSTEMS: The patient was seen and examined at the bedside. Daughter was sitting on the bedside also, feeling better, still nauseous and abdominal pain. Appetite is not great. No fever. No chills. No shortness of breath. No cough. No hematuria or hematochezia. PHYSICAL EXAMINATION: VITAL SIGNS: Temperature 99.4, pulse 90, respiratory rate 18, blood pressure 150/76, and pulse oximetry 97. HEENT: Head; normocephalic and atraumatic. Eyes; PERRLA. Extraocular muscles are intact. Conjunctivae clear. Nose patent. Mucous membranes moist. NECK: Supple. No carotid bruit. No JVD or thyromegaly. CHEST: Bilaterally symmetrical. HEART: S1 and S2 positive. LUNGS: Clear to auscultation. ABDOMEN: Soft. Bowel sounds present. No organomegaly. EXTREMITIES: No edema. No cyanosis. NEUROLOGIC: The patient is awake and alert. Moving all 4 extremities. No focal deficits. LABORATORY DATA: White blood cells 4.4, hemoglobin 10, hematocrit 29.9, and platelets 151. Sodium 140, potassium 3.5, BUN 14, creatinine 1, and glucose 54. ASSESSMENT AND PLAN: Ms. Obrien is a 73-year-old lady with leukopenia, anemia, hypokalemia, hyperchloremia, came with abdominal pain, seen by nurse practitioner,Cristina. CAT scan of abdomen and pelvis done. Chest x-ray done. Seen by gastrointestinal doctor, Dr. Lomeli. The patient has history of right hemicolectomy. Cecal adenocarcinoma, status post resection anastomosis, pancreatic adenocarcinoma. Endoscopic ultrasound staging criteria T3 N0 M0, got treatment from [facility], chronic opioid use, history of pulmonary embolism, getting blood thinner, diabetes mellitus, hypertension, constipation, diverticulitis, now has partial obstruction and gastrointestinal is on the case. Continue bowel regimen. Insomnia, getting Ambien, having attacks of anxiety, replaced potassium. Chronic use of opioid putting at risk and was not on bowel regimen. Started on clear liquid diet, MiraLax, limit narcotics, monitor response. Discussion done with the patient and the patient's family. Repeat labs. We will followup. Kristen Prabhakar MD
[2018-10-29] MEDS: POLYETHYLENE GLYCOL 3350 17 GM/Dose PACKET PO SCH ×4 (09:13→18:38)
--- NOTE | 2018-10-29 11:29 | CP.PCM.PCO ---
Physician Communication Note - Physician Communication Note Physician Communication Note: PT eval pending as per Dr. Rogers, STEVANU eval
[2018-10-29 11:47] LABS: PH,URINE 6.5 (4.7-8.0); URINE BILIRUBIN NEGATIVE (NEGATIVE); URINE BLOOD TRACE-INTACT (NEGATIVE); URINE GLUCOSE (UA) NEGATIVE (NEGATIVE); URINE LEUKOCYTE ESTERASE TRACE Leu/uL (NEGATIVE); URINE PROTEIN NEGATIVE mg/dL (<30 mg/dL); URINE UROBILINOGEN 0.2 E.U./dL (<1 E.U./dL)
[2018-10-29 11:48] LABS: URINE APPEARANCE CLEAR (CLEAR); URINE COLOR YELLOW (YELLOW)
[2018-10-29 11:51] LABS: URINE AMORPHOUS SEDIMENT FEW /hpf; URINE BACTERIA MOD /hpf
[2018-10-29 13:18] LABS: FOLATE 13.6 ng/mL
[2018-10-29 16:00] VITALS: TEMP 98.7; O2SAT 100
--- NOTE | 2018-10-29 17:22 | CP.PCM.PN ---
Subjective - Date & Time of Evaluation Date of Evaluation: 10/29/18 Time of Evaluation: 14:05 - Subjective Subjective: PGY-4 GI Fellow Prog Note Pt lying in bed when seen this AM. Stated abd discomfort much improved after BMs yesterday. Tolerating diet. 5 point ROS negative other than stated above Objective - Vital Signs/Intake and Output Vital Signs (last 24 hours): Temp Pulse Resp BP Pulse Ox 98.7 F 63 18 139/88 100 10/29/18 14:00 10/29/18 14:00 10/29/18 14:00 10/29/18 14:00 10/29/18 14:00 Intake and Output: 10/29/18 10/29/18 06:59 18:59 Intake Total 600 Balance 600 - Medications Medications: Current Medications Carbidopa/Levodopa (Sinemet ) 1 tab PO TID [facility] Last Admin: 10/29/18 15:07 Dose: 1 tab Clonazepam (Klonopin) 0.25 mg PO BID PRN; Protocol PRN Reason: Anxiety Last Admin: 10/29/18 12:18 Dose: 0.25 mg Hydromorphone HCl (Dilaudid) 0.5 mg IVP Q6H PRN PRN Reason: Pain, moderate (4-7) Last Admin: 10/28/18 11:08 Dose: 0.5 mg Metoprolol Tartrate (Lopressor) 25 mg PO BID [facility] Last Admin: 10/29/18 09:13 Dose: 25 mg Polyethylene Glycol (Miralax) 17 gm PO QID [facility] Last Admin: 10/29/18 15:10 Dose: Not Given Rivaroxaban (Xarelto) 20 mg PO DAILY [facility]; Protocol Last Admin: 10/29/18 09:13 Dose: 20 mg Zolpidem Tartrate (Ambien) 5 mg PO HS PRN; Protocol PRN Reason: Insomnia Last Admin: 10/28/18 23:03 Dose: 5 mg - Labs Labs: 10/29/18 06:00 10/27/18 21:30 - Constitutional Appears: Well, No Acute Distress - Head Exam Head Exam: ATRAUMATIC, NORMAL INSPECTION - Eye Exam Eye Exam: EOMI. absent: Scleral icterus - ENT Exam ENT Exam: Mucous Membranes Moist. absent: Mucous Membranes Dry - Respiratory Exam Respiratory Exam: NORMAL BREATHING PATTERN. absent: Accessory Muscle Use, Respiratory Distress - GI/Abdominal Exam GI & Abdominal Exam: Soft, Normal Bowel Sounds. absent: Bruit, Distended, Firm, Guarding, Rigid, Tenderness, Organomegaly, Pulsatile Mass Assessment and Plan - Assessment and Plan (Free Text) Assessment: 73 yo BF presenting with abdominal pain and found to have large stool burden. # Abd pain: Improved. Due to large stool burden/constipation. No signs of obstruction on CT. Pt with chronic opioid use putting at risk and was not on bowel regimen. # Pancreatic adenocarcinoma s/p chemoradiation # PE on rivaroxaban # Cecal CA s/p R hemicolectomy with reanastamosis Plan: - Advance diet as tolerated - Miralax QID, can decrease frequency if diarrhea, but should be on chronic bowel regimen in setting of chronic opioid use - Limit narcotics as able - OK to DC from GI standpoint Pt seen and examined with Dr. Lomeli; please see attestation for further recs/changes.
[2018-10-29 18:40] VITALS: BP 138/88; PULSE 66
== END 2018-10-29 19:30 | disposition home or self-care (01) ==
LOC: ED 20:05 → ERH 23:31 → 5RNO 10-28 00:56
PROVIDERS: ADMIT Internal Medicine; ATTEND Internal Medicine
DX: K56.600 Partial intestinal obstruction, unspecified as to cause (principal); E87.6 Hypokalemia; I10 Essential (primary) hypertension; G20 Parkinson's disease; I31.3 Pericardial effusion (noninflammatory); C25.9 Malignant neoplasm of pancreas, unspecified; N28.1 Cyst of kidney, acquired; F41.9 Anxiety disorder, unspecified; E87.8 Other disorders of electrolyte and fluid balance, not elsewhere classified; K57.30 Diverticulosis of large intestine without perforation or abscess without bleeding; D64.9 Anemia, unspecified; E11.9 Type 2 diabetes mellitus without complications; G47.00 Insomnia, unspecified; Z85.038 Personal history of other malignant neoplasm of large intestine; Z90.49 Acquired absence of other specified parts of digestive tract; Z79.891 Long term (current) use of opiate analgesic; Z79.01 Long term (current) use of anticoagulants; Z86.711 Personal history of pulmonary embolism
CPT/HCPCS: 36415; 71045; 74176; 80053; 80061; 81001; 82607; 82746; 83036; 83540; 83550; 83690; 85027; 93005; 96374; 96375; 97116; 97161; 99284; G0378; G8978; G8979; J1170; J2060; J2270; J2405; J7030

== ENCOUNTER 2018-11-18 11:35 | Inpatient (IN) | payer MEDICARE ==
[2018-11-18 11:36] VITALS: BMI 21.1
[2018-11-18] MEDS ORDERED: Sodium Chloride 0.9% 500 ML IV STA (12:15)
[2018-11-18] MEDS ORDERED: Morphine 2 mg/ml ISec IVP STA ×2 (12:15→16:25)
--- NOTE | 2018-11-18 12:33 | ED PDOC ---
Arrival/HPI - General Chief Complaint: Abdominal Pain Time Seen by Provider: 11/18/18 11:53 Historian: Patient - History of Present Illness Narrative History of Present Illness (Text): 11/18/18 12:10 Patient is a 73 year old female, whose past medical history includes cecal adenocarcinoma s/p resection and re-anastamosis, Pancreatic adenocarcinoma (EUS staging criteria, T3NOMO, currently getting care at [facility], s/p chemo and XRT unclear if currently on chemo), Chronic Opiod Use, PE on xarelta, DM, Hypertension, Constipation, Diverticular bleeding 09/2014, with colonoscopy 09/2014 showing diverticular bleeding s/p epinephrine injection and 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 Patient describes a "quiver" sensation in her abdomen waking up every morning with progressively improves throughout the day. Patient reports unchanged symptoms at home since onset prompting her to present to the ED for medical evaluation. Patient denies any pain medication at home for the presented symptoms. Patient denies any other associated somatic complaints. Patient denies any fever, chills, vomiting, diarrhea, chest pain, shortness of breath, cough, changes in bowel movement, dysuria, headache, dizziness or any other complaints. PMD: Dr. Prabhakar Time/Duration: 1 week Symptom Onset: Gradual Symptom Course: Unchanged Quality: Other ("Quivering") Activities at Onset: Light Context: Home Past Medical History - Provider Review Nursing Documentation Reviewed: Yes - Infectious Disease Hx of Infectious Diseases: None - Cardiac Hx Cardiac Disorders: Yes Hx Hypertension: Yes - Pulmonary Hx Respiratory Disorders: No Other/Comment: pulmonary embolism - Neurological Hx Neurological Disorder: Yes Hx Parkinson's Disease: Yes - HEENT Hx HEENT Disorder: No - Renal Hx Renal Disorder: No - Endocrine/Metabolic Hx Endocrine Disorders: Yes - Hematological/Oncological Hx Blood Disorders: Yes Hx Cancer: Yes (PANCREATIC) - Integumentary Hx Dermatological Disorder: No - Musculoskeletal/Rheumatological Hx Arthritis: Yes - Gastrointestinal Hx Diverticulitis: Yes - Genitourinary/Gynecological Hx Genitourinary Disorders: No - Psychiatric Hx Anxiety: Yes Hx Substance Use: No - Surgical History Hx Cholecystectomy: Yes Hx Hysterectomy: Yes - Anesthesia Hx Anesthesia: Yes Hx Anesthesia Reactions: No Hx Malignant Hyperthermia: No - Suicidal Assessment Feels Threatened In Home Enviroment: No Family/Social History - Physician Review Nursing Documentation Reviewed: Yes Family/Social History: No Known Family HX Smoking Status: Never Smoked Hx Alcohol Use: No Hx Substance Use: No Allergies/Home Meds Allergies/Adverse Reactions: Allergies No Known Allergies Allergy (Verified 10/27/18 20:32) Home Medications: Home Meds Medication Instructions Recorded Confirmed Rivaroxaban [Xarelto] 20 mg PO DAILY 10/23/17 10/27/18 Zolpidem [Ambien] 10 mg PO HS PRN 06/04/18 10/27/18 Review of Systems - Review of Systems Constitutional: absent: Fevers Eyes: absent: Vision Changes Respiratory: absent: SOB, Cough Cardiovascular: absent: Chest Pain, FERNANDEZ Gastrointestinal: Abdominal Pain, Nausea. absent: Diarrhea, Vomiting Genitourinary Female: absent: Dysuria, Urine Output Changes Musculoskeletal: absent: Back Pain, Neck Pain Skin: absent: Rash Neurological: absent: Headache, Dizziness Psychiatric: absent: Anxiety Physical Exam Vital Signs Reviewed: Yes Vital Signs Temp Pulse Resp BP Pulse Ox 11/18/18 11:36 97.9 F 86 18 171/94 H 97 Temperature: Afebrile Blood Pressure: Hypertensive Pulse: Regular Respiratory Rate: Normal Appearance: Positive for: Non-Toxic, Comfortable, Cachectic Pain Distress: None Mental Status: Positive for: Alert and Oriented X 3 - Systems Exam Head: Present: Atraumatic, Normocephalic Pupils: Present: PERRL Extroacular Muscles: Present: EOMI Conjunctiva: Present: Normal Mouth: Present: Moist Mucous Membranes Respiratory/Chest: Present: Clear to Auscultation, Good Air Exchange, Other (mediport to R chest wall). No: Respiratory Distress, Accessory Muscle Use Cardiovascular: Present: Regular Rate and Rhythm, Normal S1, S2. No: Murmurs Abdomen: Present: Tenderness (scant tenderness to left lower quadrant). No: Distention, Peritoneal Signs Back: Present: Normal Inspection Upper Extremity: Present: Normal Inspection. No: Cyanosis, Edema Lower Extremity: Present: Normal Inspection. No: Edema Neurological: Present: GCS=15, CN II-XII Intact, Speech Normal Skin: Present: Warm, Dry, Normal Color. No: Rashes Psychiatric: Present: Alert, Oriented x 3, Normal Insight, Normal Concentration Medical Decision Making ED Course and Treatment: 11/18/18 12:39 Impression: 73 year old female presents to the ED complaining of nausea and abdominal pain. Plan: -- CT of Abdomen/Pelvis -- EKG -- Labs -- Morphine -- IV Fluids -- Reassess and disposition Prior Visits: Notes and results from previous visits were reviewed. Progress Notes: 11/18/18 12:39 EKG shows NSR at 83bpm with nomrla intervals and non specific st changes. No complaint of chest pain. 11/18/18 14:51 CT of Abdomen/Pelvis reviewed by radiologist, shows: Circumferential mural thickening of the transverse colon suspicious for nonspecific colitis. Bilateral renal cysts with 10.5 cm right upper pole renal cyst as on prior CT. Diffuse pancreatic ductal dilatation without evidence of discrete mass. Pancreatic duct is not dilated in the pancreatic head. There is mild dilatation of the common bile duct with central intrahepatic biliary dilatation but the patient is also status post cholecystectomy. Consider further evaluation with MRCP and MRI abdomen with and without gadolinium. 11/18/18 15:21 Dr. Prabhakar recommends observation with GI eval - RAD Interpretation Radiology Orders: 11/18/18 12:10 ABD & PELVIS IV CONTRAST ONLY [CT] Stat - Medication Orders Current Medication Orders: Sodium Chloride (Sodium Chloride 0.9%) 500 mls @ 999 mls/hr IV .Q31M STA Stop: 11/18/18 12:45 Discontinued Medications Morphine Sulfate (Morphine) 2 mg IVP STAT STA Stop: 11/18/18 12:16 - Scribe Statement The provider has reviewed the documentation as recorded by the Ildefonsoibpk Jay. All medical record entries made by the Ildefonsoibpk were at my direction and personally dictated by me. I have reviewed the chart and agree that the record accurately reflects my personal performance of the history, physical exam, medical decision making, and the department course for this patient. I have also personally directed, reviewed, and agree with the discharge instructions and disposition. Disposition/Present on Arrival - Present on Arrival Any Indicators Present on Arrival: No History of DVT/PE: No History of Uncontrolled Diabetes: No Urinary Catheter: No History of Decub. Ulcer: No History Surgical Site Infection Following: None - Disposition Have Diagnosis and Disposition been Completed?: Yes Diagnosis: Abdominal pain Disposition: HOSPITALIZED Disposition Time: 15:22 Patient Plan: Observation Patient Problems: Current Active Problems Problem Status Onset Abdominal pain Acute Condition: FAIR
[2018-11-18 13:01] LABS: HEMOGLOBIN 9.6 g/dL (12.0-16.0); LYMPH # 0.6 (1.2-3.4); LYMPH % 16.3 % (22.0-35.0); MEAN CELL VOLUME 94.2 fl (80.0-105.0); MEAN CORPUSCULAR HEMOGLOBIN 30.9 pg (25.0-35.0); MEAN CORPUSCULAR HGB CONC 32.8 g/dl (31.0-37.0); MEAN PLATELET VOLUME 8.3 fl (7.0-11.0); MONO # 0.2 (0.1-0.6); MONO % 3.9 % (1.0-6.0); RBC 3.11 10^6/uL (3.5-6.1); WHITE BLOOD COUNT 3.8 10^3/uL (4.5-11.0)
[2018-11-18 13:09] LABS: INR 1.47; PARTIAL THROMBOPLASTIN TIME 72.4 Seconds (26.9-38.3); PROTHROMBIN TIME 16.6 SECONDS (9.4-12.5)
[2018-11-18] MEDS ORDERED: Iohexol 300 100 ML IJ ONE (13:18)
[2018-11-18 13:21] LABS: ALB/GLOB RATIO 1.5 (1.1-1.8); ALBUMIN 4.3 g/dL (3.0-4.8); ALT/SGPT 23 U/L (7-56); AST/SGOT 31 U/L (14-36); BLOOD UREA NITROGEN 16 mg/dL (7-21); CALCIUM 9.6 mg/dL (8.4-10.5); GFR NON-AFRICAN AMERICAN 54; LIPASE < 10 U/L (23-300)
[2018-11-18 13:32] LABS: TROPONIN I < 0.01 ng/mL
--- NOTE | 2018-11-18 14:40 | CT ---
Date of service: 11/18/2018 PROCEDURE: CT Abdomen and Pelvis with contrast HISTORY: LLQ pain COMPARISON: 10/27/2018 TECHNIQUE: Contrast dose: 100 mL Omnipaque 350 Radiation dose: Total exam DLP = 218.19 mGy-cm. This CT exam was performed using one or more of the following dose reduction techniques: Automated exposure control, adjustment of the mA and/or kV according to patient size, and/or use of iterative reconstruction technique. FINDINGS: LOWER THORAX: Unremarkable. LIVER: Normal size, contour and attenuation. No mass. Trace central intrahepatic biliary dilatation consistent with prior cholecystectomy. GALLBLADDER AND BILE DUCTS: Cholecystectomy. Dilated common bile duct up to 10 mm. Uncertain significance. The patient has had prior cholecystectomy and this may be due to cholecystectomy and age related ectasia. However, considering the pancreatic ductal dilatation also appreciated, the possibility obstructing lesion cannot be excluded. PANCREAS: No mass identified. There is extensive pancreatic ductal dilatation with abrupt cut off at the junction of the head and body of the pancreas. Significance uncertain. Consider MRCP with and without gadolinium SPLEEN: Unremarkable. ADRENALS: Unremarkable. No mass. KIDNEYS AND URETERS: Bilateral renal cysts. There is a large right upper pole cyst, approximately 10.5 cm in diameter, unchanged from previous. Left lower pole 2 cm cyst. Left upper pole 3.7 cm cyst. Additional smaller left renal cysts are identified. No calculus. No hydronephrosis. VASCULATURE: Unremarkable. No aortic aneurysm. Minimal atherosclerotic calcification of the abdominal aorta. BOWEL: Mural thickening of the transverse colon suspicious for a nonspecific colitis. There is sigmoid diverticulosis without evidence of diverticulitis. There is no evidence of bowel obstruction. There is evidence of probable prior partial right colectomy. APPENDIX: Not identified PERITONEUM: Unremarkable. No free fluid. No free air. LYMPH NODES: Unremarkable. No enlarged lymph nodes. BLADDER: Unremarkable. REPRODUCTIVE: Hysterectomy BONES: No acute fracture. OTHER FINDINGS: None. IMPRESSION: Circumferential mural thickening of the transverse colon suspicious for nonspecific colitis. Bilateral renal cysts with 10.5 cm right upper pole renal cyst as on prior CT. Diffuse pancreatic ductal dilatation without evidence of discrete mass. Pancreatic duct is not dilated in the pancreatic head. There is mild dilatation of the common bile duct with central intrahepatic biliary dilatation but the patient is also status post cholecystectomy. Consider further evaluation with MRCP and MRI abdomen with and without gadolinium. No other acute findings
[2018-11-18] MEDS ORDERED: Alum-Mag Hydrox-Simethicone Susp (30 mL) PO STA (15:00)
--- NOTE | 2018-11-18 16:25 | CARD ---
APPROVED REPORT Date of service: 11/18/2018 EKG Measurement Heart [id number] <Conclusion> NSR non sp. ST-t changes Base line artefact. please repeat
[2018-11-18] MEDS ORDERED: Sodium Chloride 0.9% 1,000 ML IV SCH (21:15)
[2018-11-18] MEDS ORDERED: Influenza Vaccine 60 mcg/0.5 mL SYR (4YR UP) IM ONE (22:29)
[2018-11-18] MEDS ORDERED: Pneumococcal 23-Valent Vaccine IM ONE (22:29)
[2018-11-18 23:54] LABS: PH,URINE 6.5 (4.7-8.0); URINE BILIRUBIN NEGATIVE (NEGATIVE); URINE BLOOD SMALL (NEGATIVE); URINE GLUCOSE (UA) NEGATIVE (NEGATIVE); URINE LEUKOCYTE ESTERASE NEGATIVE Leu/uL (NEGATIVE); URINE PROTEIN NEGATIVE mg/dL (<30 mg/dL); URINE UROBILINOGEN 0.2 E.U./dL (<1 E.U./dL)
[2018-11-18 23:59] LABS: URINE APPEARANCE CLEAR (CLEAR); URINE COLOR YELLOW (YELLOW)
[2018-11-19 00:33] LABS: URINE WBC 0 - 2 /hpf (0-6)
[2018-11-19] MEDS: Sodium Chloride 0.9% 1,000 ML IV SCH ×2 (01:10→23:15)
--- NOTE | 2018-11-19 01:57 | HP ---
DATE OF EXAM: 11/18/2018 The patient was seen and examined at the bedside on 11/18/2018. CHIEF COMPLAINT: Abdominal pain. HISTORY OF PRESENT ILLNESS: Ms. Wanda Obrien is 73-year-old, my private patient. 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 After that, she had pancreatic adenocarcinoma T3 N0 M0, got treatment from [facility]. I have put her on chronic opiate use, history of PE on Xarelto, diabetes mellitus, hypertension, constipation, insomnia, history of diverticular bleed. Colonoscopy showed diverticular bleeding, epinephrine injections and EGD showing erosive gastropathy, came for evaluation of intermittent abdominal pain associated with nausea and vomiting from 1 week. The patient describes as "funny feelings in my stomach," waking up her from sleep. The patient reports unchanged symptoms at home since onset prompting her to present to the ER for medical evaluation. No fever. No chills. No hematuria. No hematochezia. No headache. No dizziness. PAST MEDICAL HISTORY: Hypertension, PE, Parkinson's disease, pancreatic cancer, got treatment from [facility], arthritis, diverticulitis, anxiety, cholecystectomy, and hysterectomy. FAMILY HISTORY: Father and mother, noncontributory. SOCIAL HISTORY: Have never smoked. No drugs. No ethanol. ALLERGIES: PATIENT IS NOT ALLERGIC WITH ANY MEDICATIONS. HOME MEDICATIONS: Xarelto, Ambien, used to use oxycodone. REVIEW OF SYSTEMS: Patient was seen and examined at bedside, looking comfortable. No fever. No chills. No hematuria. No hematochezia. No headache. No dizziness. No chest pain. No palpitations. PHYSICAL EXAMINATION: VITAL SIGNS: Temperature 97.9, pulse 86, respiratory rate 18, blood pressure 170/94, pulse oximetry 97. HEENT: Head is normocephalic, atraumatic. Eyes PERRLA. Extraocular muscles intact. Conjunctivae clear. Nose patent. Mucous membrane moist. NECK: Supple. No carotid bruits. No thyromegaly. CHEST: Bilateral symmetrical. HEART: S1 and S2 positive. LUNGS: Clear to auscultation. ABDOMEN: Soft. Bowel sounds positive. No organomegaly. EXTREMITIES: No edema. No cyanosis. NEUROLOGIC: Patient is awake, alert. Follows simple commands. LABORATORY DATA: White blood cells 3.8, hemoglobin 9.6, hematocrit 29.3, and platelets 190. Sodium 140, potassium 4.0, BUN 50, creatinine 1.0, glucose 153. AST 31. ALT 23. Lipase less than 10. ASSESSMENT AND PLAN: Ms. Wanda Obrien is 73-year-old lady with leukopenia, anemia, hyperglycemia came with abdominal pain. CAT scan of abdomen and pelvis done, shows circumferential mural thickening of the transverse colon, suspicious for nonspecific colitis, bilateral renal cyst, 10.5 cm right upper pole renal cyst as on prior CT, diffuse pancreatic dilatation without evidence of discrete mass. Pancreatic duct is not dilated in pancreatic head. There is mild dilatation of the common bile duct with central intrahepatic biliary dilatation, but the patient is also status post cholecystectomy and according to them, we need further workup with MRCP and MRI of the abdomen with and without gadolinium. No other acute findings. We put consult with Dr. Lomeli. The patient has history of insomnia, getting Ambien. We will call consult with Dr. Molina. History of cecal adenocarcinoma status post resection and reanastomosis, pancreatic adenocarcinoma, got treatment from [facility], history of pulmonary embolism on Xarelto, hypertension, constipation, diverticular bleed, history of erosive gastropathy showed by the upper endoscopy. We admitted the patient, started on pain medications Zofran. Repeat labs. We will follow up. Kristen Prabhakar MD MTDD
[2018-11-19 08:34] LABS: HEMOGLOBIN 8.5 g/dL (12.0-16.0); MEAN CELL VOLUME 94.5 fl (80.0-105.0); MEAN CORPUSCULAR HEMOGLOBIN 31.1 pg (25.0-35.0); MEAN CORPUSCULAR HGB CONC 32.9 g/dl (31.0-37.0); MEAN PLATELET VOLUME 8.6 fl (7.0-11.0); RBC 2.73 10^6/uL (3.5-6.1); RED CELL DISTRIBUTION WIDTH 14.1 % (11.5-14.5); WHITE BLOOD COUNT 2.9 10^3/uL (4.5-11.0)
[2018-11-19 08:43] LABS: IRON 45 ug/dL (45-180)
[2018-11-19 08:52] LABS: BLOOD UREA NITROGEN 12 mg/dL (7-21); CALCIUM 9.1 mg/dL (8.4-10.5); GFR NON-AFRICAN AMERICAN 54; HDL CHOLESTEROL 55 mg/dL (29-60); LDL CHOLESTEROL 54 mg/dL (0-129)
[2018-11-19 08:57] LABS: % IRON SATURATION 17 % (20-55); TOTAL IRON BINDING CAPACITY 264 ug/dL (265-497)
--- NOTE | 2018-11-19 12:00 | CP.PCM.CON ---
<Alex Haley - Last Filed: 11/19/18 18:11> History of Present Illness - History of Present Illness History of Present Illness: GI Consult Note for Dr. Lomeli Reason for Consultation: Abdominal Pain Patient is a 73 yo F with PMH of Cecal adenocarcinoma s/p resection and re- anastamosis, Pancreatic adenocarcinoma (EUS staging criteria, T3NOMO, currently getting care at [facility], s/p chemo and XRT unclear if currently on chemo), Chronic Opiod Use, PE on rivaroxaban, DM, Hypertension, Constipation, Diverticular bleeding 09/2014 presents to [facility] with abdominal pain. Patient states that she has had ongoing abdominal pain as shes being going through treatment for her Pancreatic CA, which she states is starting again in about a month. Patient was recently admitted a month ago for abdominal pain and was found to have constipation. Pain and constipation was relieved with Miralax. Patient states that the abdominal pain feels similar. Patient states that her appetite has been poor as she's been nauseous, but no vomiting. She can tolerate liquids. Patient states that she has had normal bowel movements. Colonoscopy 09/2014 showing diverticular bleeding s/p epinephrine injection. 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 12 point ROS reviewed and is negative other than what is stated above. MHx: See above SurgHx: CCx, R hemicolectomy Meds: Reviewed in MAR SocHx: Denies tobacco, etoh or drugs FamHx: Neg for colon cancer All: NKDA Review of Systems - Review of Systems All systems: reviewed and no additional remarkable complaints except (12 point ROS reviewed and is negative other than what is stated in HPI.) Past Patient History - Infectious Disease Hx of Infectious Diseases: None - Past Medical History & Family History Past Medical History?: Yes - Past Social History Smoking Status: Never Smoked - CARDIAC Hx Cardiac Disorders: Yes Hx Hypertension: Yes - PULMONARY Hx Respiratory Disorders: Yes Other/Comment: pulmonary embolism - NEUROLOGICAL Hx Neurological Disorder: Yes Hx Parkinson's Disease: Yes - HEENT Hx HEENT Problems: Yes (eyeglasses) - RENAL Hx Chronic Kidney Disease: No - ENDOCRINE/METABOLIC Hx Endocrine Disorders: Yes Hx Diabetes Mellitus Type 1: (denies) Hx Diabetes Mellitus Type 2: (denies) Hx Hyperthyroidism: Yes - HEMATOLOGICAL/ONCOLOGICAL Hx Blood Disorders: Yes Hx Anemia: Yes (blood transfusion 2008) Hx Cancer: Yes (PANCREATIC) Hx Chemotherapy: Yes (last chemo 05/05/17) Other/Comment: pancreatic adenocarcinoma [facility], chemo and radiation - INTEGUMENTARY Hx Dermatological Problems: No - MUSCULOSKELETAL/RHEUMATOLOGICAL Hx Musculoskeletal Disorders: Yes (rheumatoid arth hands/wrists) Hx Arthritis: Yes Hx Back Pain: Yes (intermittent) Hx Falls: No Hx Unsteady Gait: Yes - GASTROINTESTINAL Hx Gastrointestinal Disorders: Yes Hx Diverticulitis: Yes Hx Gastroesophageal Reflux: Yes Other/Comment: colitis, partial bowel obstruction, cecal adenocarcinoma, resection and anastamosis, diverticular bleeding , colonoscoopy 09/2014, endo 07/2016, erosive gastropathy, weight loss poor appetite - GENITOURINARY/GYNECOLOGICAL Hx Genitourinary Disorders: No - PSYCHIATRIC Hx Psychophysiologic Disorder: Yes Hx Anxiety: Yes - SURGICAL HISTORY Hx Cholecystectomy: Yes (lap cherelle) Hx Hysterectomy: Yes - ANESTHESIA Hx Anesthesia: Yes Hx Anesthesia Reactions: No Hx Malignant Hyperthermia: No Meds Allergies/Adverse Reactions: Allergies Allergy/AdvReac Type Severity Reaction Status Date / Time No Known Allergies Allergy Verified 10/27/18 20:32 - Medications Medications: Current Medications Acetaminophen (Tylenol 325mg Tab) 650 mg PO Q6H PRN PRN Reason: Fever >100.4 F Last Admin: 11/18/18 21:31 Dose: 650 mg Carbidopa/Levodopa (Sinemet 10/100) 1 tab PO TID [facility] Last Admin: 11/19/18 11:38 Dose: 1 tab Clonazepam (Klonopin) 0.25 mg PO BID PRN; Protocol PRN Reason: Anxiety Dronabinol (Marinol) 5 mg PO BID PRN PRN Reason: Other Fentanyl (Duragesic) 1 patch TD Q72H [facility] Hydralazine HCl (Apresoline) 10 mg IVP Q6 PRN PRN Reason: Systolic Blood Pressure Hydromorphone HCl (Dilaudid) 0.5 mg IVP Q6H PRN PRN Reason: Pain, severe (8-10) Sodium Chloride (Sodium Chloride 0.9%) 1,000 mls @ 75 mls/hr IV .[id number] [facility] Last Admin: 11/19/18 01:10 Dose: 75 mls/hr Methylphenidate HCl (Ritalin) 5 mg PO DAILY [facility] Last Admin: 11/19/18 11:38 Dose: 5 mg Metoprolol Tartrate (Lopressor) 25 mg PO BID [facility] Last Admin: 11/19/18 11:37 Dose: 25 mg Ondansetron HCl (Zofran Inj) 4 mg IVP Q6H PRN PRN Reason: Nausea/Vomiting Rivaroxaban (Xarelto) 20 mg PO DAILY [facility]; Protocol Last Admin: 11/19/18 11:38 Dose: 20 mg Zolpidem Tartrate (Ambien) 5 mg PO HS PRN; Protocol PRN Reason: Insomnia Last Admin: 11/18/18 23:24 Dose: 5 mg Physical Exam - Constitutional Appears: No Acute Distress - Head Exam Head Exam: NORMAL INSPECTION - Eye Exam Eye Exam: Normal appearance - ENT Exam ENT Exam: Mucous Membranes Moist, Normal Exam - Neck Exam Neck exam: Positive for: Normal Inspection - Respiratory Exam Respiratory Exam: Clear to Auscultation Bilateral. absent: Rales, Rhonchi, Whee zes - Cardiovascular Exam Cardiovascular Exam: RRR. absent: Diastolic murmur, Gallop, Rubs, Systolic Murmur - GI/Abdominal Exam GI & Abdominal Exam: Soft, Tenderness (LLQ). absent: Distended, Guarding, Rebound - Neurological Exam Neurological exam: Alert, Oriented x3 - Skin Skin Exam: Normal Color, Warm Results - Vital Signs Recent Vital Signs: Last Vital Signs Temp 98.6 F 11/19/18 06:00 Pulse 67 11/19/18 06:00 Resp 18 11/19/18 06:00 BP 134/72 11/19/18 11:37 Pulse Ox 100 11/19/18 06:00 - Labs Result Diagrams: 11/19/18 08:20 11/19/18 08:20 Labs: Laboratory Results - last 24 hr 11/18/18 11/18/18 11/18/18 12:50 12:50 12:50 WBC 3.8 L D RBC 3.11 L Hgb 9.6 L Hct 29.3 L MCV 94.2 MCH 30.9 MCHC 32.8 RDW 14.0 Plt Count 190 MPV 8.3 Neut % (Auto) 79.8 H Lymph % (Auto) 16.3 L Clinch % (Auto) 3.9 Eos % (Auto) 0.0 L Baso % (Auto) 0.0 Lymph # (Auto) 0.6 L Clinch # (Auto) 0.2 Eos # (Auto) 0.0 Baso # (Auto) 0.00 Absolute Neuts (auto) 3.03 PT 16.6 H INR 1.47 APTT 72.4 H Sodium 140 Potassium 4.0 Chloride 106 Carbon Dioxide 26 Anion Gap 11 BUN 16 Creatinine 1.0 Est GFR ( Amer) > 60 Est GFR (Non-Af Amer) 54 Random Glucose 153 H Calcium 9.6 Iron TIBC % Saturation Total Bilirubin 0.5 AST 31 ALT 23 Alkaline Phosphatase 98 Troponin I < 0.01 Total Protein 7.1 Albumin 4.3 Globulin 2.8 Albumin/Globulin Ratio 1.5 Triglycerides Cholesterol LDL Cholesterol Direct HDL Cholesterol Lipase < 10 L TSH 3rd Generation Urine Color Urine Appearance Urine pH Ur Specific [place] Urine Protein Urine Glucose (UA) Urine Ketones Urine Blood Urine Nitrate Urine Bilirubin Urine Urobilinogen Ur Leukocyte Esterase Urine RBC Urine WBC Ur Epithelial Cells Urine Bacteria 11/18/18 11/19/18 11/19/18 23:20 08:20 08:20 WBC RBC Hgb Hct MCV MCH MCHC RDW Plt Count MPV Neut % (Auto) Lymph % (Auto) Clinch % (Auto) Eos % (Auto) Baso % (Auto) Lymph # (Auto) Clinch # (Auto) Eos # (Auto) Baso # (Auto) Absolute Neuts (auto) PT INR APTT Sodium 142 Potassium 4.1 Chloride 110 H Carbon Dioxide 28 Anion Gap 8 L BUN 12 Creatinine 1.0 Est GFR ( Amer) > 60 Est GFR (Non-Af Amer) 54 Random Glucose 98 Calcium 9.1 Iron 45 TIBC 264 L % Saturation 17 L Total Bilirubin AST ALT Alkaline Phosphatase Troponin I Total Protein Albumin Globulin Albumin/Globulin Ratio Triglycerides 45 Cholesterol 120 L LDL Cholesterol Direct 54 HDL Cholesterol 55 Lipase TSH 3rd Generation Urine Color Yellow Urine Appearance Clear Urine pH 6.5 Ur Specific [place] 1.010 Urine Protein Negative Urine Glucose (UA) Negative Urine Ketones Negative Urine Blood Small H Urine Nitrate Negative Urine Bilirubin Negative Urine Urobilinogen 0.2 Ur Leukocyte Esterase Negative Urine RBC 1 - 3 H Urine WBC 0 - 2 Ur Epithelial Cells 1 - 3 Urine Bacteria None 11/19/18 11/19/18 08:20 08:20 WBC 2.9 L D RBC 2.73 L Hgb 8.5 L Hct 25.8 L MCV 94.5 MCH 31.1 MCHC 32.9 RDW 14.1 Plt Count 161 MPV 8.6 Neut % (Auto) Lymph % (Auto) Clinch % (Auto) Eos % (Auto) Baso % (Auto) Lymph # (Auto) Clinch # (Auto) Eos # (Auto) Baso # (Auto) Absolute Neuts (auto) PT INR APTT Sodium Potassium Chloride Carbon Dioxide Anion Gap BUN Creatinine Est GFR ( Amer) Est GFR (Non-Af Amer) Random Glucose Calcium Iron TIBC % Saturation Total Bilirubin AST ALT Alkaline Phosphatase Troponin I Total Protein Albumin Globulin Albumin/Globulin Ratio Triglycerides Cholesterol LDL Cholesterol Direct HDL Cholesterol Lipase TSH 3rd Generation 1.81 Urine Color Urine Appearance Urine pH Ur Specific [place] Urine Protein Urine Glucose (UA) Urine Ketones Urine Blood Urine Nitrate Urine Bilirubin Urine Urobilinogen Ur Leukocyte Esterase Urine RBC Urine WBC Ur Epithelial Cells Urine Bacteria Assessment & Plan - Assessment and Plan (Free Text) Assessment: 73 yo F with PMH of Cecal adenocarcinoma s/p resection and re-anastamosis, Pancreatic adenocarcinoma (EUS staging criteria, T3NOMO, currently getting care at [facility], s/p chemo and XRT unclear if currently on chemo), Chronic Opiod Use, PE on rivaroxaban, DM, Hypertension, Constipation, Diverticular bleeding 09/2014 presents to [facility] with abdominal pain. Abdominal CT showed cirucmferential mural thickening of the transverse colon, which could represent nonspecific colitis, diffuse pancreatic ductal dilation, dilated CBD, b/l renal cysts, and sigmoid diverticulosis. 1. Abdominal pain 2. Pancreatic adenocarcinoma s/p chemoradiation 3. H/o PE on rivaroxaban 4. Cecal CA s/p R hemicolectomy with reanastamosis Plan: - Possible Colonoscopy on Thursday - Miralax - CLD - IV abx - Further medical management per primary Patient seen and discussed in detail with Dr. Lomeli. Kb Haley DO PGY2 <Milly Lomeli V - Last Filed: 11/19/18 23:22> Meds - Medications Medications: Current Medications Acetaminophen (Tylenol 325mg Tab) 650 mg PO Q6H PRN PRN Reason: Fever >100.4 F Last Admin: 11/18/18 21:31 Dose: 650 mg Carbidopa/Levodopa (Sinemet 10/100) 1 tab PO TID [facility] Last Admin: 11/19/18 17:42 Dose: 1 tab Clonazepam (Klonopin) 0.25 mg PO BID PRN; Protocol PRN Reason: Anxiety Dronabinol (Marinol) 5 mg PO BID PRN PRN Reason: Other Fentanyl (Duragesic) 1 patch TD Q72H [facility] Hydralazine HCl (Apresoline) 10 mg IVP Q6 PRN PRN Reason: Systolic Blood Pressure Hydromorphone HCl (Dilaudid) 0.5 mg IVP Q6H PRN PRN Reason: Pain, severe (8-10) Last Admin: 11/19/18 21:20 Dose: 0.5 mg Sodium Chloride (Sodium Chloride 0.9%) 1,000 mls @ 75 mls/hr IV .[id number] [facility] Last Admin: 11/19/18 23:15 Dose: 75 mls/hr Metronidazole (Flagyl) 500 mg in 100 mls @ 100 mls/hr IVPB Q8 [facility]; Protocol Last Admin: 11/19/18 21:55 Dose: 100 mls/hr Ceftriaxone Sodium (Rocephin 1 Gram Ivpb) 1 gm in 100 mls @ 100 mls/hr IVPB DAILY [facility]; Protocol Last Admin: 11/19/18 18:31 Dose: 100 mls/hr Methylphenidate HCl (Ritalin) 5 mg PO DAILY [facility] Last Admin: 11/19/18 11:38 Dose: 5 mg Metoprolol Tartrate (Lopressor) 25 mg PO BID [facility] Last Admin: 11/19/18 17:43 Dose: 25 mg Ondansetron HCl (Zofran Inj) 4 mg IVP Q6H PRN PRN Reason: Nausea/Vomiting Last Admin: 11/19/18 19:04 Dose: 4 mg Polyethylene Glycol (Miralax) 17 gm PO DAILY [facility] Rivaroxaban (Xarelto) 20 mg PO DAILY [facility]; Protocol Last Admin: 11/19/18 11:38 Dose: 20 mg Zolpidem Tartrate (Ambien) 5 mg PO HS PRN; Protocol PRN Reason: Insomnia Last Admin: 11/19/18 23:11 Dose: 5 mg Results - Vital Signs Recent Vital Signs: Last Vital Signs Temp 99.2 F 11/19/18 21:23 Pulse 68 11/19/18 21:23 Resp 16 11/19/18 21:23 BP 145/95 H 11/19/18 21:23 Pulse Ox 99 11/19/18 21:23 - Labs Result Diagrams: 11/19/18 08:20 11/19/18 08:20 Labs: Laboratory Results - last 24 hr 11/18/18 11/19/18 11/19/18 23:20 08:20 08:20 WBC RBC Hgb Hct MCV MCH MCHC RDW Plt Count MPV Sodium 142 Potassium 4.1 Chloride 110 H Carbon Dioxide 28 Anion Gap 8 L BUN 12 Creatinine 1.0 Est GFR ( Amer) > 60 Est GFR (Non-Af Amer) 54 Random Glucose 98 Hemoglobin A1c 5.3 Calcium 9.1 Iron TIBC % Saturation Triglycerides 45 Cholesterol 120 L LDL Cholesterol Direct 54 HDL Cholesterol 55 Vitamin B12 561 Folate 13.1 TSH 3rd Generation Urine Color Yellow Urine Appearance Clear Urine pH 6.5 Ur Specific [place] 1.010 Urine Protein Negative Urine Glucose (UA) Negative Urine Ketones Negative Urine Blood Small H Urine Nitrate Negative Urine Bilirubin Negative Urine Urobilinogen 0.2 Ur Leukocyte Esterase Negative Urine RBC 1 - 3 H Urine WBC 0 - 2 Ur Epithelial Cells 1 - 3 Urine Bacteria None 11/19/18 11/19/18 11/19/18 08:20 08:20 08:20 WBC 2.9 L D RBC 2.73 L Hgb 8.5 L Hct 25.8 L MCV 94.5 MCH 31.1 MCHC 32.9 RDW 14.1 Plt Count 161 MPV 8.6 Sodium Potassium Chloride Carbon Dioxide Anion Gap BUN Creatinine Est GFR ( Amer) Est GFR (Non-Af Amer) Random Glucose Hemoglobin A1c Calcium Iron 45 TIBC 264 L % Saturation 17 L Triglycerides Cholesterol LDL Cholesterol Direct HDL Cholesterol Vitamin B12 Folate TSH 3rd Generation 1.81 Urine Color Urine Appearance Urine pH Ur Specific [place] Urine Protein Urine Glucose (UA) Urine Ketones Urine Blood Urine Nitrate Urine Bilirubin Urine Urobilinogen Ur Leukocyte Esterase Urine RBC Urine WBC Ur Epithelial Cells Urine Bacteria Attending/Attestation - Attestation I have personally seen and examined this patient.: Yes I have fully participated in the care of the patient.: Yes I have reviewed all pertinent clinical information: Yes Notes (Text): This is an addendum to GI consult report dictated by the GI Fellow.The patient was seen and examined earlier. Medical records, lab studies, imagings were reviewed. Last 24 hours events reviewed. Agreed with the above treatment plan as outlined in GI Fellow 's notes with the addition of the following Discussed with the patient's daughter CT scan was reviewed Continue clear liquid diet patient would benefit from colonoscopy evaluation The differential diagnosis for the focal transverse colon :thickening should include radiation induced, possible neoplasm also should be considered 11/19/18 23:20
[2018-11-19 13:19] LABS: FOLATE 13.1 ng/mL
[2018-11-19] MEDS: metroNIDAZOLE IV 500 mg/100 ml 500 MG/100 ML BAG IVPB SCH ×2 (18:30→21:55)
[2018-11-19] MEDS: cefTRIAXone 1 gm 1 GM/100 ML BAG IVPB SCH (18:31)
[2018-11-19] MEDS: HYDROmorphone 0.5 mg/0.5 ml ISec IVP PRN (21:20)
--- NOTE | 2018-11-20 03:00 | PN ---
DATE: 11/19/2018 SUBJECTIVE: This is a 73-year-old female. The patient was seen and examined at the bedside. Looking comfortable with complaining about still nauseous. According to her, she does not have taste in her mouth. No appetite. Still having abdominal pain. No fever. No chills. No hematuria. No hematochezia. No headache. No dizziness. No chest pain. No palpitations. PHYSICAL EXAMINATION: VITAL SIGNS: Temperature 97.9, pulse 55, blood pressure 155/95, respiratory rate 16. HEENT: Head, normocephalic and atraumatic. Eyes, PERRLA. Extraocular muscles intact. Conjunctivae clear. Nose patent. Mucous membranes moist. NECK: Supple. No carotid bruits. No JVD or thyromegaly. CHEST: Bilateral symmetrical. HEART: S1 and S2 positive. LUNGS: Clear to auscultation. ABDOMEN: Soft. Bowel sounds present. No organomegaly. EXTREMITIES: No edema. No cyanosis. NEUROLOGIC: The patient is awake, alert. Moving all four extremities. No focal deficits. MEDICATIONS: Ambien, hydralazine, Dilaudid, Flagyl, Klonopin, Lopressor, Marinol, MiraLax, methylphenidate, Rocephin, Sinemet, NS, Xarelto, Zofran. LABORATORY DATA: White blood cells 2.9, hemoglobin 8.5, hematocrit 25.8, platelets 151. Sodium 142, potassium 4.1, BUN 12, creatinine 1, glucose 98, ASSESSMENT AND PLAN: Mrs. Wanda Obrien is a 73-year-old female with leukopenia, anemia, hyperchloremia, hyperglycemia, iron deficiency, hematuria. Has a history of cecal adenocarcinoma, status post resection and re-administration; pancreatic adenocarcinoma, got treatment from [facility]; chronic opioid use; history pulmonary embolism, on blood thinner; hypertension; constipation; diverticular bleed; having ongoing abdominal pain with nausea noticed in the mouth. The patient had recent admission for abdominal pain, last time was found to have constipation, small bowel obstruction, relieved by MiraLax. The patient was on clear liquid diet as she tolerated very well, increased to full liquid. Possibly colonoscopy on Thursday as per Gastroenterology. MiraLax. Intravenous antibiotics, low dose. Colitis. Repeat labs. Discussion done with the nursing staff. We will follow up. Kristen Prabhakar MD MTDChinmay
[2018-11-20] MEDS ORDERED: DiphenhydrAMINE 50 mg/ml Inj IVP STA (03:16)
[2018-11-20] MEDS: metroNIDAZOLE IV 500 mg/100 ml 500 MG/100 ML BAG IVPB SCH ×3 (05:08→22:05)
[2018-11-20] MEDS: HYDROmorphone 0.5 mg/0.5 ml ISec IVP PRN ×3 (06:11→23:48)
[2018-11-20] MEDS: POLYETHYLENE GLYCOL 3350 17 GM/Dose PACKET PO SCH (11:37)
[2018-11-20] MEDS: cefTRIAXone 1 gm 1 GM/100 ML BAG IVPB SCH (11:38)
--- NOTE | 2018-11-20 15:26 | CP.PCM.PN ---
<SusithomasChristopheremrissa - Last Filed: 11/20/18 15:22> Subjective - Date & Time of Evaluation Date of Evaluation: 11/20/18 Time of Evaluation: 10:00 - Subjective Subjective: PGY-4 GI Fellow Prog Note Pt lying in bed when seen this AM. States she is doing well, abd pain improved. States she hasn't moved bowels yet but to get miralax this AM. Wonders if she can go home. 5 point ROS negative other than stated above Objective - Vital Signs/Intake and Output Vital Signs (last 24 hours): Temp Pulse Resp BP Pulse Ox 98.2 F 65 18 127/94 H 100 11/20/18 14:00 11/20/18 14:00 11/20/18 14:00 11/20/18 14:00 11/20/18 14:00 Intake and Output: 11/20/18 11/20/18 06:59 18:59 Intake Total 480 Output Total 702 400 Balance -702 80 - Medications Medications: Current Medications Acetaminophen (Tylenol 325mg Tab) 650 mg PO Q6H PRN PRN Reason: Fever >100.4 F Last Admin: 11/18/18 21:31 Dose: 650 mg Carbidopa/Levodopa (Sinemet 10/) 1 tab PO TID [facility] Last Admin: 11/20/18 11:38 Dose: 1 tab Clonazepam (Klonopin) 0.25 mg PO BID PRN; Protocol PRN Reason: Anxiety Dronabinol (Marinol) 5 mg PO BID PRN PRN Reason: Other Fentanyl (Duragesic) 1 patch TD Q72H [facility] Last Admin: 11/20/18 11:33 Dose: 1 patch Hydralazine HCl (Apresoline) 10 mg IVP Q6 PRN PRN Reason: Systolic Blood Pressure Hydromorphone HCl (Dilaudid) 0.5 mg IVP Q6H PRN PRN Reason: Pain, severe (8-10) Last Admin: 11/20/18 06:11 Dose: 0.5 mg Sodium Chloride (Sodium Chloride 0.9%) 1,000 mls @ 75 mls/hr IV .[id number] [facility] Last Admin: 11/19/18 23:15 Dose: 75 mls/hr Metronidazole (Flagyl) 500 mg in 100 mls @ 100 mls/hr IVPB Q8 [facility]; Protocol Last Admin: 11/20/18 14:20 Dose: 100 mls/hr Ceftriaxone Sodium (Rocephin 1 Gram Ivpb) 1 gm in 100 mls @ 100 mls/hr IVPB DAILY [facility]; Protocol Last Admin: 11/20/18 11:38 Dose: 100 mls/hr Methylphenidate HCl (Ritalin) 5 mg PO DAILY [facility] Last Admin: 11/20/18 11:34 Dose: 5 mg Metoprolol Tartrate (Lopressor) 25 mg PO BID [facility] Last Admin: 11/20/18 11:34 Dose: 25 mg Ondansetron HCl (Zofran Inj) 4 mg IVP Q6H PRN PRN Reason: Nausea/Vomiting Last Admin: 11/19/18 19:04 Dose: 4 mg Polyethylene Glycol (Miralax) 17 gm PO DAILY [facility] Last Admin: 11/20/18 11:37 Dose: 17 gm Rivaroxaban (Xarelto) 20 mg PO DAILY [facility]; Protocol Last Admin: 11/20/18 11:37 Dose: 20 mg Zolpidem Tartrate (Ambien) 5 mg PO HS PRN; Protocol PRN Reason: Insomnia Last Admin: 11/19/18 23:11 Dose: 5 mg - Labs Labs: 11/19/18 08:20 11/19/18 08:20 PT 16.6 SECONDS (9.4-12.5) H 11/18/18 12:50 INR 1.47 11/18/18 12:50 APTT 72.4 Seconds (26.9-38.3) H 11/18/18 12:50 - Constitutional Appears: Well, No Acute Distress - Head Exam Head Exam: ATRAUMATIC, NORMAL INSPECTION - Eye Exam Eye Exam: EOMI. absent: Scleral icterus - ENT Exam ENT Exam: Mucous Membranes Moist. absent: Mucous Membranes Dry - Respiratory Exam Respiratory Exam: NORMAL BREATHING PATTERN. absent: Accessory Muscle Use, Respiratory Distress - GI/Abdominal Exam GI & Abdominal Exam: Soft, Normal Bowel Sounds. absent: Bruit, Distended, Firm, Guarding, Rigid, Tenderness, Mass, Organomegaly Assessment and Plan - Assessment and Plan (Free Text) Assessment: 73 yo F with PMH of Cecal adenocarcinoma s/p resection and re-anastamosis, Pancreatic adenocarcinoma (EUS staging criteria, T3NOMO, currently getting care at [facility], s/p chemo and XRT unclear if currently on chemo), Chronic Opiod Use, PE on rivaroxaban, DM, Hypertension, Constipation, Diverticular bleeding 09/2014 presents to [facility] with abdominal pain. Abdominal CT showed cirucmferential mural thickening of the transverse colon, which could represent nonspecific colitis, diffuse pancreatic ductal dilation, dilated CBD, b/l renal cysts, and sigmoid diverticulosis. 1. Abdominal pain 2. Pancreatic adenocarcinoma s/p chemoradiation 3. H/o PE on rivaroxaban 4. Cecal CA s/p R hemicolectomy with reanastamosis 5. Colon thickening: Possible radiation induced thickening vs colitis vs other Plan: - Possible Colonoscopy on Thursday - Miralax - Soft, low residue diet today - CLD tomorrow AM in - IV abx - Further medical management per primary Patient discussed with Dr. Lomeli; please see attestation for further recs/changes. <Milly Lomeli V - Last Filed: 11/20/18 23:36> Objective - Vital Signs/Intake and Output Vital Signs (last 24 hours): Temp Pulse Resp BP Pulse Ox 97.7 F 65 20 138/104 H 96 11/20/18 22:00 11/20/18 22:00 11/20/18 22:00 11/20/18 22:00 11/20/18 22:00 Intake and Output: 11/20/18 11/21/18 18:59 06:59 Intake Total 480 Output Total 400 Balance 80 - Medications Medications: Current Medications Acetaminophen (Tylenol 325mg Tab) 650 mg PO Q6H PRN PRN Reason: Fever >100.4 F Last Admin: 11/18/18 21:31 Dose: 650 mg Carbidopa/Levodopa (Sinemet 10/100) 1 tab PO TID [facility] Last Admin: 11/20/18 19:07 Dose: 1 tab Clonazepam (Klonopin) 0.25 mg PO BID PRN; Protocol PRN Reason: Anxiety Last Admin: 11/20/18 22:03 Dose: 0.25 mg Dronabinol (Marinol) 5 mg PO BID PRN PRN Reason: Other Fentanyl (Duragesic) 1 patch TD Q72H [facility] Last Admin: 11/20/18 11:33 Dose: 1 patch Hydralazine HCl (Apresoline) 10 mg IVP Q6 PRN PRN Reason: Systolic Blood Pressure Hydromorphone HCl (Dilaudid) 0.5 mg IVP Q6H PRN PRN Reason: Pain, severe (8-10) Last Admin: 11/20/18 17:28 Dose: 0.5 mg Sodium Chloride (Sodium Chloride 0.9%) 1,000 mls @ 75 mls/hr IV .[id number] [facility] Last Admin: 11/20/18 17:30 Dose: 75 mls/hr Metronidazole (Flagyl) 500 mg in 100 mls @ 100 mls/hr IVPB Q8 [facility]; Protocol Last Admin: 11/20/18 22:05 Dose: 100 mls/hr Ceftriaxone Sodium (Rocephin 1 Gram Ivpb) 1 gm in 100 mls @ 100 mls/hr IVPB DAILY [facility]; Protocol Last Admin: 11/20/18 11:38 Dose: 100 mls/hr Methylphenidate HCl (Ritalin) 5 mg PO DAILY [facility] Last Admin: 11/20/18 11:34 Dose: 5 mg Metoprolol Tartrate (Lopressor) 25 mg PO BID [facility] Last Admin: 11/20/18 17:29 Dose: 25 mg Ondansetron HCl (Zofran Inj) 4 mg IVP Q6H PRN PRN Reason: Nausea/Vomiting Last Admin: 11/20/18 19:43 Dose: 4 mg Polyethylene Glycol (Miralax) 17 gm PO DAILY [facility] Last Admin: 11/20/18 11:37 Dose: 17 gm Rivaroxaban (Xarelto) 20 mg PO DAILY [facility]; Protocol Last Admin: 11/20/18 11:37 Dose: 20 mg Zolpidem Tartrate (Ambien) 5 mg PO HS PRN; Protocol PRN Reason: Insomnia Last Admin: 11/19/18 23:11 Dose: 5 mg - Labs Labs: 11/19/18 08:20 11/19/18 08:20 PT 16.6 SECONDS (9.4-12.5) H 11/18/18 12:50 INR 1.47 11/18/18 12:50 APTT 72.4 Seconds (26.9-38.3) H 11/18/18 12:50 Attending/Attestation - Attestation I have personally seen and examined this patient.: Yes I have fully participated in the care of the patient.: Yes I have reviewed all pertinent clinical information, including history, physical exam and plan: Yes Notes (Text): This is an addendum to GI progress report dictated by the GI Fellow. The patient was seen and examined earlier. Medical records, lab studies, imagings were reviewed. Last 24 hours events reviewed. Agreed with the above treatment plan as outlined in GI Fellow 's notes with the addition of the following 11/20/18 23:35
[2018-11-20] MEDS: Sodium Chloride 0.9% 1,000 ML IV SCH (17:30)
--- NOTE | 2018-11-20 21:59 | PN ---
DATE: 11/20/2018 SUBJECTIVE: The patient is a 73-year-old female. The patient was seen and examined at the bedside on 11/20/2018. Abdominal pain is better, but still there. No bowel movement. Got MiraLax. According to GI, they wanted to do colonoscopy on Thursday. No fever. No chills. No hematuria. No hematochezia. PHYSICAL EXAMINATION: VITAL SIGNS: Temperature 98.2, pulse 85, respiratory rate 18, blood pressure 125/94, and pulse ox 100% HEENT: Head; normocephalic and atraumatic. Eyes; PERRLA. Extraocular muscles intact. Conjunctivae clear. Nose patent. NECK: Supple. No carotid bruits. No JVD or thyromegaly. CHEST: Bilaterally symmetrical. HEART: S1 and S2 positive. LUNGS: Clear to auscultation. ABDOMEN: Soft. Nontender. No organomegaly. EXTREMITIES: No edema. No cyanosis. NEUROLOGIC: The patient is awake and alert. Moving all four extremities. No focal deficits. MEDICATIONS: Tylenol, Sinemet, Klonopin, Duragesic patch, Dilaudid, NS, Flagyl, and Ambien. LABORATORY DATA: White blood cells 2.9, hemoglobin 8.5, hematocrit 25.8, and platelets 151. Sodium 142, potassium 4.1, BUN 12, creatinine 1.8, and glucose 98. ASSESSMENT AND PLAN: Ms. Wanda Obrien is a 73-year-old lady with leukopenia, anemia, and hyperchloremia. Has cecal adenocarcinoma, status post resection and reanastomosis, pancreatic adenocarcinoma, endoscopic ultrasound staging criteria T2 N0 M0, got treatment in [facility], chronic opioid use, history of colonic thickening, possibly radiation induced, thickening versus colitis versus varicosities as per Gastrointestinal, and possible colonoscopy on Thursday. IV antibiotics for colitis. Gastrointestinal and deep venous thrombosis prophylaxis. Repeat labs. The patient has history of insomnia. Getting Ambien. We will follow up. Kristen Prabhakar MD
[2018-11-21] MEDS: HYDROmorphone 0.5 mg/0.5 ml ISec IVP PRN ×3 (05:05→22:54)
[2018-11-21] MEDS: metroNIDAZOLE IV 500 mg/100 ml 500 MG/100 ML BAG IVPB SCH ×3 (05:56→21:17)
[2018-11-21] MEDS: Sodium Chloride 0.9% 1,000 ML IV SCH (05:57)
[2018-11-21] MEDS: cefTRIAXone 1 gm 1 GM/100 ML BAG IVPB SCH (10:37)
[2018-11-21] MEDS: POLYETHYLENE GLYCOL 3350 17 GM/Dose PACKET PO SCH (10:38)
[2018-11-21] MEDS ORDERED: Bisacodyl 5mg EC Tab PO ONE (13:14)
[2018-11-21] MEDS ORDERED: Peg-Electrolyte Oral Soln 4L (Golytely) PO ONE (14:30)
--- NOTE | 2018-11-21 18:55 | CP.PCM.PN ---
<Michael Yarbrough - Last Filed: 11/21/18 19:00> Subjective - Date & Time of Evaluation Date of Evaluation: 11/21/18 Time of Evaluation: 12:10 - Subjective Subjective: PGY-4 GI Fellow Prog Note Pt lying in bed, daughters at bedside. Reports some abd pain but improved. Tolerating diet. 5 point ROS negative other than stated above Objective - Vital Signs/Intake and Output Vital Signs (last 24 hours): Temp Pulse Resp BP Pulse Ox 97.7 F 62 18 158/76 H 100 11/21/18 14:00 11/21/18 17:54 11/21/18 14:00 11/21/18 17:54 11/21/18 14:00 Intake and Output: 11/21/18 11/21/18 06:59 18:59 Intake Total 1285 Balance 1285 - Medications Medications: Current Medications Acetaminophen (Tylenol 325mg Tab) 650 mg PO Q6H PRN PRN Reason: Fever >100.4 F Last Admin: 11/21/18 10:36 Dose: 650 mg Bisacodyl (Dulcolax) 10 mg PO ONCE ONE Stop: 11/22/18 06:01 Carbidopa/Levodopa (Sinemet 10/100) 1 tab PO TID [facility] Last Admin: 11/21/18 17:54 Dose: 1 tab Clonazepam (Klonopin) 0.25 mg PO BID PRN; Protocol PRN Reason: Anxiety Last Admin: 11/20/18 22:03 Dose: 0.25 mg Dronabinol (Marinol) 5 mg PO BID PRN PRN Reason: Other Fentanyl (Duragesic) 1 patch TD Q72H [facility] Last Admin: 11/20/18 11:33 Dose: 1 patch Hydralazine HCl (Apresoline) 10 mg IVP Q6 PRN PRN Reason: Systolic Blood Pressure Hydromorphone HCl (Dilaudid) 0.5 mg IVP Q6H PRN PRN Reason: Pain, severe (8-10) Last Admin: 11/21/18 11:01 Dose: 0.5 mg Sodium Chloride (Sodium Chloride 0.9%) 1,000 mls @ 75 mls/hr IV .[id number] [facility] Last Admin: 11/21/18 05:57 Dose: 75 mls/hr Metronidazole (Flagyl) 500 mg in 100 mls @ 100 mls/hr IVPB Q8 [facility]; Protocol Last Admin: 11/21/18 14:22 Dose: 100 mls/hr Ceftriaxone Sodium (Rocephin 1 Gram Ivpb) 1 gm in 100 mls @ 100 mls/hr IVPB DAILY [facility]; Protocol Last Admin: 11/21/18 10:37 Dose: 100 mls/hr Methylphenidate HCl (Ritalin) 5 mg PO DAILY [facility] Last Admin: 11/21/18 10:37 Dose: 5 mg Metoprolol Tartrate (Lopressor) 25 mg PO BID [facility] Last Admin: 11/21/18 17:54 Dose: 25 mg Ondansetron HCl (Zofran Inj) 4 mg IVP Q6H PRN PRN Reason: Nausea/Vomiting Last Admin: 11/21/18 16:19 Dose: 4 mg Polyethylene Glycol (Miralax) 17 gm PO DAILY [facility] Last Admin: 11/21/18 10:38 Dose: Not Given Rivaroxaban (Xarelto) 20 mg PO DAILY [facility]; Protocol Last Admin: 11/21/18 10:38 Dose: 20 mg Zolpidem Tartrate (Ambien) 5 mg PO HS PRN; Protocol PRN Reason: Insomnia Last Admin: 11/19/18 23:11 Dose: 5 mg - Labs Labs: 11/19/18 08:20 11/19/18 08:20 PT 16.6 SECONDS (9.4-12.5) H 11/18/18 12:50 INR 1.47 11/18/18 12:50 APTT 72.4 Seconds (26.9-38.3) H 11/18/18 12:50 - Constitutional Appears: Well, No Acute Distress - Head Exam Head Exam: ATRAUMATIC, NORMAL INSPECTION - Eye Exam Eye Exam: EOMI. absent: Scleral icterus - ENT Exam ENT Exam: Mucous Membranes Moist. absent: Mucous Membranes Dry - Respiratory Exam Respiratory Exam: NORMAL BREATHING PATTERN. absent: Accessory Muscle Use, Respiratory Distress - GI/Abdominal Exam GI & Abdominal Exam: Soft, Tenderness (ttp in epigastrum w/o guarding). absent: Bruit, Distended, Firm, Guarding, Rigid, Mass, Organomegaly, Pulsatile Mass Assessment and Plan - Assessment and Plan (Free Text) Assessment: 73 yo F with PMH of Cecal adenocarcinoma s/p resection and re-anastamosis, Pancreatic adenocarcinoma (EUS staging criteria, T3NOMO, currently getting care at [facility], s/p chemo and XRT unclear if currently on chemo), Chronic Opiod Use, PE on rivaroxaban, DM, Hypertension, Constipation, Diverticular bleeding 09/2014 presents to [facility] [place] with abdominal pain. Abdominal CT showed cirucmferential mural thickening of the transverse colon, which could represent nonspecific colitis, diffuse pancreatic ductal dilation, dilated CBD, b/l renal cysts, and sigmoid diverticulosis. 1. Abdominal pain 2. Pancreatic adenocarcinoma s/p chemoradiation 3. H/o PE on rivaroxaban 4. Cecal CA s/p R hemicolectomy with reanastamosis 5. Colon thickening: Possible radiation induced thickening vs colitis vs other Plan: - Diagnostic (on apixaban) Colonoscopy on Thursday - Golytely and dulcolax prep - CLD - NPO at [place] - IV abx per primary/ID - Further medical management per primary Patient discussed with Dr. Lomeli; please see attestation for further recs/changes. <Milly Lomeli V - Last Filed: 11/21/18 23:51> Objective - Vital Signs/Intake and Output Vital Signs (last 24 hours): Temp Pulse Resp BP Pulse Ox 97.7 F 62 18 158/76 H 100 11/21/18 14:00 11/21/18 17:54 11/21/18 14:00 11/21/18 17:54 11/21/18 14:00 Intake and Output: 11/21/18 11/22/18 18:59 06:59 Intake Total 1285 Balance 1285 - Medications Medications: Current Medications Acetaminophen (Tylenol 325mg Tab) 650 mg PO Q6H PRN PRN Reason: Fever >100.4 F Last Admin: 11/21/18 10:36 Dose: 650 mg Bisacodyl (Dulcolax) 10 mg PO ONCE ONE Stop: 11/22/18 06:01 Carbidopa/Levodopa (Sinemet 10/100) 1 tab PO TID [facility] Last Admin: 11/21/18 17:54 Dose: 1 tab Clonazepam (Klonopin) 0.25 mg PO BID PRN; Protocol PRN Reason: Anxiety Last Admin: 11/20/18 22:03 Dose: 0.25 mg Dronabinol (Marinol) 5 mg PO BID PRN PRN Reason: Other Fentanyl (Duragesic) 1 patch TD Q72H [facility] Last Admin: 11/20/18 11:33 Dose: 1 patch Hydralazine HCl (Apresoline) 10 mg IVP Q6 PRN PRN Reason: Systolic Blood Pressure Hydromorphone HCl (Dilaudid) 0.5 mg IVP Q6H PRN PRN Reason: Pain, severe (8-10) Last Admin: 11/21/18 22:54 Dose: 0.5 mg Sodium Chloride (Sodium Chloride 0.9%) 1,000 mls @ 75 mls/hr IV .[id number] [facility] Last Admin: 11/21/18 05:57 Dose: 75 mls/hr Metronidazole (Flagyl) 500 mg in 100 mls @ 100 mls/hr IVPB Q8 [facility]; Protocol Last Admin: 11/21/18 21:17 Dose: 100 mls/hr Ceftriaxone Sodium (Rocephin 1 Gram Ivpb) 1 gm in 100 mls @ 100 mls/hr IVPB DAILY [facility]; Protocol Last Admin: 11/21/18 10:37 Dose: 100 mls/hr Methylphenidate HCl (Ritalin) 5 mg PO DAILY [facility] Last Admin: 11/21/18 10:37 Dose: 5 mg Metoprolol Tartrate (Lopressor) 25 mg PO BID [facility] Last Admin: 11/21/18 17:54 Dose: 25 mg Ondansetron HCl (Zofran Inj) 4 mg IVP Q6H PRN PRN Reason: Nausea/Vomiting Last Admin: 11/21/18 16:19 Dose: 4 mg Polyethylene Glycol (Miralax) 17 gm PO DAILY [facility] Last Admin: 11/21/18 10:38 Dose: Not Given Rivaroxaban (Xarelto) 20 mg PO DAILY [facility]; Protocol Last Admin: 11/21/18 10:38 Dose: 20 mg Zolpidem Tartrate (Ambien) 5 mg PO HS PRN; Protocol PRN Reason: Insomnia - Labs Labs: 11/19/18 08:20 11/19/18 08:20 PT 16.6 SECONDS (9.4-12.5) H 11/18/18 12:50 INR 1.47 11/18/18 12:50 APTT 72.4 Seconds (26.9-38.3) H 11/18/18 12:50 Attending/Attestation - Attestation I have personally seen and examined this patient.: Yes I have fully participated in the care of the patient.: Yes I have reviewed all pertinent clinical information, including history, physical exam and plan: Yes Notes (Text): This is an addendum to GI progress report dictated by the GI Fellow. The patient was seen and examined earlier. Medical records, lab studies, imagings were reviewed. Last 24 hours events reviewed. Agreed with the above treatment plan as outlined in GI Fellow 's notes with the addition of the following Discussed with the patient's daughter again Scheduled for a colonoscopy tomorrow Status post a radiation chemo for pancreatic cancer CT shows some thickening of the transverse colon, redundant sigmoid with large amount of stool in the colon 11/21/18 23:50
[2018-11-22] MEDS: Nitroglycerin 2% Ointment Foilpak UD TOP SCH ×2 (01:20→18:05)
[2018-11-22] MEDS: Sodium Chloride 0.9% 1,000 ML IV SCH (04:16)
--- NOTE | 2018-11-22 04:24 | PN ---
DATE: 11/21/2018 SUBJECTIVE: The patient is a 73-year-old female. The patient was seen and examined at the bedside on 11/21/2018. The patient is lying, still complaining of abdominal pain. Tolerating diet but as per the patient, taste of her mouth is not good. Whatever she is eating, she does not like that. No appetite. PHYSICAL EXAMINATION: VITAL SIGNS: Temperature 97.7, pulse 52, respiratory rate 18, blood pressure 158/72, and pulse oximetry 100. HEENT: Head; normocephalic and atraumatic. Eyes; PERRLA. Extraocular muscles intact. Conjunctivae clear. Nose patent. Mucous membrane moist. NECK: Supple. No carotid bruits. No JVD or thyromegaly. CHEST: Bilaterally symmetrical. HEART: S1 and S2 positive. LUNGS: Clear to auscultation. ABDOMEN: Soft. Bowel sound present. No organomegaly. EXTREMITIES: No edema. No cyanosis. NEUROLOGIC: The patient is awake and alert. Follows simple commands. MEDICATIONS: Tylenol, Dulcolax, Sinemet, Klonopin, Marinol, Duragesic patch, Dilaudid, NS, Flagyl, Rocephin, methylprednisolone, Zofran, MiraLax. . LABORATORY DATA: White blood cells 2.9, hemoglobin 8.5, hematocrit 25.8, and platelets 151. Sodium 142, potassium 4.1, BUN 12, creatinine 1, and glucose 98. ASSESSMENT AND PLAN: Ms. Wanda Obrien is a 73-year-old lady with leukopenia, anemia, hyperchloremia. Has a cecal adenocarcinoma, status post resection and reanastomosis; pancreatic adenocarcinoma; chronic opioid use; pulmonary embolism, on blood thinner; hypertension; constipation; history of diverticular bleed; now has colitis. CT scan shows circumferential mural thickening of transverse colon which could represent nonspecific colitis, diffuse pancreatic dilatation. Colonoscopy on Thursday as per Gastrointestinal. Golytely and Dulcolax preparation given. Nothing per mouth after midnight. Intravenous fluid. Pain management. We will follow up. Kristen Prabhakar MD
[2018-11-22] MEDS: HYDROmorphone 0.5 mg/0.5 ml ISec IVP PRN ×2 (04:41→18:04)
[2018-11-22] MEDS: metroNIDAZOLE IV 500 mg/100 ml 500 MG/100 ML BAG IVPB SCH ×3 (05:23→22:32)
[2018-11-22] MEDS ORDERED: Bisacodyl 5mg EC Tab PO ONE (06:00)
[2018-11-22 06:35] LABS: HEMOGLOBIN 9.1 g/dL (12.0-16.0); MEAN CELL VOLUME 92.7 fl (80.0-105.0); MEAN CORPUSCULAR HEMOGLOBIN 31.6 pg (25.0-35.0); MEAN CORPUSCULAR HGB CONC 34.1 g/dl (31.0-37.0); MEAN PLATELET VOLUME 8.9 fl (7.0-11.0); RBC 2.88 10^6/uL (3.5-6.1); RED CELL DISTRIBUTION WIDTH 13.9 % (11.5-14.5); WHITE BLOOD COUNT 4.7 10^3/uL (4.5-11.0)
[2018-11-22 06:56] LABS: BLOOD UREA NITROGEN 12 mg/dL (7-21); GFR NON-AFRICAN AMERICAN 54
[2018-11-22] MEDS: POLYETHYLENE GLYCOL 3350 17 GM/Dose PACKET PO SCH (10:16)
[2018-11-22] MEDS: cefTRIAXone 1 gm 1 GM/100 ML BAG IVPB SCH (10:31)
[2018-11-22] MEDS ORDERED: Sodium Chloride 0.9% 1,000 ML IV SCH (11:30)
[2018-11-22 16:26] LABS: INR 1.29; PARTIAL THROMBOPLASTIN TIME 36.5 Seconds (26.9-38.3); PROTHROMBIN TIME 14.3 SECONDS (9.4-12.5)
--- NOTE | 2018-11-22 23:54 | CARD ---
APPROVED REPORT Date of service: 11/22/2018 EKG Measurement Heart [id number] <Conclusion> Sinus tachycardia ST & T wave abnormalities Abnormal ECG
--- NOTE | 2018-11-22 23:54 | CON ---
DATE: 11/22/2018 CARDIOLOGY CONSULTATION REASON FOR CONSULTATION: Preoperative evaluation and risk stratification for endoscopy, abdominal pain, chest pain, and positive troponin. BRIEF CLINICAL HISTORY: This is a 73-year-old female with past medical history significant for hypertension, prediabetic pancreatic cancer, history of PE on Xarelto, pancreatic cancer who is admitted here for endoscopy today. Patient was very anxious and tachycardiac. Complained one episode of chest pain, daughter is at the bedside. So troponin was sent. Preoperative evaluation for colonoscopy and endoscopy. Troponin came back 0.12. Patient currently denies any chest pain, shortness of breath or any palpitation. PAST MEDICAL HISTORY: Significant for pancreatic cancer stage 3, status post chemotherapy on 06/05/2018. Hypertension, prediabetic and cholecystectomy. Patient got the treatment in [facility], history of arthritis and diverticular colonic disease, and history of anxiety disorder. PAST SURGICAL HISTORY: Significant for cholecystectomy and hysterectomy. FAMILY HISTORY: Noncontributory. SOCIAL HISTORY: Denies any history of alcohol abuse, denies any history of smoking. MEDICATIONS: Current medication patient is taking Xarelto for PE, Ambien, oxycodone, clonazepam and metoprolol as well as carbidopa. ALLERGIES: NO KNOWN DRUG ALLERGIES. REVIEW OF SYSTEMS: As per HPI. PHYSICAL EXAMINATION: VITAL SIGNS: Temperature afebrile, heart rate 77, and blood pressure 181/106. HEENT: PERRLA. Extraocular muscles intact. NECK: Supple. No carotid bruit. No thyromegaly. CHEST: Clear to auscultation. HEART: S1 and S2 regular. ABDOMEN: Soft. EXTREMITIES: Clubbing and cyanosis, negative. LABORATORY DATA: Blood workup as follows; WBC 4.7, hemoglobin , hematocrit 26.7, and platelet count 157. Chemistry shows sodium 139, potassium 3.6, chloride 105, carbon dioxide 25, anion gap of , BUN 12, creatinine 1.0. Troponin was sent 0.12 at 3 p.m. TSH 1.82. EKG shows normal sinus rhythm. Nonspecific ST-T changes noted. Previous cardiac workup as follows; patient has a last echo on 06/05/2018. Ejection fraction 45%, trace aortic regurgitation, [id number] mitral regurgitation, [id number] tricuspid regurgitation. Right ventricular systolic pressure 30, trace pericardial effusion dated 05/29/2019. Prior to that the patient had an echocardiography done on 08/09/2016 at [facility], that shows borderline concentric LV ejection fraction of 70%. Mild pulmonary hypertension, trace tricuspid regurgitation dated 08/09/2016. IMPRESSION: A 73-year-old female with past medical history significant for pancreatic cancer admitted with anemia requiring endoscopy and colonoscopy. Patient with uncontrolled hypertension, anxiety disorder, blood pressure shot up to 181/106, at that time, patient developed chest pain, troponin was sent, found to be borderline positive at 0.12. Now patient is chest pain free. Last echo showed ejection fraction 45% dated 06/05/2018, trace aortic regurgitation, [id number] tricuspid regurgitation. Currently, the patient is completely chest pain free. Daughter named Nasrin is at the bedside. Discussed with the patient about the patient's condition. Patient has baseline pancreatic cancer with stage 3. RECOMMENDATIONS: We will hold colonoscopy today. Follow up serial CPK, troponin, beta-ortiz, nitrates. I tried to control the blood pressure of 180/106. Further recommendation depending upon the hospital course. We will follow with you. We will put hydralazine IV every 6 hours p.r.n., also give the nitrate and beta-ortiz. We will follow with you. Thank you Dr. Prabhakar for providing us the opportunity in taking care of the patient, Wanda Obrien. Hubert Chan MD
--- NOTE | 2018-11-23 00:04 | CP.PCM.PN ---
Subjective - Date & Time of Evaluation Date of Evaluation: 11/22/18 Time of Evaluation: 18:30 Objective - Vital Signs/Intake and Output Vital Signs (last 24 hours): Temp Pulse Resp BP Pulse Ox 98.4 F 103 H 18 147/73 98 11/22/18 22:05 11/22/18 22:05 11/22/18 22:05 11/22/18 22:05 11/22/18 22:05 Intake and Output: 11/22/18 11/23/18 18:59 06:59 Intake Total 100 Balance 100 - Medications Medications: Current Medications Acetaminophen (Tylenol 325mg Tab) 650 mg PO Q6H PRN PRN Reason: Fever >100.4 F Last Admin: 11/21/18 10:36 Dose: 650 mg Carbidopa/Levodopa (Sinemet ) 1 tab PO TID [facility] Last Admin: 11/22/18 18:05 Dose: 1 tab Clonazepam (Klonopin) 0.25 mg PO BID PRN; Protocol PRN Reason: Anxiety Last Admin: 11/20/18 22:03 Dose: 0.25 mg Dronabinol (Marinol) 5 mg PO BID PRN PRN Reason: Other Fentanyl (Duragesic) 1 patch TD Q72H [facility] Last Admin: 11/20/18 11:33 Dose: 1 patch Hydralazine HCl (Apresoline) 10 mg IVP Q6 PRN PRN Reason: Systolic Blood Pressure Last Admin: 11/22/18 13:37 Dose: 10 mg Hydromorphone HCl (Dilaudid) 0.5 mg IVP Q6H PRN PRN Reason: Pain, severe (8-10) Last Admin: 11/22/18 18:04 Dose: 0.5 mg Metronidazole (Flagyl) 500 mg in 100 mls @ 100 mls/hr IVPB Q8 [facility]; Protocol Last Admin: 11/22/18 22:32 Dose: 100 mls/hr Ceftriaxone Sodium (Rocephin 1 Gram Ivpb) 1 gm in 100 mls @ 100 mls/hr IVPB DAILY [facility]; Protocol Last Admin: 11/22/18 10:31 Dose: 100 mls/hr Lisinopril (Zestril) 5 mg PO DAILY [facility] Methylphenidate HCl (Ritalin) 5 mg PO DAILY [facility] Last Admin: 11/22/18 10:17 Dose: Not Given Metoprolol Tartrate (Lopressor) 25 mg PO BID [facility] Last Admin: 11/22/18 18:05 Dose: 25 mg Ondansetron HCl (Zofran Inj) 4 mg IVP Q6H PRN PRN Reason: Nausea/Vomiting Last Admin: 11/22/18 21:44 Dose: 4 mg Polyethylene Glycol (Miralax) 17 gm PO DAILY [facility] Last Admin: 11/22/18 10:16 Dose: Not Given Rivaroxaban (Xarelto) 20 mg PO DAILY [facility]; Protocol Last Admin: 11/22/18 10:17 Dose: Not Given Zolpidem Tartrate (Ambien) 5 mg PO HS PRN; Protocol PRN Reason: Insomnia Last Admin: 11/22/18 22:36 Dose: 5 mg - Labs Labs: 11/22/18 06:30 11/22/18 06:30 PT 14.3 SECONDS (9.4-12.5) H 11/22/18 16:13 INR 1.29 11/22/18 16:13 APTT 36.5 Seconds (26.9-38.3) 11/22/18 16:13
[2018-11-23] MEDS: HYDROmorphone 0.5 mg/0.5 ml ISec IVP PRN ×3 (02:09→17:00)
[2018-11-23] MEDS: metroNIDAZOLE IV 500 mg/100 ml 500 MG/100 ML BAG IVPB SCH ×3 (04:48→22:09)
[2018-11-23 07:29] LABS: BASO # 0.01 K/mm3 (0.0-2.0); BASO % 0.2 % (0.0-3.0); EOS % 0.4 % (1.5-5.0); HEMOGLOBIN 8.4 g/dL (12.0-16.0); LYMPH # 0.8 (1.2-3.4); MEAN CELL VOLUME 93.3 fl (80.0-105.0); MEAN CORPUSCULAR HEMOGLOBIN 31.1 pg (25.0-35.0); MEAN CORPUSCULAR HGB CONC 33.3 g/dl (31.0-37.0); MONO # 0.5 (0.1-0.6); RBC 2.7 10^6/uL (3.5-6.1); RED CELL DISTRIBUTION WIDTH 14.1 % (11.5-14.5); WHITE BLOOD COUNT 4.7 10^3/uL (4.5-11.0)
[2018-11-23 07:37] LABS: ALB/GLOB RATIO 1.3 (1.1-1.8); ALBUMIN 3.2 g/dL (3.0-4.8); CALCIUM 8.6 mg/dL (8.4-10.5)
[2018-11-23 08:17] LABS: TROPONIN I 0.44 ng/mL
--- NOTE | 2018-11-23 08:17 | PN ---
DATE: 11/22/2018 SUBJECTIVE: The patient is a 73-year-old female. The patient was seen and examined at the bedside on 11/22/2018. I saw the patient early in the morning, was complaining about pain and the patient is supposed to go for a colonoscopy today, but later on the patient was complaining about chest pain, EKG, and cardiac exam was done. Cardiology consult called with Dr. Chan. House physician spoke to Dr. Chan. Dr. Chan is supposed to the patient for chest pain. Because of chest pain, the patient's colonoscopy was canceled. PHYSICAL EXAMINATION VITAL SIGNS: Temperature 97.7, pulse 52, respiratory rate 18, blood pressure 150/74, pulse oximetry 100. HEENT: Head is normocephalic and atraumatic. Eyes, PERRLA. Extraocular movements are intact. Conjunctivae clear. Nose patent. Mucous membrane moist. NECK: Supple. No carotid bruits. No thyromegaly. CHEST: Bilaterally symmetrical. HEART: S1 and S2 positive. LUNGS: Clear to auscultation. ABDOMEN: Soft. Bowel sounds positive. No organomegaly. EXTREMITIES: No edema. No cyanosis. NEUROLOGIC: Patient is awake, alert. Follows simple commands. MEDICATIONS: Dulcolax, Sinemet, Klonopin, DuoNeb, Duragesic patch, hydralazine, Zoloft, MiraLax, Ambien. LABORATORY DATA: White blood cells 2.9, hemoglobin 8.5, hematocrit 25.8, and platelets 161. Sodium 142, potassium 4.1, BUN 4, creatinine 1. Glucose 98. ASSESSMENT AND PLAN: Ms. Wanda Obrien is a 73-year-old female with leukopenia, anemia, hypokalemia, had history of cecal adenocarcinoma,, chronic opiate use, history of pulmonary embolism, hypertension, constipation, diverticular bleed. Abdominal CT showed circumferential mural thickening of the transverse colon which could be of nonspecific colitis or diffuse pancreatic dilatation, dilated common bile duct, sigmoid diverticulosis, The patient was n.p.o. Had episode of chest pain, anemia. Troponin is 0.12, 0.11. Iron deficiency, hematuria. PLAN: Continue current treatment. Repeat labs. Waiting for her input. We will follow up. Kristen Prabhakar MD [email or web address]
[2018-11-23] MEDS: cefTRIAXone 1 gm 1 GM/100 ML BAG IVPB SCH (09:26)
[2018-11-23] MEDS: Petrolatum Oint Foilpak (5 gm) TOP SCH ×3 (11:18→17:52)
[2018-11-23] MEDS: POLYETHYLENE GLYCOL 3350 17 GM/Dose PACKET PO SCH (11:21)
--- NOTE | 2018-11-23 12:05 | CP.PCM.PN ---
<Alex Haley - Last Filed: 11/23/18 11:54> Subjective - Date & Time of Evaluation Date of Evaluation: 11/23/18 Time of Evaluation: 11:54 - Subjective Subjective: GI Progress Note for Dr. Lomeli Patient seen and examined at bedside. No acute overnight events. Cardio cancelled procedure yesterday due to elevated troponin. Patient denied CP, SOB, n/v/d, abdominal pain, fever, chills, [place], or dizziness. Objective - Vital Signs/Intake and Output Vital Signs (last 24 hours): Temp Pulse Resp BP Pulse Ox 98.4 F 70 18 129/78 100 11/23/18 06:00 11/23/18 06:00 11/23/18 06:00 11/23/18 06:00 11/23/18 06:00 Intake and Output: 11/23/18 11/23/18 06:59 18:59 Intake Total 100 Balance 100 - Medications Medications: Current Medications Acetaminophen (Tylenol 325mg Tab) 650 mg PO Q6H PRN PRN Reason: Fever >100.4 F Last Admin: 11/21/18 10:36 Dose: 650 mg Carbidopa/Levodopa (Sinemet 10/) 1 tab PO TID [facility] Last Admin: 11/23/18 11:40 Dose: 1 tab Clonazepam (Klonopin) 0.25 mg PO BID PRN; Protocol PRN Reason: Anxiety Last Admin: 11/20/18 22:03 Dose: 0.25 mg Dronabinol (Marinol) 5 mg PO BID PRN PRN Reason: Other Emollient Ointment (Vaseline Oint) 5 gm TOP TID [facility] Last Admin: 11/23/18 11:18 Dose: 5 gm Fentanyl (Duragesic) 1 patch TD Q72H [facility] Last Admin: 11/23/18 11:16 Dose: 1 patch Hydralazine HCl (Apresoline) 10 mg IVP Q6 PRN PRN Reason: Systolic Blood Pressure Last Admin: 11/22/18 13:37 Dose: 10 mg Hydromorphone HCl (Dilaudid) 0.5 mg IVP Q6H PRN PRN Reason: Pain, severe (8-10) Last Admin: 11/23/18 09:25 Dose: 0.5 mg Metronidazole (Flagyl) 500 mg in 100 mls @ 100 mls/hr IVPB Q8 [facility]; Protocol Last Admin: 11/23/18 04:48 Dose: 100 mls/hr Ceftriaxone Sodium (Rocephin 1 Gram Ivpb) 1 gm in 100 mls @ 100 mls/hr IVPB DA ANSON [facility]; Protocol Last Admin: 11/23/18 09:26 Dose: 100 mls/hr Isosorbide Mononitrate (Imdur Er) 30 mg PO DAILY [facility] Lisinopril (Zestril) 5 mg PO DAILY [facility] Last Admin: 11/23/18 11:40 Dose: 5 mg Methylphenidate HCl (Ritalin) 5 mg PO DAILY [facility] Last Admin: 11/23/18 11:21 Dose: Not Given Metoprolol Tartrate (Lopressor) 25 mg PO BID [facility] Last Admin: 11/23/18 11:40 Dose: 25 mg Ondansetron HCl (Zofran Inj) 4 mg IVP Q6H PRN PRN Reason: Nausea/Vomiting Last Admin: 11/22/18 21:44 Dose: 4 mg Polyethylene Glycol (Miralax) 17 gm PO DAILY [facility] Last Admin: 11/23/18 11:21 Dose: Not Given Rivaroxaban (Xarelto) 20 mg PO DAILY [facility]; Protocol Last Admin: 11/22/18 10:17 Dose: Not Given Zolpidem Tartrate (Ambien) 5 mg PO HS PRN; Protocol PRN Reason: Insomnia Last Admin: 11/22/18 22:36 Dose: 5 mg - Labs Labs: 11/23/18 07:00 11/23/18 07:00 PT 14.3 SECONDS (9.4-12.5) H 11/22/18 16:13 INR 1.29 11/22/18 16:13 APTT 36.5 Seconds (26.9-38.3) 11/22/18 16:13 - Constitutional Appears: No Acute Distress - Head Exam Head Exam: NORMAL INSPECTION - Eye Exam Eye Exam: Normal appearance - ENT Exam ENT Exam: Mucous Membranes Moist - Respiratory Exam Respiratory Exam: Clear to Ausculation Bilateral. absent: Rales, Rhonchi, Wheezes - Cardiovascular Exam Cardiovascular Exam: RRR, +S1, +S2. absent: Gallop, Rubs, Murmur - GI/Abdominal Exam GI & Abdominal Exam: Soft. absent: Distended, Guarding, Tenderness, Rebound - Extremities Exam Extremities Exam: Normal Inspection - Back Exam Back Exam: NORMAL INSPECTION - Neurological Exam Neurological Exam: Alert, Awake - Skin Skin Exam: Normal Color, Warm Assessment and Plan - Assessment and Plan (Free Text) Assessment: 73 yo F with PMH of Cecal adenocarcinoma s/p resection and re-anastamosis, Pancreatic adenocarcinoma (EUS staging criteria, T3NOMO, currently getting care at [facility], s/p chemo and XRT unclear if currently on chemo), Chronic Opiod Use, PE on rivaroxaban, DM, Hypertension, Constipation, Diverticular bleeding 09/2014 presents to [facility] [place] with abdominal pain. Abdominal CT showed cirucmferential mural thickening of the transverse colon, which could represent nonspecific colitis, diffuse pancreatic ductal dilation, dilated CBD, b/l renal cysts, and sigmoid diverticulosis. 1. Abdominal pain 2. Pancreatic adenocarcinoma s/p chemoradiation 3. H/o PE on rivaroxaban 4. Cecal CA s/p R hemicolectomy with reanastamosis 5. Colon thickening: Possible radiation induced thickening vs colitis vs other Plan: - Plan for colonoscopy tomorrow - Cleared by cardio with high risk - Mag citrate and dulcolax prep - CLD today - NPO at [place] - IV abx per primary/ID - Further medical management per primary Patient discussed with Dr. Lomeli; please see attestation for further recs/changes. Kb Haley DO PGY2 <Milly Lomeli V - Last Filed: 11/24/18 00:01> Objective - Vital Signs/Intake and Output Vital Signs (last 24 hours): Temp Pulse Resp BP Pulse Ox 98.4 F 70 18 129/78 100 11/23/18 06:00 11/23/18 06:00 11/23/18 06:00 11/23/18 06:00 11/23/18 06:00 Intake and Output: 11/23/18 11/24/18 18:59 06:59 Intake Total 120 1 Balance 120 1 - Medications Medications: Current Medications Acetaminophen (Tylenol 325mg Tab) 650 mg PO Q6H PRN PRN Reason: Fever >100.4 F Last Admin: 11/21/18 10:36 Dose: 650 mg Carbidopa/Levodopa (Sinemet ) 1 tab PO TID [facility] Last Admin: 11/23/18 17:52 Dose: Not Given Clonazepam (Klonopin) 0.25 mg PO BID PRN; Protocol PRN Reason: Anxiety Last Admin: 11/23/18 22:08 Dose: 0.25 mg Dronabinol (Marinol) 5 mg PO BID PRN PRN Reason: Other Emollient Ointment (Vaseline Oint) 5 gm TOP TID [facility] Last Admin: 11/23/18 17:52 Dose: Not Given Fentanyl (Duragesic) 1 patch TD Q72H [facility] Last Admin: 11/23/18 11:16 Dose: 1 patch Hydralazine HCl (Apresoline) 10 mg IVP Q6 PRN PRN Reason: Systolic Blood Pressure Last Admin: 11/22/18 13:37 Dose: 10 mg Hydromorphone HCl (Dilaudid) 0.5 mg IVP Q6H PRN PRN Reason: Pain, severe (8-10) Last Admin: 11/23/18 17:00 Dose: 0.5 mg Metronidazole (Flagyl) 500 mg in 100 mls @ 100 mls/hr IVPB Q8 [facility]; Protocol Last Admin: 11/23/18 22:09 Dose: 100 mls/hr Ceftriaxone Sodium (Rocephin 1 Gram Ivpb) 1 gm in 100 mls @ 100 mls/hr IVPB DAILY [facility]; Protocol Last Admin: 11/23/18 09:26 Dose: 100 mls/hr Isosorbide Mononitrate (Imdur Er) 30 mg PO DAILY [facility] Last Admin: 11/23/18 17:52 Dose: Not Given Lisinopril (Zestril) 5 mg PO DAILY [facility] Last Admin: 11/23/18 11:40 Dose: 5 mg Magnesium Citrate (Citrate Of Mag) 300 ml PO ONCE ONE Stop: 11/24/18 05:01 Methylphenidate HCl (Ritalin) 5 mg PO DAILY [facility] Last Admin: 11/23/18 11:21 Dose: Not Given Metoprolol Tartrate (Lopressor) 25 mg PO BID [facility] Last Admin: 11/23/18 17:52 Dose: Not Given Ondansetron HCl (Zofran Inj) 4 mg IVP Q6H PRN PRN Reason: Nausea/Vomiting Last Admin: 11/23/18 22:16 Dose: 4 mg Polyethylene Glycol (Miralax) 17 gm PO DAILY [facility] Last Admin: 11/23/18 11:21 Dose: Not Given Rivaroxaban (Xarelto) 20 mg PO DAILY [facility]; Protocol Last Admin: 11/23/18 12:21 Dose: Not Given Zolpidem Tartrate (Ambien) 5 mg PO HS PRN; Protocol PRN Reason: Insomnia Last Admin: 11/22/18 22:36 Dose: 5 mg - Labs Labs: 11/23/18 07:00 11/23/18 07:00 PT 14.3 SECONDS (9.4-12.5) H 11/22/18 16:13 INR 1.29 11/22/18 16:13 APTT 36.5 Seconds (26.9-38.3) 11/22/18 16:13 Attending/Attestation - Attestation I have personally seen and examined this patient.: Yes I have fully participated in the care of the patient.: Yes I have reviewed all pertinent clinical information, including history, physical exam and plan: Yes Notes (Text): This is an addendum to GI progress report dictated by the GI Fellow. The patient was seen and examined earlier. Medical records, lab studies, imagings were reviewed. Last 24 hours events reviewed. Agreed with the above treatment plan as outlined in GI Fellow 's notes with the addition of the following discussed with the patient's daughter who were at bedside Patient denies any further chest pain Xarelto has been on hold history of PE We will prepare the patient for colonoscopy for tomorrow Pancreatic CA status post radiation chemo 11/23/18 23:50
--- NOTE | 2018-11-23 12:09 | CP.PCM.PCO ---
Physician Communication Note - Physician Communication Note Physician Communication Note: Per Cardio, ok to hold Xarelto. No need for Lovenox.
--- NOTE | 2018-11-23 16:21 | PN ---
DATE: 11/23/2018 REASON FOR CONSULTATION AND FOLLOWUP: Preoperative evaluation, risk stratification for endoscopy, abdominal pain, chest pain, positive troponin. SUBJECTIVE: The patient denies any chest pain, shortness of breath or any palpitation. OBJECTIVE: GENERAL: Not in apparent distress. VITAL SIGNS: Temperature afebrile, heart rate 70, blood pressure 129/78. HEENT: PERRLA, intact. NECK: Supple. No carotid bruit or thyromegaly. CHEST: Clear to auscultation. HEART: S1, S2. Regular. ABDOMEN: Soft. EXTREMITIES: Clubbing and cyanosis negative. LABORATORY DATA: Blood workup as follows: WBC 4.7, hemoglobin 8.4, hematocrit 25.2, platelet count 159. Chemistry shows sodium 137, potassium 3.6, chloride 105, carbon dioxide 24, anion gap of 11, BUN 16, creatinine 1.2. Troponin 0.12, 0.11, 0.44. IMPRESSION: A 73-year-old female with past medical history significant for hypertension, prediabetic, pancreatic cancer, history of pulmonary embolism on Xarelto admitted for colonoscopy, complained of one episode of chest pain, 0.12, next troponin 0.11 and now 0.44, though the patient is asymptomatic. The patient is asymptomatic though the patient had positive troponin. The patient clearance for colonoscopy, endoscopy. Since the patient has asymptomatic troponin positive, may have underlying coronary artery disease. Overall, the patient's condition is critical. The patient had stage 3 pancreatic carcinoma. RECOMMENDATIONS: Would suggest aggressive medical treatment. For endoscopy, the patient is moderate to high risk. Risk-benefit ratio is in favor of the patient can go for colonoscopy. We will follow with you. In the interim, continue metoprolol, continue nitrates. We will decrease the dose of lisinopril so we can give some nitrates and we will treat medically. No plans for invasive workup. We will continue interim beta ortiz, nitrates. Thank you Dr. Prabhakar for providing us the opportunity in taking care of the patient, Wanda Obrien. We will follow with you. Hubert Chan MD
[2018-11-23] MEDS ORDERED: Bisacodyl 5mg EC Tab PO ONE (22:00)
--- NOTE | 2018-11-24 00:51 | PN ---
DATE: 11/23/2018 The patient was seen and examined at bedside on 11/23/2018. SUBJECTIVE: The patient is 73-year-old female. The patient is looking comfortable. No more chest pain, still having abdominal pain, but getting better. The patient had chest pain yesterday, but Cardiology cleared the patient for surgery. After this, she was told to go for colonoscopy yesterday, then started chest pain. Troponin was positive. Procedure was on hold. Today, marker hand cleared the patient for procedure tomorrow. No shortness of breath. No chest pain. No nausea, vomiting or diarrhea. According to marker hand, Xarelto can be hold. PHYSICAL EXAMINATION: VITAL SIGNS: Temperature 98.4, pulse 70, respiratory rate 18, blood pressure 120/70, pulse oximetry 100. HEENT: Head, normocephalic, atraumatic. Eyes, PERRLA. Extraocular muscles are intact. Conjunctivae clear. Nose, patent. Mucous membranes are moist. NECK: Supple. No carotid bruit. No thyromegaly. CHEST: Bilateral symmetrical. HEART: S1 and S2 positive. LUNGS: Clear to auscultation. ABDOMEN: Soft. Bowel sounds present. No organomegaly. EXTREMITIES: No edema. No cyanosis. NEUROLOGIC: Patient is awake, alert. Moving all 4 extremities. No focal deficits. MEDICATIONS: Tylenol, Sinemet, Klonopin, Marinol, fentanyl patch, hydralazine, hydromorphone, Flagyl. LABORATORY DATA: White blood cell 4.7, hemoglobin 8.4, hematocrit 25.2, and platelets 159. Sodium 137, potassium 3.6, BUN 16, creatinine 1.2, glucose 78. ASSESSMENT AND PLAN: Ms. Wanda Obrien is a 73-year-old female with anemia, has history of cecal adenocarcinoma status post resection and reanastomosis, pancreatic adenocarcinoma, got treatment from [facility], chronic opioid use, pulmonary embolism on rivaroxaban, diabetes mellitus, hypertension, constipation, diverticular bleed, abdominal pain. CAT scan of the abdomen shows circumferential mural thickening of transverse colon which could be colitis or something else, getting antibiotics for colitis. The patient is supposed to go for colonoscopy yesterday, but starting chest pain and the colonoscopy was held, now Cardiology cleared the patient. She will have colonoscopy for tomorrow. History of hemicolectomy reanastomosis, GoLYTELY and Dulcolax preparation given, nothing per mouth after midnight. Length of discussion done with the patient's daughter. Repeat labs. We will followup. Kristen Prabhakar MD MTDD
[2018-11-24] MEDS ORDERED: Magnesium Citrate Oral SOL (300 ml) PO ONE (05:00)
[2018-11-24] MEDS: HYDROmorphone 0.5 mg/0.5 ml ISec IVP PRN ×2 (05:42→10:48)
[2018-11-24] MEDS: metroNIDAZOLE IV 500 mg/100 ml 500 MG/100 ML BAG IVPB SCH ×3 (05:43→21:05)
[2018-11-24 08:30] LABS: TROPONIN I 0.2 ng/mL
[2018-11-24] MEDS: cefTRIAXone 1 gm 1 GM/100 ML BAG IVPB SCH (10:16)
[2018-11-24] MEDS: POLYETHYLENE GLYCOL 3350 17 GM/Dose PACKET PO SCH (10:17)
[2018-11-24] MEDS: Petrolatum Oint Foilpak (5 gm) TOP SCH ×3 (10:17→19:00)
--- NOTE | 2018-11-24 10:44 | CP.PCM.PCO ---
Physician Communication Note - Physician Communication Note Physician Communication Note: Per GI, planned for colonoscopy today.
[2018-11-24] MEDS ORDERED: Bisacodyl 5mg EC Tab PO ONE (12:25)
--- NOTE | 2018-11-24 15:04 | PN ---
DATE: 11/24/2018 LOCATION: Room 565, bed 1. REASON FOR CONSULTATION AND FOLLOWUP: Preoperative evaluation, cardiac risk stratification for colonoscopy, endoscopy, abdominal pain, positive troponin, and history of pancreatic malignancy. SUBJECTIVE: The patient is lying flat in bed without chest pain, shortness of breath, palpitation. Complains of abdominal discomfort. OBJECTIVE: VITAL SIGNS: Blood pressure 146/91, yesterday blood pressure was 129/78, respiration 18, pulse 84, temperature 98.5. HEENT: Head is normocephalic. Eyes, pupils normal. Conjunctivae slightly pale. NECK: JVP low. LUNGS: Clear. CARDIOVASCULAR: S1, S2. ABDOMEN: Soft. Bowel sounds normal. EXTREMITIES: No clubbing. No cyanosis. LABORATORY DATA: WBC 4.7, hemoglobin 8.4, hematocrit 25.2, platelets 159. Sodium 137, potassium 3.6, BUN 16, creatinine 1.2. First troponin 0.12, second 0.11, third 0.44, fourth 0.20. DIAGNOSES: Malignancy of the pancreas, hypertension, prediabetic, history of pulmonary embolism on Xarelto. Complaint of abdominal pain and chest pain. Troponin as mentioned in the labs. PLAN: The patient's troponin elevated although she did not have any chest pain, so we cannot rule out with certainty that the patient does not have coronary artery disease, but the patient is not in a condition to do any invasive therapy at this moment, so we will treat her medically. As far as colonoscopic and endoscopic procedures are concerned, the patient has been already cleared by Dr. Chan as [id number] risk, but there are no observed contraindications not to do it. The patient is already on metoprolol 25 mg b.i.d., ceftriaxone 1 g IV daily, lisinopril 5 mg daily, Xarelto 20 mg daily, carbidopa levodopa one tablet p.o. t.i.d., ceftriaxone 1 g IV daily, metronidazole 500 mg IV every 8 hours, isosorbide mononitrate 30 mg p.o. daily, magnesium citrate 100 mg p.o. ____. Patient is on fentanyl patch 25 mcg apply every 72 hours. We will follow. Hubert Haas MD
[2018-11-24] MEDS ORDERED: clonazePAM 0.125 mg Disinteg Tab PO PRN (16:49)
[2018-11-24] MEDS ORDERED: Apap-Butalbital-Caffeine 325-50-40mg Tab PO STA (16:57)
[2018-11-24] MEDS ORDERED: Sodium Chloride 0.9% 1,000 ML IV SCH (17:30)
[2018-11-24] MEDS ORDERED: Propofol 10 mg/ml Inj (20 ML) ONE (18:05)
--- NOTE | 2018-11-25 02:09 | PN ---
DATE: 11/24/2018 SUBJECTIVE: The patient is a 73-year-old female. The patient was seen and examined at the bedside on 11/24/2018. No fever. No chills. No hematuria or hematochezia. No headache or dizziness. No chest pain. No palpitation. PHYSICAL EXAMINATION: VITAL SIGNS: Blood pressure 140/90, respiratory rate 18, pulse 84, temperature 98.5. HEENT: Head is normocephalic, atraumatic. Eyes, PERRLA. Extraocular muscles intact. Conjunctivae clear. Nose patent. Mucous membranes moist. NECK: Supple. No carotid bruits. No JVD or thyromegaly. CHEST: Bilaterally symmetrical. HEART: S1, S2 positive. LUNGS: Clear to auscultation. ABDOMEN: Soft. Bowel sounds present. No organomegaly. EXTREMITIES: No edema. No cyanosis. NEUROLOGIC: The patient is awake, alert. Moving all 4 extremities. No focal deficits. LABORATORY DATA: White blood cell 4.7, hemoglobin 8.4, hematocrit 25.2, platelets 159. Sodium 137, potassium 3.6, BUN 16, creatinine 1.2. Troponin 0.12, second is 0.11, third is 0.44, then 0.20, is trending down. ASSESSMENT AND PLAN: Ms. Wanda Obrien is a 73-year-old lady with malignancy of the pancreas, hypertension, prediabeitc, history of pulmonary emboli, on Xarelto, history of colon cancer, status post colectomy and reversal, has history of chest pain, seen by the quill cleaner, cleared for colonoscopy by the quill cleaner. Pain medication dependency. Finally went for endoscopy by Dr. Lomeli. The patient has polyps, diverticulosis, hemorrhoids, status post right colon resection. The patient has history of headache, Fioricet one dose given. Gastrointestinal and deep venous thrombosis prophylaxis. Repeat labs. Getting antibiotics for colitis. Feeling better. We will follow. Kristen Prabhakar MD
[2018-11-25] MEDS: metroNIDAZOLE IV 500 mg/100 ml 500 MG/100 ML BAG IVPB SCH ×3 (05:47→21:41)
[2018-11-25 07:40] LABS: TROPONIN I 0.24 ng/mL
--- NOTE | 2018-11-25 08:18 | CP.PCM.PN ---
Subjective - Date & Time of Evaluation Date of Evaluation: 11/25/18 Time of Evaluation: 06:30 - Subjective Subjective: No distress, lying in bed Reason for consultation and follow up: Pre-op evaluation and cardiac evaluation for colonoscopy, complaints of abdominal pain, positive troponin, history of pancreatic malignancy Seen and examined by me and Dr. Chan Objective - Vital Signs/Intake and Output Vital Signs (last 24 hours): Temp Pulse Resp BP Pulse Ox 97.8 F 64 18 153/89 H 98 11/24/18 21:34 11/24/18 21:34 11/24/18 21:34 11/24/18 21:34 11/24/18 21:34 Intake and Output: 11/25/18 11/25/18 06:59 18:59 Intake Total 480 Output Total 3 Balance 477 - Medications Medications: Current Medications Acetaminophen (Tylenol 325mg Tab) 650 mg PO Q6H PRN PRN Reason: Fever >100.4 F Last Admin: 11/24/18 14:36 Dose: 650 mg Carbidopa/Levodopa (Sinemet /) 1 tab PO TID [facility] Last Admin: 11/24/18 18:59 Dose: Not Given Clonazepam (Klonopin Wafers) 0.25 mg PO BID PRN; Protocol PRN Reason: Anxiety Dronabinol (Marinol) 5 mg PO BID PRN PRN Reason: Other Emollient Ointment (Vaseline Oint) 5 gm TOP TID [facility] Last Admin: 11/24/18 19:00 Dose: Not Given Fentanyl (Duragesic) 1 patch TD Q72H [facility] Last Admin: 11/23/18 11:16 Dose: 1 patch Hydralazine HCl (Apresoline) 10 mg IVP Q6 PRN PRN Reason: Systolic Blood Pressure Last Admin: 11/22/18 13:37 Dose: 10 mg Hydromorphone HCl (Dilaudid) 0.5 mg IVP Q6H PRN PRN Reason: Pain, severe (8-10) Last Admin: 11/24/18 10:48 Dose: 0.5 mg Metronidazole (Flagyl) 500 mg in 100 mls @ 100 mls/hr IVPB Q8 [facility]; Protocol Last Admin: 11/25/18 05:47 Dose: 100 mls/hr Ceftriaxone Sodium (Rocephin 1 Gram Ivpb) 1 gm in 100 mls @ 100 mls/hr IVPB DAILY [facility]; Protocol Last Admin: 11/24/18 10:16 Dose: 100 mls/hr Isosorbide Mononitrate (Imdur Er) 30 mg PO DAILY [facility] Last Admin: 11/24/18 10:16 Dose: 30 mg Lisinopril (Zestril) 5 mg PO DAILY [facility] Last Admin: 11/24/18 10:15 Dose: 5 mg Methylphenidate HCl (Ritalin) 5 mg PO DAILY [facility] Last Admin: 11/24/18 10:16 Dose: 5 mg Metoprolol Tartrate (Lopressor) 25 mg PO BID [facility] Last Admin: 11/24/18 18:59 Dose: Not Given Ondansetron HCl (Zofran Inj) 4 mg IVP Q6H PRN PRN Reason: Nausea/Vomiting Last Admin: 11/24/18 20:27 Dose: 4 mg Polyethylene Glycol (Miralax) 17 gm PO DAILY [facility] Last Admin: 11/24/18 10:17 Dose: Not Given Rivaroxaban (Xarelto) 20 mg PO DAILY [facility]; Protocol Last Admin: 11/23/18 12:21 Dose: Not Given Zolpidem Tartrate (Ambien) 5 mg PO HS PRN; Protocol PRN Reason: Insomnia Last Admin: 11/24/18 22:35 Dose: 5 mg - Labs Labs: 11/23/18 07:00 11/23/18 07:00 PT 14.3 SECONDS (9.4-12.5) H 11/22/18 16:13 INR 1.29 11/22/18 16:13 APTT 36.5 Seconds (26.9-38.3) 11/22/18 16:13 - Constitutional Appears: Non-toxic, No Acute Distress - Head Exam Head Exam: NORMAL INSPECTION, NORMOCEPHALIC - Eye Exam Eye Exam: Normal appearance Pupil Exam: NORMAL ACCOMODATION - ENT Exam ENT Exam: Mucous Membranes Moist, Normal Exam - Respiratory Exam Respiratory Exam: Clear to Ausculation Bilateral, NORMAL BREATHING PATTERN - Cardiovascular Exam Cardiovascular Exam: +S1, +S2 - GI/Abdominal Exam GI & Abdominal Exam: Soft, Normal Bowel Sounds - Extremities Exam Extremities Exam: Full ROM, Normal Capillary Refill - Neurological Exam Neurological Exam: Alert, Awake, Oriented x3 - Psychiatric Exam Psychiatric exam: Normal Affect, Normal Mood - Skin Skin Exam: Dry, Normal Color, Warm Assessment and Plan - Assessment and Plan (Free Text) Assessment: A 73 year old female who came in to the ER due to abdominal pain with nausea. History of cecal carcinoma post resection, pancreatic carcinoma with michael motherapy, pulmonary embolism on Xarelto,diabetes, hypertension,constipation, diverticular bleeding. Consult was called to clear for colonoscopy. Positive troponin upon admission and opted for medical treatment. He was cleared for procedure with moderate to high risk. Colonoscopy done yesterday-polyps with polypectomy and sent for biopsy, hemorrhoids, s/p right colon resection. Cardiac status stable. Dependent to pain medicines. Xarelto held for colonoscopy, will resume. IV antibiotics for colitis. Plan: Status post colonoscopy Will resume Xarelto, held yesterday for colonoscopy No distress, Cardiac status stable Heart rate controlled Blood pressure controlled On Imdur ER 30 mg daily, Lisinopril 5 mg daily,Lopressor 25 mg BID Xarelto 20 mg daily Continue current treatment Continue IV antibiotics as ordered Will follow up Plan and treatment discussed with Dr. Chan
[2018-11-25] MEDS: Petrolatum Oint Foilpak (5 gm) TOP SCH ×3 (09:06→18:19)
[2018-11-25] MEDS: POLYETHYLENE GLYCOL 3350 17 GM/Dose PACKET PO SCH ×2 (09:06→09:10)
[2018-11-25] MEDS: cefTRIAXone 1 gm 1 GM/100 ML BAG IVPB SCH (09:08)
--- NOTE | 2018-11-26 00:02 | CP.PCM.PN ---
Subjective - Date & Time of Evaluation Date of Evaluation: 12/05/18 Time of Evaluation: 10:30 - Subjective Subjective: A 73 year old female seen and examined at bed side ,who came in to the ER due to abdominal pain with nausea. History of cecal carcinoma post resection, pancreatic carcinoma with chemotherapy, pulmonary embolism on Xarelto,diabetes, hypertension,constipation, diverticular bleeding. Positive troponin upon admission and opted for medical treatment. He was cleared for procedure with moderate to high risk. Colonoscopy done yesterday-polyps with polypectomy and sent for biopsy, hemorrhoids, s/p right colon resection. Cardiac status stable. Dependent to pain medicines. Xarelto held for colonoscopy, will resume. IV antibiotics for colitis. Objective - Vital Signs/Intake and Output Vital Signs (last 24 hours): Temp Pulse Resp BP Pulse Ox 99 F 68 18 162/94 H 98 11/25/18 21:55 11/25/18 21:55 11/25/18 21:55 11/25/18 21:55 11/25/18 21:55 Intake and Output: 11/25/18 11/26/18 18:59 06:59 Intake Total 300 Balance 300 - Medications Medications: Current Medications Acetaminophen (Tylenol 325mg Tab) 650 mg PO Q6H PRN PRN Reason: Fever >100.4 F Last Admin: 11/25/18 12:33 Dose: 650 mg Carbidopa/Levodopa (Sinemet 10/100) 1 tab PO TID [facility] Last Admin: 11/25/18 18:19 Dose: 1 tab Clonazepam (Klonopin Wafers) 0.25 mg PO BID PRN; Protocol PRN Reason: Anxiety Last Admin: 11/25/18 20:24 Dose: 0.25 mg Dronabinol (Marinol) 5 mg PO BID PRN PRN Reason: Other Emollient Ointment (Vaseline Oint) 5 gm TOP TID [facility] Last Admin: 11/25/18 18:19 Dose: 5 gm Fentanyl (Duragesic) 1 patch TD Q72H [facility] Last Admin: 11/23/18 11:16 Dose: 1 patch Hydralazine HCl (Apresoline) 10 mg IVP Q6 PRN PRN Reason: Systolic Blood Pressure Last Admin: 11/22/18 13:37 Dose: 10 mg Hydromorphone HCl (Dilaudid) 0.5 mg IVP Q6H PRN PRN Reason: Pain, severe (8-10) Last Admin: 11/24/18 10:48 Dose: 0.5 mg Metronidazole (Flagyl) 500 mg in 100 mls @ 100 mls/hr IVPB Q8 [facility]; Protocol Last Admin: 11/25/18 21:41 Dose: 100 mls/hr Ceftriaxone Sodium (Rocephin 1 Gram Ivpb) 1 gm in 100 mls @ 100 mls/hr IVPB DAILY [facility]; Protocol Last Admin: 11/25/18 09:08 Dose: 100 mls/hr Isosorbide Mononitrate (Imdur Er) 30 mg PO DAILY [facility] Last Admin: 11/25/18 09:06 Dose: 30 mg Lisinopril (Zestril) 5 mg PO DAILY [facility] Last Admin: 11/25/18 09:07 Dose: 5 mg Methylphenidate HCl (Ritalin) 5 mg PO DAILY [facility] Last Admin: 11/25/18 09:07 Dose: 5 mg Metoprolol Tartrate (Lopressor) 25 mg PO BID [facility] Last Admin: 11/25/18 18:20 Dose: 25 mg Mirtazapine (Remeron) 30 mg PO HS [facility] Last Admin: 11/25/18 21:42 Dose: 30 mg Ondansetron HCl (Zofran Inj) 4 mg IVP Q6H PRN PRN Reason: Nausea/Vomiting Last Admin: 11/25/18 14:13 Dose: 4 mg Polyethylene Glycol (Miralax) 17 gm PO DAILY [facility] Last Admin: 11/25/18 09:10 Dose: Not Given Rivaroxaban (Xarelto) 20 mg PO DAILY [facility]; Protocol Last Admin: 11/25/18 09:07 Dose: Not Given Zolpidem Tartrate (Ambien) 5 mg PO HS PRN; Protocol PRN Reason: Insomnia Last Admin: 11/25/18 23:32 Dose: 5 mg - Labs Labs: 11/23/18 07:00 11/23/18 07:00 PT 14.3 SECONDS (9.4-12.5) H 11/22/18 16:13 INR 1.29 11/22/18 16:13 APTT 36.5 Seconds (26.9-38.3) 11/22/18 16:13 Assessment and Plan (1) Deconditioned low back Status: Acute (2) Abdominal pain Status: Acute (3) Anemia Status: Acute (4) Anxiety attack Status: Acute (5) Chest pain Status: Acute (6) Colitis Status: Acute (7) Colon cancer Status: Acute (8) Diverticulosis Status: Acute (9) Gastroesophageal reflux disease Status: Acute (10) Generalized weakness Status: Acute (11) Headache Status: Acute (12) Hematuria Status: Acute (13) Hemorrhoids Status: Acute (14) Hypertension Status: Acute (15) Hyperthyroidism determined by thyroid function test Status: Acute (16) Hypoalbuminemia Status: Acute (17) Leukopenia Status: Acute (18) Nausea Status: Acute (19) Pancreatic cyst Status: Acute (20) Parkinson disease Status: Acute (21) Partial bowel obstruction Status: Acute (22) Renal cyst Status: Acute (23) Renal insufficiency Status: Acute (24) Urinary tract infection Status: Acute (25) Vomiting Status: Acute (26) Pancreatic cancer Status: Chronic (27) Abdominal pain Status: Resolved (28) Back pain Status: Resolved - Assessment and Plan (Free Text) Assessment: A 73 year old female who came in to the ER due to abdominal pain with nausea. History of cecal carcinoma post resection, pancreatic carcinoma with chemothera py, pulmonary embolism on Xarelto,diabetes, hypertension,constipation, diverticular bleeding. Positive troponin upon admission and opted for medical treatment. He was cleared for procedure with moderate to high risk. Colonoscopy done yesterday-polyps with polypectomy and sent for biopsy, hemorrhoids, s/p right colon resection. Cardiac status stable. Dependent to pain medicines. Xarelto held for colonoscopy, will resume. IV antibiotics for colitis.
[2018-11-26] MEDS: metroNIDAZOLE IV 500 mg/100 ml 500 MG/100 ML BAG IVPB SCH ×2 (05:09→13:06)
[2018-11-26] MEDS: HYDROmorphone 0.5 mg/0.5 ml ISec IVP PRN ×2 (05:18→13:06)
--- NOTE | 2018-11-26 07:03 | CP.PCM.PN ---
Subjective - Date & Time of Evaluation Date of Evaluation: 11/26/18 Time of Evaluation: 06:25 - Subjective Subjective: Easily awaken, No distress, lying in bed Reason for consultation and follow up: Pre-op evaluation and cardiac evaluation for colonoscopy, complaints of abdominal pain, positive troponin, history of pancreatic malignancy Seen and examined by me and Dr. Chan Objective - Vital Signs/Intake and Output Vital Signs (last 24 hours): Temp Pulse Resp BP Pulse Ox 99 F 72 18 171/102 H 98 11/25/18 21:55 11/26/18 05:08 11/25/18 21:55 11/26/18 05:08 11/25/18 21:55 Intake and Output: 11/26/18 11/26/18 06:59 18:59 Intake Total 120 Balance 120 - Medications Medications: Current Medications Acetaminophen (Tylenol 325mg Tab) 650 mg PO Q6H PRN PRN Reason: Fever >100.4 F Last Admin: 11/25/18 12:33 Dose: 650 mg Carbidopa/Levodopa (Sinemet 10/100) 1 tab PO TID [facility] Last Admin: 11/25/18 18:19 Dose: 1 tab Clonazepam (Klonopin Wafers) 0.25 mg PO BID PRN; Protocol PRN Reason: Anxiety Last Admin: 11/25/18 20:24 Dose: 0.25 mg Dronabinol (Marinol) 5 mg PO BID PRN PRN Reason: Other Emollient Ointment (Vaseline Oint) 5 gm TOP TID [facility] Last Admin: 11/25/18 18:19 Dose: 5 gm Fentanyl (Duragesic) 1 patch TD Q72H [facility] Last Admin: 11/23/18 11:16 Dose: 1 patch Hydralazine HCl (Apresoline) 10 mg IVP Q6 PRN PRN Reason: Systolic Blood Pressure Last Admin: 11/26/18 05:08 Dose: 10 mg Hydromorphone HCl (Dilaudid) 0.5 mg IVP Q6H PRN PRN Reason: Pain, severe (8-10) Last Admin: 11/26/18 05:18 Dose: 0.5 mg Metronidazole (Flagyl) 500 mg in 100 mls @ 100 mls/hr IVPB Q8 [facility]; Protocol Last Admin: 11/26/18 05:09 Dose: 100 mls/hr Ceftriaxone Sodium (Rocephin 1 Gram Ivpb) 1 gm in 100 mls @ 100 mls/hr IVPB DAILY [facility]; Protocol Last Admin: 11/25/18 09:08 Dose: 100 mls/hr Isosorbide Mononitrate (Imdur Er) 30 mg PO DAILY [facility] Last Admin: 11/25/18 09:06 Dose: 30 mg Lisinopril (Zestril) 5 mg PO DAILY [facility] Last Admin: 11/25/18 09:07 Dose: 5 mg Methylphenidate HCl (Ritalin) 5 mg PO DAILY [facility] Last Admin: 11/25/18 09:07 Dose: 5 mg Metoprolol Tartrate (Lopressor) 25 mg PO BID [facility] Last Admin: 11/25/18 18:20 Dose: 25 mg Mirtazapine (Remeron) 30 mg PO HS [facility] Last Admin: 11/25/18 21:42 Dose: 30 mg Ondansetron HCl (Zofran Inj) 4 mg IVP Q6H PRN PRN Reason: Nausea/Vomiting Last Admin: 11/26/18 05:22 Dose: 4 mg Polyethylene Glycol (Miralax) 17 gm PO DAILY [facility] Last Admin: 11/25/18 09:10 Dose: Not Given Rivaroxaban (Xarelto) 20 mg PO DAILY [facility]; Protocol Last Admin: 11/25/18 09:07 Dose: Not Given Zolpidem Tartrate (Ambien) 5 mg PO HS PRN; Protocol PRN Reason: Insomnia Last Admin: 11/25/18 23:32 Dose: 5 mg - Labs Labs: 11/23/18 07:00 11/23/18 07:00 PT 14.3 SECONDS (9.4-12.5) H 11/22/18 16:13 INR 1.29 11/22/18 16:13 APTT 36.5 Seconds (26.9-38.3) 11/22/18 16:13 - Constitutional Appears: Non-toxic, No Acute Distress - Head Exam Head Exam: NORMAL INSPECTION, NORMOCEPHALIC - Eye Exam Eye Exam: Normal appearance Pupil Exam: NORMAL ACCOMODATION - ENT Exam ENT Exam: Mucous Membranes Moist, Normal Exam - Neck Exam Neck Exam: Normal Inspection - Respiratory Exam Respiratory Exam: Decreased Breath Sounds, Clear to Ausculation Bilateral, NORMAL BREATHING PATTERN - Cardiovascular Exam Cardiovascular Exam: +S1, +S2 Additional comments: right chest port - GI/Abdominal Exam GI & Abdominal Exam: Soft, Normal Bowel Sounds - Extremities Exam Extremities Exam: Full ROM, Normal Capillary Refill - Neurological Exam Neurological Exam: Alert, Awake, Oriented x3 - Psychiatric Exam Psychiatric exam: Normal Affect, Normal Mood - Skin Skin Exam: Dry, Normal Color, Warm Assessment and Plan - Assessment and Plan (Free Text) Assessment: A 73 year old female who came in to the ER due to abdominal pain with nausea. History of cecal carcinoma post resection, pancreatic carcinoma with chemotherapy, pulmonary embolism on Xarelto,diabetes, hypertension,constipation, diverticular bleeding. Consult was called to clear for colonoscopy. Positive troponin upon admission, trending down (0.44/0.20/.024) No invasive procedure for now and will opt for medical treatment. He was cleared for procedure with moderate to high risk. Colonoscopy done yesterday-polyps with polypectomy and sent for biopsy, hemorrhoids, s/p right colon resection. Cardiac status stable.Dependent to pain medicines. Resumed Xarelto yesterday post colonoscopy. IV antibiotics for colitis. Plan: Cardiac status stable No distress, denies chest pain Heart rate controlled Blood pressure controlled On Imdur ER 30 mg daily, Lisinopril 5 mg daily,Lopressor 25 mg BID Xarelto 20 mg daily Continue current treatment Continue IV antibiotics as ordered GI on consult Will follow up Plan and treatment discussed with Dr. Chan
[2018-11-26] MEDS ORDERED: Sodium Chloride 0.9% 1,000 ML IV SCH (08:30)
[2018-11-26] MEDS ORDERED: Gadodiamide 287 MG/ML VIAL (15ML) IV ONE (08:46)
[2018-11-26] MEDS: Petrolatum Oint Foilpak (5 gm) TOP SCH ×3 (09:57→17:12)
[2018-11-26] MEDS: POLYETHYLENE GLYCOL 3350 17 GM/Dose PACKET PO SCH (09:57)
[2018-11-26] MEDS: cefTRIAXone 1 gm 1 GM/100 ML BAG IVPB SCH (09:57)
[2018-11-26 09:59] VITALS: PULSE 84
--- NOTE | 2018-11-26 10:20 | MRI ---
Date of service: 11/26/2018 PROCEDURE: MRI BRAIN WITHOUT CONTRAST HISTORY: Frequent headach COMPARISON: 05/19/2016 MRI TECHNIQUE: Multiplanar, multisequence MR images of the brain were obtained without intravenous contrast enhancement. FINDINGS: HEMORRHAGE: None DWI: No evidence of an acute or early subacute infarction. BRAIN PARENCHYMA: No mass effect or edema. Mild chronic microvascular changes are seen in the mane. These are unchanged. There are no acute intracranial findings VENTRICLES: Unremarkable. No hydrocephalus. CRANIUM: Unremarkable. ORBITS: Grossly unremarkable. PARANASAL SINUSES/MASTOIDS: Clear VASCULAR SYSTEM: There vascular tortuosity of the vertebrals with flattening of the right side of the medulla. OTHER FINDINGS: None. IMPRESSION: No acute intracranial findings
--- NOTE | 2018-11-26 10:28 | MRI ---
Date of service: 11/26/2018 PROCEDURE: MRI Abdomen with and without contrast HISTORY: Renal cysts COMPARISON: None available. TECHNIQUE: Multisequence, multiplanar MR images of the abdomen with and without gadolinium contrast enhancement. 15 cc of Omniscan FINDINGS: LIVER: Unremarkable. GALLBLADDER: Unremarkable. SPLEEN: Unremarkable. PANCREAS: Unremarkable. ADRENALS: Unremarkable. KIDNEYS: There is a large cyst arising from the upper pole of the right kidney measuring 8.5 x 9.4 x 10 cm. There are no solid elements or septations. There is a 4.2 cm cyst in the left kidney as well as smaller cysts. There is no evidence of hydronephrosis AORTA: No aneurysm. ASCITES: None. PERITONEUM: Unremarkable. LYMPH NODES: Unremarkable. OTHER FINDINGS: None. IMPRESSION: There is a large cyst arising from the upper pole of the right kidney measuring 8.5 x 9.4 x 10 cm. There are no solid elements or septations. There is a 4.2 cm cyst in the left kidney as well as smaller cysts. There is no evidence of hydronephrosis
--- NOTE | 2018-11-26 13:38 | CP.PCM.PCO ---
Physician Communication Note - Physician Communication Note Physician Communication Note: Per Dr. Prabhakar, clear to dc to TCU. Awaiting insurance auth.
[2018-11-26 17:15] VITALS: BP 163/104
[2018-11-26 17:17] VITALS: RESP 20; TEMP 99.1; O2SAT 98
--- NOTE | 2018-11-26 21:35 | CON ---
DATE OF CONSULTATION: 11/26/2018 HISTORY OF PRESENT ILLNESS: In short, the patient is a 73-year-old -N[place]alese female with history of cecal adenocarcinoma, status post resection and anastomosis; pancreatic adenocarcinoma, status post chemotherapy; chronic opioid use. The patient has multiple multiple other medical issues. Please see admission note for more detailed information. As a result of the medical issues, the patient has depressive symptoms for what this quality analyst/technical writer got consulted on this case. The patient was seen and examined. The patient presented with some psychomotor retardation, intermittent eye contact. Mood described as depressed due to my medical issues. The patient reported no feeling of hopelessness or helplessness. The patient reports that she is taking medication such as Klonopin, Remeron and Ambien, which were prescribed by her primary care physician. The patient denied history of suicidal attempts. The patient denied history of psychiatric admissions in the past. The patient denied history of being talking to psychiatrist in the past. At present moment, the patient denied hearing voices, denied seeing things. Denied feeling of hopelessness or helplessness. VITAL SIGNS: Reviewed. Temperature 98.8, pulse 84, blood pressure 120/66, respirations 18, oxygen saturation is 100. MEDICATIONS: Reviewed. The patient is on Tylenol, aspirin, Sinemet, Rocephin, Klonopin 0.25 mg twice a day as needed, Marinol, Apresoline, Duragesic patch, hydralazine, Dilaudid, Imdur, Zestril, Reglan, Lopressor, Flagyl, Remeron, Zofran, MiraLax, Xarelto, sodium chloride, and Ambien. LABS: Reviewed. Most recent was from 11/23/2018. Chemistry reviewed. The patient had troponin elevation, most recent was from 7, but is stable. Microbiology reviewed. MENTAL STATUS EXAM: The patient presented with some psychomotor retardation. Thin built female. Intermittent eye contact. Mood described as depressed. Affect was constricted. Thought process seems to be coherent. Thought content: The patient denied feelings of hopelessness or helplessness. Denied seeing things. Denied paranoid ideation. The patient denied thoughts of harming herself or others. Denied intent or plan. Insight and judgment seems to be fair. Impulses are well controlled. IMPRESSION: Rule out mood disorder due to general medical condition. PLAN: This quality analyst/technical writer would recommend to continue all of the psychotropic medications, which seems to be helpful for the patient. The patient denied to be suicidal. Denied any psychotic symptoms. The patient is compliant with the treatment. No acute agitation, no aggression. Please re-consult as needed. Should you have any questions, give me a call back. Kirstie Crowder MD
== END 2018-11-26 18:33 | DRG 392 ==
LOC: ED 11:35 → ERH 15:04 → 5RNO 20:38 → OBSVTOIN 11-19 21:24 → 5RSO 11-20 21:21 → 5RNO 11-23 15:39
PROVIDERS: ADMIT Internal Medicine; ATTEND Internal Medicine
PROC: 0DBL8ZZ Excision of Transverse Colon, Via Natural or Artificial Opening Endoscopic (ICD-10-PCS; principal; 2018-11-24 17:45)
DX: K52.9 Noninfective gastroenteritis and colitis, unspecified (principal); C25.9 Malignant neoplasm of pancreas, unspecified; E11.65 Type 2 diabetes mellitus with hyperglycemia; D12.3 Benign neoplasm of transverse colon; I10 Essential (primary) hypertension; G20 Parkinson's disease; K57.30 Diverticulosis of large intestine without perforation or abscess without bleeding; R07.9 Chest pain, unspecified; K59.00 Constipation, unspecified; D72.819 Decreased white blood cell count, unspecified; E05.90 Thyrotoxicosis, unspecified without thyrotoxic crisis or storm; N28.1 Cyst of kidney, acquired; K21.9 Gastro-esophageal reflux disease without esophagitis; G47.00 Insomnia, unspecified; K64.8 Other hemorrhoids; F41.9 Anxiety disorder, unspecified; Z85.038 Personal history of other malignant neoplasm of large intestine; E87.8 Other disorders of electrolyte and fluid balance, not elsewhere classified; Z86.711 Personal history of pulmonary embolism; Z79.01 Long term (current) use of anticoagulants; Z92.21 Personal history of antineoplastic chemotherapy; Z92.3 Personal history of irradiation; Z79.891 Long term (current) use of opiate analgesic; Z90.49 Acquired absence of other specified parts of digestive tract

== ENCOUNTER 2018-11-26 18:33 | Inpatient (IN) | payer MEDICARE ==
[2018-11-26 20:17] VITALS: BMI 22.0
[2018-11-26] MEDS ORDERED: clonazePAM 0.125 mg Disinteg Tab PO PRN (20:18)
[2018-11-26] MEDS ORDERED: HYDROmorphone 0.5 mg/0.5 ml ISec IVP PRN (20:18)
[2018-11-26] MEDS: Sodium Chloride 0.9% 1,000 ML IV SCH (21:27)
[2018-11-26] MEDS: metroNIDAZOLE IV 500 mg/100 ml 500 MG/100 ML BAG IVPB SCH (22:26)
[2018-11-27] MEDS: metroNIDAZOLE IV 500 mg/100 ml 500 MG/100 ML BAG IVPB SCH ×3 (05:25→21:55)
[2018-11-27] MEDS: Sodium Chloride 0.9% 1,000 ML IV SCH (06:57)
--- NOTE | 2018-11-27 08:55 | CP.PCM.PCO ---
Physician Communication Note - Physician Communication Note Physician Communication Note: pt was evaluated 11/26/18, psychiatrically stable, continue meds, reconsult
[2018-11-27] MEDS: POLYETHYLENE GLYCOL 3350 17 GM/Dose PACKET PO SCH (10:13)
[2018-11-27] MEDS: Petrolatum Oint Foilpak (5 gm) TOP SCH ×2 (10:14→13:58)
[2018-11-27] MEDS: cefTRIAXone 1 gm 1 GM/100 ML BAG IVPB SCH (10:15)
--- NOTE | 2018-11-27 20:25 | CON ---
DATE: 11/27/2018 LOCATION: The patient is in Room 313, Bed 2. REASON FOR CONSULTATION: Elevated troponin, pancreatic cancer, hypertension, prediabetic, deconditioning and needs physical therapy. HISTORY OF PRESENT ILLNESS: The patient is 73-year-old female who is known to have hypertension, prediabetes admitted with pancreatic cancer, unknown medical floor. She also known to have pulmonary embolism for which she has been on Xarelto. The patient was admitted for GI workup, endoscopy and colonoscopy. The patient was found to have anxiety and tachycardia and also had troponin that was 0.12, but the patient denies any chest pain, shortness of breath or palpitation. So, the patient was evaluated for possibility of non-ST elevation myocardial infarction, but the patient did not have any chest pain and the patient's condition is not optimum that we should do any invasive therapy so we will consider to treat her medically. The patient now also from cardiac point of view, asymptomatic. Denies any chest pain, shortness of breath or palpitation. PAST MEDICAL HISTORY: Significant for pancreatic cancer, stage III status post chemotherapy on 06/05/2018, hypertension, prediabetic. The patient has history of cholecystectomy, history of arthritis, diverticular of the colon and history of anxiety disorder. PAST SURGICAL HISTORY: Significant for cholecystectomy and hysterectomy. FAMILY HISTORY: Not significant. PERSONAL HISTORY: Denies any alcohol abuse. Denies any drinking. MEDICATIONS: The patient's medications at home included Xarelto for pulmonary embolism, Ambien, oxycodone, Clonazepam, metoprolol, and carbidopa. ALLERGIES: THE PATIENT DENIES ANY ALLERGIES. REVIEW OF SYSTEMS: Done as I mentioned in the history and physical, others were negative. PHYSICAL EXAMINATION: VITAL SIGNS: Blood pressure 170/106, yesterday blood pressure was 157/96, respiration 19, pulse 73, and temperature 99.1. HEENT: Normocephalic. Eyes, pupils normal. Conjunctivae slightly pale. NECK: JVP low. Carotids equal. THORAX: AP diameter normal. LUNGS: No rales. CARDIOVASCULAR: S1 and S2. ABDOMEN: Soft. Bowel sounds normal. EXTREMITIES: No clubbing. No cyanosis. LABORATORY DATA: WBC 4.7, hemoglobin 8.4, hematocrit 25.2, and platelet 159. Neutrophil count 79.8 on 11/18 and now is 71.4. Lymphocyte 17 which is low. Monocytes 11 which is high and eosinophil is 0.4 again low. Abdomen CAT scan showed there is a large cyst arising from the upper pole of the right kidney measuring 8.5 x 9.4 x 10 cm. There is also 4.2 cm cyst in the left kidney as well as small cysts. Brain MRI showed no acute intracranial findings. ASSESSMENT AND PLAN: The patient is on zolpidem, which is Ambien 5 mg p.o. at bedtime p.r.n., hydralazine was used p.r.n. every 6 hours 10 mg IV, fentanyl patch 25 mg every 72 hours, aspirin 81 mg daily, metronidazole 500 mg IV every 8 hours, isosorbide mononitrate 30 mg daily, Klonopin 0.25 mg p.o. b.i.d. p.r.n., metoprolol tartrate 25 mg b.i.d., Remeron 30 mg p.o. at bedtime. The patient also on lisinopril 5 mg daily, Xarelto 20 mg daily, carbidopa levodopa one tablet p.o. t.i.d., ceftriaxone 1 g IV daily, Marinol 5 mg p.o. b.i.d. p.r.n.. The patient's troponin was borderline, but the patient is not to in any shape to do any cardiac catheterization so that is why we decided to treat medically and patient is asymptomatic. We will follow. Hubert Haas MD
[2018-11-28] MEDS: metroNIDAZOLE IV 500 mg/100 ml 500 MG/100 ML BAG IVPB SCH ×3 (05:48→21:39)
[2018-11-28 06:42] LABS: BLOOD UREA NITROGEN 11 mg/dL (7-21); CALCIUM 8.7 mg/dL (8.4-10.5); GFR NON-AFRICAN AMERICAN > 60
[2018-11-28 08:36] LABS: HEMOGLOBIN 9.1 g/dL (12.0-16.0); MEAN CELL VOLUME 91.8 fl (80.0-105.0); MEAN CORPUSCULAR HGB CONC 33.7 g/dl (31.0-37.0); MEAN PLATELET VOLUME 9.1 fl (7.0-11.0); RBC 2.94 10^6/uL (3.5-6.1); RED CELL DISTRIBUTION WIDTH 14.2 % (11.5-14.5); WHITE BLOOD COUNT 6.5 10^3/uL (4.5-11.0)
[2018-11-28] MEDS: Potassium Chloride 20 mEq ER Tab PO SCH (10:12)
[2018-11-28] MEDS: POLYETHYLENE GLYCOL 3350 17 GM/Dose PACKET PO SCH (10:14)
[2018-11-28] MEDS: cefTRIAXone 1 gm 1 GM/100 ML BAG IVPB SCH (10:15)
[2018-11-28] MEDS ORDERED: Potassium Chloride 20 mEq ER Tab PO ONE (12:03)
--- NOTE | 2018-11-28 14:57 | PN ---
DATE: 11/28/2018 LOCATION: The patient is in room 313, bed 2. REASON FOR CONSULTATION AND FOLLOWUP: Elevated troponin, pancreatic cancer, hypertension, prediabetic, deconditioning. SUBJECTIVE: The patient denies any chest pain, shortness of breath, palpitation. Complains of abdominal discomfort and lack of appetite. The patient has slight troponin elevation. The patient was asymptomatic. No chest pain. The patient's condition does not allow to do any interventional therapy at this moment, so it has been decided to treat medically. PHYSICAL EXAMINATION: VITAL SIGNS: Blood pressure 153/107, respiration 19, pulse 85, temperature 97.9. HEENT: Head is normocephalic. Eyes, pupils normal. Conjunctivae slightly pale. NECK: JVP low. Carotids equal. THORAX: AP diameter normal. LUNGS: Clear. CARDIOVASCULAR: S1, S2. ABDOMEN: Soft. Bowel sounds normal. EXTREMITIES: No clubbing. No cyanosis. LABORATORY DATA: WBC 6.5, hemoglobin 9.1, hematocrit 27, platelets 152. Sodium 137, potassium 2.9, BUN 11, creatinine 0.9, random glucose 134, repeat random glucose 89. Also lab glucose 90, calcium 8.7. DIAGNOSES AND PLAN: The patient's troponin is slightly elevated, but the patient is not here to do any invasive cardiac workup, so we are treating her medically. The patient is symptom-free at this moment, so we are treating with isosorbide mononitrate 30 daily, metoprolol tartrate 25 b.i.d. The patient is also on metronidazole 500 mg IV every 8 hours, isosorbide mononitrate 30 daily, Remeron 30 mg p.o. at bedtime, lisinopril 5 mg daily, Xarelto 20 mg daily, carbidopa-levodopa one tablet p.o. t.i.d. The patient's potassium is low, so potassium 20 mEq p.o. daily has been ordered. We will give another 40 p.o. today and repeat labs in the morning. Ceftriaxone 1 g intravenous daily, metoprolol tartrate 25 b.i.d., aspirin 81 daily, hydralazine 10 mg intravenous p.r.n. every 6 hours. Since the blood pressure is elevated, we will start with Norvasc 5 mg p.o. daily. If pressure stays high, we will then increase lisinopril to 10 mg daily before we put Norvasc, so we will try that and then see how the pressure stays. We will give extra 5 mg p.o. today and it will be total 10 mg, starting tomorrow, it will be 10 mg daily. I will monitor blood pressure. We will follow with you. Hubert Haas MD
--- NOTE | 2018-11-28 17:20 | CON ---
DATE: 11/28/2018 PULMONARY CONSULT NOTE REFERRING PHYSICIAN: Kristen Prabhakar MD REASON FOR CONSULT: Obstructive sleep apnea. HISTORY OF PRESENT ILLNESS: This is a 73-year-old female with past medical history significant for colon adenocarcinoma, status post resection and reanastomosis; pancreatic adenocarcinoma; history of pulmonary embolism; diabetes mellitus; hypertension; insomnia; constipation; history of diverticulitis; Parkinson's disease; arthritis; anxiety; cholecystectomy and hysterectomy. The patient reports that she does not snore, but does wake up with dry mouth in the morning. Nursing staff reports that the patient has intermittent sleep throughout the night, does not sleep fully throughout the night, wakes up multiple times. PAST MEDICAL HISTORY: As per history of present illness. FAMILY HISTORY: No cardiopulmonary disease reported. SOCIAL HISTORY: Nonsmoker. No EtOH abuse. No illicit drug use. ALLERGIES: NO KNOWN ALLERGIES. MEDICATIONS: Tylenol 650 mg every 6 hours p.r.n., aspirin 81 mg daily, Sinemet 10/100 one tab 3 times a day, Rocephin 1 g daily, Klonopin 0.25 mg twice a day p.r.n., Marinol 5 mg twice a day, hydralazine 10 mg IV push every 6 hours p.r.n., isosorbide mononitrate 30 mg daily, lidocaine patch topically to affected area, lisinopril 10 mg daily, metoprolol tartrate 25 mg twice a day, Flagyl 500 mg every 8 hours, Remeron 30 mg at bedtime, Zofran 4 mg IV push every 6 hours p.r.n., MiraLax 17 g daily, potassium chloride 20 mEq daily, Xarelto 20 mg daily, Ambien 5 mg p.o. at bedtime p.r.n. REVIEW OF SYSTEMS: No headache, rhinitis, chest pain, abdominal pain, nausea, vomiting, diarrhea, leg pain or leg swelling reported. The patient reports that she does wake up with dry mouth in the morning, states that she does not snore. Does wake up multiple times throughout the night. PHYSICAL EXAMINATION GENERAL: No acute distress. VITAL SIGNS: From yesterday; blood pressure 156/98, pulse 74, temperature 97, and oxygen saturation 91% on nasal cannula. HEENT: Moist mucous membranes. Crowded airway. Mallampati score of 4. NECK: Supple. No JVD. LUNGS: Fair airflow bilaterally. CARDIOVASCULAR: S1 and S2. ABDOMEN: Soft and nontender. No distension. No organomegaly. EXTREMITIES: No bilateral lower extremity edema. NEUROLOGIC: Awake, alert, verbal, follows commands. LABORATORY DATA: Reviewed. WBC 6.5, RBC 2.94, hemoglobin 9.1, hematocrit 27.0, and platelets 152. Sodium 137, potassium 2.9, chloride 104, carbon dioxide 26, anion gap 10, BUN 11, creatinine 0.9, GFR greater than 60. POC glucose 89, random glucose 90. Calcium 8.7. IMPRESSION AND PLAN: Anemia; colitis; renal cyst; history of insomnia; hypertension; history of pulmonary embolism, currently on Xarelto; diabetes mellitus. Echocardiogram from 05/2018 reviewed showed ejection fraction 45%, right ventricular systolic pressure 38 with some obstructive cardiomyopathy present. The patient at this time seems to be at higher risk for obstructive sleep apnea, careful with sedation, who will need sleep study as outpatient. Recommends weight loss. Continue gastric prophylaxis, deep venous thrombosis prophylaxis. Continue cardiology followup. If the patient becomes sleepy and tired during the day, may recommend using CPAP at this time, head of bed elevated 45 degrees, sleep apnea precautions. This patient was seen and examined with Dr. Molina. Discussed assessment and plan as described above. This patient was seen and examined with Shania Dias, nurse practitioner. Discussed assessment and plan as described above. Thank you for this consult. We will follow with you. Arun Jauregui APN Hubert Molina MD KEITH
[2018-11-28] MEDS: Lidocaine 5% Patch TOP SCH (17:54)
[2018-11-29] MEDS: metroNIDAZOLE IV 500 mg/100 ml 500 MG/100 ML BAG IVPB SCH (06:09)
[2018-11-29 07:32] LABS: BLOOD UREA NITROGEN 11 mg/dL (7-21); CALCIUM 9.2 mg/dL (8.4-10.5); GFR NON-AFRICAN AMERICAN > 60
--- NOTE | 2018-11-29 08:21 | HP ---
DATE OF EXAM: 11/27/2018 CHIEF COMPLAINT: Decondition, abdominal pain. HISTORY OF PRESENT ILLNESS: The patient is a 73-year-old lady with history of multiple medical problems including resection of the anastomosis, pancreatic adenocarcinoma, got treatment from [facility] chemo and radiation, chronic opioid use, PE on Xarelto, hypertension, constipation. Last admission was for sbo, diverticular bleed, came with abdominal pain. CAT scan done shows diverticulitis, antibiotics given. Seen by GI, upper endoscopy done. Still complaining about abdominal pain, nauseousness, decondition, transferred the patient to TCU for further treatment. PAST MEDICAL HISTORY: Hypertension, Parkinson disease, pancreatic cancer, colon cancer, anxiety, and insomnia. FAMILY HISTORY: Father and mother, noncontributory. HABITS: No smoking. No drugs. No ethanol. ALLERGIES: THE PATIENT NOT ALLERGIC TO ANY MEDICATIONS. HOME MEDICATIONS: Xarelto, Ambien. REVIEW OF SYSTEMS: The patient was seen and examined at the bedside, looking comfortable. No fever. No chills. Daughter was sitting on the bedside also complaining about headache, cannot sleep at night having abdominal pain once in a while. No fever. No chills. No hematuria. No hematochezia. No shortness of breath. PHYSICAL EXAMINATION: VITAL SIGNS: Temperature 97, pulse 75, blood pressure 123/94, respiratory rate 18, and oxygen saturation 91. HEENT: Head is normocephalic and atraumatic. Eyes; PERRLA. Extraocular muscles intact. Conjunctivae clear. Nose patent. Mucous membrane moist. NECK: Supple. No carotid bruits. No JVD or thyromegaly. CHEST: Bilaterally symmetrical. HEART: S1 and S2 positive. LUNGS: Clear to auscultation. ABDOMEN: Soft. Bowel sounds present. No organomegaly. EXTREMITIES: No edema. No cyanosis. NEUROLOGIC: The patient is awake, alert, moving all four extremities. No focal deficits. MEDICATIONS: Ambien, hydralazine, Duragesic patch, Ecotrin, Flagyl, Imdur, Klonopin, Lopressor, Marinol, Miralax, Remeron, methylphenidate, Rocephin, Sinemet, Tylenol, Xarelto, and Zofran. LABORATORY DATA: We do not have lab today, but we will do labs. Fingerstick 134. ASSESSMENT AND PLAN: The patient is a 73-year-old lady with multiple medical problems with hypertension, pulmonary embolism on Xarelto, Parkinson disease, pancreatic cancer, got treatment from [facility], arthritis, diverticulitis, anxiety, cholecystectomy, hysterectomy, insomnia, came in [facility] with abdominal pain. CAT scan done which shows colitis. Antibiotics given. GI consult acquired, did endoscopy. MRI of the head done. Abdomen MRI done shows renal cyst. Urology consult called. The patient was seen by Dr. Kirstie Crowder. GI and DVT prophylaxis. Repeat labs. We will follow up. Kristen Prabhakar MD MTDD
[2018-11-29] MEDS: Potassium Chloride 20 mEq ER Tab PO SCH (10:37)
[2018-11-29] MEDS: POLYETHYLENE GLYCOL 3350 17 GM/Dose PACKET PO SCH (10:38)
[2018-11-29] MEDS: cefTRIAXone 1 gm 1 GM/100 ML BAG IVPB SCH (10:39)
[2018-11-29] MEDS: Lidocaine 5% Patch TOP SCH (11:23)
[2018-11-29] MEDS ORDERED: Apap-Butalbital-Caffeine 325-50-40mg Tab PO PRN (11:32)
--- NOTE | 2018-11-29 12:07 | PN ---
DATE: 11/28/2018 SUBJECTIVE: The patient was seen and examined at bedside on 11/28/2018. These notes are for 11/28/2018. The patient is resting, looking comfortable. No fever. No chills. No hematuria. No hematochezia. No nausea or vomiting, but still complaining about headache and abdominal pain once in a while. PHYSICAL EXAMINATION: VITAL SIGNS: Blood pressure 150/90, pulse 74, temperature 98.1, oxygen saturation 91% nasal cannula. HEENT: Head: Normocephalic, atraumatic. Eyes: PERRLA. Extraocular muscles intact. Conjunctivae clear. Nose patent. Mucous membrane moist. NECK: Supple. No carotid bruits. No JVD. No thyromegaly. CHEST: Bilateral symmetric. HEART: S1, S2 positive. LUNGS: Clear to auscultation. ABDOMEN: Soft. Bowel sounds present. No organomegaly. EXTREMITIES: No edema. No cyanosis. NEUROLOGIC: The patient is awake and alert, follows simple commands. LABORATORY DATA: White blood cell 6.4, hemoglobin 9.1, hematocrit is 27, platelet 152. Sodium 137, potassium 2.9, BUN 11, creatinine 0.9, glucose 90, calcium 8.7. MEDICATIONS: Tylenol, aspirin, Sinemet, Rocephin, Marinol, lidocaine, metoprolol, Flagyl, Zofran, potassium, Xarelto, and Ambien. ASSESSMENT AND PLAN: Ms. Wanda Obrien is a 73-year-old female with multiple medical problems, colitis, getting antibiotics; renal cyst; history of insomnia; hypertension; anemia; history of pulmonary embolism, currently on Xarelto; diabetes mellitus; history of pancreatic cancer, also sleep apnea syndrome. Gastrointestinal and deep vein thrombosis prophylaxis provided. The patient has a history of narcotic abuse, getting pain medications from [facility], trying to cut down that because with the medicines and side effects, the patient always has constipation and no appetite. Even her moods and taste change. Discussion done with the patient and the patient's nursing staff. Out of bed, physical therapy, repeat labs. We will follow up. Kristen Prabhakar MD [facility] # [id number]
[2018-11-29] MEDS ORDERED: Potassium Chloride 20 mEq ER Tab PO ONE (13:08)
[2018-11-29] MEDS ORDERED: Magnesium Sulfate 1 gm in D5W 1 GM/100 ML BAG IVPB ONE (13:11)
--- NOTE | 2018-11-29 15:18 | PN ---
DATE: 11/29/2018 PULMONARY PROGRESS NOTE REFERRING PHYSICIAN: Kristen Prabhakar MD. SUBJECTIVE: The patient is sitting up in bed. Family at bedside. No acute distress. No overnight events reported. The patient reports feeling okay today just having occasional hiccups. No headache, rhinitis, cough, shortness of breath, chest pain, abdominal pain, nausea, vomiting, diarrhea, leg pain, or leg swelling reported. OBJECTIVE: GENERAL: No acute distress. VITAL SIGNS: Blood pressure 149/98, pulse 105, temperature 100.1. HEENT: Moist mucous membranes. Crowded airway. Mallampati score of 4. Edentulous. NECK: Supple. No JVD. LUNGS: Fair airflow bilaterally. CARDIOVASCULAR: S1, S2. ABDOMEN: Soft, nontender. No distention. No organomegaly. EXTREMITIES: No bilateral lower extremity edema. NEUROLOGIC: Awake, alert, verbal. Follows commands. MEDICATIONS: Reviewed. Tylenol 650 every 6 hours p.r.n. fever greater than 100.4, Fioricet one tab twice a day p.r.n., aspirin 81 mg daily, Sinemet 10/100 one tab three times a day, Rocephin 1 g daily, Klonopin wafer 0.25 mg twice a day p.r.n., Marinol 5 mg twice a day, hydralazine 10 mg IV push every 6 hours p.r.n., Imdur 30 mg daily, lidocaine patch topically to affected area, lisinopril 10 mg daily, magnesium sulfate 1 g in 100 mL per hour, metoprolol tartrate 25 mg twice a day, Flagyl 500 mg every 8 hours, Remeron 30 mg at bedtime, Zofran 4 mg IV push every 6 hours p.r.n., MiraLax 17 g daily, potassium chloride 20 mEq daily, Xarelto 20 mg daily, Ultram 50 mg twice a day p.r.n., Ambien 5 mg at h.s. p.r.n. LABORATORY DATA: Reviewed. Sodium 135, potassium 3.3, chloride 100, carbon dioxide 28, anion gap 11, BUN 11, creatinine 0.9. GFR greater than 60. POC glucose 118, random glucose 126, calcium 9.2, phosphorous 2.7, magnesium 1.6. IMPRESSION AND PLAN: Colitis, anemia, renal cyst, history of insomnia, hypertension, history of pulmonary embolism, diabetes mellitus, cardiomyopathy, sudden pulmonary hypertension, suspected sleep apnea syndrome, history of pancreatic cancer. Continue gastric prophylaxis, anticoagulation. The patient is on anticoagulation therapy. Spoke with family at bedside who states that the patient does have daytime hypersomnia, tends to sleep a lot during the day. The patient lives at home. Sleep apnea precaution. Head of bed elevated at 45 degrees. Pressure ulcer precaution. Aspiration precaution. Recommend the patient have sleep study as outpatient. Careful with sedation. This patient was seen and examined with Dr. Molina. Discussed assessment and plan as described above. This patient was seen and examined with Arun Jauregui, nurse practitioner. Discussed assessment and plan as described above. Thank you for this consult. We will follow with you. Arun Jauregui APN Hubert Molina MD
[2018-11-30 06:29] LABS: EOS % 0.2 % (1.5-5.0); HEMOGLOBIN 8.8 g/dL (12.0-16.0); LYMPH # 0.8 (1.2-3.4); LYMPH % 15.1 % (22.0-35.0); MEAN CELL VOLUME 93.6 fl (80.0-105.0); MEAN CORPUSCULAR HEMOGLOBIN 31.2 pg (25.0-35.0); MEAN CORPUSCULAR HGB CONC 33.3 g/dl (31.0-37.0); MEAN PLATELET VOLUME 9.1 fl (7.0-11.0); MONO # 0.4 (0.1-0.6); RBC 2.82 10^6/uL (3.5-6.1); RED CELL DISTRIBUTION WIDTH 14.6 % (11.5-14.5); WHITE BLOOD COUNT 5.1 10^3/uL (4.5-11.0)
[2018-11-30 06:36] LABS: CALCIUM 9.1 mg/dL (8.4-10.5)
--- NOTE | 2018-11-30 08:14 | PN ---
DATE: 11/29/2018 LOCATION: The patient is in room 313, bed 2. REASON FOR CONSULTATION: Follow up elevated troponin, pancreatic carcinoma, hypertension, prediabetic, deconditioning, history of pulmonary embolism, anemia. SUBJECTIVE: The patient is complaining of abdominal discomfort and loss of appetite. Denies chest pain, shortness of breath or palpitation. The patient was seen on medical floor for elevated troponin, but the patient is not a candidate for any invasive procedure because of her malignancy and general condition. The patient now being getting physical therapy for deconditioning in transitional care unit. PHYSICAL EXAMINATION: VITAL SIGNS: Blood pressure 141/98, respiration 19, pulse 85, temperature 97.9. HEENT: Conjunctivae slightly pale. NECK: JVP low. Carotids equal. THORAX: AP diameter normal. LUNGS: No significant rales. CARDIOVASCULAR: S1, S2. ABDOMEN: Soft. Bowel sounds normal. EXTREMITIES: No clubbing. No cyanosis. LABORATORY DATA: WBC 6.5, hemoglobin 9.1, hematocrit 27, platelets 152. Sodium 135, potassium 3.3, BUN 11, creatinine 0.9, sugar 118 and random glucose 126. phosphorus normal, magnesium is 1.6. DIAGNOSES AND PLAN: Slight troponin elevation on admission suggestive of non-ST elevation myocardial infarction, but the patient is not in a shape to do any invasive cardiac workup like catheterization because of the patient's general condition and underlying comorbidities. The patient also is symptom-free from cardiac point of view, hypokalemia, hypomagnesemia, diabetes mellitus, coronary artery disease, angina. The patient is symptomatic from cardiac point of view, so we will continue medical therapy at this point and continue physical therapy. We will correct magnesium and potassium. The patient is on aspirin 81 daily, metronidazole 500 mg intravenous every 8 hours, isosorbide mononitrate 20 daily, metoprolol tartrate 25 b.i.d., DuoNeb, dronabinol 5 mg p.o. b.i.d. We will give 40 mEq of p.o. potassium extra dose now to bring up the magnesium from 1.6 to 1.7 or above and we will repeat blood work in the morning. The patient is on aspirin 81 mg daily, metronidazole 500 mg intravenous every 8 hours, and we will give an extra potassium 40 today and we will give 1 g today. We will repeat labs in the morning. The patient also on lisinopril 10 mg daily, Xarelto 20 mg daily. The patient has history of chronic pulmonary embolism, that is why she is on Xarelto, carbidopa and levodopa one tablet p.o. t.i.d., Ceftriaxone 1 g intravenous daily. We will Hubert Haas MD
[2018-11-30] MEDS: Potassium Chloride 20 mEq ER Tab PO SCH (10:48)
[2018-11-30] MEDS: POLYETHYLENE GLYCOL 3350 17 GM/Dose PACKET PO SCH (10:49)
[2018-11-30] MEDS: Lidocaine 5% Patch TOP SCH (10:49)
--- NOTE | 2018-11-30 11:39 | PN ---
DATE: 11/30/2018 PULMONARY PROGRESS NOTE REFERRING PHYSICIAN: Kristen Prabhakar MD SUBJECTIVE: The patient is sitting up at bedside, eating breakfast this morning, appetite is poor. The patient reports having some abdominal pain this morning. No headache, rhinitis, cough, shortness of breath, chest pain, abdominal pain, nausea, vomiting, diarrhea, leg pain or leg swelling reported. OBJECTIVE: GENERAL: No acute distress. VITAL SIGNS: Blood pressure 141/90, pulse 84, temperature 98.9 and oxygen saturation 100% on room air. HEENT: Moist mucous membranes. Crowded airway. Mallampati score of 4. Edentulous. NECK: Supple. No JVD. LUNGS: Fair airflow bilaterally. CARDIOVASCULAR: S1 and S2. ABDOMEN: Soft and nontender. No distention. No organomegaly. EXTREMITIES: No bilateral lower extremity edema. NEUROLOGIC: Awake, alert and verbal. Follows commands. MEDICATIONS: Reviewed. Tylenol 650 mg every 6 hours p.r.n. fever greater than 100.4, Fioricet one tab twice a day p.r.n., aspirin 81 mg daily, Sinemet 10/100 one tab three times a day, Klonopin 0.25 mg twice a day p.r.n., Marinol 5 mg twice a day, hydralazine 10 mg every 6 hours p.r.n., isosorbide mononitrate 30 mg daily, lidocaine patch topically to affected area, lisinopril 10 mg daily, metoprolol tartrate 25 mg twice a day, Remeron 30 mg at bedtime, Zofran 4 mg every 6 hours p.r.n., MiraLax 17 g daily, potassium chloride 20 mEq daily, Xarelto 20 mg daily, tramadol 50 mg twice a day p.r.n. and, Ambien 5 mg at bedtime p.r.n. LABORATORY DATA: Reviewed. WBC 5.1, RBC 2.82, hemoglobin 8.8, hematocrit 26.4, and platelets 183. Sodium 135, potassium 4.0, chloride 102, carbon dioxide 20, anion gap 9, BUN 14, creatinine 1.2, GFR 53, POC glucose 111, random glucose 118, calcium 9.1, phosphorus 3.0 and magnesium 2.1. IMPRESSION AND PLAN: Cholelithiasis, anemia, renal cyst, history of insomnia, hypertension, history of pulmonary embolism, diabetes mellitus, cardiomyopathy, history of pancreatic cancer. The patient is currently on anticoagulation therapy, suspected sleep apnea syndrome. We will start the patient on Protonix 40 mg daily, gastric prophylaxis. We will start the patient on daytime stimulant Provigil 100 mg to be given at 7:00 a.m. due to conversation with family members yesterday about the patient being extremely tired and sleepy during the day. Sleep apnea precaution, head of bed elevated at 45 degrees, pressure ulcer precautions, fall precautions, aspiration precaution. We recommended that this patient has a sleep study as outpatient to rule out sleep apnea, careful with sedation. This patient was seen and examined with Dr. Molina. Discussed assessment and plan as described above. This patient was seen and examined with Arun Jauregui, nurse practitioner. Discussed assessment and plan as described above. Thank you for this consult and we will follow with you Arun Jauregui APN Hubert Molina MD
--- NOTE | 2018-11-30 12:04 | CP.PCM.PN ---
<Alfred Lao - Last Filed: 11/30/18 11:59> Subjective - Date & Time of Evaluation Date of Evaluation: 11/30/18 Time of Evaluation: 09:00 - Subjective Subjective: PGY5 GI Follow-up Pt seen and examined bedside Pt still has some abd discomfort, but slightly improved she still has decreased appetite +BM ROS: 12 point ROS conducted neg other than above Objective - Vital Signs/Intake and Output Vital Signs (last 24 hours): Temp Pulse Resp BP Pulse Ox 98.9 F 80 18 137/90 100 11/29/18 16:00 11/30/18 10:49 11/29/18 16:00 11/30/18 10:49 11/29/18 16:00 - Medications Medications: Current Medications Acetaminophen (Tylenol 325mg Tab) 650 mg PO Q6H PRN PRN Reason: Fever >100.4 F Last Admin: 11/29/18 11:22 Dose: 650 mg Acetaminophen/Butalbital/Caffeine (Fioricet) 1 tab PO BID PRN; Protocol PRN Reason: Migraine headache Last Admin: 11/29/18 11:53 Dose: 1 tab Armodafinil (Nuvigil 150 Mg Tab) 150 mg PO DAILY [facility] Aspirin (Ecotrin) 81 mg PO 0800 [facility]; Protocol Last Admin: 11/30/18 07:46 Dose: 81 mg Carbidopa/Levodopa (Sinemet ) 1 tab PO TID [facility]; Protocol Last Admin: 11/30/18 10:49 Dose: 1 tab Clonazepam (Klonopin Wafers) 0.25 mg PO BID PRN; Protocol PRN Reason: Anxiety Dronabinol (Marinol) 5 mg PO BID [facility]; Protocol Last Admin: 11/30/18 10:48 Dose: 5 mg Hydralazine HCl (Apresoline) 10 mg IVP Q6 PRN; Protocol PRN Reason: Hypertension Last Admin: 11/29/18 06:25 Dose: 10 mg Isosorbide Mononitrate (Imdur Er) 30 mg PO DAILY [facility]; Protocol Last Admin: 11/30/18 10:48 Dose: 30 mg Lidocaine (Lidoderm) 1 ea TOP DAILY [facility] Last Admin: 11/30/18 10:49 Dose: 1 ea Lisinopril (Zestril) 10 mg PO DAILY [facility] Last Admin: 11/30/18 10:49 Dose: 10 mg Metoprolol Tartrate (Lopressor) 25 mg PO 0800,1800 [facility]; Protocol Last Admin: 11/30/18 07:46 Dose: 25 mg Mirtazapine (Remeron) 30 mg PO HS [facility]; Protocol Last Admin: 11/29/18 21:33 Dose: 30 mg Ondansetron HCl (Zofran Inj) 4 mg IVP Q6H PRN; Protocol PRN Reason: Nausea/Vomiting Last Admin: 11/30/18 08:40 Dose: 4 mg Pantoprazole Sodium (Protonix Ec Tab) 40 mg PO 0600 [facility] Polyethylene Glycol (Miralax) 17 gm PO DAILY [facility]; Protocol Last Admin: 11/30/18 10:49 Dose: 17 gm Potassium Chloride (K-Dur 20 Meq Er Tab) 20 meq PO DAILY [facility] Last Admin: 11/30/18 10:48 Dose: 20 meq Rivaroxaban (Xarelto) 20 mg PO DAILY [facility]; Protocol Last Admin: 11/30/18 10:49 Dose: 20 mg Tramadol HCl (Ultram) 50 mg PO BID PRN PRN Reason: Pain, moderate (4-7) Last Admin: 11/29/18 04:04 Dose: 50 mg Zolpidem Tartrate (Ambien) 5 mg PO HS PRN; Protocol PRN Reason: Insomnia Last Admin: 11/28/18 21:38 Dose: 5 mg - Labs Labs: 11/30/18 05:45 11/30/18 05:45 - Constitutional Appears: Well, No Acute Distress - Head Exam Head Exam: ATRAUMATIC, NORMOCEPHALIC - Eye Exam Eye Exam: Normal appearance - ENT Exam ENT Exam: Mucous Membranes Moist, Normal Exam - Respiratory Exam Respiratory Exam: Clear to Ausculation Bilateral, NORMAL BREATHING PATTERN. absent: Rales, Rhonchi, Wheezes, Respiratory Distress - Cardiovascular Exam Cardiovascular Exam: REGULAR RHYTHM, +S1, +S2 - GI/Abdominal Exam GI & Abdominal Exam: Soft, Normal Bowel Sounds. absent: Distended, Firm, Guarding, Rigid, Tenderness, Mass, Organomegaly, Rebound - Extremities Exam Extremities Exam: absent: Joint Swelling, Pedal Edema - Neurological Exam Neurological Exam: Alert, Awake, Oriented x3 - Psychiatric Exam Psychiatric exam: Normal Affect, Normal Mood - Skin Skin Exam: Dry, Intact, Normal Color, Warm Assessment and Plan - Assessment and Plan (Free Text) Assessment: 73 yo F with PMH of Cecal adenocarcinoma s/p resection and re-anastamosis, Pancreatic adenocarcinoma (EUS staging criteria, T3NOMO, currently getting care at [facility], s/p chemo and XRT unclear if currently on chemo), Chronic Opiod Use, PE on rivaroxaban, DM, Hypertension, Constipation, Diverticular bleeding 09/2014 presents to [facility] – [place] with abdominal pain. Abdominal CT showed cirucmferential mural thickening of the transverse colon, which could represent nonspecific colitis, diffuse pancreatic ductal dilation, dilated CBD, b/l renal cysts, and sigmoid diverticulosis. POD #6 colonscopy: x2 transverse polyps, diverticulosis 1. Abdominal pain, likely multifactorial including constiaption 2. x2 sessile transverse colon poyps 3. Diverticulosis 4. Pancreatic adenocarcinoma s/p chemoradiation 5. H/o PE on rivaroxaban 6. Cecal CA s/p R hemicolectomy with reanastamosis 7. Colon thickening: Possible radiation induced thickening vs colitis vs other Plan: - recommend boost supplements - miralax daily for constipation - diet as tolerated - encourage ambulation - please reconsult if needed Patient discussed with Dr. Lomeli; please see attestation for further recs/changes. <Milly Lomeli V - Last Filed: 11/30/18 22:06> Objective - Vital Signs/Intake and Output Vital Signs (last 24 hours): Temp Pulse Resp BP Pulse Ox 99.8 F H 85 18 130/91 H 95 11/30/18 16:51 11/30/18 17:00 11/29/18 16:00 11/30/18 17:00 11/30/18 16:51 Intake and Output: 11/30/18 12/01/18 18:59 06:59 Intake Total 320 Balance 320 - Medications Medications: Current Medications Acetaminophen (Tylenol 325mg Tab) 650 mg PO Q6H PRN PRN Reason: Fever >100.4 F Last Admin: 11/30/18 16:51 Dose: 650 mg Acetaminophen/Butalbital/Caffeine (Fioricet) 1 tab PO BID PRN; Protocol PRN Reason: Migraine headache Last Admin: 11/29/18 11:53 Dose: 1 tab Armodafinil (Nuvigil 150 Mg Tab) 150 mg PO DAILY [facility] Aspirin (Ecotrin) 81 mg PO 0800 [facility]; Protocol Last Admin: 11/30/18 07:46 Dose: 81 mg Carbidopa/Levodopa (Sinemet 10/100) 1 tab PO TID [facility]; Protocol Last Admin: 11/30/18 17:00 Dose: 1 tab Clonazepam (Klonopin Wafers) 0.25 mg PO BID PRN; Protocol PRN Reason: Anxiety Diphenhydramine HCl (Benadryl) 25 mg PO HS PRN; Protocol PRN Reason: Insomnia Last Admin: 11/30/18 21:20 Dose: 25 mg Dronabinol (Marinol) 5 mg PO BID [facility]; Protocol Last Admin: 11/30/18 16:59 Dose: 5 mg Gabapentin (Neurontin) 100 mg PO TID [facility]; Protocol Last Admin: 11/30/18 18:58 Dose: 100 mg Hydralazine HCl (Apresoline) 10 mg IVP Q6 PRN; Protocol PRN Reason: Hypertension Last Admin: 11/29/18 06:25 Dose: 10 mg Lidocaine (Lidoderm) 1 ea TOP DAILY [facility] Last Admin: 11/30/18 10:49 Dose: 1 ea Lisinopril (Zestril) 10 mg PO DAILY [facility] Last Admin: 11/30/18 10:49 Dose: 10 mg Metoprolol Tartrate (Lopressor) 25 mg PO 0800,1800 [facility]; Protocol Last Admin: 11/30/18 17:00 Dose: 25 mg Mirtazapine (Remeron) 30 mg PO HS [facility]; Protocol Last Admin: 11/30/18 21:20 Dose: 30 mg Naproxen (Anaprox Ds) 550 mg PO BID [facility] Last Admin: 11/30/18 18:58 Dose: 550 mg Ondansetron HCl (Zofran Inj) 4 mg IVP Q6H PRN; Protocol PRN Reason: Nausea/Vomiting Last Admin: 11/30/18 16:51 Dose: 4 mg Pantoprazole Sodium (Protonix Ec Tab) 40 mg PO 0600,1600 [facility] Polyethylene Glycol (Miralax) 17 gm PO DAILY [facility]; Protocol Last Admin: 11/30/18 10:49 Dose: 17 gm Potassium Chloride (K-Dur 20 Meq Er Tab) 20 meq PO DAILY [facility] Last Admin: 11/30/18 10:48 Dose: 20 meq Rivaroxaban (Xarelto) 20 mg PO DAILY [facility]; Protocol Last Admin: 11/30/18 10:49 Dose: 20 mg - Labs Labs: 11/30/18 05:45 11/30/18 05:45 Attending/Attestation - Attestation I have personally seen and examined this patient.: Yes I have fully participated in the care of the patient.: Yes I have reviewed all pertinent clinical information, including history, physical exam and plan: Yes Notes (Text): This is an addendum to GI progress report dictated by the GI Fellow. The patient was seen and examined earlier. Medical records, lab studies, imagings were reviewed. Last 24 hours events reviewed. Agreed with the above treatment plan as outlined in GI Fellow 's notes with the addition of the following 11/30/18 22:06
--- NOTE | 2018-11-30 16:45 | PN ---
DATE: 11/30/2018 LOCATION: The patient is in room 313, bed 2. REASON FOR CONSULTATION: Followup elevated troponin, pancreatic carcinoma, hypertension, pre-diabetic deconditioning, history of pulmonary embolism, anemia. SUBJECTIVE: The patient still complaining loss of appetite and she feels weak. Denies chest pain, palpitation, or shortness of breath. The patient on medical floor troponin was slightly elevated, but the patient has no chest pains. So, the patient is not a candidate for any interventional therapy from cardiac point of view at this point, so we decided to treat medically as the patient is not having any chest pain. The patient still continues to have no chest pain, no cardiac symptoms. PHYSICAL EXAMINATION: VITAL SIGNS: Blood pressure 137/90, respirations 18, pulse 77, temperature is 98.9, yesterday temperature was 100.1. HEENT: Head is normocephalic. Eyes, pupil normal. Conjunctivae slightly pale. NECK: JVP low. Carotids equal. THORAX: AP diameter normal. LUNGS: No rales. CARDIOVASCULAR: S1 and S2. ABDOMEN: Soft, bowel sounds normal. EXTREMITIES: No clubbing, no cyanosis. LABORATORY DATA: WBC 5.1, hemoglobin 8.8, hematocrit 26.4, platelet 183. Sodium 135, potassium 4, magnesium 2.1. Yesterday, potassium was 3.3 and magnesium was 1.6. So, additional potassium and additional magnesium was given and today's labs, potassium and magnesium normal. BUN 14, creatinine 1.2. Random glucose 118. Calcium 9.1, phosphorus 3.1. DIAGNOSES: Slight troponin elevation on admission suggestive of non-ST elevation myocardial infarction, but the patient is clinically not a candidate for any interventional cardiac therapy, so the patient will continue medical therapy. She is symptomatic from cardiac point of view. Carcinoma of the pancreas, hypokalemia, hypomagnesemia which has been corrected, diabetes mellitus. PLAN: The patient is asymptomatic from cardiac point of view. Potassium and magnesium have been normalized, it was low yesterday. magnesium and potassium, it is normalized now. The patient will continue aspirin 81 mg daily, isosorbide mononitrate 30 mg daily, potassium 20 p.o. daily, metoprolol tartrate 25 mg b.i.d., Marinol 5 mg b.i.d., armodafinil 150 mg p.o. daily, 40 daily, Remeron 30 mg p.o. at bedtime, carbidopa/levodopa one tablet p.o. t.i.d., Xarelto 20 mg p.o. daily, lisinopril 10 mg daily. The patient has history of pulmonary embolism. We will continue aspirin 81 mg daily, isosorbide mononitrate 30 daily, and other medications as mentioned above. We will continue physical therapy. We will follow. Hubert Haas MD
[2018-11-30] MEDS: Naproxen 550 mg Tab PO SCH (18:58)
--- NOTE | 2018-12-01 01:57 | PN ---
DATE: 11/30/2018 SUBJECTIVE: The patient is a 73-year-old female. The patient was seen and examined at the bedside on 11/30/2018. Looking comfortable. Still complaining of about headache, abdominal pain, gaseous stomach. According to the patient and nursing staff, the patient does not have appetite. Discussion done with Dr. Molina. Constantly feeling nauseous. PHYSICAL EXAMINATION: VITAL SIGNS: Blood pressure 140/90, pulse 84, temperature 98.9, and oxygen saturation 100% on room air. HEENT: Head: Normocephalic and atraumatic. Eyes: PERRLA. Extraocular muscles intact. Conjunctivae clear. Nose patent. Mucous membrane moist. NECK: Supple. No carotid bruits. No JVD. No thyromegaly. CHEST: Bilateral symmetric. HEART: S1 and S2 positive. LUNGS: Clear to auscultation. ABDOMEN: Soft. Bowel sounds present. No organomegaly. EXTREMITIES: No edema. No cyanosis. NEUROLOGIC: The patient is awake and alert. Moving all four extremities. No focal deficit. MEDICATIONS: Tylenol, Fioricet, aspirin, Sinemet, Klonopin, Marinol, hydralazine, isosorbide, lidocaine, lisinopril, metoprolol, Remeron, Zofran, MiraLax, and tramadol. LABORATORY DATA: White blood cells 5.1, hemoglobin 8.8, hematocrit 26.4, and platelet 183. Sodium 135, potassium 4, BUN 14, creatinine 1.2, and calcium 9.1. ASSESSMENT AND PLAN: Ms. Wanda Obrien is a 73-year-old lady with multiple medical problems. Migraine, getting Fioricet. MRI of the head was done. Neurologist is on the case. Abdominal pain, nauseous, no appetite. Awning Hanger Supervisor, Dr. Lomeli, is on the case. History of cholelithiasis, anemia, renal cyst. Urologist, Dr. Mares, is on the case. History of insomnia, hypertension, history of pulmonary embolism, diabetes mellitus, cardiomyopathy, history of pancreatic cancer and colon cancer, sleep apnea syndrome, insomnia. The patient is getting Protonix. Sleep apnea precautions. Gastrointestinal and deep vein thrombosis prophylaxis. Discussion done with Dr. Molina. May be, we will start some known narcotic pain medication. Out of bed. Physical therapy. We will follow up. Kristen Prabhakar MD
--- NOTE | 2018-12-01 02:05 | PN ---
DATE: 11/29/2018 SUBJECTIVE: The patient was seen and examined at the bedside on 11/29/2018, looking comfortable. No fever. No chills. No hematuria. No hematochezia. Still complaining about headache and abdominal pain. No dizziness. PHYSICAL EXAMINATION: VITAL SIGNS: Blood pressure 140/90, pulse 105, and temperature 100.1. HEENT: Head; normocephalic and atraumatic. Eyes; PERRLA. Extraocular muscles intact. Conjunctivae clear. Nose patent. Mucous membranes moist. NECK: Supple. No carotid bruits. No JVD or thyromegaly. CHEST: Bilaterally symmetrical. HEART: S1 and S2 positive. LUNGS: Clear to auscultation. ABDOMEN: Soft. Bowel sounds present. No organomegaly. EXTREMITIES: No edema. No cyanosis. NEUROLOGIC: The patient is awake, alert, and moving all four extremities. No focal deficits. MEDICATIONS: Tylenol, aspirin, Sinemet, Rocephin, Klonopin, Marinol, Imdur, lidocaine, lisinopril, magnesium sulfate, metoprolol, Flagyl, Remeron, Zofran, MiraLax, potassium chloride, Xarelto, and Tramadol. LABORATORY DATA: Sodium 135, potassium 3.3, BUN 11, creatinine 0.9, glucose 118, and calcium 9.2. ASSESSMENT AND PLAN: Ms. Wanda Obrien is a 73-year-old female with history of colitis, got antibiotics for 10 days; anemia; renal cyst, urologist is on the case; history of insomnia; obstructive sleep apnea syndrome, sleep specialist is on the case; hypertension; pulmonary embolism; diabetes mellitus; cardiomyopathy; pulmonary hypertension; and history of pancreatic cancer, got treatment from [facility]. For headache, got Fioricet. Family is on the bedside. Length of time discussion done. Education done. All questions answered. Getting physical therapy. Repeat labs. We will follow up. Kristen Prabhakar MD
[2018-12-01] MEDS: Pantoprazole 40 mg EC Tab PO SCH ×2 (05:45→16:15)
[2018-12-01] MEDS ORDERED: Pantoprazole 40 mg EC Tab PO SCH (06:00)
[2018-12-01] MEDS: Naproxen 550 mg Tab PO SCH ×2 (09:49→17:14)
[2018-12-01] MEDS: Lidocaine 5% Patch TOP SCH (09:50)
[2018-12-01] MEDS: Potassium Chloride 20 mEq ER Tab PO SCH (09:50)
[2018-12-01] MEDS: POLYETHYLENE GLYCOL 3350 17 GM/Dose PACKET PO SCH (09:51)
--- NOTE | 2018-12-01 12:47 | PN ---
DATE: 12/01/2018 PULMONARY PROGRESS NOTE REFERRING PHYSICIAN: Kristen Prabhakar MD SUBJECTIVE: The patient is lying in bed, asleep, easily arousable. No headache, rhinitis, cough, shortness of breath, chest pain, abdominal pain, nausea, vomiting, diarrhea, leg pain, leg swelling reported. OBJECTIVE: GENERAL: No acute distress. VITAL SIGNS: Blood pressure 120/70, pulse 80, afebrile, oxygen saturation 95% on room air. HEENT: Moist mucous membranes. Mallampati score of 4. Crowded airway. Edentulous. NECK: Supple. No JVD. LUNGS: Fair airflow bilaterally. CARDIOVASCULAR: S1, S2. ABDOMEN: Soft. Nontender. No distention. No organomegaly. EXTREMITIES: No bilateral lower extremity edema. NEUROLOGIC: Asleep, but arousable. Verbal. Follows commands. MEDICATIONS: Reviewed. Tylenol 650 every 6 hours p.r.n., Fioricet 1 tablet twice a day p.r.n., Nuvigil 150 mg daily, aspirin 81 mg daily, Sinemet 10/100 three times a day, Klonopin wafer 0.25 mg twice a day p.r.n., Benadryl 25 mg p.o. h.s. p.r.n., Marinol 5 mg twice a day, Neurontin 100 mg three times a day, hydralazine 10 mg every 6 hours p.r.n., Lidoderm patch topically affected area daily, lisinopril 10 mg daily, metoprolol tartrate 25 mg twice a day, Remeron 30 mg at bedtime, naproxen 550 mg twice a day, Zofran 4 mg every 6 hours p.r.n., Protonix 40 mg twice a day, MiraLax 17 g daily, potassium chloride 20 mEq daily, Xarelto 20 mg daily. LABORATORY DATA: Reviewed. No new labs since yesterday. IMPRESSION AND PLAN: History of colitis, treated with antibiotics. Anemia, renal cysts, insomnia, suspected sleep apnea syndrome, hypertension, history of pulmonary embolism, diabetes mellitus, cardiomyopathy, pulmonary hypertension, history of pancreatic cancer treated at [facility]. The patient has a history of opioid dependence after receiving pain medication from [facility], currently attempting to cutdown on opioid. Body aches and headaches could be form of withdrawal from opioids. Continue naproxen, Neurontin for now. Continue MiraLax, daytime stimulants. Sleep apnea precaution, head of bed elevated 45 degrees. Pressure ulcer precaution, fall precaution, aspiration precaution. We recommended this patient have sleep study as outpatient, careful with sedation. This patient was seen and examined with Dr. Molina. Discussed assessment and plan as described above. This patient was seen and examined with Arun Jauregui, nurse practitioner. Discussed assessment and plan as described above. Thank you for this consult. We will follow with you. Arun Jauregui APN Hubert Molina MD
--- NOTE | 2018-12-01 18:52 | PN ---
DATE: 12/01/2018 LOCATION: Room 313, bed 2. REASON FOR CONSULTATION: Followup elevated troponin, pancreatic carcinoma, hypertension, pre-diabetic deconditioning, history of pulmonary embolism, anemia. SUBJECTIVE: The patient lying flat in bed without any chest pain, shortness of breath or palpitation. The patient complaining of loss of appetite and feels weak. The patient's troponin was slightly elevated with possibility of non ST elevation myocardial infarction. Intervention like cardiac catheterization is not suitable for the patient at this moment, so we decided to treat medically. The patient asymptomatic from cardiac point of view. PHYSICAL EXAMINATION: VITAL SIGNS: Blood pressure 120/70, respirations 16, pulse 80, temperature is 98.8. HEENT: Head is normocephalic. Eyes, pupil normal. Conjunctivae slightly pale. NECK: JVP low. Carotids equal. THORAX: AP diameter normal. LUNGS: Clear. CARDIOVASCULAR: S1 and S2. ABDOMEN: Soft, bowel sounds normal. EXTREMITIES: No clubbing, no cyanosis. LABORATORY DATA: WBC 5.1, hemoglobin 8.8, hematocrit 26.4, platelets 183. Sodium 135, potassium 4, BUN 14, creatinine 1.2, sugar 114. Calcium 9.1, phosphorus 3, magnesium 2.1. DIAGNOSES: Slight troponin elevation on admission suggestive of non-ST elevation myocardial infarction, but the patient is not a suitable candidate for cardiac catheterization. So, we are treating medically. The patient is asymptomatic from cardiac point of view. Carcinoma of the pancreas, diabetes mellitus, anemia, hypokalemia, hypomagnesemia which is corrected now. PLAN: We will continue present therapy including aspirin, potassium, metoprolol, Neurontin, lisinopril, gabapentin. Xarelto 20 mg daily for history of pulmonary embolism, lisinopril 10 daily, metoprolol 25 b.i.d., potassium 20 daily, aspirin one daily. We will follow. Hubert Haas MD
[2018-12-02] MEDS: Pantoprazole 40 mg EC Tab PO SCH ×2 (05:17→16:45)
[2018-12-02] MEDS: Naproxen 550 mg Tab PO SCH ×2 (09:42→17:34)
[2018-12-02] MEDS: Lidocaine 5% Patch TOP SCH (09:43)
[2018-12-02] MEDS: Potassium Chloride 20 mEq ER Tab PO SCH (09:43)
[2018-12-02] MEDS: POLYETHYLENE GLYCOL 3350 17 GM/Dose PACKET PO SCH (09:46)
--- NOTE | 2018-12-02 12:05 | PN ---
DATE: 12/02/2018 PULMONARY PROGRESS NOTE REFERRING PHYSICIAN: Kristen Prabhakar MD SUBJECTIVE: The patient in bed. No acute distress. No overnight events reported. Reports feeling well today. No headache, rhinitis, shortness of breath, chest pain, abdominal pain, nausea, vomiting, diarrhea, leg pain or leg swelling reported. OBJECTIVE: GENERAL: No acute distress. VITAL SIGNS: Blood pressure 135/84, pulse 69, oxygen saturation 97% on room air and temperature afebrile. HEENT: Moist mucous membranes. Mallampati score of 4. Crowded airway. Edentulous. NECK: Supple. No JVD. LUNGS: Fair airflow bilaterally. CARDIOVASCULAR: S1 and S2. ABDOMEN: Soft. Nontender. No distention. No organomegaly. EXTREMITIES: No bilateral lower extremity edema. NEUROLOGIC: Awake, alert and verbal. Follows commands. MEDICATIONS: Reviewed. Tylenol 650 mg every 6 hours p.r.n. fever greater than 100.4, Fioricet 1 tablet twice a day p.r.n., Nuvigil 150 mg daily, aspirin 81 mg daily, Sinemet 10/100 one tab three times a day, Klonopin wafer 0.25 mg twice a day p.r.n., Benadryl 25 mg at bedtime p.r.n., Marinol 5 mg twice a day, Neurontin 100 mg 3 times a day, hydralazine 10 mg IV push every 6 hours p.r.n., Lidoderm patch topically to affected area daily, lisinopril 10 mg daily, Lopressor 25 mg twice a day, Remeron 30 mg at bedtime, naproxen 550 mg twice a day, Zofran 4 mg IV push every 6 hours p.r.n., pantoprazole 40 mg twice a day,MiraLax 17 g daily, potassium chloride 20 mEq daily and Xarelto 20 mg daily. LABORATORY DATA: Reviewed. No new labs since yesterday. IMPRESSION AND PLAN: History of colitis treated with antibiotics, anemia, renal cysts, insomnia, suspected sleep apnea syndrome, history of pulmonary embolism currently on anticoagulation therapy, hypertension, diabetes mellitus, cardiomyopathy, pulmonary hypertension, history of pancreatic cancer treated at [facility]. The patient has a history of opioid dependence, currently attempting to cutdown on opioids. Sleep apnea precaution, head of bed elevated at 45 degrees, pressure ulcer precaution, aspiration precaution, fall precaution. Continue daytime stimulants naproxen and Neurontin for now. Continue MiraLax. We recommended this patient have sleep study as outpatient to rule out sleep apnea syndrome, careful with sedation. This patient was seen and examined with Dr. Molina. Discussed assessment and plan as described above. This patient was seen and examined with Arun Jauregui, nurse practitioner. Discussed assessment and plan as described above. Thank you for this consult and we will follow with you. Arun Jauregui APN Hubert Molina MD
--- NOTE | 2018-12-02 15:12 | PN ---
DATE: 12/02/2018 REASON FOR CONSULTATION AND FOLLOWUP: Elevated troponin, pancreatic cancer, hypotension, prediabetic, deconditioning of the body, history of pulmonary embolism, anemia and deconditioning of the body in TCU. SUBJECTIVE: The patient denies any chest pain, shortness of breath, any palpitation. Complaining of loss of appetite and feels nauseous, but otherwise no chest pain, no shortness of breath, no palpitation. PHYSICAL EXAMINATION: VITAL SIGNS: Temperature afebrile, heart rate is 69, blood pressure 135/84. HEENT: PERRLA. Extraocular muscles are intact. NECK: Supple. No carotid bruit or thyromegaly. CHEST: Clear to auscultation. HEART: S1 and S2. Regular. ABDOMEN: Soft. EXTREMITIES: Clubbing, cyanosis negative. LABORATORY DATA: Blood workup; WBC 5.1, hemoglobin 8.8, hematocrit 26.4, platelet count 183. Chemistry shows sodium 135, potassium 4, chloride 100, carbon dioxide 28, anion gap of 9, BUN 14, creatinine 1.2. IMPRESSION: A 73-year-old female with past medical history significant for pancreatic cancer, admitted for endoscopy because of significant drop H and H. and developed chest pain mild, troponin positive. The patient is not a candidate to go to the rags laborer treated medically. Now the patient is currently is asymptomatic. RECOMMENDATIONS: Continue Xarelto, continue metoprolol, continue baby aspirin, continue p.r.n. hydralazine. Continue Xarelto for history of PE. Continue lisinopril. We will follow with you. Thank you Dr. Prabhakar, providing us the opportunity in taking care of the patient, Micah Muñoz. Hubert Chan MD KEITH
[2018-12-02 16:47] VITALS: RESP 18
--- NOTE | 2018-12-03 02:38 | PN ---
DATE: 12/02/2018 The patient is 73-year-old female. SUBJECTIVE: The patient was seen and examined at the bedside, 12/02/2018, looking comfortable. No fevers, no chills, no hematuria, no hematochezia. No headache. No dizziness. No chest pain. No palpitations. The patient was sitting in the activity room with the daughter feeling wonderful. PHYSICAL EXAMINATION VITAL SIGNS: Blood pressure 130/80, pulse oximetry is 59, the patient is afebrile, respiratory rate 18. HEENT: Head is normocephalic and atraumatic. Eyes, PERRLA. Extraocular muscles are intact. Conjunctivae clear. Nose patent. Mucous membranes moist. NECK: Supple. No carotid bruits. No JVD or thyromegaly. CHEST: Bilaterally symmetrical. HEART: S1 and S2 positive. LUNGS: Clear to auscultation. ABDOMEN: Soft. Bowel sounds present. No organomegaly. EXTREMITIES: No edema. No cyanosis. NEUROLOGIC: The patient is awake, alert. Follows simple commands. LABORATORY DATA: We do not have any laboratory data. I reviewed old labs. MEDICATIONS: Tylenol, Nuvigil, aspirin, Sinemet, Klonopin, Benadryl at night, Marinol, Neurontin, hydralazine, Lidoderm, Lopressor, Remeron, naproxen, Zofran, pantoprazole, MiraLax, potassium, Xarelto. ASSESSMENT AND PLAN: Ms. Wanda Obrien is a 73-year-old lady with history of multiple medical problems, history of colitis, gastroesophageal reflux disease, antibiotics for 10 days, anemia, stable renal cyst, urologist on the case, insomnia, sleep apnea syndrome, depression, getting Remeron, hypertension, diabetes mellitus, cardiomyopathy, pulmonary hypertension, history of pancreatic cancer, got treatment from [facility], history of opioid dependence, currently attempting to cut down on the opioids. Discussion done with the patient's daughter. The patient's appetite is coming back, taste of the mouth is coming back as cutting down in the opioids. Sleep is still problem. Sleep specialist on the case. Continue MiraLax. Gastrointestinal and deep venous thrombosis prophylaxis. Repeat labs. We will followup. Kristen Prabhakar MD [facility] # [id number]
[2018-12-03] MEDS: Pantoprazole 40 mg EC Tab PO SCH ×2 (05:35→16:33)
[2018-12-03] MEDS: Naproxen 550 mg Tab PO SCH ×3 (07:50→17:31)
[2018-12-03] MEDS: Lidocaine 5% Patch TOP SCH (09:46)
[2018-12-03] MEDS: Potassium Chloride 20 mEq ER Tab PO SCH (09:46)
[2018-12-03] MEDS: POLYETHYLENE GLYCOL 3350 17 GM/Dose PACKET PO SCH (09:47)
--- NOTE | 2018-12-03 12:23 | PN ---
DATE: 12/03/2018 PULMONARY PROGRESS NOTE REFERRING PHYSICIAN: Kristen Prabhakar MD. SUBJECTIVE: The patient is seen sitting in chair in room. No acute distress. The patient reports feeling well this morning. No headache, rhinitis, cough, shortness of breath, chest pain, abdominal pain, nausea, vomiting, diarrhea, leg pain or leg swelling reported. OBJECTIVE: GENERAL: No acute distress. VITAL SIGNS: Blood pressure 119/73, pulse 78, temperature 98.2, oxygen saturation 99% on room air. HEENT: Moist mucous membranes. Mallampati score of 4. Crowded airway. NECK: Supple. No JVD. LUNGS: Fair airflow bilaterally. CARDIOVASCULAR: S1, S2. ABDOMEN: Soft. Nontender. No distention. No organomegaly. EXTREMITIES: No bilateral lower extremity edema. NEUROLOGIC: Awake, alert, verbal. Follows commands. MEDICATIONS: Reviewed. Tylenol 650 every 6 hours p.r.n. fever greater than 100.4, Fioricet 1 tablet twice a day p.r.n., Nuvigil 150 mg daily, aspirin 81 mg daily, Sinemet 10/100 mg one tablet three times a day, Klonopin wafer 0.25 mg twice a day p.r.n., Benadryl 25 mg at bedtime p.r.n., Marinol 5 mg twice a day, Neurontin 100 mg 3 times a day, hydralazine 10 mg IV push every 6 hours p.r.n., Lidoderm patch topically to affected area daily, lisinopril 10 mg daily, Lopressor 25 mg twice a day, Remeron 30 mg at bedtime, naproxen 550 mg twice a day, Zofran 4 mg every 6 hours p.r.n., Protonix 40 mg twice a day, MiraLax 17 g daily, potassium chloride 20 mEq daily, Xarelto 20 mg daily. LABORATORY DATA: Reviewed. No new labs. IMPRESSION AND PLAN: History of colitis treated with antibiotics, anemia, renal cysts, insomnia, suspected sleep apnea syndrome, history of pulmonary embolism currently on anticoagulation therapy, hypertension, diabetes mellitus, cardiomyopathy, pulmonary hypertension, history of pancreatic cancer treated at [facility]. Sleep apnea precaution, head of bed elevated at 45 degrees, pressure ulcer precaution, aspiration precaution, fall precaution. Continue daytime stimulants, naproxen and Neurontin. We believe that current medication dosing is appropriate for patient as patient has been doing well over the past few days. Recommend patient have sleep study as outpatient to rule out sleep apnea syndrome, careful with sedation. This patient was seen and examined with Dr. Molina. Discussed assessment and plan as described above. This patient was seen and examined with Arun Jauregui, nurse practitioner. Discussed assessment and plan as described above. Thank you for this consult. We will follow with you. Arun Jauregui APN Hubert Molina MD
--- NOTE | 2018-12-03 14:10 | PN ---
DATE: 12/03/2018 REASON FOR CONSULTATION: Elevated troponin, pancreatic cancer, hypotension, prediabetic, deconditioning of the body, history of pulmonary embolism, anemia, and deconditioning of the body, in ICU. SUBJECTIVE: The patient denies any chest pain, any shortness of breath, any palpitation. PHYSICAL EXAMINATION GENERAL: Not in apparent distress. VITAL SIGNS: Temperature afebrile, heart rate is 72, blood pressure 119/73. HEENT: PERRLA. Extraocular muscles are intact. NECK: Supple. No carotid bruit or thyromegaly. CHEST: Clear to auscultation. HEART: S1 and S2, regular. ABDOMEN: Soft. EXTREMITIES: Clubbing, cyanosis negative. LABORATORY DATA: Blood workup as follows: WBC 5.1, hemoglobin 8.8, hematocrit 26.4, platelet count 183. Chemistry shows sodium 135, potassium 4, chloride 102, CO2 of 28, anion gap of 9, BUN 14, creatinine 1.2. IMPRESSION: This is a 73-year-old female with past medical history significant for pancreatic cancer, admitted for endoscopy because of significant drop in hemoglobin and hematocrit. Developed chest pain, mild. Troponin positive. The patient had been asymptomatic since then and is not a candidate for comorbidity. RECOMMENDATION: We recommend to continue Xarelto. Continue metoprolol. Continue baby aspirin. Continue p.r.n. hydralazine. The patient is on Xarelto for PE. Continue lisinopril. CVA status is stable. Continue aggressive medical treatment. Discharge . Thank you Dr. Prabhakar for providing us the opportunity in taking care of the patient, Wanda Obrien. Hubert Chan MD
--- NOTE | 2018-12-03 15:48 | PN ---
DATE: 12/01/2018 SUBJECTIVE: The patient is a 73-year-old female. The patient was seen and examined on 12/01/2018. Looking comfortable. No fever. No chills. No hematuria, no hematochezia. No headache. No dizziness. No shortness of breath. No cough. No chest pain. No palpitation. PHYSICAL EXAMINATION: VITAL SIGNS: Blood pressure 120/70, pulse 50, temperature 98.6, respirations 18, and oxygen saturation 95% on room air. HEENT: Head; normocephalic and atraumatic. Eyes; PERRLA. Extraocular muscles are intact. Conjunctivae clear. Nose patent. Mucous membranes moist. NECK: Supple. No carotid bruit. No JVD or thyromegaly. CHEST: Bilaterally symmetrical. HEART: S1 and S2 positive. LUNGS: Clear to auscultation. ABDOMEN: Soft. Bowel sounds present. No organomegaly. EXTREMITIES: No edema, no cyanosis. NEUROLOGIC: The patient is awake, alert, and follows simple commands. MEDICATIONS: Tylenol, Nuvigil, aspirin, Sinemet, Klonopin, Benadryl, Marinol, Neurontin, Lidoderm patch, metoprolol, and naproxen. LABORATORY DATA: We do not have new labs , noted old labs ASSESSMENT AND PLAN: Ms. Wanda Obrien is a 73-year-old lady with history of colitis being treated with antibiotics, anemia, renal cyst and urologist is on the case, insomnia a sleep specialist on the case, sleep apnea syndrome, hypertension, history of prostate, history of pancreatic cancer, pulmonary embolism, diabetes mellitus, cardiomyopathy, pulmonary hypertension, history of pancreatic cancer, history of adenocarcinoma of the colon, she got treatment from [facility], GI DVT prophylaxis out of bed physical therapy. Naproxen is helping the patient . The patient was seen by psychiatric. Also repeat labs. We will followup. Kristen Prabhakar MD [facility]TD[facility]
[2018-12-03] MEDS ORDERED: clonazePAM 0.125 mg Disinteg Tab PO PRN (21:39)
--- NOTE | 2018-12-03 23:36 | PN ---
DATE: 12/03/2018 SUBJECTIVE: The patient is a 73-year-old female. The patient was seen and examined at the bedside on 12/03/2018. Looking comfortable. No fever. No chills. No hematuria, no hematochezia. No headache. No dizziness. No chest pain. No palpitation. Her appetite is improving slowly. PHYSICAL EXAMINATION: VITAL SIGNS: Blood pressure 120/70, pulse 78, temperature 98.2, and oxygen saturation 99% on room air. HEENT: Head; normocephalic and atraumatic. Eyes; PERRLA. Extraocular muscles are intact. Conjunctivae clear. Nose patent. Mucous membranes moist. NECK: Supple. No carotid bruit. No JVD or thyromegaly. CHEST: Bilaterally symmetrical. HEART: S1 and S2 positive. LUNGS: Clear to auscultation. ABDOMEN: Soft. Bowel sounds positive. No organomegaly. EXTREMITIES: No edema, no cyanosis. NEUROLOGIC: The patient is awake, alert. Moving all 4 extremities. No focal deficits. MEDICATIONS: Tylenol, Fioricet, Nuvigil, aspirin, Sinemet, Klonopin wafers, Benadryl, Marinol, Neurontin, hydralazine, Lidoderm, lisinopril, Lopressor, Remeron, naproxen, Protonix, MiraLax, and Xarelto. LABORATORY DATA: We do not have labs recent today, but I reviewed old labs. ASSESSMENT AND PLAN: Ms. Wanda Obrien is a 73-year-old lady with multiple medical problem, history of colitis, got antibiotics for 10 days, anemia, renal cyst. Urologist is on the case. Insomnia, has sleep apnea syndrome, speech specialist is on the case. She has pulmonary emboli, currently on anticoagulation therapy, hypertension, diabetes mellitus, cardiomyopathy, pulmonary hypertension, history of pancreatic cancer, and was on adenocarcinoma , getting Benadryl last night, depression and getting Remeron. Gastrointestinal and deep venous thrombosis prophylaxis, out of bed physical therapy. We will follow up. Kristen Prabhakar MD [facility]
[2018-12-04] MEDS: Pantoprazole 40 mg EC Tab PO SCH ×2 (05:25→16:31)
[2018-12-04 07:00] LABS: HEMOGLOBIN 8.2 g/dL (12.0-16.0); MEAN CELL VOLUME 97.3 fl (80.0-105.0); MEAN CORPUSCULAR HEMOGLOBIN 31.5 pg (25.0-35.0); MEAN CORPUSCULAR HGB CONC 32.4 g/dl (31.0-37.0); MEAN PLATELET VOLUME 8.4 fl (7.0-11.0); RBC 2.6 10^6/uL (3.5-6.1); RED CELL DISTRIBUTION WIDTH 14.7 % (11.5-14.5); WHITE BLOOD COUNT 3.6 10^3/uL (4.5-11.0)
[2018-12-04 07:44] LABS: CALCIUM 8.9 mg/dL (8.4-10.5)
[2018-12-04] MEDS: Naproxen 550 mg Tab PO SCH ×2 (08:29→17:52)
[2018-12-04] MEDS: Apap-Butalbital-Caffeine 325-50-40mg Tab PO SCH (09:30)
[2018-12-04] MEDS: Potassium Chloride 20 mEq ER Tab PO SCH (09:30)
[2018-12-04] MEDS: Lidocaine 5% Patch TOP SCH (09:31)
[2018-12-04] MEDS: POLYETHYLENE GLYCOL 3350 17 GM/Dose PACKET PO SCH (09:31)
--- NOTE | 2018-12-04 21:58 | PN ---
DATE: 12/04/2018 PULMONARY PROGRESS NOTE REFERRING PHYSICIAN: Kristen Prabhakar MD SUBJECTIVE: The patient is out of bed to chair. Having lunch. Feels much better. More awake and alert. Pain is much better. No nausea. No vomiting. Had a bowel movement. No leg swelling. OBJECTIVE: GENERAL: No acute distress. VITAL SIGNS: Temperature is 98, heart rate 74, respiratory rate is 18, blood pressure 107/70, pulse ox 97% on room air. HEENT: Moist mucous membranes. No ulcer or thrush noted. NECK: Supple. No JVD. LUNGS: Have fair airflow with rhonchi. HEART: S1 and S2. ABDOMEN: Soft, nontender, nondistended. EXTREMITIES: No edema. NEUROLOGIC: Awake, alert, follows simple command. MEDICATIONS: She is on Anaprox DS 550 mg twice a day, Benadryl 25 mg at bedtime p.r.n., Ecotrin 81 mg daily, Fioricet one tablet daily, potassium 20 mEq daily, Klonopin 0.125 mg twice a day p.r.n., lidocaine to affected area, metoprolol tartrate 25 mg twice a day, Marinol 5 mg twice a day, MiraLax 17 g daily, Neurontin 100 mg three times a day, Protonix 40 mg twice a day, mirtazapine 30 mg at bedtime, also getting Sinemet 10/100 mg one tablet three times a day, Tylenol p.r.n., Xarelto 20 mg daily, Zestril 10 mg daily. LABORATORY DATA: Shows hemoglobin 8.2, hematocrit 25.3, WBC 3.6, platelet is 196. Sodium 138, potassium 4.7, chloride 107, bicarbonate 29, BUN 20, creatinine 1.2, glucose is 99, and calcium is 8.9. IMPRESSION AND PLAN: Pancreatic cancer, status post chemotherapy; history of colon cancer; chronic pain syndrome; opiates dependent; history of colitis; anemia; insomnia; suspected sleep apnea syndrome; history of pulmonary embolism; pulmonary hypertension; cardiomyopathy. Clinically, the patient is doing much better. We will continue to cut down some of the sedatives. Continue pain management. Sleep apnea precaution. Keep head at 45 degrees. Continue daytime stimulant. Fall precaution. Thank you and we will follow with you. Hubert Molina MD
[2018-12-05] MEDS: Pantoprazole 40 mg EC Tab PO SCH (05:07)
[2018-12-05] MEDS: Naproxen 550 mg Tab PO SCH (08:05)
[2018-12-05] MEDS: Potassium Chloride 20 mEq ER Tab PO SCH (10:05)
[2018-12-05] MEDS: Apap-Butalbital-Caffeine 325-50-40mg Tab PO SCH (10:06)
[2018-12-05] MEDS: Lidocaine 5% Patch TOP SCH (10:50)
[2018-12-05] MEDS: POLYETHYLENE GLYCOL 3350 17 GM/Dose PACKET PO SCH (12:51)
[2018-12-05 16:29] VITALS: BP 113/74; PULSE 72; TEMP 99.5; O2SAT 99
--- NOTE | 2018-12-05 18:50 | PN ---
DATE: 12/05/2018 PULMONARY PROGRESS NOTE REFERRING PHYSICIAN: Kristen Prabhakar MD SUBJECTIVE: She is sitting up in a chair, having lunch. Night was unremarkable. Feels much better. No headache. No rhinitis. Deny any abdominal pain. No dysuria, leg pain, or leg swelling. OBJECTIVE: GENERAL: In no acute distress. VITAL SIGNS: Temperature is 98, heart rate is 74, respiratory rate is 20, blood pressure is 130/80, and pulse ox 97% on room air. HEENT: Small oral cavity. NECK: Supple. No JVD. LUNGS: Have fair airflow with rhonchi. HEART: S1 and S2. ABDOMEN: Soft and nontender. No organomegaly. EXTREMITIES: No edema. NEUROLOGIC: Awake, alert, and follows simple command. MEDICATIONS: She is on Naprosyn 550 p.o. twice a day, Benadryl 25 mg at bedtime p.r.n., Ecotrin 81 mg daily, Fioricet 1 tablet daily, potassium 20 mEq daily, clonazepam 0.125 mg twice a day which is a p.r.n., lidocaine patch daily, metoprolol tartrate 25 mg twice a day, Marinol 5 mg twice a day, MiraLax 17 g p.o. daily, Neurontin 100 mg three times a day, Nuvigil 150 mg daily, Protonix 40 mg twice a day, Remeron 30 mg at bedtime, Sinemet 1 tablet three times a day, Tylenol p.r.n., Xarelto 20 mg daily, and Zestril 10 mg daily. LABORATORY DATA: Reviewed and no new lab is available since yesterday. IMPRESSION AND PLAN: Pancreatic cancer, status post chemotherapy, also has a history of colon cancer in the remote past, chronic abdominal pain, opiates dependent, history of colitis, anemia, insomnia, suspected sleep apnea syndrome, history of pulmonary embolism, pulmonary hypertension, and cardiomyopathy. Case discussed with Dr. Prabhakar, being discharged home. Should continue daytime stimulant, Nuvigil or modafinil will be fine. Continue decrease sedative. She has opiates withdrawal syndrome, requiring Benadryl, daytime Neurontin, and sleep apnea precaution. We will follow as outpatient. May need PFT and sleep study. Fall precaution. Thank you and we will follow with you. Hubert Molina MD [facility] # [id number]
--- NOTE | 2018-12-05 22:06 | PN ---
DATE: 12/04/2018 SUBJECTIVE: The patient is a 73-year-old female. The patient was seen and examined at the bedside on 12/04/2018. The patient was on the bedside. Looking comfortable. No fever. No chills. No hematuria. No hematochezia. No swelling of the legs. No chest pain or palpitations. No headache. No dizziness. PHYSICAL EXAMINATION: VITAL SIGNS: Temperature 98, heart rate 74, respiratory rate 20, blood pressure 110/70, pulse oximetry 98% on room air. HEENT: Head: Normocephalic, atraumatic. Eyes: PERRLA. Extraocular muscles intact. Conjunctivae clear. Nose patent. Mucous membranes moist. NECK: Supple. No carotid bruit. No JVD or thyromegaly. CHEST: Bilaterally symmetrical. HEART: S1 and S2 positive. LUNGS: Clear to auscultation. ABDOMEN: Soft. Bowel sounds present. No organomegaly. EXTREMITIES: No edema. No cyanosis. NEUROLOGICAL: The patient is awake and alert. Moving all four extremities. No focal deficits. MEDICATIONS: Naproxen, Benadryl, Ecotrin, Fioricet, Klonopin, Lidoderm, metoprolol, Marinol, MiraLax, Protonix, Sinemet. LABORATORY DATA: White blood cell is 3.6, hemoglobin 8.2, hematocrit 25.3, platelets 196. Sodium 138, potassium 4.7, BUN 20, creatinine 1.2. ASSESSMENT AND PLAN: Ms. Micah Muñoz is a 73-year-old lady with multiple medical problems history of Parkinson disease, pancreatic cancer, and adenocarcinoma of the colon has been suctioned, status post chemotherapy, radiation therapy from [facility], opioid dependency. We are tapering down opiates. History of colitis, got IV antibiotics for 10 days, anemia, insomnia, sleep apnea syndrome, history of pulmonary embolism, on Xarelto. Clinically, the patient is improving. Getting physical therapy. Gastrointestinal and deep venous thrombosis prophylaxis. Repeat labs. We will follow up. Kristen Prabhakar MD
--- NOTE | 2018-12-06 00:51 | DS ---
The patient was admitted on 11/27/2018 in TCU, now getting discharged on 12/05/2018. The patient was seen and examined at the bedside on 12/05/2018, looking comfortable. CHIEF COMPLAINT: Deconditioning and abdominal pain. HISTORY OF PRESENT ILLNESS: Ms. Wanda Obrien is a 73-year-old female with multiple medical problems including colon adenocarcinoma; status post anastomosis; pancreatic adenocarcinoma; got treatment from [facility], status post chemo and radiation therapy; history of PE, on Xarelto; history of small bowel obstruction due to opioid over use; history of migraine; admitted to medical floor; has colitis; got antibiotics; transferred to TCU for continuity of care and for completing of antibiotics. Now, the patient got physical therapy and we tapered down narcotics, getting better, going home with follow up Dr. Molina and my office. PAST MEDICAL HISTORY: Hypertension, Parkinson's disease, pancreatic cancer, colon cancer, anxiety, and insomnia. FAMILY HISTORY: Father and mother noncontributory. HABITS: No smoking. No drugs. No ethanol. ALLERGIES: THE PATIENT IS NOT ALLERGIC WITH ANY MEDICATIONS. HOME MEDICATIONS: Xarelto and Ambien. REVIEW OF SYSTEMS: The patient was seen and examined at the bedside, looking comfortable. No fever. No chills. No hematuria. No hematochezia. No headache. No dizziness. No chest pain. No palpitation. Migraine is better. PHYSICAL EXAMINATION: VITAL SIGNS: Temperature 99.5, pulse 72, blood pressure 113/74, and respiratory rate 18. HEENT: Head; normocephalic and atraumatic. Eyes; PERRLA. Extraocular muscles intact. Conjunctivae clear. Nose patent. Mucous membranes moist. NECK: Supple. No carotid bruits, JVD, or thyromegaly. CHEST: Bilaterally symmetrical. HEART: S1 and S2 positive. LUNGS: Clear to auscultation. ABDOMEN: Soft. Bowel sounds present. No organomegaly. EXTREMITIES: No edema. No cyanosis. NEUROLOGIC: The patient is awake, alert, and moving all four extremities. No focal deficits. LABORATORY DATA: White blood cell 3.6, hemoglobin 8.2, hematocrit 25.3, and platelets 196. Sodium 138, potassium 4.7, BUN 20, creatinine 1.2, and glucose 114. ASSESSMENT AND PLAN: Ms. Wanda Obrien is a 73-year-old lady with leukopenia, anemia, hyperglycemia, history of pancreatic cancer, adenocarcinoma of the colon, Parkinson's disease, migraine, status post chemotherapy and radiation therapy, chronic pain syndrome; opiate dependency, history of colitis, continue treatment with IV antibiotics, insomnia, obstructive sleep apnea syndrome, and history of pulmonary embolism, on Xarelto. The patient improved. Discussion done with Dr. Molina , will go home with the family, and follow up with Dr. Molina's office and my office. Kristen Prabhakar MD MTDD
== END 2018-12-05 17:05 | disposition home or self-care (01) | DRG 392 ==
LOC: TRCU 18:33
PROVIDERS: ADMIT Internal Medicine; ATTEND Internal Medicine
PROC: 3E03329 Introduction of Other Anti-infective into Peripheral Vein, Percutaneous Approach (ICD-10-PCS; 2018-11-26)
PROC: F07Z9FZ Gait Training/Functional Ambulation Treatment using Assistive, Adaptive, Supportive or Protective Equipment (ICD-10-PCS; principal; 2018-11-28)
PROC: F07Z5FZ Bed Mobility Treatment using Assistive, Adaptive, Supportive or Protective Equipment (ICD-10-PCS; 2018-11-28)
PROC: F07Z8FZ Transfer Training Treatment using Assistive, Adaptive, Supportive or Protective Equipment (ICD-10-PCS; 2018-11-28)
PROC: F07L6YZ Therapeutic Exercise Treatment of Musculoskeletal System - Lower Back / Lower Extremity using Other Equipment (ICD-10-PCS; 2018-11-28)
PROC: F08Z2FZ Grooming/Personal Hygiene Treatment using Assistive, Adaptive, Supportive or Protective Equipment (ICD-10-PCS; 2018-11-28)
PROC: F08Z1FZ Dressing Techniques Treatment using Assistive, Adaptive, Supportive or Protective Equipment (ICD-10-PCS; 2018-11-28)
DX: K52.9 Noninfective gastroenteritis and colitis, unspecified (principal); C25.9 Malignant neoplasm of pancreas, unspecified; I42.8 Other cardiomyopathies; G20 Parkinson's disease; E11.65 Type 2 diabetes mellitus with hyperglycemia; E87.6 Hypokalemia; E83.42 Hypomagnesemia; G47.33 Obstructive sleep apnea (adult) (pediatric); G47.10 Hypersomnia, unspecified; G89.4 Chronic pain syndrome; I10 Essential (primary) hypertension; I25.119 Atherosclerotic heart disease of native coronary artery with unspecified angina pectoris; I27.20 Pulmonary hypertension, unspecified; N28.1 Cyst of kidney, acquired; K80.20 Calculus of gallbladder without cholecystitis without obstruction; D64.9 Anemia, unspecified; G43.909 Migraine, unspecified, not intractable, without status migrainosus; Z79.891 Long term (current) use of opiate analgesic; Z85.038 Personal history of other malignant neoplasm of large intestine; Z86.711 Personal history of pulmonary embolism; Z79.01 Long term (current) use of anticoagulants; Z79.82 Long term (current) use of aspirin

== ENCOUNTER 2019-02-20 14:30 | Inpatient (IN) | payer MEDICARE ==
[2019-02-20 14:39] VITALS: BMI 21.9
[2019-02-20] MEDS ORDERED: Sodium Chloride 0.9% 1,000 ML IV STA (15:34)
[2019-02-20] MEDS ORDERED: Morphine 4 mg/ml ISec IVP STA ×2 (15:34→17:15)
--- NOTE | 2019-02-20 15:39 | ED PDOC ---
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 Patient reports trying to manage pain at home, however was unable to. She is also complaining of head pain and back pain. Patient denies any fever, chills, vomiting, diarrhea, or any other complaints at this time. Past Medical History - Provider Review Nursing Documentation Reviewed: Yes Primary Care Provider: Kristen Prabhakar - Infectious Disease Hx of Infectious Diseases: None - Cardiac Hx Cardiac Disorders: Yes Hx Hypertension: Yes - Pulmonary Hx Respiratory Disorders: Yes Other/Comment: pulmonary embolism - Neurological Hx Neurological Disorder: Yes Hx Parkinson's Disease: Yes - HEENT Hx HEENT Disorder: Yes (eyeglasses) - Renal Hx Renal Disorder: No - Endocrine/Metabolic Hx Diabetes Mellitus Type 2: (denies) - Hematological/Oncological Hx Blood Transfusions: Yes (2008) Hx Blood Transfusion Reaction: No - Integumentary Hx Dermatological Disorder: No - Musculoskeletal/Rheumatological Hx Falls: No - Gastrointestinal Hx Gastrointestinal Disorders: Yes Hx Diverticulitis: Yes Hx Gastroesophageal Reflux: Yes Other/Comment: colitis, partial bowel obstruction, cecal adenocarcinoma, resection and anastamosis, diverticular bleeding , colonoscoopy 09/2014, endo 07/2016, erosive gastropathy, weight loss poor appetite - Genitourinary/Gynecological Hx Genitourinary Disorders: No - Psychiatric Hx Psychophysiologic Disorder: Yes Hx Anxiety: Yes Hx Substance Use: No - Surgical History Hx Cholecystectomy: Yes (lap cherelle) Hx Hysterectomy: Yes - Anesthesia Hx Anesthesia Reactions: No Hx Malignant Hyperthermia: No - Suicidal Assessment Feels Threatened In Home Enviroment: No Family/Social History - Physician Review Nursing Documentation Reviewed: Yes Family/Social History: No Known Family HX Smoking Status: Never Smoked Hx Alcohol Use: No Hx Substance Use: No Allergies/Home Meds Allergies/Adverse Reactions: Allergies No Known Allergies Allergy (Verified 02/20/19 14:40) Home Medications: Home Meds Medication Instructions Recorded Confirmed Carbidopa/Levodopa [Sinemet 1 tab PO TID 02/20/19 02/20/19] Review of Systems - Physician Review All systems were reviewed & negative as marked: Yes - Review of Systems Constitutional: absent: Fevers, Night Sweats, Other (head pain) Gastrointestinal: Abdominal Pain, Nausea. absent: Diarrhea, Vomiting Musculoskeletal: Back Pain Physical Exam Vital Signs Reviewed: Yes Vital Signs Temp Pulse Resp BP Pulse Ox 02/20/19 14:42 98.9 F 74 18 159/96 H 96 Temperature: Afebrile Blood Pressure: Hypertensive Pulse: Regular Respiratory Rate: Normal Appearance: Positive for: Well-Appearing Pain Distress: None Mental Status: Positive for: Alert and Oriented X 3 - Systems Exam Head: Present: Atraumatic, Normocephalic Pupils: Present: PERRL Extroacular Muscles: Present: EOMI Conjunctiva: Present: Normal Mouth: Present: Moist Mucous Membranes Neck: Present: Normal Range of Motion. No: JVD Respiratory/Chest: Present: Clear to Auscultation, Good Air Exchange, Other (port to right side chest). No: Respiratory Distress, Accessory Muscle Use Cardiovascular: Present: Regular Rate and Rhythm, Normal S1, S2. No: Murmurs Abdomen: Present: Tenderness (diffusely). No: Distention, Peritoneal Signs, Rebound, Guarding Back: Present: Normal Inspection Upper Extremity: Present: Normal Inspection. No: Cyanosis, Edema Lower Extremity: Present: Normal Inspection. No: Edema (no pitting edema) Neurological: Present: GCS=15, CN II-XII Intact, Speech Normal Skin: Present: Warm, Dry, Normal Color. No: Rashes Psychiatric: Present: Alert, Oriented x 3, Normal Insight, Normal Concentration Medical Decision Making ED Course and Treatment: 02/20/19 15:38 Impression: 74 year old female with nausea and abdominal pain. Differential Diagnosis included but are not limited to: Abdominal Pain rule out Pancreatitis vs. Diverticulitis Plan: -- Labs -- Zofran -- Pepcid -- Abd/Pelvis CT -- Reassess and disposition Progress Notes: EKG: Ordered, reviewed, and independently interpreted the EKG. Rate : 95 BPM Rhythm : NSR Interpretation : No ST-segment elevations or depressions, no T-wave inversions, normal intervals. Comparison : No previous EKG for comparison. 02/20/2019 20:00 Abd/Pelvis CT IMPRESSION: Status post cholecystectomy. Prominence of the biliary duct system. Diffuse low density within the pancreas likely representing cystic change and possible dilatation of pancreatic duct. Prominent bilateral renal cysts largest is within the right kidney. Postoperative changes lower abdomen and pelvis. Diverticular changes sigmoid and descending colon. Clinical correlation advised. Dictator: Bon Ortiz 02/20/19 20:18 All labs are unremarkable and CT Abd/Pelvis shows no changes from previous. Patient states she feels better and will be discharged home. - Scribe Statement The provider has reviewed the documentation as recorded by the Marimar Zaman Provider Scribe Attestation: All medical record entries made by the Scribe were at my direction and personally dictated by me. I have reviewed the chart and agree that the record accurately reflects my personal performance of the history, physical exam, medical decision making, and the department course for this patient. I have also personally directed, reviewed, and agree with the discharge instructions and disposition. Disposition/Present on Arrival - Present on Arrival Any Indicators Present on Arrival: No History of DVT/PE: No History of Uncontrolled Diabetes: No Urinary Catheter: No History of Decub. Ulcer: No History Surgical Site Infection Following: None - Disposition Have Diagnosis and Disposition been Completed?: Yes Diagnosis: Abdominal pain, Hypertension Disposition: HOME/ ROUTINE Disposition Time: 00:12 Patient Problems: Current Active Problems Problem Status Onset Abdominal pain Acute Urinary retention Acute Condition: GOOD
[2019-02-20] MEDS ORDERED: Iohexol 240 (50 ml) ONE ×2 (15:59→16:49)
[2019-02-20 16:28] LABS: URINE BILIRUBIN NEGATIVE (NEGATIVE); URINE BLOOD NEGATIVE (NEGATIVE); URINE GLUCOSE (UA) NEGATIVE (NEGATIVE); URINE LEUKOCYTE ESTERASE SMALL Leu/uL (NEGATIVE); URINE PROTEIN TRACE mg/dL (<30 mg/dL); URINE UROBILINOGEN 0.2 E.U./dL (<1 E.U./dL)
[2019-02-20 16:30] LABS: LYMPH # 0.9 (1.2-3.4); LYMPH % 21.5 % (22.0-35.0); MEAN CELL VOLUME 94.4 fl (80.0-105.0); MEAN CORPUSCULAR HEMOGLOBIN 30.9 pg (25.0-35.0); MEAN CORPUSCULAR HGB CONC 32.7 g/dl (31.0-37.0); MEAN PLATELET VOLUME 9.4 fl (7.0-11.0); MONO # 0.4 (0.1-0.6); MONO % 8.2 % (1.0-6.0); RBC 3.24 10^6/uL (3.5-6.1); RED CELL DISTRIBUTION WIDTH 13.4 % (11.5-14.5); URINE APPEARANCE CLEAR (CLEAR); WHITE BLOOD COUNT 4.4 10^3/uL (4.5-11.0)
[2019-02-20 16:38] LABS: ALB/GLOB RATIO 1.3 (1.1-1.8); ALBUMIN 4.4 g/dL (3.0-4.8); ALT/SGPT 7 U/L (7-56); AST/SGOT 27 U/L (14-36); BLOOD UREA NITROGEN 26 mg/dL (7-21); CALCIUM 9.7 mg/dL (8.4-10.5); GFR NON-AFRICAN AMERICAN 40
[2019-02-20 16:42] LABS: INR 1.07; PROTHROMBIN TIME 11.9 SECONDS (9.4-12.5)
[2019-02-20 16:43] LABS: PARTIAL THROMBOPLASTIN TIME 110.4 Seconds (26.9-38.3)
[2019-02-20 16:51] LABS: LIPASE < 10 U/L (23-300)
[2019-02-20] MEDS ORDERED: DiphenhydrAMINE 50 mg/ml Inj IVP STA (17:16)
--- NOTE | 2019-02-20 17:30 | RAD ---
Date of service: 02/20/2019 HISTORY: r/o infiltrate COMPARISON: 10/27/2018. FINDINGS: LUNGS: No active pulmonary disease. PLEURA: No significant pleural effusion identified, no pneumothorax apparent. CARDIOVASCULAR: No atherosclerotic calcification present No radiographic findings to suggest acute or significant cardiovascular disease. OSSEOUS STRUCTURES: No significant abnormalities. VISUALIZED UPPER ABDOMEN: Normal. OTHER FINDINGS: None. IMPRESSION: No active disease. No significant interval change compared to the prior examination(s).
[2019-02-20] MEDS ORDERED: Iodixanol 320 MG/ML 100 ML BOTTLE IV ONE (19:00)
--- NOTE | 2019-02-20 23:45 | ED PDOC ---
Physical Exam Vital Signs Temp Pulse Resp BP Pulse Ox 02/20/19 22:24 87 14 146/99 H 100 02/20/19 21:07 89 195/123 H 02/20/19 21:06 89 195/123 H 02/20/19 20:19 90 18 195/124 H 95 02/20/19 17:18 80 18 154/117 H 97 02/20/19 14:42 98.9 F 74 18 159/96 H 96 Medical Decision Making ED Course and Treatment: 02/20/19 23:42 Pt had been seen previously by Dr. Baez, who had anticipated discharge following treatment of her blood pressure. Pt slated for discharge but then complained to nurse of difficulty urinating. Bladder scan revealed retained urine, pt had a urinary catheter placed with passage of greater than 500cc of urine with relief. Pt's blood pressure had stabilized earlier, will discuss with Dr. Prabhakar. 02/20/19 23:[address] Prabhakar, who is aware and agrees with plan. Accepts pt in to her service. Pt will go to [facility] observation for abdominal pain, urinary retention, and hypertension. - Lab Interpretations Lab Results: PT 11.9 SECONDS (9.4-12.5) 02/20/19 15:55 INR 1.07 02/20/19 15:55 APTT 34.3 Seconds (26.9-38.3) 02/20/19 17:00 Total Bilirubin 0.6 mg/dL (0.2-1.3) 02/20/19 15:55 AST 27 U/L (14-36) 02/20/19 15:55 ALT 7 U/L (7-56) 02/20/19 15:55 Alkaline Phosphatase 115 U/L (38-126) 02/20/19 15:55 Total Protein 7.8 g/dL (5.8-8.3) 02/20/19 15:55 Albumin 4.4 g/dL (3.0-4.8) 02/20/19 15:55 Globulin 3.3 gm/dL 02/20/19 15:55 Albumin/Globulin Ratio 1.3 (1.1-1.8) 02/20/19 15:55 Lipase < 10 U/L (23-300) L 02/20/19 15:55 Urine Color yellow (YELLOW) 02/20/19 15:55 Urine Appearance Clear (CLEAR) 02/20/19 15:55 Urine pH 6.0 (4.7-8.0) 02/20/19 15:55 Ur Specific Scroggins 1.015 (1.005-1.035) 02/20/19 15:55 Urine Protein Trace mg/dL (<30 mg/dL) H 02/20/19 15:55 Urine Glucose (UA) Negative mg/dL (NEGATIVE) 02/20/19 15:55 Urine Ketones Negative mg/dL (NEGATIVE) 02/20/19 15:55 Urine Blood Negative (NEGATIVE) 02/20/19 15:55 Urine Nitrate Negative (NEGATIVE) 02/20/19 15:55 Urine Bilirubin Negative (NEGATIVE) 02/20/19 15:55 Urine Urobilinogen 0.2 E.U./dL (<1 E.U./dL) 02/20/19 15:55 Ur Leukocyte Esterase Small Selene/uL (NEGATIVE) H 02/20/19 15:55 Urine RBC 1 - 3 /hpf (0-2) H 02/20/19 15:55 Urine WBC 5 - 10 /hpf (0-6) H 02/20/19 15:55 Ur Epithelial Cells 6 - 8 /hpf (0-5) H 02/20/19 15:55 - RAD Interpretation Radiology Orders: 02/20/19 15:34 ABD PELVIS PO & IV CONTRAST [CT] Stat 02/20/19 16:29 CHEST PORTABLE [RAD] Stat - Medication Orders Current Medication Orders: Discontinued Medications Clonidine HCl (Catapres) 0.1 mg PO STAT STA Stop: 02/20/19 20:31 Last Admin: 02/20/19 21:06 Dose: 0.1 mg MAR Pulse and Blood Pressure Document 02/20/19 21:06 EQ (Rec: 02/20/19 21:06 EQ [id number]) Pulse Pulse Rate (60-90 beats/min) 89 Blood Pressure Blood Pressure (100/60-150/90 mm Hg) 195/123 Diphenhydramine HCl (Benadryl) 25 mg IVP STAT STA Stop: 02/20/19 17:17 Last Admin: 02/20/19 18:20 Dose: 25 mg IVP Administration Document 02/20/19 18:20 EQ (Rec: 02/20/19 18:20 EQ [id number]) Charges for Administration # of IVP Administrations 1 Famotidine (Pepcid) 20 mg IVP STAT STA Stop: 02/20/19 15:35 Last Admin: 02/20/19 16:10 Dose: 20 mg IVP Administration Document 02/20/19 16:10 EQ (Rec: 02/20/19 16:10 EQ [id number]) Charges for Administration # of IVP Administrations 1 Hydralazine HCl (Apresoline) 10 mg IVP ONCE ONE Stop: 02/20/19 20:31 Last Admin: 02/20/19 21:07 Dose: 10 mg IVP Administration Document 02/20/19 21:07 EQ (Rec: 02/20/19 21:07 EQ [id number]) Charges for Administration # of IVP Administrations 1 MAR Pulse and Blood Pressure Document 02/20/19 21:07 EQ (Rec: 02/20/19 21:07 EQ [id number]) Pulse Pulse Rate (60-90 beats/min) 89 Blood Pressure Blood Pressure (100/60-150/90 mm Hg) 195/123 Sodium Chloride (Sodium Chloride 0.9%) 1,000 mls @ 999 mls/hr IV .Q1H1M STA Stop: 02/20/19 16:34 Last Admin: 02/20/19 16:10 Dose: 999 mls/hr eMAR Start Stop Document 02/20/19 16:10 EQ (Rec: 02/20/19 16:10 EQ [id number]) Intravenous Solution Start Date 02/20/19 Start Time 16:10 Morphine Sulfate (Morphine) 4 mg IVP STAT STA Stop: 02/20/19 15:35 Last Admin: 02/20/19 16:11 Dose: 4 mg MAR Pain Assessment Document 02/20/19 16:11 EQ (Rec: 02/20/19 16:11 EQ [id number]) Pain Reassessment Is this a pain reassessment? No Sleep Is patient sleeping during reassessment? No Presence of Pain Presence of Pain Yes IVP Administration Document 02/20/19 16:11 EQ (Rec: 02/20/19 16:11 EQ [id number]) Charges for Administration # of IVP Administrations 1 Morphine Sulfate (Morphine) 6 mg IVP STAT STA Stop: 02/20/19 17:16 Last Admin: 02/20/19 18:20 Dose: 6 mg MAR Pain Assessment Document 02/20/19 18:20 EQ (Rec: 02/20/19 18:21 EQ [id number]) Pain Reassessment Is this a pain reassessment? Yes Sleep Is patient sleeping during reassessment? No Presence of Pain Presence of Pain Yes IVP Administration Document 02/20/19 18:20 EQ (Rec: 02/20/19 18:21 EQ [id number]) Charges for Administration # of IVP Administrations 1 Ondansetron HCl (Zofran Inj) 4 mg IVP STAT STA Stop: 02/20/19 15:35 Last Admin: 02/20/19 16:10 Dose: 4 mg IVP Administration Document 02/20/19 16:10 EQ (Rec: 02/20/19 16:11 EQ [id number]) Charges for Administration # of IVP Administrations 1 - Scribe Statement The provider has reviewed the documentation as recorded by the [email or web address] Mitchell Provider Scribe Attestation: All medical record entries made by the Scribe were at my direction and personally dictated by me. I have reviewed the chart and agree that the record accurately reflects my personal performance of the history, physical exam, medical decision making, and the department course for this patient. I have also personally directed, reviewed, and agree with the discharge instructions and disposition. Disposition/Present on Arrival - Present on Arrival Any Indicators Present on Arrival: No History of DVT/PE: No History of Uncontrolled Diabetes: No Urinary Catheter: No History of Decub. Ulcer: No History Surgical Site Infection Following: None - Disposition Have Diagnosis and Disposition been Completed?: Yes Diagnosis: Abdominal pain, Urinary retention Disposition: HOME/ ROUTINE Disposition Time: 00:09 Patient Problems: Current Active Problems Problem Status Onset Abdominal pain Acute Urinary retention Acute Condition: GOOD Discharge Instructions (ExitCare): Acute Abdomen (Belly Pain), Adult (DC) Additional Instructions: Take oxycodon, pepcid as directed and follow up with your pcp in am. Prescriptions: oxyCODONE [oxyCODONE Immediate Release Tab] 30 mg PO Q6 3 Days #15 tab Famotidine [Pepcid] 40 mg PO DAILY #30 tablet Referrals: [facility] at [facility] [place] [Outside] - Follow up with primary [facility] [Outside] - Follow up with primary [facility] [place] [Outside] - Follow up with primary Forms: [email or web address] ([place])
[2019-02-21] MEDS ORDERED: cefTRIAXone 1 gm 1 GM/100 ML BAG IV STA (00:11)
--- NOTE | 2019-02-21 08:54 | CT ---
Date of service: 02/20/2019 PROCEDURE: CT Abdomen and Pelvis with contrast HISTORY: r/o abscess, diverticulitis, pancreatitis COMPARISON: 11/18/2018 TECHNIQUE: Contrast dose: 100 mL Visipaque 320 Radiation dose: Total exam DLP = 218.26 mGy-cm. This CT exam was performed using one or more of the following dose reduction techniques: Automated exposure control, adjustment of the mA and/or kV according to patient size, and/or use of iterative reconstruction technique. FINDINGS: LOWER THORAX: Unremarkable. LIVER: Normal size, contour and attenuation. There is intra and extrahepatic biliary ductal dilatation. No mass. GALLBLADDER AND BILE DUCTS: Status post cholecystectomy. PANCREAS: Diffuse pancreatic ductal dilatation. No pancreatic mass identified. Pancreatic atrophy noted. No peripancreatic fluid. SPLEEN: Unremarkable. ADRENALS: Unremarkable. No mass. KIDNEYS AND URETERS: Right upper pole renal cyst, 10.1 cm. Left upper pole renal cortical cyst, 4.5 cm. Left lower pole cortical cyst, 2.2 cm. No renal calculus or hydronephrosis. VASCULATURE: Unremarkable. No aortic aneurysm. There is atherosclerotic calcification of the abdominal aorta. BOWEL: Diverticulosis of the sigmoid colon without evidence of diverticulitis. There is an anastomosis in what appears to be the mid transverse colon. No bowel obstruction. APPENDIX: Not identified. No secondary findings. PERITONEUM: Unremarkable. No free fluid. No free air. LYMPH NODES: Unremarkable. No enlarged lymph nodes. BLADDER: Unremarkable. REPRODUCTIVE: Status post hysterectomy BONES: No acute fracture. OTHER FINDINGS: None. IMPRESSION: Intra and extrahepatic biliary ductal dilatation. Marked pancreatic ductal dilatation with pancreatic atrophy. The findings are nonspecific. Consider the possibility of biliary/ampullary stricture or neoplasm. Consider further evaluation with MRCP as well as MRI abdomen with and without gadolinium. The preliminary findings for this examination were reported by [facility] Radiology at 8 p.m. on 02/20/2019.. There is concurrence of this report with the preliminary findings.
--- NOTE | 2019-02-21 09:14 | CARD ---
APPROVED REPORT Date of service: 02/20/2019 EKG Measurement Heart [id number] <Conclusion> Normal sinus rhythm ST & T wave abnormality, consider anterior ischemia Abnormal ECG
--- NOTE | 2019-02-21 11:56 | CP.PCM.CON ---
<De aLo - Last Filed: 02/21/19 19:20> History of Present Illness - History of Present Illness History of Present Illness: [facility] Resident- Consult Note on Behalf of Dr. Lomeli Subjective: CC: Abdominal Pain HPI: Patient is a 73 year old female with history of cecal adenocarcinoma s/p resection and re-anastamosis, pancreatic adenocarcinoma, chronic opiod use, PE, DM, hypertension, constipation, diverticular bleeding 09/2014, who was admitted for evaluation and treatment for abdominal pain. States pain began 2 days ago with no specific provoking event. Pain originates and remains localized to the lower abdominal quadrants and is characterized as being a burning sensation. Rated a 8/10 with no exacerbating/remitting factors. Tolerating diet. Denies fever, chills, chest pain, SOB, vomiting, diarrhea, constipation, urinary symptoms, bright red blood per rectum, dark stools, and change in stool caliber. 12 point ROS negative other than stated above Past Medical History: cecal adenocarcinoma, pancreatic adenocarcinoma, chronic opiod Use, PE, DM, hypertension, constipation, diverticular bleeding Past Surgical History: cecal adenocarcinoma s/p resection and re-anastamosis, R hemicolectomy Allergies: NKDA Social History: Denies tobacco, etoh or drugs Family History: Neg for colon cancer Medications: Reviewed in MAR Physical Examination: - Constitutional Appears: Well, No Acute Distress - Head Exam Head Exam: ATRAUMATIC, NORMAL INSPECTION - Eye Exam Eye Exam: EOMI. absent: Scleral icterus - ENT Exam ENT Exam: Mucous Membranes Moist. absent: Mucous Membranes Dry - Respiratory Exam Respiratory Exam: NORMAL BREATHING PATTERN. absent: Accessory Muscle Use, Respiratory Distress - Cardiovascular Exam Cardiovascular Exam: REGULAR RHYTHM, RRR - GI/Abdominal Exam GI & Abdominal Exam: Soft. absent: Bruit, Diminished Bowel Sounds, Distended, Firm, Guarding, Hernia, Organomegaly, Pulsatile Mass, Rebound, Rigid, Tenderness - Extremities Exam Extremities exam: Positive for: normal inspection. Negative for: pedal edema - Neurological Exam Neurological exam: Alert, CN II-XII Intact - Psychiatric Exam Psychiatric exam: Normal Affect, Normal Mood - Skin Skin Exam: Normal Color, Warm Assessment and Plan: 1. Abdominal pain 2. Pancreatic adenocarcinoma 3. Hx of cecal adenocarcinoma s/p resection and re-anastamosis 4. Intra and extrahepatic biliary ductal dilatation 5. Marked pancreatic ductal dilatation 09/2014 Colonoscopy showing diverticular bleeding s/p epinephrine injection. 07/2016 EGD showing erosive gastropathy 11/2018 Colonoscopy- diverticulosis, internal hemorrhoids, two 4-6 mm polyps in the transverse colon removed using injection-lift and hot snare 11/26/2018 MRI Abdomen with and without contrast- There is a large cyst arising from the upper pole of the right kidney measuring 8.5 x 9.4 x 10 cm. There are no solid elements or septations. There is a 4.2 cm cyst in the left kidney as well as smaller cysts. There is no evidence of hydronephrosis 02/21/2019 CT Abdomen and Pelvis with contrast- Intra and extrahepatic biliary d uctal dilatation. Marked pancreatic ductal dilatation with pancreatic atrophy. The findings are nonspecific. Right upper pole renal cyst, 10.1 cm. Left upper pole renal cortical cyst, 4.5 cm. Left lower pole cortical cyst, 2.2 cm. Diverticulosis of the sigmoid colon without evidence of diverticulitis. - continue heart healthy diet - continue miralax - start Methylnaltrexone on 02/22/2019 - pain control tramado- prn to avoid opiate induced constipation Patient seen, case discussed with, and plan approved by attending physician, Dr. Lomeli. Past Patient History - Infectious Disease Hx of Infectious Diseases: None - Past Medical History & Family History Past Medical History?: Yes - Past Social History Smoking Status: Never Smoked - CARDIAC Hx Cardiac Disorders: Yes Hx Hypertension: Yes - PULMONARY Hx Respiratory Disorders: Yes Other/Comment: pulmonary embolism on xalerto - NEUROLOGICAL Hx Neurological Disorder: Yes Hx Parkinson's Disease: Yes - HEENT Hx HEENT Problems: Yes (eyeglasses) - RENAL Hx Chronic Kidney Disease: No - ENDOCRINE/METABOLIC Hx Endocrine Disorders: Yes Hx Diabetes Mellitus Type 2: (denies) Hx Hyperthyroidism: Yes - HEMATOLOGICAL/ONCOLOGICAL Hx Blood Disorders: Yes Hx Anemia: Yes (blood transfusion 2008) Hx Cancer: Yes (PANCREATIC) Hx Chemotherapy: Yes (last chemo 05/05/17) Other/Comment: pancreatic adenocarcinoma [facility], chemo and radiation - INTEGUMENTARY Hx Dermatological Problems: No - MUSCULOSKELETAL/RHEUMATOLOGICAL Hx Musculoskeletal Disorders: Yes (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) Hx Arthritis: Yes Hx Back Pain: Yes (intermittent) Hx Falls: No Hx Unsteady Gait: Yes (uses cane) - GASTROINTESTINAL Hx Gastrointestinal Disorders: Yes Hx Diverticulitis: Yes Hx Gastroesophageal Reflux: Yes Other/Comment: colitis, partial bowel obstruction, cecal adenocarcinoma, resection and anastamosis, diverticular bleeding , colonoscoopy 09/2014, endo 07/2016, erosive gastropathy, weight loss poor appetite - GENITOURINARY/GYNECOLOGICAL Hx Genitourinary Disorders: No - PSYCHIATRIC Hx Psychophysiologic Disorder: Yes Hx Anxiety: Yes Hx Substance Use: Yes (opiate abuse) - SURGICAL HISTORY Hx Cholecystectomy: Yes (lap cherelle) Hx Hysterectomy: Yes - ANESTHESIA Hx Anesthesia Reactions: No Hx Malignant Hyperthermia: No Meds Home Medications: Home Medication List Medication Instructions Recorded Confirmed Type Famotidine [Pepcid] 40 mg PO DAILY #30 tablet 02/20/19 Rx oxyCODONE [oxyCODONE Immediate 30 mg PO Q6 3 Days #15 tab 02/20/19 Rx Release Tab] Allergies/Adverse Reactions: Allergies Allergy/AdvReac Type Severity Reaction Status Date / Time No Known Allergies Allergy Verified 02/20/19 14:40 - Medications Medications: Current Medications Carbidopa/Levodopa (Sinemet 10/100) 1 tab PO TID [facility] Lisinopril (Zestril) 10 mg PO DAILY [facility] Last Admin: 02/21/19 10:36 Dose: 10 mg Metoprolol Tartrate (Lopressor) 25 mg PO BID [facility] Last Admin: 02/21/19 10:36 Dose: 25 mg Pantoprazole Sodium (Protonix Ec Tab) 40 mg PO 0600,1600 [facility] Tramadol HCl (Ultram) 50 mg PO TID PRN PRN Reason: Pain, moderate (4-7) Last Admin: 02/21/19 10:37 Dose: 50 mg Results - Vital Signs Recent Vital Signs: Last Vital Signs Temp 98.4 F 02/21/19 07:53 Pulse 79 02/21/19 10:36 Resp 20 02/21/19 07:53 BP 101/64 02/21/19 10:36 Pulse Ox 99 02/21/19 07:53 - Labs Result Diagrams: 02/20/19 15:55 02/20/19 15:55 Labs: Laboratory Results - last 24 hr 02/20/19 02/20/19 02/20/19 15:55 15:55 15:55 WBC 4.4 L D RBC 3.24 L Hgb 10.0 L Hct 30.6 L MCV 94.4 MCH 30.9 MCHC 32.7 RDW 13.4 Plt Count 207 MPV 9.4 Neut % (Auto) 70.3 H Lymph % (Auto) 21.5 L Mcdowell % (Auto) 8.2 H Eos % (Auto) 0.0 L Baso % (Auto) 0.0 Lymph # (Auto) 0.9 L Mcdowell # (Auto) 0.4 Eos # (Auto) 0.0 Baso # (Auto) 0.00 Absolute Neuts (auto) 3.07 PT 11.9 INR 1.07 APTT 110.4 H* Sodium Potassium Chloride Carbon Dioxide Anion Gap BUN Creatinine Est GFR ( Amer) Est GFR (Non-Af Amer) POC Glucose (mg/dL) Random Glucose Calcium Magnesium Total Bilirubin AST ALT Alkaline Phosphatase Total Protein Albumin Globulin Albumin/Globulin Ratio Lipase Urine Color yellow Urine Appearance Clear Urine pH 6.0 Ur Specific [place] 1.015 Urine Protein Trace H Urine Glucose (UA) Negative Urine Ketones Negative Urine Blood Negative Urine Nitrate Negative Urine Bilirubin Negative Urine Urobilinogen 0.2 Ur Leukocyte Esterase Small H Urine RBC 1 - 3 H Urine WBC 5 - 10 H Ur Epithelial Cells 6 - 8 H 02/20/19 02/20/19 02/21/19 15:55 17:00 07:43 WBC RBC Hgb Hct MCV MCH MCHC RDW Plt Count MPV Neut % (Auto) Lymph % (Auto) Mcdowell % (Auto) Eos % (Auto) Baso % (Auto) Lymph # (Auto) Mcdowell # (Auto) Eos # (Auto) Baso # (Auto) Absolute Neuts (auto) PT INR APTT 34.3 Sodium 136 Potassium 4.4 Chloride 103 Carbon Dioxide 23 Anion Gap 15 BUN 26 H Creatinine 1.3 H Est GFR ( Amer) 48 Est GFR (Non-Af Amer) 40 POC Glucose (mg/dL) 136 H Random Glucose 129 H Calcium 9.7 Magnesium 2.2 Total Bilirubin 0.6 AST 27 ALT 7 Alkaline Phosphatase 115 Total Protein 7.8 Albumin 4.4 Globulin 3.3 Albumin/Globulin Ratio 1.3 Lipase < 10 L Urine Color Urine Appearance Urine pH Ur Specific [facility] Urine Protein Urine Glucose (UA) Urine Ketones Urine Blood Urine Nitrate Urine Bilirubin Urine Urobilinogen Ur Leukocyte Esterase Urine RBC Urine WBC Ur Epithelial Cells 02/21/19 11:40 WBC RBC Hgb Hct MCV MCH MCHC RDW Plt Count MPV Neut % (Auto) Lymph % (Auto) Mcdowell % (Auto) Eos % (Auto) Baso % (Auto) Lymph # (Auto) Mcdowell # (Auto) Eos # (Auto) Baso # (Auto) Absolute Neuts (auto) PT INR APTT Sodium Potassium Chloride Carbon Dioxide Anion Gap BUN Creatinine Est GFR ( Amer) Est GFR (Non-Af Amer) POC Glucose (mg/dL) 145 H Random Glucose Calcium Magnesium Total Bilirubin AST ALT Alkaline Phosphatase Total Protein Albumin Globulin Albumin/Globulin Ratio Lipase Urine Color Urine Appearance Urine pH Ur Specific [facility] Urine Protein Urine Glucose (UA) Urine Ketones Urine Blood Urine Nitrate Urine Bilirubin Urine Urobilinogen Ur Leukocyte Esterase Urine RBC Urine WBC Ur Epithelial Cells <Milly Lomeli V - Last Filed: 02/21/19 22:13> Meds - Medications Medications: Current Medications Acetaminophen (Tylenol 325mg Tab) 650 mg PO Q6H PRN PRN Reason: Headache Last Admin: 02/21/19 12:22 Dose: 650 mg Acetaminophen/Butalbital/Caffeine (Fioricet) 1 tab PO DAILY PRN PRN Reason: Headache Last Admin: 02/21/19 16:28 Dose: 1 tab Amoxicillin/Clavulanate Potassium (Augmentin 500 Mg-125 Mg Tab) 1 tab PO Q12 [facility]; Protocol Carbidopa/Levodopa (Sinemet 10/100) 1 tab PO TID [facility] Last Admin: 02/21/19 17:58 Dose: 1 tab Lisinopril (Zestril) 10 mg PO DAILY [facility] Last Admin: 02/21/19 10:36 Dose: 10 mg Metoprolol Tartrate (Lopressor) 25 mg PO BID [facility] Last Admin: 02/21/19 17:58 Dose: 25 mg Ondansetron HCl (Zofran Inj) 4 mg IVP Q6H PRN PRN Reason: Nausea/Vomiting Last Admin: 02/21/19 12:21 Dose: 4 mg Pantoprazole Sodium (Protonix Ec Tab) 40 mg PO 0600,1600 [facility] Last Admin: 02/21/19 17:58 Dose: 40 mg Polyethylene Glycol (Miralax) 17 gm PO DAILY [facility] Last Admin: 02/21/19 16:27 Dose: 17 gm Tramadol HCl (Ultram) 50 mg PO TID PRN PRN Reason: Pain, moderate (4-7) Last Admin: 02/21/19 20:48 Dose: 50 mg Results - Vital Signs Recent Vital Signs: Last Vital Signs Temp 98.4 F 02/21/19 07:53 Pulse 88 02/21/19 17:58 Resp 20 02/21/19 16:51 BP 128/73 02/21/19 17:58 Pulse Ox 95 02/21/19 16:51 - Labs Result Diagrams: 02/20/19 15:55 02/20/19 15:55 Labs: Laboratory Results - last 24 hr 02/21/19 02/21/19 02/21/19 07:43 11:40 13:35 POC Glucose (mg/dL) 136 H 145 H Hemoglobin A1c Iron TIBC % Saturation NT-Pro-B Natriuret Pep 504 H Triglycerides 50 Cholesterol 136 LDL Cholesterol Direct 60 HDL Cholesterol 56 Amylase 47 Lipase < 10 L Vitamin B12 677 Folate 17.3 02/21/19 02/21/19 02/21/19 13:35 13:35 16:33 POC Glucose (mg/dL) 118 H Hemoglobin A1c 5.8 Iron 36 L TIBC 289 % Saturation 12 L NT-Pro-B Natriuret Pep Triglycerides Cholesterol LDL Cholesterol Direct HDL Cholesterol Amylase Lipase Vitamin B12 Folate 02/21/19 21:13 POC Glucose (mg/dL) 153 H Hemoglobin A1c Iron TIBC % Saturation NT-Pro-B Natriuret Pep Triglycerides Cholesterol LDL Cholesterol Direct HDL Cholesterol Amylase Lipase Vitamin B12 Folate Attending/Attestation - Attestation I have personally seen and examined this patient.: Yes I have fully participated in the care of the patient.: Yes I have reviewed all pertinent clinical information: Yes Notes (Text): This patient was seen and evaluated earlier today along with the resident. This is an addendum to the consultation report dictated by the resident. History of pancreatic adenocarcinoma T3 lesion status post radiation chemo. History of DVT PE on anticoagulation. History of chronic constipation opiate use. History of adenocarcinoma of the colon status post colon resection admitted with abdominal pain CT scan was reviewed had a significant amount of stool present in the colon. Patient did have urinary retention probably secondary to the constipation significant amount of stool in the sigmoid colon causing angulation. patient has been taking MiraLAX only on a as needed basis. Patient had last colonoscopy which was reviewed and showed a redundant colon angulated. A small polyp was removed. Would recommend continue MiraLAX We will consider Relistor in the a.m. if no significant improvement with the bowel movement 02/21/19 22:10
[2019-02-21 13:56] LABS: AMYLASE 47 U/L (35-125); HDL CHOLESTEROL 56 mg/dL (29-60); IRON 36 ug/dL (45-180)
[2019-02-21 13:59] LABS: LIPASE < 10 U/L (23-300)
[2019-02-21] MEDS ORDERED: Amoxicillin-Clav 500-125 mg Tab PO SCH (14:00)
[2019-02-21 14:05] LABS: % IRON SATURATION 12 % (20-55); B-TYPE NATRIURETIC PEPTIDE 504 pg/mL (0-450); TOTAL IRON BINDING CAPACITY 289 ug/dL (265-497)
[2019-02-21 14:07] LABS: LDL CHOLESTEROL 60 mg/dL (0-129)
[2019-02-21] MEDS ORDERED: Apap-Butalbital-Caffeine 325-50-40mg Tab PO PRN (16:04)
[2019-02-21] MEDS: POLYETHYLENE GLYCOL 3350 17 GM/Dose PACKET PO SCH (16:27)
[2019-02-21 17:08] LABS: FOLATE 17.3 ng/mL
--- NOTE | 2019-02-21 17:09 | CP.PCM.PCO ---
Physician Communication Note - Physician Communication Note Physician Communication Note: Pt.admitted w.abdom pain,nausea 2 days,GI eval pending.on protonix,ultram
[2019-02-21] MEDS: Pantoprazole 40 mg EC Tab PO SCH (17:58)
[2019-02-21] MEDS: Amoxicillin-Clav 500-125 mg Tab PO SCH (22:19)
--- NOTE | 2019-02-21 22:45 | HP ---
DATE OF EXAM: 02/21/2019 The patient was seen and examined at the bedside 02/21/2019. CHIEF COMPLAINT: Abdominal pain. HISTORY OF PRESENT ILLNESS: Ms. Wanda Obrien is 74 years old, my private patient with past medical history of cecal adenocarcinoma status post resection and reanastomosis, hypertension, Parkinson's disease, pancreatic adenocarcinoma, EUS staging criteria T3, N0, M0, history of chronic opioid use, PE on Xarelto, diabetes mellitus, hypertension, constipation, diverticulitis, diverticulosis bleeding, has history of colonoscopy and got chemotherapy from [facility], came with abdominal pain. No fever. No chills. No hematuria. No hematochezia. Complaining about back pain also. No diarrhea. PAST MEDICAL HISTORY: As above. Pulmonary embolism on Xarelto, Parkinson's disease, diabetes mellitus, diverticulitis, anxiety and cholecystectomy. FAMILY HISTORY: Father and mother noncontributory. HABITS: Never smoked. No drugs and no ethanol. ALLERGIES: THE PATIENT IS NOT ALLERGIC WITH ANY MEDICATIONS. HOME MEDICATIONS: Reviewed by me. She is on Sinemet. REVIEW OF SYSTEMS: The patient was seen and examined at bedside. Looking comfortable. Complaining about abdominal pain. Gave tramadol. History of pancreatic cancer. No fever. No chills. No hematuria. No hematuria. No headache or dizziness. No chest pain. No palpitation. Complaining about back pain also. PHYSICAL EXAMINATION: VITAL SIGNS: Temperature 98.4, pulse 79, blood pressure 101/54 and respiratory rate 20. HEENT: Head is normocephalic and atraumatic. Eyes, PERRLA. Extraocular muscles intact. Conjunctiva clear. Nose patent. Mucous membranes moist. NECK: Supple. No carotid bruits. No JVD. No thyromegaly. CHEST: Bilaterally symmetrical. HEART: S1 and S2, positive. LUNGS: Clear to auscultation. ABDOMEN: Soft. Bowel sounds present. No organomegaly. EXTREMITIES: No edema. No cyanosis. NEUROLOGIC: The patient is awake and alert. Follows simple commands. LABORATORY DATA: White blood cell is 4.4, hemoglobin 10, hematocrit 30.6 and platelets 207. Sodium 136, potassium 4.4, BUN 26, creatinine 1.3 and glucose 145. ASSESSMENT AND PLAN: Ms. Wanda Obrien is 74-year-old lady with leukopenia, anemia, renal insufficiency, hyperglycemia, proteuria, urinary tract infection, came with abdominal pain and back pain. CT scan of abdomen and pelvis done. Oxycodone given in emergency room. The patient has history of multiple medical problems, history of pancreatic cancer. Cecal adenocarcinoma status post resection, reanastomosis, hypertension, Parkinson's disease, diverticular bleeding. Gastrointestinal and deep venous thrombosis prophylaxis. We will repeat CT scan. Give tramadol for pain. We will follow up. Kristen Prabhakar MD
[2019-02-22] MEDS: Pantoprazole 40 mg EC Tab PO SCH ×2 (05:39→17:26)
[2019-02-22 07:09] LABS: HEMOGLOBIN 8.6 g/dL (12.0-16.0); MEAN CELL VOLUME 96.1 fl (80.0-105.0); MEAN CORPUSCULAR HEMOGLOBIN 30.6 pg (25.0-35.0); MEAN CORPUSCULAR HGB CONC 31.9 g/dl (31.0-37.0); MEAN PLATELET VOLUME 9.5 fl (7.0-11.0); RBC 2.81 10^6/uL (3.5-6.1); RED CELL DISTRIBUTION WIDTH 13.5 % (11.5-14.5); WHITE BLOOD COUNT 3.7 10^3/uL (4.5-11.0)
[2019-02-22] MEDS: POLYETHYLENE GLYCOL 3350 17 GM/Dose PACKET PO SCH ×2 (11:15→17:26)
[2019-02-22] MEDS: Amoxicillin-Clav 500-125 mg Tab PO SCH ×2 (11:21→21:55)
--- NOTE | 2019-02-22 12:24 | CP.PCM.APN ---
Subjective - Date & Time of Evaluation Date of Evaluation: 02/22/19 Time of Evaluation: 11:50 - Subjective Subjective: pt seen and examineda t bedside, states she feels tired, states abd pain persists but is better than when she arrived. pt denies n/v Review of Systems - Constitutional Constitutional: As Per HPI Objective - Vital Signs/Intake and Output Vital Signs (last 24 hours): Temp Pulse Resp BP Pulse Ox 98.2 F 73 16 110/68 100 02/22/19 08:53 02/22/19 11:18 02/22/19 08:53 02/22/19 11:18 02/22/19 08:53 Intake and Output: 02/22/19 02/22/19 06:59 18:59 Intake Total 120 Output Total 550 Balance -430 - Medications Medications: Current Medications Acetaminophen (Tylenol 325mg Tab) 650 mg PO Q6H PRN PRN Reason: Headache Last Admin: 02/21/19 12:22 Dose: 650 mg Acetaminophen/Butalbital/Caffeine (Fioricet) 1 tab PO DAILY PRN PRN Reason: Headache Last Admin: 02/21/19 16:28 Dose: 1 tab Amoxicillin/Clavulanate Potassium (Augmentin 500 Mg-125 Mg Tab) 1 tab PO Q12 [facility]; Protocol Last Admin: 02/22/19 11:21 Dose: 1 tab Carbidopa/Levodopa (Sinemet 10/100) 1 tab PO TID [facility] Last Admin: 02/22/19 11:18 Dose: 1 tab Lisinopril (Zestril) 10 mg PO DAILY [facility] Last Admin: 02/22/19 11:16 Dose: 10 mg Metoprolol Tartrate (Lopressor) 25 mg PO BID [facility] Last Admin: 02/22/19 11:18 Dose: 25 mg Ondansetron HCl (Zofran Inj) 4 mg IVP Q6H PRN PRN Reason: Nausea/Vomiting Last Admin: 02/22/19 09:18 Dose: 4 mg Pantoprazole Sodium (Protonix Ec Tab) 40 mg PO 0600,1600 [facility] Last Admin: 02/22/19 05:39 Dose: 40 mg Polyethylene Glycol (Miralax) 17 gm PO DAILY [facility] Last Admin: 02/22/19 11:15 Dose: 17 gm Tamsulosin HCl (Flomax) 0.4 mg PO DAILY [facility] Last Admin: 02/22/19 11:17 Dose: 0.4 mg Tramadol HCl (Ultram) 50 mg PO TID PRN PRN Reason: Pain, moderate (4-7) Last Admin: 02/21/19 20:48 Dose: 50 mg - Labs Labs: 02/22/19 06:30 02/20/19 15:55 PT 11.9 SECONDS (9.4-12.5) 02/20/19 15:55 INR 1.07 02/20/19 15:55 APTT 34.3 Seconds (26.9-38.3) 02/20/19 17:00 - Constitutional Appears: Non-toxic, No Acute Distress - Head Exam Head Exam: NORMOCEPHALIC - Eye Exam Eye Exam: Normal appearance - ENT Exam ENT Exam: Mucous Membranes Moist - Neck Exam Neck Exam: Normal Inspection - Respiratory Exam Respiratory Exam: NORMAL BREATHING PATTERN - Cardiovascular Exam Cardiovascular Exam: +S1, +S2 - GI/Abdominal Exam GI & Abdominal Exam: Distended, Soft, Normal Bowel Sounds - Extremities Exam Extremities Exam: Full ROM - Neurological Exam Neurological Exam: Alert, Awake - Psychiatric Exam Psychiatric exam: Normal Mood - Skin Skin Exam: Dry, Intact Assessment and Plan - Assessment and Plan (Free Text) Plan: ITS Impressions Abdomen/Pelvis CT 02/20/19 15:34 IMPRESSION: Intra and extrahepatic biliary ductal dilatation. Marked pancreatic ductal dilatation with pancreatic atrophy. The findings are nonspecific. Consider the possibility of biliary/ampullary stricture or neoplasm. Consider further evaluation with MRCP as well as MRI abdomen with and without gadolinium. The preliminary findings for this examination were reported by [facility] Radiology at 8 p.m. on 02/20/2019.. There is concurrence of this report with the preliminary findings. Chest X-Ray 02/20/19 16:29 IMPRESSION: No active disease. No significant interval change compared to the prior examination(s). Microbiology 02/20/19 15:55 Urine,Clean Catch Urine Culture - Final Beta Hemolytic Strep Group B A/P This is a 84 yr old AA female with pmh sig for cecal ademocarcinoma s/p resection, htn, parkisnons, DM, pancreatic adenomacarcinoma who presented with reports of abd pain. pt is now admitted with GI consultationand workup in progress, Pt is s/p relistor. pt continues on PPI. ct bdb pelvis results noted. will follow up with GI recs. UC noted with Beta hemolytic strep group B. recommendations of voiding trial noted. will follow clinical course. Geeta Salazar BPCI/TIC - BPCIA/TIC Educated pt/family on BPCIA/CIR/Med to Bed Programs: N/A Flyers given, including CMS Beneficiary letter: N/A Pt/family verbalized understanding & agreed to program: N/A
--- NOTE | 2019-02-22 16:26 | CP.PCM.PN ---
<Chapo Mcelroy - Last Filed: 02/22/19 16:26> Subjective - Date & Time of Evaluation Date of Evaluation: 02/22/19 Time of Evaluation: 08:00 - Subjective Subjective: PGY6 GI Fellow Progress Note Patient seen and examined bedside this morning. The patient states that she is feeling nauseated this morning. Ongoing abdominal discomfort. No bowel movements in several days. 12 system ROS performed and negative except where stated Objective - Vital Signs/Intake and Output Vital Signs (last 24 hours): Temp Pulse Resp BP Pulse Ox 98.2 F 73 16 110/68 100 02/22/19 08:53 02/22/19 11:18 02/22/19 08:53 02/22/19 11:18 02/22/19 08:53 Intake and Output: 02/22/19 02/22/19 06:59 18:59 Intake Total 120 Output Total 550 Balance -430 - Medications Medications: Current Medications Acetaminophen (Tylenol 325mg Tab) 650 mg PO Q6H PRN PRN Reason: Headache Last Admin: 02/21/19 12:22 Dose: 650 mg Acetaminophen/Butalbital/Caffeine (Fioricet) 1 tab PO DAILY PRN PRN Reason: Headache Last Admin: 02/21/19 16:28 Dose: 1 tab Amoxicillin/Clavulanate Potassium (Augmentin 500 Mg-125 Mg Tab) 1 tab PO Q12 [facility]; Protocol Last Admin: 02/22/19 11:21 Dose: 1 tab Carbidopa/Levodopa (Sinemet 10/100) 1 tab PO TID [facility] Last Admin: 02/22/19 11:18 Dose: 1 tab Lisinopril (Zestril) 10 mg PO DAILY [facility] Last Admin: 02/22/19 11:16 Dose: 10 mg Metoprolol Tartrate (Lopressor) 25 mg PO BID [facility] Last Admin: 02/22/19 11:18 Dose: 25 mg Ondansetron HCl (Zofran Inj) 4 mg IVP Q6H PRN PRN Reason: Nausea/Vomiting Last Admin: 02/22/19 09:18 Dose: 4 mg Pantoprazole Sodium (Protonix Ec Tab) 40 mg PO 0600,1600 [facility] Last Admin: 02/22/19 05:39 Dose: 40 mg Polyethylene Glycol (Miralax) 17 gm PO DAILY [facility] Last Admin: 02/22/19 11:15 Dose: 17 gm Tamsulosin HCl (Flomax) 0.4 mg PO DAILY [facility] Last Admin: 02/22/19 11:17 Dose: 0.4 mg Tramadol HCl (Ultram) 50 mg PO TID PRN PRN Reason: Pain, moderate (4-7) Last Admin: 02/21/19 20:48 Dose: 50 mg - Labs Labs: 02/22/19 06:30 02/20/19 15:55 PT 11.9 SECONDS (9.4-12.5) 02/20/19 15:55 INR 1.07 02/20/19 15:55 APTT 34.3 Seconds (26.9-38.3) 02/20/19 17:00 - Constitutional Appears: No Acute Distress, Chronically Ill - Eye Exam Eye Exam: EOMI, PERRL - ENT Exam ENT Exam: Mucous Membranes Moist - Respiratory Exam Respiratory Exam: Clear to Ausculation Bilateral. absent: Rales, Rhonchi, Wheezes - Cardiovascular Exam Cardiovascular Exam: RRR, +S1, +S2 - GI/Abdominal Exam GI & Abdominal Exam: Soft, Tenderness (diffuse, mild), Normal Bowel Sounds. absent: Distended, Firm, Guarding, Rigid, Mass, Organomegaly - Extremities Exam Extremities Exam: Normal Inspection. absent: Pedal Edema - Neurological Exam Neurological Exam: Alert, Awake, Oriented x3 - Psychiatric Exam Psychiatric exam: Normal Affect, Normal Mood - Skin Skin Exam: Dry, Warm Assessment and Plan - Assessment and Plan (Free Text) Assessment: Patient is a 73yo female with PMHx significant for cecal adenocarcinoma, pancreatic adenocarcinoma, chronic opioid use, PE, DM, hypertension, constipation and diverticulosis who presented to the ED for abdominal pain -Chronic opioid-induced constipation -Pancreatic adenocarcinoma - T3 lesion s/p ChemoXRT -H/O DVT/PE -H/O colon adenocarcinoma s/p partial colectomy Plan: -CT scan reviewed with significant stool burden present -Urinary bladder distention noted with modest improvement in all symptoms upon catheterization -Re-emphasized importance of daily Miralax or other bowel regimen as long as patient on chronic opioids -Give one dose of Relistor today for OIC -Re-evaluate pain following bowel movement <Armani,Kovil V - Last Filed: 02/23/19 20:46> Objective - Vital Signs/Intake and Output Vital Signs (last 24 hours): Temp Pulse Resp BP Pulse Ox 98.4 F 78 18 144/82 100 02/22/19 16:42 02/22/19 17:27 02/22/19 16:42 02/22/19 17:27 02/22/19 16:42 Intake and Output: 02/22/19 02/23/19 18:59 06:59 Intake Total 380 Balance 380 - Medications Medications: Current Medications Acetaminophen (Tylenol 325mg Tab) 650 mg PO Q6H PRN PRN Reason: Headache Last Admin: 02/21/19 12:22 Dose: 650 mg Acetaminophen/Butalbital/Caffeine (Fioricet) 1 tab PO DAILY PRN PRN Reason: Headache Last Admin: 02/21/19 16:28 Dose: 1 tab Amoxicillin/Clavulanate Potassium (Augmentin 500 Mg-125 Mg Tab) 1 tab PO Q12 [facility]; Protocol Last Admin: 02/22/19 21:55 Dose: 1 tab Carbidopa/Levodopa (Sinemet 10/100) 1 tab PO TID [facility] Last Admin: 02/22/19 17:29 Dose: 1 tab Lisinopril (Zestril) 10 mg PO DAILY [facility] Last Admin: 02/22/19 11:16 Dose: 10 mg Metoprolol Tartrate (Lopressor) 25 mg PO BID [facility] Last Admin: 02/22/19 17:27 Dose: 25 mg Ondansetron HCl (Zofran Inj) 4 mg IVP Q6H PRN PRN Reason: Nausea/Vomiting Last Admin: 02/22/19 18:24 Dose: 4 mg Pantoprazole Sodium (Protonix Ec Tab) 40 mg PO 0600,1600 [facility] Last Admin: 02/23/19 05:40 Dose: 40 mg Polyethylene Glycol (Miralax) 17 gm PO BID [facility] Last Admin: 02/22/19 17:26 Dose: 17 gm Tamsulosin HCl (Flomax) 0.4 mg PO DAILY [facility] Last Admin: 02/22/19 11:17 Dose: 0.4 mg Tramadol HCl (Ultram) 50 mg PO TID PRN PRN Reason: Pain, moderate (4-7) Last Admin: 02/22/19 17:27 Dose: 50 mg Zolpidem Tartrate (Ambien) 5 mg PO HS PRN; Protocol PRN Reason: Insomnia Last Admin: 02/22/19 22:22 Dose: 5 mg - Labs Labs: 02/22/19 06:30 02/20/19 15:55 PT 11.9 SECONDS (9.4-12.5) 02/20/19 15:55 INR 1.07 02/20/19 15:55 APTT 34.3 Seconds (26.9-38.3) 02/20/19 17:00 Attending/Attestation - Attestation I have personally seen and examined this patient.: Yes I have fully participated in the care of the patient.: Yes I have reviewed all pertinent clinical information, including history, physical exam and plan: Yes Notes (Text): This patient was seen and evaluated here earlier. This is an addendum to the GI progress note dictated by the fellow. CT scan was reviewed significant constipation. Large amount of stool present. Patient has been on pain me dications narcotics could be contributing factor. No significant improvement with the MiraLAX would start the patient on Relistor 02/23/19 06:35 02/23/19 20:45
--- NOTE | 2019-02-22 18:25 | CON ---
DATE: 02/22/2019 UROLOGY CONSULTATION REASON FOR CONSULTATION: Urinary retention. HISTORY OF PRESENT ILLNESS: Ms. Obrien is a very pleasant lady, who is currently in the hospital. She came in with back pain and abdominal pain. She has been seen by other physicians as well. From Urology standpoint, she is noted to be in urinary retention, a Boyd catheter has been placed. Draining clear-yellow urine. Urology is consulted for further recommendations. Further questioning upon the patient is that she has some baseline difficulty with her urine and she voids frequently. The patient has urgency and urgency incontinence. From a urology standpoint, no gross hematuria, no dysuria. She . PAST MEDICAL AND SURGICAL HISTORY: As listed essentially, otherwise unremarkable. From urology standpoint, no other urology recommendations. MEDICATIONS: See chart. ALLERGIES: SEE CHART. All listed on the chart. REVIEW OF SYSTEMS: As listed above, noncontributory. PHYSICAL EXAMINATION: GENERAL: She is currently resting comfortably in her bed. VITAL SIGNS: Within normal limits, listed in the chart. PELVIC: Deferred for now. DIAGNOSES: Urinary symptoms, frequency, urgency, urgency incontinence and urinary retention. PLAN: Plan for now is as follows: 1. Flomax. 2. A trial of void and then further plans will follow. I have discussed further plans with Dr. Prabhakar in terms of inpatient versus outpatient workup. Crow Mares MD
--- NOTE | 2019-02-23 03:19 | PN ---
DATE: 02/22/2019 SUBJECTIVE: The patient is a 74-year-old female. The patient was seen and examined at the bedside on 02/22/2019. Looking comfortable. No fever. No chills. Complaining of headache and cannot sleep last night and abdominal pain. GI is on the case. Sleep study consult called. Started on Ambien. PHYSICAL EXAMINATION: VITAL SIGNS: Temperature 98.2, pulse 73, respiratory rate 16, blood pressure 110/68, pulse oximetry 100. HEENT: Head: Normocephalic and atraumatic. Eyes: PERRLA. Extraocular muscles intact. Conjunctivae clear. Nose patent. Mucous membranes moist. NECK: Supple. No carotid bruits. No JVD or thyromegaly. CHEST: Bilateral symmetrical. HEART: S1 and S2 positive. LUNGS: Clear to auscultation. ABDOMEN: Soft. Bowel sounds present. No organomegaly. EXTREMITIES: No edema. No cyanosis. NEUROLOGIC: The patient is awake, alert. Moving all four extremities. No focal deficits. MEDICATIONS: Tylenol, Fioricet, Augmentin, Sinemet, Zestril, metoprolol, Zofran, Protonix, MiraLax, Flomax, tramadol. I added Ambien. LABORATORY DATA: White blood cells 3.7, hemoglobin 8.3, hematocrit 27, platelet 173. Sodium 136, potassium 4.4, BUN 26, creatinine 1.3, glucose 129. ASSESSMENT AND PLAN: Ms. Wanda Obrien is a 74-year-old lady with insomnia, started on Ambien. Consultation called with sleep specialist. I have discussion done Dr. Molina. Dr. Molina says she will see as outpatient on this patient. The patient has leukopenia, anemia, renal insufficiency, hyperglycemia, history of pancreatic cancer. CAT scan of the abdomen was done. Came with abdominal pain. Intrahepatic and extrahepatic biliary duct dilatation, marked pancreatic duct dilation with pancreatic atrophy. These findings are nonspecific. Consider possibility of biliary/ampullary stricture or neoplasm. Consider further evaluation with magnetic resonance cholangiopancreatography as well as magnetic resonance imaging of the abdomen with and without contrast as per Gastroenterology. Chest x-ray reviewed by me with history of a cecal adenocarcinoma, status post resection and anastomosis, hypertension, Parkinson disease. Gastrointestinal and deep venous thrombosis prophylaxis. Given tramadol. The patient has history of opioid overuse. Repeat labs. We will follow up. Kristen Prabhakar MD
[2019-02-23] MEDS: Pantoprazole 40 mg EC Tab PO SCH ×2 (05:40→17:25)
--- NOTE | 2019-02-23 05:45 | CON ---
DATE: 02/22/2019 PULMONARY CONSULTATION REFERRING PHYSICIAN: Dr. Prabhakar. REASON FOR CONSULTATION: Abdominal pain and insomnia, daytime hypersomnia. HISTORY OF PRESENT ILLNESS: This is a 74-year-old female, well-known to me, from previous admission with a history of colon cancer requiring surgery, also had a metastatic adenocarcinoma of the pancreas, been on chemo and radiation therapy, history of opiates dependency, hypertension, Parkinson disease, history of pulmonary embolism, on anticoagulation; diabetes, chronic constipation, diverticulosis, history of GI bleed, admitted with abdominal pain, also has some symptoms of insomnia. She had been receiving melatonin as outpatient, but with not much effect. Ambien was given by Dr. Prabhakar, no vomiting, no hematuria. Does have abdominal pain. No leg pain or leg swelling. PAST MEDICAL HISTORY: As per the history of present illness. ALLERGIES: NONE KNOWN. SOCIAL HISTORY: No history of smoking or alcohol use. FAMILY HISTORY: No significant cardiopulmonary disease reported. MEDICATIONS: She is on Ambien 5 mg h.s. p.r.n., Augmentin 500/125, one tablet every 12 hours, Fioricet 1 tablet daily p.r.n., Flomax 0.4 mg daily, metoprolol tartrate 25 mg twice a day, MiraLax 17 g twice a day, Protonix 40 mg twice a day, Sinemet 10/100 one tablet three times a day, Tylenol p.r.n., Ultram 50 mg every 8 hours p.r.n., Zestril 10 mg daily, Zofran on a p.r.n. basis. REVIEW OF SYSTEMS: No headache, no rhinitis, not much cough. No sputum production, has abdominal pain, insomnia, and daytime hypersomnia, no dysuria, no leg pain or leg swelling. PHYSICAL EXAMINATION: GENERAL: No acute distress. VITAL SIGNS: Temperature is 98, heart rate is 78, respiratory rate is 18, blood pressure 144/82, pulse ox 100% on room air. HEENT: Moist mucous membranes. Small oral cavity. NECK: Supple. No JVD. LUNGS: Have a fair airflow with rhonchi. HEART: S1, S2. ABDOMEN: Soft. Mild epigastric tenderness. EXTREMITIES: There is no edema. NEUROLOGIC: Awake, alert, follows simple commands. LABORATORY DATA: Shows hemoglobin 8.6, hematocrit 27, WBC 3.7, platelets are 173. Her PTT is 34, INR 1.07, glucose 113. Sodium 136, potassium 4.4, chloride 103, bicarbonate 23, BUN 26, creatinine 1.3, glucose 129, calcium 9.7, magnesium 2.2. Iron is 36, TIBC 289, AST 27, ALT 7, alk phos is 115, proBNP 504. Albumin is 4.4, lipase less than 10. B12 of 677, folate is 17.3. Urine cultures show beta-hemolytic strep B positive, blood culture has been negative. Chest x-ray done on admission shows no active disease. No interval changes compared to prior x-ray. Has a CT of the abdomen done which shows intra- and extrahepatic biliary ductal dilatation and marked pancreatic ductal dilatation and pancreatic atrophy, findings are nonspecific, considering the possibility of biliary/ambulatory stricture or neoplasm. IMPRESSION AND PLAN: Unresectable pancreatic cancer, been on radiation and chemotherapy, also history of colon cancer in the remote past, history of pulmonary embolism, hypertension, diverticulosis, anemia, insomnia. Case discussed with Dr. Prabhakar. Agreed with the present management. May continue Ambien for now. We will suggest a GI consult, gastric prophylaxis. Follow up hemoglobin and hematocrit. We will order a ferritin level, follow up complete blood count. Thank you and we will follow with you. Hubert Molina MD
[2019-02-23 07:27] LABS: HEMOGLOBIN 8.8 g/dL (12.0-16.0); MEAN CELL VOLUME 95.8 fl (80.0-105.0); MEAN CORPUSCULAR HEMOGLOBIN 30.9 pg (25.0-35.0); MEAN CORPUSCULAR HGB CONC 32.2 g/dl (31.0-37.0); MEAN PLATELET VOLUME 9.9 fl (7.0-11.0); RBC 2.85 10^6/uL (3.5-6.1); RED CELL DISTRIBUTION WIDTH 13.4 % (11.5-14.5); WHITE BLOOD COUNT 3.9 10^3/uL (4.5-11.0)
[2019-02-23] MEDS: Amoxicillin-Clav 500-125 mg Tab PO SCH ×2 (09:08→21:33)
[2019-02-23] MEDS: POLYETHYLENE GLYCOL 3350 17 GM/Dose PACKET PO SCH ×2 (09:08→17:25)
--- NOTE | 2019-02-23 11:22 | CP.PCM.PCO ---
Physician Communication Note - Physician Communication Note Physician Communication Note: pt s/p relistor with BM noted, also noted drop in h.h, discuss with GI Additional Comments - Additional Comments Additional Comments: per GI continue strict bowel regimen, will order stool OB. Iron studies noted -will follow GI recs and P.T recs. pt also for voiding trial , I/O ordered.
--- NOTE | 2019-02-23 11:34 | CP.PCM.PN ---
<De Lao - Last Filed: 02/23/19 19:03> Subjective - Date & Time of Evaluation Date of Evaluation: 02/23/19 Time of Evaluation: 11:30 - Subjective Subjective: [facility] Internal Medicine Resident- Progress Note on Behalf of Dr. Lomeli Subjective: Patient seen and examined at bedside. No acute events overnight. States she has experienced several nonbloody bowel movements since administration of methylnatrexone. Abdominal pain has improved. Denies fever, chills, chest pain, SOB, vomiting, urinary symptoms, bright red blood per rectum, dark stools, and change in stool caliber. 12 point ROS negative other than stated above Physical Examination: - Constitutional Appears: Well, No Acute Distress - Head Exam Head Exam: ATRAUMATIC, NORMAL INSPECTION - Eye Exam Eye Exam: EOMI. Absent: Scleral icterus - ENT Exam ENT Exam: Mucous Membranes Moist. absent: Mucous Membranes Dry - Respiratory Exam Respiratory Exam: NORMAL BREATHING PATTERN. absent: Accessory Muscle Use, Respiratory Distress - Cardiovascular Exam Cardiovascular Exam: REGULAR RHYTHM, RRR - GI/Abdominal Exam GI & Abdominal Exam: Soft. absent: Guarding, Hernia, Organomegaly, Rebound, Rigid, Tenderness - Extremities Exam Extremities exam: Positive for: normal inspection. Negative for: pedal edema - Neurological Exam Neurological exam: Alert, CN II-XII Intact - Psychiatric Exam Psychiatric exam: Normal Affect, Normal Mood - Skin Skin Exam: Normal Color, Warm Assessment and Plan: Patient is a 73 year old female with history of cecal adenocarcinoma s/p resection and re-anastamosis, pancreatic adenocarcinoma, chronic opiod use, PE, DM, hypertension, constipation, diverticular bleeding 09/2014, who was admitted for evaluation and treatment for abdominal pain. 1. Abdominal pain- likely secondary to constipation 2. Pancreatic adenocarcinoma- T3 lesion s/p ChemoXRT 3. Hx of cecal adenocarcinoma s/p resection and re-anastamosis 4. Intra and extrahepatic biliary ductal dilatation 5. Marked pancreatic ductal dilatation 09/2014 Colonoscopy showing diverticular bleeding s/p epinephrine injection. 07/2016 EGD showing erosive gastropathy 11/2018 Colonoscopy- diverticulosis, internal hemorrhoids, two 4-6 mm polyps in the transverse colon removed using injection-lift and hot snare 11/26/2018 MRI Abdomen with and without contrast- There is a large cyst arising from the upper pole of the right kidney measuring 8.5 x 9.4 x 10 cm. There are no solid elements or septations. There is a 4.2 cm cyst in the left kidney as well as smaller cysts. There is no evidence of hydronephrosis 02/21/2019 CT Abdomen and Pelvis with contrast- Intra and extrahepatic biliary ductal dilatation. Marked pancreatic ductal dilatation with pancreatic atrophy. The findings are nonspecific. Right upper pole renal cyst, 10.1 cm. Left upper pole renal cortical cyst, 4.5 cm. Left lower pole cortical cyst, 2.2 cm. Diverticulosis of the sigmoid colon without evidence of diverticulitis. - continue heart healthy diet - continue miralax 17gm PO BID - pain control tramadol- prn to avoid opiate induced constipation Patient seen, case discussed with, and plan approved by attending physician, Dr. Lomeli. Objective - Vital Signs/Intake and Output Vital Signs (last 24 hours): Temp Pulse Resp BP Pulse Ox 98.4 F 78 18 120/72 100 02/22/19 16:42 02/23/19 09:08 02/22/19 16:42 02/23/19 09:08 02/22/19 16:42 Intake and Output: 02/23/19 02/23/19 06:59 18:59 Intake Total 380 Balance 380 - Medications Medications: Current Medications Acetaminophen (Tylenol 325mg Tab) 650 mg PO Q6H PRN PRN Reason: Headache Last Admin: 02/21/19 12:22 Dose: 650 mg Acetaminophen/Butalbital/Caffeine (Fioricet) 1 tab PO DAILY PRN PRN Reason: Headache Last Admin: 02/21/19 16:28 Dose: 1 tab Amoxicillin/Clavulanate Potassium (Augmentin 500 Mg-125 Mg Tab) 1 tab PO Q12 [facility]; Protocol Last Admin: 02/23/19 09:08 Dose: 1 tab Carbidopa/Levodopa (Sinemet 10/100) 1 tab PO TID [facility] Last Admin: 02/23/19 09:08 Dose: 1 tab Lisinopril (Zestril) 10 mg PO DAILY [facility] Last Admin: 02/23/19 09:08 Dose: 10 mg Metoprolol Tartrate (Lopressor) 25 mg PO BID [facility] Last Admin: 02/23/19 09:08 Dose: 25 mg Ondansetron HCl (Zofran Inj) 4 mg IVP Q6H PRN PRN Reason: Nausea/Vomiting Last Admin: 02/22/19 18:24 Dose: 4 mg Pantoprazole Sodium (Protonix Ec Tab) 40 mg PO 0600,1600 [facility] Last Admin: 02/23/19 05:40 Dose: 40 mg Polyethylene Glycol (Miralax) 17 gm PO BID [facility] Last Admin: 02/23/19 09:08 Dose: 17 gm Tamsulosin HCl (Flomax) 0.4 mg PO DAILY [facility] Last Admin: 02/23/19 09:08 Dose: 0.4 mg Tramadol HCl (Ultram) 50 mg PO TID PRN PRN Reason: Pain, moderate (4-7) Last Admin: 02/23/19 06:59 Dose: 50 mg Zolpidem Tartrate (Ambien) 5 mg PO HS PRN; Protocol PRN Reason: Insomnia Last Admin: 02/22/19 22:22 Dose: 5 mg - Labs Labs: 02/23/19 06:45 02/20/19 15:55 PT 11.9 SECONDS (9.4-12.5) 02/20/19 15:55 INR 1.07 02/20/19 15:55 APTT 34.3 Seconds (26.9-38.3) 02/20/19 17:00 <Milly Lomeli V - Last Filed: 02/23/19 20:48> Objective - Vital Signs/Intake and Output Vital Signs (last 24 hours): Temp Pulse Resp BP Pulse Ox 98.4 F 72 18 129/66 100 02/22/19 16:42 02/23/19 17:24 02/22/19 16:42 02/23/19 17:24 02/22/19 16:42 Intake and Output: 02/23/19 02/24/19 18:59 06:59 Intake Total 960 Output Total 650 Balance 310 - Medications Medications: Current Medications Acetaminophen (Tylenol 325mg Tab) 650 mg PO Q6H PRN PRN Reason: Headache Last Admin: 02/21/19 12:22 Dose: 650 mg Acetaminophen/Butalbital/Caffeine (Fioricet) 1 tab PO DAILY PRN PRN Reason: Headache Last Admin: 02/21/19 16:28 Dose: 1 tab Alprazolam (Xanax) 0.25 mg PO DAILY [facility]; Protocol Stop: 03/03/19 10:01 Amoxicillin/Clavulanate Potassium (Augmentin 500 Mg-125 Mg Tab) 1 tab PO Q12 [facility]; Protocol Last Admin: 02/23/19 09:08 Dose: 1 tab Carbidopa/Levodopa (Sinemet 10/100) 1 tab PO TID [facility] Last Admin: 02/23/19 17:26 Dose: 1 tab Lisinopril (Zestril) 10 mg PO DAILY [facility] Last Admin: 02/23/19 09:08 Dose: 10 mg Metoprolol Tartrate (Lopressor) 25 mg PO BID [facility] Last Admin: 02/23/19 17:24 Dose: 25 mg Ondansetron HCl (Zofran Inj) 4 mg IVP Q6H PRN PRN Reason: Nausea/Vomiting Last Admin: 02/22/19 18:24 Dose: 4 mg Pantoprazole Sodium (Protonix Ec Tab) 40 mg PO 0600,1600 [facility] Last Admin: 02/23/19 17:25 Dose: 40 mg Polyethylene Glycol (Miralax) 17 gm PO BID [facility] Last Admin: 02/23/19 17:25 Dose: Not Given Tamsulosin HCl (Flomax) 0.4 mg PO DAILY [facility] Last Admin: 02/23/19 09:08 Dose: 0.4 mg Tramadol HCl (Ultram) 50 mg PO TID PRN PRN Reason: Pain, moderate (4-7) Last Admin: 02/23/19 06:59 Dose: 50 mg Zolpidem Tartrate (Ambien) 5 mg PO HS PRN; Protocol PRN Reason: Insomnia Last Admin: 02/22/19 22:22 Dose: 5 mg - Labs Labs: 02/23/19 06:45 02/20/19 15:55 PT 11.9 SECONDS (9.4-12.5) 02/20/19 15:55 INR 1.07 02/20/19 15:55 APTT 34.3 Seconds (26.9-38.3) 02/20/19 17:00 Attending/Attestation - Attestation I have personally seen and examined this patient.: Yes I have fully participated in the care of the patient.: Yes I have reviewed all pertinent clinical information, including history, physical exam and plan: Yes Notes (Text): The patient was seen and evaluated along with the resident. This is an addendum to the GI progress note dictated by the resident. Patient did have significant bowel movements after is being started on cholesterol.. Patient was advised to take take MiraLAX on a regular basis which she was not doing it at home. Patient has been on narcotics pain medication. If MiraLAX is not helping she would benefit from an outpatient treatment with [facility] 02/23/19 20:46
--- NOTE | 2019-02-23 15:48 | PN ---
DATE: 02/23/2019 SUBJECTIVE: The patient is out of bed to chair, feels much better, has a good bowel movement, better, still complaining about insomnia. No nausea. No vomiting. No leg pain or leg swelling. OBJECTIVE: GENERAL: In no acute distress. VITAL SIGNS: Temperature is 98, heart rate 78, respiratory rate is 20, blood pressure 120/72. HEENT: Moist mucous membranes. Small oral cavity. NECK: Supple. No JVD. LUNGS: Have fair airflow with rhonchi. HEART: S1 and S2. ABDOMEN: Soft, nontender, nondistended. EXTREMITIES: No edema. NEUROLOGICAL: Awake, alert and follows simple command. MEDICATIONS: She is on Ambien 5 mg h.s. p.r.n., Augmentin 500 mg every 12 hours, Fioricet 1 tablet daily p.r.n. basis, Flomax 0.4 mg daily, metoprolol tartrate 25 mg twice day, MiraLax 17 g twice a day, Protonix 40 mg twice a day, Sinemet 10/100 one tablet 3 times a day, Tylenol p.r.n., Ultram 50 mg 3 times a day p.r.n., Xanax 0.25 mg daily, Zestril 10 mg daily, and Zofran p.r.n. basis. LABORATORY DATA: Shows hemoglobin 8.8, hematocrit 27.3, WBC 3.9, and platelet is 188. Blood sugar 152. Urine culture has a beta hemolytic strep group B. Blood culture, there is no growth. IMPRESSION AND PLAN: Resectable pancreatic cancer, been on radiation and chemotherapy, history of colon cancer in the remote past, pulmonary embolism, hypertension, diverticulosis, anemia, and insomnia. Pulmonary point of view, doing okay. Continue inhaled bronchodilator, keep head at 45 degrees. May continue Ambien for now. Pain management. Gastric prophylaxis, deep venous thrombosis prophylaxis, fall precaution, and bowel regimen. Thank you, and we will follow with you. Hubert Molina MD
--- NOTE | 2019-02-23 22:25 | PN ---
DATE: 02/23/2019 This case has been discussed with Dr. Prabhakar. She is in agreement with treatment plan. SUBJECTIVE: This is a 74-year-old female, came in on 02/22/2019 with abdominal pain, unable to urinate, hypertension, palpitations. She has past medical history of esophageal reflux, chronic kidney disease, renal cyst, pancreatic CA, Parkinson disease, chronic anemia, type 2 diabetes, and diverticulosis. I saw the patient today at the bedside. She was sitting up in the chair along the bedside. She is alert and oriented. The patient denied shortness of breath, chest pain, has some epigastric abdominal pain. Denies cough, hemoptysis, hematochezia, dysuria, hematuria, fevers or chills. PHYSICAL EXAMINATION: VITAL SIGNS: Temperature 98.8, pulse rate 78, blood pressure 120/72, saturating 97 to 100 on room air. GENERAL: The patient appeared chronically ill. No acute distress. Normocephalic, atraumatic. HEENT: PERRLA. Mucous membranes moist. NECK: Supple. Normal inspection. No thyromegaly. RESPIRATORY: Clear to auscultation. HEART: S1, S2. No murmur, no gallop. ABDOMEN: Soft. No organomegaly. Epigastric tenderness. SKIN: Intact. No cyanosis. No edema. NEUROLOGIC: Moving all extremities. The patient is alert and oriented x3. No cognitive deficit. MEDICATIONS: The patient remains on Tylenol, Fioricet, Xanax, Augmentin, Sinemet, Zestril, Lopressor, Zofran, Protonix, MiraLax, Flomax, Ultram and Ambien. LABORATORY DATA: White blood cells 3.9, hemoglobin 8.8, hematocrit 27.3. Chemistry from 02/20/2019; sodium 136, potassium 4.4, BUN is 26, creatinine is 1.3, GFR is 48, random glucose 129. ASSESSMENT AND PLAN: This is a 74-year-old female with pancreatic cancer, renal insufficiency, renal cyst, hypertension, and urinary retention. Pulmonary is on the case. Gastroenterology is on the case. We will continue the patient on antibiotics for urinary tract infection. The patient remains on Flomax for urinary retention. We will monitor the patient's chemistry and complete blood count, chronic anemia. Xanax 0.25 was added every 6 hours for anxiety. We will repeat labs and we will follow up. AGRRED ALL ABOVE , CHART , MEDS , LABS NOTED , SATISFY WITH ADULT BASIC EDUCATION TEACHER TREATMENT PLAN . LABS ORDERED FOR JERMAN , Romel Arnold APN Kristen Prabhakar MD KEITH
[2019-02-24] MEDS: Pantoprazole 40 mg EC Tab PO SCH ×2 (05:49→17:18)
[2019-02-24 07:02] LABS: HEMOGLOBIN 8.8 g/dL (12.0-16.0); MEAN CELL VOLUME 95.4 fl (80.0-105.0); MEAN CORPUSCULAR HGB CONC 32.5 g/dl (31.0-37.0); MEAN PLATELET VOLUME 9.3 fl (7.0-11.0); RBC 2.84 10^6/uL (3.5-6.1); RED CELL DISTRIBUTION WIDTH 13.3 % (11.5-14.5); WHITE BLOOD COUNT 4.4 10^3/uL (4.5-11.0)
[2019-02-24] MEDS: Amoxicillin-Clav 500-125 mg Tab PO SCH ×2 (09:25→21:23)
[2019-02-24] MEDS: POLYETHYLENE GLYCOL 3350 17 GM/Dose PACKET PO SCH ×2 (09:26→17:18)
--- NOTE | 2019-02-24 09:32 | CP.PCM.PN ---
<De Lao - Last Filed: 02/24/19 11:11> Subjective - Date & Time of Evaluation Date of Evaluation: 02/24/19 Time of Evaluation: 09:27 - Subjective Subjective: [facility] Internal Medicine Resident- Progress Note on Behalf of Dr. Lomeli Subjective: Patient seen and examined at bedside. No acute events overnight. States she has experienced 2 nonbloody bowel movements since the previous evaluation. Abdominal pain has resolved Denies fever, chills, chest pain, SOB, vomiting, urinary symptoms, bright red blood per rectum, dark stools, and change in stool caliber. 12 point ROS negative except as indicated in the HPI Physical Examination: - Constitutional Appears: Well, No Acute Distress - Head Exam Head Exam: ATRAUMATIC, NORMAL INSPECTION - Eye Exam Eye Exam: EOMI. Absent: Scleral icterus - ENT Exam ENT Exam: Mucous Membranes Moist. absent: Mucous Membranes Dry - Respiratory Exam Respiratory Exam: NORMAL BREATHING PATTERN. absent: Accessory Muscle Use, Respiratory Distress - Cardiovascular Exam Cardiovascular Exam: REGULAR RHYTHM, RRR - GI/Abdominal Exam GI & Abdominal Exam: Soft. absent: Guarding, Hernia, Organomegaly, Rebound, Rigid, Tenderness - Extremities Exam Extremities exam: Positive for: normal inspection. 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 1. Abdominal pain- likely secondary to constipation 2. Pancreatic adenocarcinoma- T3 lesion s/p ChemoXRT 3. Hx of cecal adenocarcinoma s/p resection and re-anastamosis 4. Intra and extrahepatic biliary ductal dilatation 5. Marked pancreatic ductal dilatation 09/2014 Colonoscopy showing diverticular bleeding s/p epinephrine injection. 07/2016 EGD showing erosive gastropathy 11/2018 Colonoscopy- diverticulosis, internal hemorrhoids, two 4-6 mm polyps in the transverse colon removed using injection-lift and hot snare 11/26/2018 MRI Abdomen with and without contrast- There is a large cyst arising from the upper pole of the right kidney measuring 8.5 x 9.4 x 10 cm. There are no solid elements or septations. There is a 4.2 cm cyst in the left kidney as well as smaller cysts. There is no evidence of hydronephrosis 02/21/2019 CT Abdomen and Pelvis with contrast- Intra and extrahepatic biliary ductal dilatation. Marked pancreatic ductal dilatation with pancreatic atrophy. The findings are nonspecific. Right upper pole renal cyst, 10.1 cm. Left upper pole renal cortical cyst, 4.5 cm. Left lower pole cortical cyst, 2.2 cm. Diverticulosis of the sigmoid colon without evidence of diverticulitis. - continue heart healthy diet - continue miralax 17gm PO BID- patient education provided on importance of continuing this regiment at home - recommend starting amitiza if miralax does not help in outpatient setting - pain control tramadol- prn to avoid opiate induced constipation - no further recommendations at this juncture Patient seen, case discussed with, and plan approved by attending physician, Dr. Lomeli. Objective - Vital Signs/Intake and Output Vital Signs (last 24 hours): Temp Pulse Resp BP Pulse Ox 98.4 F 72 18 129/66 100 02/22/19 16:42 02/23/19 17:24 02/22/19 16:42 02/23/19 17:24 02/22/19 16:42 Intake and Output: 02/24/19 02/24/19 06:59 18:59 Intake Total 240 Output Total 253 Balance -13 - Medications Medications: Current Medications Acetaminophen (Tylenol 325mg Tab) 650 mg PO Q6H PRN PRN Reason: Headache Last Admin: 02/21/19 12:22 Dose: 650 mg Acetaminophen/Butalbital/Caffeine (Fioricet) 1 tab PO DAILY PRN PRN Reason: Headache Last Admin: 02/21/19 16:28 Dose: 1 tab Alprazolam (Xanax) 0.25 mg PO DAILY IRVIN; Protocol Stop: 03/03/19 10:01 Amoxicillin/Clavulanate Potassium (Augmentin 500 Mg-125 Mg Tab) 1 tab PO Q12 IRVIN; Protocol Last Admin: 02/23/19 21:33 Dose: 1 tab Carbidopa/Levodopa (Sinemet 10/100) 1 tab PO TID IRVIN Last Admin: 02/23/19 17:26 Dose: 1 tab Lisinopril (Zestril) 10 mg PO DAILY [facility] Last Admin: 02/23/19 09:08 Dose: 10 mg Metoprolol Tartrate (Lopressor) 25 mg PO BID [facility] Last Admin: 02/23/19 17:24 Dose: 25 mg Ondansetron HCl (Zofran Inj) 4 mg IVP Q6H PRN PRN Reason: Nausea/Vomiting Last Admin: 02/22/19 18:24 Dose: 4 mg Pantoprazole Sodium (Protonix Ec Tab) 40 mg PO 0600,1600 [facility] Last Admin: 02/24/19 05:49 Dose: 40 mg Polyethylene Glycol (Miralax) 17 gm PO BID [facility] Last Admin: 02/23/19 17:25 Dose: Not Given Tamsulosin HCl (Flomax) 0.4 mg PO DAILY [facility] Last Admin: 02/23/19 09:08 Dose: 0.4 mg Tramadol HCl (Ultram) 50 mg PO TID PRN PRN Reason: Pain, moderate (4-7) Last Admin: 02/23/19 06:59 Dose: 50 mg Zolpidem Tartrate (Ambien) 5 mg PO HS PRN; Protocol PRN Reason: Insomnia Last Admin: 02/23/19 23:08 Dose: 5 mg - Labs Labs: 02/24/19 06:30 02/20/19 15:55 PT 11.9 SECONDS (9.4-12.5) 02/20/19 15:55 INR 1.07 02/20/19 15:55 APTT 34.3 Seconds (26.9-38.3) 02/20/19 17:00 <Milly Lomeli V - Last Filed: 02/24/19 22:57> Objective - Vital Signs/Intake and Output Vital Signs (last 24 hours): Temp Pulse Resp BP Pulse Ox 98 F 82 20 105/64 96 02/24/19 17:23 02/24/19 17:23 02/24/19 17:23 02/24/19 17:23 02/24/19 17:23 - Medications Medications: Current Medications Acetaminophen (Tylenol 325mg Tab) 650 mg PO Q6H PRN PRN Reason: Headache Last Admin: 02/21/19 12:22 Dose: 650 mg Acetaminophen/Butalbital/Caffeine (Fioricet) 1 tab PO DAILY PRN PRN Reason: Headache Last Admin: 02/21/19 16:28 Dose: 1 tab Alprazolam (Xanax) 0.25 mg PO DAILY [facility]; Protocol Stop: 03/03/19 10:01 Last Admin: 02/24/19 09:27 Dose: 0.25 mg Amoxicillin/Clavulanate Potassium (Augmentin 500 Mg-125 Mg Tab) 1 tab PO Q12 [facility]; Protocol Last Admin: 02/24/19 21:23 Dose: 1 tab Carbidopa/Levodopa (Sinemet 10/100) 1 tab PO TID [facility] Last Admin: 02/24/19 17:18 Dose: 1 tab Clonazepam (Klonopin) 0.5 mg PO BID PRN; Protocol PRN Reason: Anxiety Iron Sucrose 200 mg/ Sodium (Chloride) 110 mls @ 110 mls/hr IVPB DAILY [facility] Stop: 02/28/19 10:01 Lisinopril (Zestril) 10 mg PO DAILY [facility] Last Admin: 02/24/19 09:27 Dose: 10 mg Melatonin (Melatonin) 3 mg PO HS [facility] Last Admin: 02/24/19 21:24 Dose: 3 mg Metoprolol Tartrate (Lopressor) 25 mg PO BID [facility] Last Admin: 02/24/19 17:17 Dose: 25 mg Mirtazapine (Remeron) 30 mg PO HS [facility] Last Admin: 02/24/19 21:24 Dose: 30 mg Ondansetron HCl (Zofran Inj) 4 mg IVP Q6H PRN PRN Reason: Nausea/Vomiting Last Admin: 02/22/19 18:24 Dose: 4 mg Pantoprazole Sodium (Protonix Ec Tab) 40 mg PO 0600,1600 [facility] Last Admin: 02/24/19 17:18 Dose: 40 mg Polyethylene Glycol (Miralax) 17 gm PO BID [facility] Last Admin: 02/24/19 17:18 Dose: 17 gm Tamsulosin HCl (Flomax) 0.4 mg PO DAILY [facility] Last Admin: 02/24/19 09:25 Dose: 0.4 mg Tramadol HCl (Ultram) 50 mg PO TID PRN PRN Reason: Pain, moderate (4-7) Last Admin: 02/23/19 06:59 Dose: 50 mg Zolpidem Tartrate (Ambien) 5 mg PO HS PRN; Protocol PRN Reason: Insomnia Last Admin: 02/23/19 23:08 Dose: 5 mg - Labs Labs: 02/24/19 06:30 02/20/19 15:55 PT 11.9 SECONDS (9.4-12.5) 02/20/19 15:55 INR 1.07 02/20/19 15:55 APTT 34.3 Seconds (26.9-38.3) 02/20/19 17:00 Attending/Attestation - Attestation I have personally seen and examined this patient.: Yes I have fully participated in the care of the patient.: Yes I have reviewed all pertinent clinical information, including history, physical exam and plan: Yes Notes (Text): This is the addendum to the GI progress note dictated by the resident. The patient was seen and evaluated along with the resident. Patient had good bowel movements after the Relistor. Patient need to be in a long-term MiraLAX on a regular basis or harm amities a in view of these narcotic induced constipation 02/24/19 22:56
--- NOTE | 2019-02-24 12:48 | PN ---
DATE: 02/24/2019 PULMONARY PROGRESS NOTE REFERRING PHYSICIAN: Kristen Prabhakar MD SUBJECTIVE: The patient is seen lying in bed. No acute distress. No overnight events reported. The patient states that she slept five hours last night. Reports taking Ambien around 12 o' clock last night and was asleep by 1-1:30 last night. No headache, rhinitis, cough, shortness of breath, chest pain, abdominal pain, nausea, vomiting, diarrhea, leg pain or leg swelling reported. PHYSICAL EXAMINATION: GENERAL: No acute distress. VITAL SIGNS: Blood pressure 110/70, pulse 67, temperature 98.7, oxygen saturation 100% on room air. HEENT: Moist mucous membranes. Small oral cavity. NECK: Supple. No JVD. LUNGS: Fair airflow bilaterally. CARDIOVASCULAR: S1, S2. ABDOMEN: Soft. Nontender. No distention. No organomegaly. EXTREMITIES: No bilateral lower extremity edema. NEUROLOGIC: Awake, alert, verbal. Following commands. MEDICATIONS: Reviewed. Tylenol 650 every 6 hours p.r.n. headache, Fioricet 1 tab daily p.r.n., Xanax 0.25 mg daily, Augmentin 1 tab every 12 hours, Sinemet 1 tab three times a day, lisinopril 10 mg daily, metoprolol tartrate 25 mg twice a day, Zofran 4 mg IV push every 6 hours p.r.n., Protonix 40 mg twice a day, MiraLax 17 g twice a day, Flomax 0.4 mg daily, Ultram 50 mg three times a day p.r.n., and Ambien 5 mg h.s. p.r.n. LABORATORY DATA: Reviewed. WBC 4.4, RBC 2.84, hemoglobin 8.8, hematocrit 27.1, and platelets 184. POC glucose 123. Blood cultures preliminary, no growth after 48 hours. IMPRESSION AND PLAN: Resectable pancreatic cancer, been on radiation and chemotherapy, pulmonary embolism, history of colon cancer in the remote past, hypertension, diverticulosis, anemia, insomnia. Pulmonary point of view, continue inhaled bronchodilators, head of bed elevated 45 degrees, taking Ambien on as-needed basis for now. We will add melatonin at bedtime for insomnia. Continue gastric prophylaxis. Fall precautions. Bowel regimen. Sequential compression devices to bilateral lower extremities. Due to severe drop in hemoglobin, stool for occult blood ordered to be collected. We will start the patient on intravenous Venofer for three days for anemia. Fall precautions. The patient was seen and examined with Dr. Molina. Discussed assessment and plan as described above. The patient was seen and examined with Shania Dias, nurse practitioner. Discussed assessment and plan as described above. Thank you for this consult. We will follow with you. Arun Jauregui APN Hubert Molina MD
--- NOTE | 2019-02-24 15:05 | CON ---
DATE OF CONSULTATION: 02/24/2019 HISTORY OF PRESENT ILLNESS: In short, the patient is 74-year-old female with reported history of cecal carcinoma. The patient has multiple medical issues. Please see admission note for more detailed information. Psych consult was called for evaluation of medication and possible depression and anxiety. The patient was seen and examined today. This telegraphic typewriter repairer is very familiar with this patient from the previous consultation services, which took place here in [place] and most recently, the patient was seen by this telegraphic typewriter repairer on in 11/2018. The patient was seen and examined today. The patient presented to be withdrawn and depressed. The patient reported that she wants to take her medication what was prescribed by her primary care physician, and the patient was saying that she was taking Ambien which is 10 mg, also other medication for anxiety. The patient reported that she fills her medication in the pharmacy, and we will call and confirm. The patient was taking Ambien not 10 mg but 5 mg, which was already resumed. The patient was on clonazepam 1 mg one time a day, but we will give Klonopin 0.5 mg twice a day as needed for anxiety. The patient also was on Remeron at the nighttime 30 mg, which will be resumed. The patient denied any feeling of hopelessness, denied any feeling of helplessness, denied suicidal ideation, denied intent or plan to kill herself. The patient is not psychotic. PHYSICAL EXAMINATION: VITAL SIGNS: Reviewed. Temperature 98.7, pulse is 67, blood pressure 110/70, respirations 18, oxygen saturation 100. MEDICATIONS: Reviewed. Tylenol, Fioricet, Xanax 12.25 mg daily, Augmentin, Sinemet, Klonopin will be started 0.5 mg twice a day as needed, lisinopril, melatonin 3 mg at the nighttime, Lopressor, Zofran, Protonix, MiraLax, Flomax, Ultram, Ambien 5 mg a day as needed for insomnia. LABORATORY DATA: Labs reviewed. Coagulation reviewed. Chemistry reviewed. Urinalysis reviewed, which showed leukocyte esterase positive, and urine showed hemolytic Streptococcus. As per nursing report, the patient does not exhibit any aggressive or agitated behavior. MENTAL STATUS EXAMINATION: The patient appears to be alert, somewhat pleasant, mood described as episodes of anxiety and the need to take medication what was prescribed. Affect was constricted. Thought process, coherent and goal-directed. Thought content, the patient denied visual, auditory, or tactile hallucinations. Denied paranoid ideation. The patient denied thoughts of harming herself or others. Denied intent or plan. Insight and judgment seemed to be limited, but improving. Impulses are well controlled. IMPRESSION: Most likely, the patient has mood disorder due to general medical condition, rule out major depressive disorder. PLAN: Medication was confirmed by the patient's pharmacy. Remeron was resumed 30 mg a day, Klonopin 0.5 mg b.i.d., Ambien 5 mg as needed. We will follow up and advise accordingly. Should you have any questions give me a call back. Kirstie Crowder MD
[2019-02-24 17:25] VITALS: RESP 20
[2019-02-24] MEDS ORDERED: Melatonin 3 MG Tab PO SCH (22:00)
--- NOTE | 2019-02-24 22:03 | PN ---
This case was discussed with Dr. Prabhakar she is inagreement with treatment plan. DATE: 02/24/2019 SUBJECTIVE: This is a 74-year-old female, who came in with abdominal pain, urinary retention with past medical history of hypertension, gastric reflux disease, cholelithiasis, diverticulosis, Parkinson's and pancreatic cyst. I saw the patient at the bedside today. She was alert and oriented, denying chest pain or shortness of breath. Denied abdominal pain today, reporting that she is able to eat and keep food down. The patient was ambulating to the bathroom and back, gait was steady. She denies fevers or chills. PHYSICAL EXAMINATION GENERAL: The patient appeared chronically ill, in no acute distress. VITAL SIGNS: Temperature 98, pulse rate 82, blood pressure 105/64, respirations 20, saturating at 96% on room air. HEENT: Normocephalic and atraumatic. PERRLA, mucous membranes moist. NECK: Supple. No thyromegaly. RESPIRATIONS: Clear to auscultation. CARDIOVASCULAR: S1, S2. No JVD. ABDOMEN: Soft, nondistended. No abdominal tenderness. No organomegaly. EXTREMITIES: Moving all extremities. SKIN: Intact. No edema. No cyanosis. NEUROLOGIC: The patient is alert and oriented x3, following all commands. LABORATORY DATA: White blood cells on 02/24/2019 was 4.4, hemoglobin 8.8, hematocrit 27.1. Sodium 136, potassium 4.4, BUN 26, creatinine 1.3. Glucose today is 113. MEDICATIONS: Tylenol 325 mg, Fioricet, Xanax 0.25 mg, Augmentin, Sinemet, Klonopin, lisinopril, melatonin, Lopressor, Remeron, Zofran, Protonix, MiraLax, Ultram, Ambien. ASSESSMENT AND PLAN: This 74-year-old female is with urinary retention, hypertension, Parkinsonian disease and hyperlipidemia. The patient is continuing on Sinemet, Augmentin 500 mg. The patient is to take her iron, sucrose intravenous piggyback daily. For anemia review with Hematology. The patient's hemoglobin and hematocrit is low. She continues on Lopressor, Flomax. The patient's current psychiatrist was consulted. Pulmonary is on the case. Gastroenterology is on the case. PLAN: To follow up with Gastroenterology. The patient may be discharged possibly tomorrow if cleared by Gastroenterology. The patient had some urinary retention. Boyd was taken out. The patient is voiding. So we want the patient to void for 24 hours before discharge, which would most likely be tomorrow. The patient is voiding on own. Also she was seen by Urology. The patient is on Flomax. We will follow up. ALL ABOVE NOTED AGREED WITH PIANO MAKER PLAN , CHART . LABS AND MEDS NOTED , WILL F/U Romel Arnold APN Kristen Prabhakar MD KEITH
--- NOTE | 2019-02-25 01:37 | PN ---
DATE: 02/24/2019 UROLOGY DAILY PROGRESS NOTE See the history and physical, consultation, and urology progress note, urology consult note. SUBJECTIVE: The patient is currently resting comfortably. The patient is initially seen on 02/22/2019 as a consult, on 02/23/2019 we gave a voiding trial, and 02/24/2019 is a followup. is fine. Her initial complaints of back pain, abdominal pain are feeling better. From urology standpoint, no further intervention is required at this point. I would encourage the patient to come back for routine followup and we will check further. DIAGNOSES: Urinary retention, voiding dysfunction and now the patient is doing better. No other changes are noted. We will continue to follow along. From urology standpoint, the patient is cleared for discharge. Outpatient followup. Crow Mares MD
[2019-02-25] MEDS: Pantoprazole 40 mg EC Tab PO SCH (05:35)
[2019-02-25 09:11] VITALS: BP 118/72; PULSE 70; TEMP 98.2; O2SAT 99
[2019-02-25] MEDS: Amoxicillin-Clav 500-125 mg Tab PO SCH (09:16)
[2019-02-25] MEDS: POLYETHYLENE GLYCOL 3350 17 GM/Dose PACKET PO SCH (09:18)
--- NOTE | 2019-02-25 11:10 | CP.PCM.PCO ---
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
--- NOTE | 2019-02-25 12:06 | PN ---
DATE: 02/25/2019 PULMONARY PROGRESS NOTE REFERRING PHYSICIAN: Dr. Kristen Prabhakar. SUBJECTIVE: The patient is seen in room sitting in armchair. No acute distress. No overnight events reported. States that she feels well this morning. No headache, rhinitis, cough, shortness of breath, chest pain, abdominal pain, nausea, vomiting, diarrhea, leg pain, or leg swelling reported. The patient's catheter was removed and states that she has been voiding. OBJECTIVE: GENERAL: No acute distress. VITAL SIGNS: Blood pressure 118/72, pulse 70, temperature 98.2, and oxygen saturation 99% on room air. HEENT: Moist mucous membranes. Small oral cavity. NECK: Supple. No JVD. LUNGS: Fair airflow bilaterally. CARDIOVASCULAR: S1 and S2. ABDOMEN: Soft and nontender. No distention. No organomegaly. EXTREMITIES: No bilateral lower extremity edema. NEUROLOGIC: Awake, alert, and verbal. Following commands. MEDICATIONS: Reviewed. Tylenol 650 every 6 hours p.r.n., Fioricet 1 tab daily p.r.n., Xanax 0.25 mg daily, Augmentin 1 tab every 12 hours, Sinemet 1 tab three times a day, Klonopin 0.5 mg twice a day p.r.n., iron sucrose 200 mg, sodium chloride 110 mL per hour daily, lisinopril 10 mg daily, melatonin 3 mg at bedtime, metoprolol tartrate 25 mg twice a day, Remeron 30 mg at bedtime, Zofran 4 mg IV push every 6 hours p.r.n., Protonix 40 mg twice a day, MiraLax 17 g twice a day, Flomax 0.4 mg daily, Ultram 50 mg three times a day p.r.n., and Ambien 5 mg at bedtime p.r.n. LABORATORY DATA: Reviewed. POC glucose 127. Blood cultures preliminary; no growth after three days. IMPRESSION AND PLAN: Resectable pancreatic cancer, been on radiation and chemotherapy; pulmonary embolism; history of colon cancer in the remote past; hypertension; diverticulosis; anemia and insomnia. Continue inhaled bronchodilators, head of bed elevated at 45 degrees. We will decrease Ambien to 2.5 mg p.r.n. at bedtime. Continue melatonin. Continue gastric prophylaxis and fall precautions. Sequential compression devices to bilateral lower extremities. Cannot be on chemical prophylaxis due to severe drop in hemoglobin. Neurology followup and pain management. The patient was seen and examined with Dr. Molina. Discussed assessment and plan as described above. The patient was seen and examined with Shania Dias, nurse practitioner. Discussed assessment and plan as described above. Thank you for this consult. We will follow with you. Shania Dias APN Hubert Molina MD MTD[facility]inmay
--- NOTE | 2019-02-25 16:00 | PN ---
DATE: 02/25/2019 SUBJECTIVE: The patient is a 74-year-old -[place] female with multiple medical issues including sacral adenocarcinoma, hypertension, Parkinson's disease, pancreatic adenocarcinoma, chronic opioid use, diabetes, hypertension, constipation and many more. The patient was admitted on the medical side. Psych consult was called for evaluation of possible anxiety. Initially, the patient was seen yesterday. The patient presented to be anxious and reported that she is in pain. This typewriter operator automatic called to the Pharmacy, confirmed the medication list for the patient and everything was resumed. Medication nuñez, the patient was on Xanax 0.25 mg daily. The patient is on Klonopin 0.5 mg twice a day as needed. The patient is on melatonin and Remeron at the nighttime and the patient was on Ambien 5 mg at the nighttime, but medical team decreased the dose to 2.5 mg, no objection over that. The patient was seen to today. The patient presented well. The patient reported that she feels comfortable. She denied any pain or any discomfort. Mood described as okay. Affect was constricted, but more reactive. Mood congruent. Thought process was coherent and goal-directed. Thought content, the patient denied visual, auditory tactile hallucinations. Denied paranoid ideation. The patient does not present to be psychotic or anxious or depressed. Hematology reviewed. Coagulation reviewed. Chemistry reviewed. Urinalysis reviewed. IMPRESSION: Most likely, the patient has mood disorder and anxiety disorder due to general medical condition. PLAN: We will suggest to continue current management and current medication. The patient appears to be more comfortable to compare with yesterday. This typewriter operator automatic feels this patient posed no imminent danger to self or others. The patient contracted for safety. Should you have any questions, give me a call back. This typewriter operator automatic will sign off. Kirstie Crowder MD MTDD
--- NOTE | 2019-02-26 01:32 | DS ---
The patient was seen and examined at the bedside on 02/25/2019. CHIEF COMPLAINT: Abdominal pain. HISTORY OF PRESENT ILLNESS: Ms. 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 We did CT scan of the abdomen and pelvis. Seen by Dr. Molina for insomnia, Dr. Mares for urinary retention, Dr. Crowder for depression, Dr. Lomeli for abdominal pain. cleared the patient. The patient wanted to go home. Discharged home with daughter, Brenda. Connor, nurse practitioner provided medications on the bedside. She will follow up in a primary care physician's office. PAST MEDICAL HISTORY: As above, pulmonary emboli on Xarelto, Parkinson's disease, diabetes, diverticulitis, anxiety, cholecystectomy, history of pancreatic cancer. FAMILY HISTORY: Father and mother noncontributory. HABITS: Never smoked. No drugs. No ethanol. ALLERGIES: THE PATIENT NOT ALLERGIC WITH ANY MEDICATIONS. HOME MEDICATIONS: Reviewed by me. REVIEW OF SYSTEMS: The patient was seen and examined at the bedside, looking comfortable. No fever. No chills. No hematuria. No hematochezia. No headache. No dizziness. No chest pain. No palpitations. The patient's catheter was removed and states she has been voiding. PHYSICAL EXAMINATION: VITAL SIGNS: Blood pressure 118/72, pulse 70, temperature 98.2, oxygen saturation 99% on room air. HEENT: Head; normocephalic, atraumatic. Eyes; PERRLA. Extraocular muscles intact. Conjunctivae clear. Nose patent. Mucous membranes moist. NECK: Supple. No carotid bruits. No JVD. No thyromegaly. CHEST: Bilaterally symmetrical. HEART: S1, S2 positive. LUNGS: Clear to auscultation. ABDOMEN: Soft. Bowel sounds present. No organomegaly. EXTREMITIES: No edema. No cyanosis. NEUROLOGIC: The patient is awake and alert. Moving all four extremities. No focal deficits. MEDICATIONS: Tylenol, Fioricet, Xanax, Augmentin, Sinemet, Klonopin, lisinopril, melatonin, metoprolol, Remeron, Zofran, Protonix, Miralax, Flomax. LABORATORY DATA: We do not have recent lab today, but reviewed old labs. Glucose 127. Blood cultures no growth after 3 days. ASSESSMENT AND PLAN: Ms. Wanda Obrien is a 74-year-old female with multiple medical problems, Parkinsonism, diverticulitis, pancreatic cancer status post resection and chemotherapy and radiation therapy from [facility], pulmonary embolism on Xarelto, history of colon cancer in the remote past with surgery and reanastomosis, hypertension, anemia, insomnia, came with abdominal pain, seen by Gastroenterology, cleared. Insomnia seen by the sleep specialist. Dr. Molina decreased the Ambien to 2.5 mg. Continue melatonin. Continue gastric prophylaxis. After getting clearance discharged the patient home. Medications prescriptions given. The patient's daughter, Yary picked up the patient. We will follow up as outpatient. Kristen Prabhakar MD
== END 2019-02-25 15:06 | disposition home or self-care (01) | DRG 392 ==
LOC: ED 14:30 → ERH 02-21 00:12 → 3RSO 02-21 01:14 → OBSVTOIN 02-22 19:48
PROVIDERS: ADMIT Internal Medicine; ATTEND Internal Medicine
DX: K59.03 Drug induced constipation (principal); C25.9 Malignant neoplasm of pancreas, unspecified; N39.0 Urinary tract infection, site not specified; B95.1 Streptococcus, group B, as the cause of diseases classified elsewhere; T40.2X5A Adverse effect of other opioids, initial encounter; I10 Essential (primary) hypertension; E11.65 Type 2 diabetes mellitus with hyperglycemia; K57.30 Diverticulosis of large intestine without perforation or abscess without bleeding; D64.9 Anemia, unspecified; F06.4 Anxiety disorder due to known physiological condition; F06.30 Mood disorder due to known physiological condition, unspecified; N39.41 Urge incontinence; G47.10 Hypersomnia, unspecified; G20 Parkinson's disease; K21.9 Gastro-esophageal reflux disease without esophagitis; E78.5 Hyperlipidemia, unspecified; F32.9 Major depressive disorder, single episode, unspecified; R33.9 Retention of urine, unspecified; N28.1 Cyst of kidney, acquired; K83.8 Other specified diseases of biliary tract; Z86.718 Personal history of other venous thrombosis and embolism; Z79.891 Long term (current) use of opiate analgesic; Z85.038 Personal history of other malignant neoplasm of large intestine; Z86.711 Personal history of pulmonary embolism; Z79.02 Long term (current) use of antithrombotics/antiplatelets